=== PATIENT | male | born 1980 | race African-American/Black ===

== ENCOUNTER 2018-04-22 07:03 | Inpatient (IN) | payer BC ==
[2018-04-22] MEDS ORDERED: Ondansetron PF 4 MG/2 ML Vial ONE (07:32)
[2018-04-22] MEDS ORDERED: Morphine 4 MG/ML VIAL ONE ×2 (07:32→08:36)
--- NOTE | 2018-04-22 08:43 | CT ---
CT ABDOMEN AND PELVIS WITH IV CONTRAST: Date: 04/22/18 HISTORY: Lower abdominal pain and vomiting. FINDINGS: The lung bases are unremarkable. There is fatty infiltration of the liver. No hepatic mass or abnorma l biliary ductal dilatation is seen. No calcified gallstones are noted. There is peripancreatic infla mmatory change and fluid in the anterior peritoneal space. There is also a small amount of free fluid in the pelvis. No pancreatic necrosis or calcifications are seen. The spleen, adrenal glands, and ri ght kidney are normal. There is a low density lesion in the left kidney, likely cyst. The small bowel loops are not abnormally dilated. A normal appearing appendix is seen. No portal splenic thrombosis is identified. A small, fat-containing umbilical hernia is present. IMPRESSION: 1. Fatty liver. 2. Pancreatitis. POS: MOIZ
[2018-04-22] MEDS ORDERED: Heparin 10,000 UNITS/ 10 ML VIAL ONE (09:00)
[2018-04-22] MEDS ORDERED: Fentanyl 100 MCG/2 ML VIAL ONE ×2 (09:26→11:06)
[2018-04-22 09:31] LABS: Hemoglobin 15.7 g/dL (14.0-18.0); Mean Corpuscular HGB CONC 31.4 g/dL (32.0-36.0); Mean Corpuscular Hemoglobin 25.8 pg (27.0-31.0); Mean Corpuscular Volume 82.3 fL (78.0-98.0); Mean Platelet Volume 8.6 fL (7.4-10.4); Platelet Count 247 thou/uL (130-400); RBC Distribution Width 12.8 % (11.5-14.5); Red Blood Cell (RBC) Count 6.07 mill/uL (4.70-6.10)
[2018-04-22 09:36] LABS: Albumin 4.3 g/dL (3.5-5.0)
[2018-04-22 09:37] LABS: Chloride 96 mmol/L (98-107)
[2018-04-22 09:38] LABS: Calcium 8.9 mg/dL (7.8-10.44); Potassium 5.2 mmol/L (3.5-5.1); Sodium 128 mmol/L (136-145)
[2018-04-22 09:39] LABS: Globulin 3.1 g/dL (2.4-3.5); Glucose 255 mg/dL (70-105); Protein, Total 7.4 g/dL (6.0-8.3)
[2018-04-22 09:40] LABS: Carbon Dioxide 20 mmol/L (22-29)
[2018-04-22 09:41] LABS: Bilirubin, Total 1.9 mg/dL (0.2-1.2)
[2018-04-22 09:42] LABS: Alkaline Phosphatase 59 U/L (40-150); Calc. Creatinine Clearance 0 mL/min (70-130); Estimated GFR-MDRD Greater than 90
[2018-04-22 09:43] LABS: BUN (Urea Nitrogen) 21 mg/dL (8.9-20.6)
[2018-04-22 09:44] LABS: AST (SGOT) 44 U/L (5-34)
[2018-04-22 09:45] LABS: ALT (SGPT) 63 U/L (8-55)
[2018-04-22 09:58] LABS: Bilirubin Negative (Negative); Blood, Urine Small (Negative); Clarity CLEAR (Clear); Glucose, Urine (Dipstick) 500 mg/dL (Negative); Leukocyte Negative (Negative); Nitrite Negative (Negative); Protein, Urine (Dipstick) Trace mg/dL (Neg-Trace); Urobilinogen 0.2 mg/dL (0.2-1.0); pH, Urine 5.5 (5.0-9.0)
[2018-04-22 10:00] LABS: Anion Gap 17 mmol/L (10-20)
[2018-04-22 10:02] LABS: Bacteria/HPF None Seen HPF (None Seen); Hyaline Casts/LPF 0-3 HYALINE CAST LPF (0-3 Hyaline); Squamous Epithelial 0-3 HPF (0-3); WBC/HPF 0-3 HPF (0-3)
[2018-04-22 10:08] LABS: Specific Gravity, Urine 1.052 (1.002-1.036)
[2018-04-22 10:11] LABS: Band 11 % (5-11); Large Platelets SLIGHT; MDiff Complete? YES; Monocytes 3 % (0-10); Neutrophil 64 % (42-75); PLT Morphology Comment Appears Adequate; RBC Morphology Normal; Reactive Lymphocytes 22 % (0-10); White Blood Cell (WBC) Count 24.3 thou/uL (4.8-10.8)
[2018-04-22 10:37] LABS: Lipase 1299 U/L (8-78)
[2018-04-22] MEDS ORDERED: Dextrose 5 % And 0.9 % NaCl 1,000 ML IV SCH (11:30)
--- NOTE | 2018-04-22 11:33 | ULT ---
ULTRASOUND ABDOMEN LIMITED: (RIGHT UPPER QUADRANT) HISTORY: 37-year-old male with epigastric pain. FINDINGS: The gallbladder has normal wall thickness and has no evidence of gallstones or sludge. The hepatic ec hogenicity is diffusely increased, consistent with fatty liver. Liver is mildly enlarged. The right kidney has normal echogenicity and has no hydronephrosis. The pancreas is poorly visualized. There i s no biliary dilation. The common duct caliber is 5 mm. IMPRESSION: 1. Hepatic steatosis and hepatomegaly. 2. No other pathology identified. 3. Pancreas poorly visualized. jn [] POS: JANUSZ
[2018-04-22] MEDS ORDERED: ISOVUE-370 76%-LOCM 1 ML ONE (12:40)
[2018-04-22] MEDS ORDERED: Morphine 4 MG/ML VIAL SLOW IVP PRN (14:03)
[2018-04-22] MEDS ORDERED: Ondansetron PF 4 MG/2 ML Vial IVP PRN (15:42)
[2018-04-22] MEDS ORDERED: Acetaminophen 325 MG TAB PO PRN (15:42)
[2018-04-22] MEDS ORDERED: Sodium Chloride 0.9% 1,000 ML IV SCH (16:47)
[2018-04-22] MEDS ORDERED: Dextrose 5% in Water 1,000 ML IV PRN (16:47)
[2018-04-22] MEDS ORDERED: HumaLOG 300 UNITS/3 ML VIAL SC PRN (16:47)
[2018-04-22] MEDS ORDERED: Dextrose 50% Abboject 50 ML SYRINGE SLOW IVP PRN (16:47)
[2018-04-22] MEDS: NS 0.9% w/ 20 MEQ KCL 1,000 ML IV SCH ×2 (17:23→21:44)
[2018-04-22] MEDS: Morphine 4 MG/ML VIAL SLOW IVP PRN ×2 (17:24→21:43)
[2018-04-22] MEDS: Piperacillin/Tazobactam 3.375 GM in Sodium Chloride 0.9% 100 ML IVPB SCH ×2 (17:25→23:33)
--- NOTE | 2018-04-22 19:22 | HP ---
PRIMARY CARE PHYSICIAN: Taniya Neri M.D. CHIEF COMPLAINT: Abdominal pain. HISTORY OF PRESENT ILLNESS: Mr. Cao is a pleasant 37-year-old gentleman that has a history of hypertension as well as asthma. He was in his usual state of health until a few days prior to admission. He began having some abdominal pain. He says it started while he was picking up some wood in his backyard. He really cannot remember whether or not it was related to eating, but his says that he had a barbecue earlier that day at his job and suspects that he probably ate some. The patient says it is extremely severe and he also noted some pain in his back, but he had related the back pain to picking up the burgos and thought he may have sprained something. He also says he has been vomiting multiple times and felt constipated and this is the main reason that he came in. He also says he has been feeling hot all the time, but no chills. He says that when he had some vomiting, there was some blood in the toilet, but he does not remember having any melena or dark stools. The patient was evaluated in the ER, had a CT scan which was demonstrated some inflammation around the pancreas, no evidence of any stones in the gallbladder. His lipase was also elevated and he is being admitted for further treatment. REVIEW OF SYSTEMS: All systems are reviewed and are negative except for that mentioned in the history of present illness. PAST MEDICAL HISTORY: Significant for asthma and hypertension. PAST SURGICAL HISTORY: He has had some type of oral surgery. ALLERGIES: CIPROFLOXACIN. SOCIAL HISTORY: He denies any tobacco use. He does occasionally uses a vapor cigarettes. He does drink occasionally, but is only 1 or 2 beers every now and then. MEDICATIONS: Lisinopril 10 mg daily as well as albuterol p.r.n. FAMILY HISTORY: Significant for cancer. PHYSICAL EXAMINATION: GENERAL: He is alert and oriented. He is well-developed and well-nourished, and appears in no acute distress. VITAL SIGNS: Blood pressure was 162/100, heart rate 118, respiratory rate of 25 , and temperature is 98.1. HEENT: Pupils are equal, round, and reactive. Extraocular muscles are intact. Sclerae are anicteric. Throat: There is no erythema, no exudates. NECK: No adenopathy, no bruits. LUNGS: Clear to auscultation. There was no wheezing, no rales, no rhonchi. CARDIOVASCULAR: He has a normal S1 and S2. I did not appreciate an S3 or S4. No murmurs, no clicks, no rubs. ABDOMEN: Distended. He has diffuse tenderness. There is no rebound, no guarding, no organomegaly. EXTREMITIES: There is trace edema. There is no calf tenderness, no erythema, no warmth. NEUROLOGIC: Cranial nerves II through XII are intact. His muscle strength is 5 /5 in both his upper and lower extremities. SKIN AND INTEGUMENT: On his right lateral calf, there is a small ulcer with an erythematous base, mainly keratinized with a small opening. There was no purulent drainage, no surrounding induration or erythema and otherwise no other skin lesions. LABORATORY RESULTS: Sodium was 128, potassium 5.2, chloride is 96, CO2 is 20, BUN of 21, creatinine 0.87, glucose was 255, total bilirubin was 1.9, AST is 44 , ALT 63, lipase was 1299. White blood cell count is 24.3, hemoglobin 15.7, hematocrit is 49.9, platelet count was 247. Urinalysis was essentially negative. ASSESSMENT AND PLAN: 1. This is a 37-year-old gentleman, who presents to the emergency room with severe abdominal pain. He was found to have an elevated lipase and radiological evidence for pancreatitis. It is unclear of the etiology; however , the patient does state that he started on a ketotic diet around the same time his symptoms started and his bilirubin was slightly elevated. It is possible that he may have passed a small stone, possibly as a result to this new dieting that he had started. He says that he had a recent cholesterol level drawn, which was normal. Otherwise, there is no obvious risk factors for pancreatitis. He will be admitted to the medical floor, started on IV hydration. We will monitor his electrolytes as well as his serum glucose and respiratory status. He will be left n.p.o. for bowel rest except for medications, IV analgesics for pain control and IV antiemetics and reevaluate him in the a.m. 2. Sepsis Syndrome- Suspected due to pancreatitis 3. For hypertension, we will place him on p.r.n. medications as needed. We will hold off on the lisinopril for now. 4. Asthma. We will have DuoNebs p.r.n. available and he will be placed on deep venous thrombosis and gastrointestinal prophylaxis. MTDD
[2018-04-22] MEDS: Famotidine/PF 20 mg/2ml Vial SLOW IVP SCH (21:43)
[2018-04-22 21:56] LABS: Amphetamine Not Detected (NotDetected); Barbiturates Screen Not Detected (NotDetected); Benzodiazepine Screen Not Detected (NotDetected); Cocaine Metabolite Screen Not Detected (NotDetected); Medtox Control Line Valid? VALID (VALID); Medtox Reader # READER 1; Methadone Not Detected (NotDetected); Methamphetamine Not Detected (NotDetected); Opiate Screen Detected (NotDetected); Oxycodone Screen Not Detected (NotDetected); Phencyclidine (PCP) Not Detected (NotDetected); THC/Cannabinoid Screen Not Detected (NotDetected); Tricyclic Screen Not Detected (NotDetected)
[2018-04-22] MEDS: HumaLOG 300 UNITS/3 ML VIAL SC PRN (22:25)
[2018-04-23 04:31] LABS: Band 37 % (5-11); Hemoglobin 14.2 g/dL (14.0-18.0); Lymphocytes 6 % (21-51); MDiff Complete? YES; Mean Corpuscular HGB CONC 31.2 g/dL (32.0-36.0); Mean Corpuscular Hemoglobin 26.2 pg (27.0-31.0); Mean Corpuscular Volume 83.9 fL (78.0-98.0); Mean Platelet Volume 9.3 fL (7.4-10.4); Metamyelocyte 2 % (0-0); Monocytes 12 % (0-10); Neutrophil 43 % (42-75); PLT Morphology Comment Appears Adequate; Platelet Count 223 thou/uL (130-400); RBC Distribution Width 13.1 % (11.5-14.5); RBC Morphology Normal; White Blood Cell (WBC) Count 25.5 thou/uL (4.8-10.8)
[2018-04-23 04:32] LABS: ALT (SGPT) 49 U/L (8-55); AST (SGOT) 72 U/L (5-34); Albumin 3.4 g/dL (3.5-5.0); Alkaline Phosphatase 50 U/L (40-150); Anion Gap 19 mmol/L (10-20); BUN (Urea Nitrogen) 38 mg/dL (8.9-20.6); Bilirubin, Direct 3.7 mg/dL (0.1-0.3); Bilirubin, Total 5.9 mg/dL (0.2-1.2); Calc. Creatinine Clearance 75 mL/min (70-130); Calcium 8.1 mg/dL (7.8-10.44); Carbon Dioxide 18 mmol/L (22-29); Cardiac Risk 3.6 (Less than 4.5); Chloride 98 mmol/L (98-107); Cholesterol 119 mg/dl (< 200 Desired); Estimated GFR-MDRD 30; Glucose 476 mg/dL (70-105); HDL Cholesterol 33 mg/dL (>60 Neg Risk); LDL Cholesterol, Calculated 57 mg/dL; Potassium 6.9 mmol/L (3.5-5.1); Protein, Total 6.1 g/dL (6.0-8.3); Sodium 128 mmol/L (136-145); Triglycerides 146 mg/dL (Less than 150)
[2018-04-23] MEDS: Morphine 4 MG/ML VIAL SLOW IVP PRN ×3 (05:03→21:14)
[2018-04-23] MEDS: HumaLOG 300 UNITS/3 ML VIAL SC PRN (05:06)
[2018-04-23] MEDS: Piperacillin/Tazobactam 3.375 GM in Sodium Chloride 0.9% 100 ML IVPB SCH ×4 (05:09→23:10)
[2018-04-23] MEDS: Lactated Ringer's 1,000 ML IV SCH ×2 (05:11→10:02)
[2018-04-23 05:14] LABS: Albumin 3.5 g/dL (3.5-5.0); Anion Gap 20 mmol/L (10-20); BUN (Urea Nitrogen) 39 mg/dL (8.9-20.6); BUN/Creatinine Ratio 13.98; Calc. Creatinine Clearance 78 mL/min (70-130); Carbon Dioxide 18 mmol/L (22-29); Chloride 99 mmol/L (98-107); Estimated GFR-MDRD 31; Glucose 472 mg/dL (70-105); Phosphorus 2.9 mg/dL (2.3-4.7); Sodium 130 mmol/L (136-145)
[2018-04-23] MEDS ORDERED: Calcium Gluc 4.6 MEQ/10 ML (100 MG/ML) SLOW IVP SCH (05:15)
[2018-04-23 05:16] LABS: Potassium 7.4 mmol/L (3.5-5.1)
[2018-04-23] MEDS: NS 0.9% w/ 20 MEQ KCL 1,000 ML IV SCH (05:33)
[2018-04-23 07:41] LABS: Albumin 3.7 g/dL (3.5-5.0); BUN (Urea Nitrogen) 42 mg/dL (8.9-20.6); BUN/Creatinine Ratio 12.24; Calc. Creatinine Clearance 64 mL/min (70-130); Calcium 8.2 mg/dL (7.8-10.44); Carbon Dioxide 14 mmol/L (22-29); Chloride 98 mmol/L (98-107); Estimated GFR-MDRD 25; Glucose 509 mg/dL (70-105); Phosphorus 2.6 mg/dL (2.3-4.7); Sodium 125 mmol/L (136-145)
[2018-04-23 07:48] LABS: Potassium 7.5 mmol/L (3.5-5.1)
[2018-04-23] MEDS ORDERED: CCU Electrolyte Replacement 1 EACH IVPB ONE (08:39)
[2018-04-23] MEDS ORDERED: Dextrose 5 %-0.45 % NaCl 1,000 ML IV PRN (08:39)
[2018-04-23] MEDS ORDERED: D5 1/2 NS w/20 mEq KCL 1,000 ML IV PRN (08:39)
[2018-04-23] MEDS ORDERED: Sodium Chloride 0.9% 1,000 ML IV PRN ×4 (08:39)
[2018-04-23] MEDS ORDERED: NS 0.9% w/ 20 MEQ KCL 1,000 ML IV PRN ×2 (08:39)
[2018-04-23] MEDS ORDERED: Insulin Regular 300 UNITS/3 ML VIAL IVP SCH (08:45)
[2018-04-23] MEDS ORDERED: Calcium Chloride 1 GM/10 ML Abboject SYRINGE IVP SCH (08:45)
[2018-04-23 08:48] LABS: Anion Gap 18 mmol/L (10-20)
--- NOTE | 2018-04-23 09:08 | PDOC.PN ---
- Subjective Encounter Start Date: 04/23/18 Encounter Start Time: 09:07 Mr. Cao was seen today in follow-up of Acute pancreatitis. He says the pain about a 4/10 today, and that he has less abdominal pain. He appears uncomfortable however. - Objective Resuscitation Status: Resuscitation Status FULL:Full Resuscitation MAR Reviewed: Yes Vital Signs & Weight: Vital Signs (12 hours) Temp Pulse Resp BP Pulse Ox 04/23/18 07:16 98.7 F 125 H 36 H 96/69 92 L 04/23/18 04:00 98.4 F 129 H 29 H 155/93 H 93 L 04/23/18 00:00 99.3 F 121 H 29 H 121/66 95 Weight Weight 331 lb I&O: 04/22/18 04/23/18 04/24/18 06:59 06:59 06:59 Intake Total 3941 Output Total 275 Balance 3666 Result Diagrams: 04/23/18 03:40 04/23/18 07:02 Additional Labs: Accuchecks 04/22/18 04/22/18 22:10 17:38 POC Glucose 388 H 304 H Phys Exam - Physical Examination HEENT: PERRLA Respiratory: no wheezing, no rales, no rhonchi, clear to auscultation bilateral Cardiovascular: RRR, no significant murmur, no rub tachycardic Gastrointestinal: soft + diffuse abdominal tenderness, mildly distended, bowel sounds are hypo- active Musculoskeletal: edema present 2+ pitting edema in both lower extemities Neurological: non-focal, moves all 4 limbs Psychiatric: A&O x 3 Dx/Plan (1) Acute pancreatitis Code(s): K85.90 - ACUTE PANCREATITIS WITHOUT NECROSIS OR INFECTION, UNSP Status: Acute (2) Acute kidney failure Status: Acute (3) Hyperkalemia Code(s): E87.5 - HYPERKALEMIA Status: Acute (4) Hyperglycemia Code(s): R73.9 - HYPERGLYCEMIA, UNSPECIFIED Status: Acute (5) Hypertension Code(s): I10 - ESSENTIAL (PRIMARY) HYPERTENSION Status: Acute - Plan * Acute Pancreatits- this has worsened overnight. He has developed acute renal failure, and he has an elevated bilirubin, and could have a common duct stone. GI has been notified of his change in condition * Acute Kidney failure- continue Hydration, and will consult Nephrology * Hyperkalemia- will treat with Kayexalate, Calcium Chloride, and glucose / insulin. * Hyperglycemia- likely from the acute pancreatitic injury- will place him on an insulin drip for better control, and to help with his hyperkalemia. Hopefully he will only need this for a short period * HTN- blood pressure is low- Lisinopril is on hold * Elevated Liver function tests- he is on empiric antibiotics for possible Cholangitis, and await GI input
[2018-04-23 09:09] LABS: Anion Gap 22 mmol/L (10-20); BUN (Urea Nitrogen) 44 mg/dL (8.9-20.6); Calc. Creatinine Clearance 62 mL/min (70-130); Calcium 7.9 mg/dL (7.8-10.44); Carbon Dioxide 13 mmol/L (22-29); Chloride 99 mmol/L (98-107); Estimated GFR-MDRD 24; Glucose 513 mg/dL (70-105); Sodium 126 mmol/L (136-145)
[2018-04-23] MEDS ORDERED: CCU ELECTROLYTE REPLACEMENT PROTOCOL FS PRN (09:10)
[2018-04-23] MEDS ORDERED: Magnesium Oxide 400 MG TAB PO PRN ×2 (09:10)
[2018-04-23] MEDS ORDERED: Magnesium 2 GM/NS 0.9% 100 ML 2 GM in Premix Bag 1 BAG IVPB PRN (09:10)
[2018-04-23] MEDS ORDERED: Potassium Phosphate 12 MMOL in Sodium Chloride 0.9% 250 ML 250 ML IV PRN (09:10)
[2018-04-23] MEDS ORDERED: Potassium Phosphate 15 MMOL in Sodium Chloride 0.9% 250 ML 250 ML IV PRN (09:10)
[2018-04-23] MEDS ORDERED: Potassium Chloride 20 MEQ TAB PO PRN (09:10)
[2018-04-23] MEDS ORDERED: Potassium Phosphate 9 MMOL in Sodium Chloride 0.9% 100 ML IVPB PRN (09:10)
[2018-04-23] MEDS ORDERED: Potassium Chloride 40 MEQ in Sodium Chloride 0.9% 250 ML 250 ML IVPB PRN (09:10)
[2018-04-23] MEDS ORDERED: Potassium Chloride 40 MEQ in Premix Bag 1 BAG IVPB PRN (09:10)
[2018-04-23 09:21] LABS: Potassium 7.8 mmol/L (3.5-5.1)
[2018-04-23] MEDS: Enoxaparin Sodium 40 MG/0.4 ML SYRINGE SC SCH (09:51)
[2018-04-23] MEDS: Famotidine/PF 20 mg/2ml Vial SLOW IVP SCH ×2 (09:52→20:24)
[2018-04-23] MEDS ORDERED: PROVENTIL INHALER 6.7 G (200 INHALATIONS) INH SCH (10:15)
[2018-04-23] MEDS ORDERED: Albuterol Sulfate 2.5 mg/3 ml Neb ONE (10:29)
[2018-04-23] MEDS ORDERED: Albuterol Sulfate 2.5 mg/0.5 ml Neb ONE (10:29)
[2018-04-23] MEDS ORDERED: Heparin 1,000 UNITS/ML VIAL ONE (11:11)
[2018-04-23] MEDS ORDERED: Lidocaine 1% (PF) 30 ML VIAL ONE (11:32)
[2018-04-23 11:49] LABS: HBSAg Index 0.18 S/CO (0-0.99); Hep B Core Total Ab Non-Reactive (NonReactive); Hep B Core Total Index 0.04 S/CO (0-0.79); Hep B Surf AB Non-Reactive (NonReactive); Hep B Surf Ag Non-Reactive S/CO (NonReactive); Hep C IgG Ab Non-Reactive (NonReactive); Hep C Index 0.07 S/CO (0-0.79)
[2018-04-23] MEDS ORDERED: Sodium Chloride 0.9% 1,000 ML IV SCH (12:15)
[2018-04-23] MEDS: Albumin 25% 25 GM/100 ML BOT IVPB SCH ×3 (12:48→23:58)
[2018-04-23] MEDS: Sodium Chloride 0.9% 1,000 ML IV SCH ×2 (12:56→12:57)
[2018-04-23 13:54] LABS: Anion Gap 20 mmol/L (10-20); BUN (Urea Nitrogen) 51 mg/dL (8.9-20.6); Calc. Creatinine Clearance 47 mL/min (70-130); Calcium 8.2 mg/dL (7.8-10.44); Carbon Dioxide 15 mmol/L (22-29); Chloride 103 mmol/L (98-107); Estimated GFR-MDRD 18; Glucose 321 mg/dL (70-105); Potassium 4.7 mmol/L (3.5-5.1); Sodium 133 mmol/L (136-145)
[2018-04-23] MEDS: Lorazepam 2 MG/ML VIAL SLOW IVP PRN ×2 (15:04→22:39)
--- NOTE | 2018-04-23 15:56 | CON ---
DATE OF CONSULTATION: 04/23/2018 HISTORY OF PRESENT ILLNESS: Mr. Cao is a 37-year-old black male who was admitted for acute abdominal pain. A CT scan of the abdomen was done which showed inflammation around the pancreas. The patient has been seen by GI. A planned upper GI endoscopy is being contemplated. We are now being consulte d for the persistent hyperkalemia and acute kidney injury. REVIEW OF SYSTEMS: Positive for abdominal pain. Positive for nausea. No overt vomiting, no diarrhe a, no constipation. Mild shortness of breath, no headache, no diplopia. Denies any fever or chills. Positive for chronic shortness of breath. No dysuria, no urinary frequency, no productive cough, n o headache. Energy level is decreased. No melena, no hematemesis. PAST MEDICAL HISTORY: 1. COPD. 2. Hypertension. PAST SURGICAL HISTORY: Status post oral surgery. ALLERGIES: CIPRO. TRAUMA: None. IMMUNIZATIONS: Up to date. HOSPITALIZATIONS: Please see past medical history. SOCIAL HISTORY: The patient is from [place]. He occasionally uses vapor cigarettes. Occasional al cohol, no IV drug abuse. Denies any blood transfusion. FAMILY HISTORY: No family history of ESRD. PHYSICAL EXAMINATION: VITAL SIGNS: Blood pressure is 96/69 with a heart rate of 125, respiratory rate is 36, O2 sat is 92% on room air, temperature 98.7. GENERAL: The patient is awake, obese, not in overt distress. SKIN: Adequate turgor. HEENT: He has pinkish conjunctivae, anicteric sclerae. NECK: No neck mass, no carotid bruits, no JVD. CHEST: No deformities. LUNGS: Decreased breath sounds, no wheezing. HEART: Tachycardic. No murmur, no gallops or rubs. ABDOMEN: Globular, soft, nontender, no masses. Decreased bowel sounds. EXTREMITIES: No edema, no deformities. MEDICATIONS: Of 04/23/2018, shows Tylenol 650 mg q.4. p.r.n., DuoNeb q.6 four times a day, Lovenox 40 mg subcu daily, Pepcid 20 mg IV daily, hydralazine p.r.n., Humalog sliding scale, Humulin D5 LR 20 0 mL per hour. LABORATORY DATA: Of 04/23/2018, white count 25.5, hemoglobin 14.2. Sodium 126, potassium 7.8, chlor isaias 99, carbon dioxide 13, BUN 44, creatinine 3.53. On 04/22/2018, creatinine was 0.87. Urinalysis showed specific gravity of 1.052: no pigmented granular cast. Glucose 500, protein is tr katie. CT scan of the abdomen and pelvis shows fatty liver. Finding of pancreatitis and kidneys are reporte d to be within normal. ASSESSMENT AND PLAN: 1. Acute kidney injury -- consider hemodynamically mediated renal dysfunction. Would suggest we als o start him on albumin infusion 25 grams IV q.6 for the next 3 days. The patient currently on IV vol ume repletion. 2. Hyperkalemia due to the worsening renal dysfunction and persistent hyperkalemia. We will proceed with the dialytic intervention. I have scheduled him for a 2-hour hemodialysis today. Fluid remova l will be minimized due to the hypertension with this patient. His urine sediment suggests he has ve ry prerenal numbers. I will initially do a 1-0 potassium bath on the 1st hour, then do a 2-0 potassi um bath the next hour. Thank you for the consult. We will continue to follow.
[2018-04-23 16:17] LABS: Actual Bicarbonate (HCO3a) 18.4 mEq/L (22-28); Base Excess (BEa) -6.1 mEq/L (-2.0 to +3.0); CO2 Tension 33.7 mmHg (35.0-45.0); Calcium, Ionized 1.11 mmol/L (1.12-1.30); Carboxyhemoglobin (COHb) 2.2 gm% (0.0-3.0); Hemoglobin (Hb) 13.8 g/dL (14.0-18.0); Potassium - ABG Lab 4.04 mmol/L (3.70-5.30); pH, Arterial 7.36 (7.35-7.45)
[2018-04-23 16:18] LABS: ALV-art Gradient 53.405 (0-20); O2 Tension (PaO2) 54.2 mmHg (80.0-100.0); Puncture Site RRA
--- NOTE | 2018-04-23 16:44 | OP ---
DATE OF PROCEDURE: 04/23/2018 PREOPERATIVE DIAGNOSES: 1. Acute renal failure. 2. Acute hyperkalemia. 3. Acute severe pancreatitis. POSTOPERATIVE DIAGNOSES: 1. Acute renal failure. 2. Acute hyperkalemia. 3. Acute severe pancreatitis. PROCEDURES PERFORMED: Placement of right femoral Trialysis catheter for emergent dialysis. INDICATIONS FOR PROCEDURE: A 37-year-old morbidly obese man presented with acute severe abdominal pa in. Clinical and radiographic examination was consistent with acute severe pancreatitis complicated by acute renal failure and hyperkalemia requiring emergent dialysis for the high potassium of 8. DESCRIPTION OF PROCEDURE: Informed consent obtained following the patient was placed in supine posit ion. The right groin was sterilely prepped and draped in usual fashion. The right femoral artery was palpated. Right femoral vein was then cannulated with an 18-gauge intro ducer needle medial to the palpated artery. There was a single pass with return of dark venous blood . A guidewire was passed through the needle and advanced into the right femoral vein without resista nce. The needle was withdrawn over the guidewire. A stab incision was made adjacent to the guidewir e using an 11 scalpel. Dilator was passed over the guidewire dilating subcutaneous tissues. Dilator was removed and a triple lumen Trialysis catheter was advanced over the guidewire and placed in the right femoral vein without resistance down to the hub. The guidewire was removed. Dark venous blood was aspirated from all 3 ports which were individually flushed with saline followed by straight hepa rin. Catheter was secured to the right groin using 3-0 nylon suture at 2 points. Sterile dressings were applied. The patient tolerated the procedure without any apparent complication and remains hemo dynamically stable following completion of the procedure.
[2018-04-23] MEDS: DEXTROSE IV SCH ×2 (16:51→23:58)
[2018-04-23] MEDS: SODIUM BICARBONATE IV SCH ×2 (16:51→23:58)
[2018-04-23] MEDS: NACL IV SCH ×2 (16:51→23:58)
[2018-04-23 17:07] LABS: Anion Gap 17 mmol/L (10-20); BUN (Urea Nitrogen) 41 mg/dL (8.9-20.6); Calc. Creatinine Clearance 52 mL/min (70-130); Calcium 8.6 mg/dL (7.8-10.44); Carbon Dioxide 20 mmol/L (22-29); Chloride 104 mmol/L (98-107); Estimated GFR-MDRD 19; Glucose 128 mg/dL (70-105); Potassium 4.5 mmol/L (3.5-5.1); Sodium 136 mmol/L (136-145)
--- NOTE | 2018-04-23 22:18 | CON ---
DATE OF CONSULTATION: 04/23/2018 HISTORY: Xavier Cao is a 37-year-old morbidly obese -[place] gentleman who was admitted las t night with bladder pain. At 07:05 was when he arrived. His sats was 97% on room air, blood pressure was 118/77, respirations were 36. A CAT scan of his abdomen revealed pancreatitis. He presented with upper abdominal pain. Denies any alcohol abuse. Denies any tobacco abuse. He sees Dr. Neri locally here with a diagnosis of asth ma and hypertension. Abdominal pain and vomiting. He was given fentanyl 100 mcg in the ER. He is now in the IMCU. He has had worsening respiratory distress, worsening renal function this morning. PAST MEDICAL HISTORY: Asthma, hypertension. PREVIOUS SURGICAL HISTORY: Oral surgery. MEDICATIONS: Chronic medications from home includes lisinopril 40, albuterol. Since admission, he was started on Zosyn, IV fluids, Lovenox, hydralazine. ALLERGIES: He is allergic to CIPRO. SOCIAL HISTORY: Otherwise unremarkable. FAMILY HISTORY: Unremarkable. PHYSICAL EXAMINATION: VITAL SIGNS: Sats are 92% on 2 liters, blood pressure 96/69, temperature 98, pulse 125, respirations 36. GENERAL: He is awake, responsive, just complaining of pain. Clearly, he is tachypneic. CHEST: Decreased breath sounds without any wheezing. CARDIAC: Normal S1, S2. No gallops. ABDOMEN: Soft, no masses. LABORATORY DATA: Shows white count of 25,000, H&H 14 and 45, platelet count 223. Sodium is 125, pot assium 7.5. BUN and creatinine are 42 and 3.4. His glucose is 519. IMPRESSION: 1. Acute pancreatitis with asthma. 2. Tachypnea secondary to metabolic acidosis. Bicarb is 14. 3. Renal failure, leukocytosis. PLAN: Emergency dialysis to be initiated, 10 units of IV insulin was given, 10 mg IV albuterol is be ing inhaled, decrease his potassium. Broad spectrum antibiotics and IV fluids. Supportive care. This is a 45-minute critical care time. If condition gets worse, he will be transferred to the ICU.
[2018-04-23 23:19] LABS: Anion Gap 18 mmol/L (10-20); BUN (Urea Nitrogen) 48 mg/dL (8.9-20.6); Calc. Creatinine Clearance 40 mL/min (70-130); Calcium 8.1 mg/dL (7.8-10.44); Carbon Dioxide 20 mmol/L (22-29); Chloride 101 mmol/L (98-107); Estimated GFR-MDRD 15; Glucose 247 mg/dL (70-105); Potassium 4.6 mmol/L (3.5-5.1); Sodium 134 mmol/L (136-145)
[2018-04-24] MEDS: Morphine 4 MG/ML VIAL SLOW IVP PRN (01:21)
[2018-04-24 04:47] LABS: Anion Gap 16 mmol/L (10-20); BUN (Urea Nitrogen) 53 mg/dL (8.9-20.6); Calc. Creatinine Clearance 35 mL/min (70-130); Calcium 8.2 mg/dL (7.8-10.44); Carbon Dioxide 24 mmol/L (22-29); Chloride 101 mmol/L (98-107); Estimated GFR-MDRD 13; Glucose 184 mg/dL (70-105); Potassium 4.1 mmol/L (3.5-5.1); Sodium 137 mmol/L (136-145)
[2018-04-24 04:50] LABS: ALT (SGPT) 43 U/L (8-55); AST (SGOT) 78 U/L (5-34); Albumin 3.6 g/dL (3.5-5.0); Alkaline Phosphatase 41 U/L (40-150); Bilirubin, Direct 5.3 mg/dL (0.1-0.3); Bilirubin, Total 7.7 mg/dL (0.2-1.2); Protein, Total 6.1 g/dL (6.0-8.3)
[2018-04-24] MEDS: DEXTROSE IV SCH ×7 (05:12→23:20)
[2018-04-24] MEDS: NACL IV SCH ×7 (05:12→23:20)
[2018-04-24] MEDS: SODIUM BICARBONATE IV SCH ×7 (05:12→23:20)
[2018-04-24] MEDS: Piperacillin/Tazobactam 3.375 GM in Sodium Chloride 0.9% 100 ML IVPB SCH ×4 (05:12→23:33)
[2018-04-24] MEDS: Albumin 25% 25 GM/100 ML BOT IVPB SCH ×4 (05:13→23:33)
[2018-04-24] MEDS: Lorazepam 2 MG/ML VIAL SLOW IVP PRN ×3 (05:19→22:21)
[2018-04-24 05:30] LABS: Band 15 % (5-11); Hemoglobin 11.4 g/dL (14.0-18.0); Hypochromia SLIGHT = 6-15 cells (100X) (0-5/hpf); Lymphocytes 12 % (21-51); MDiff Complete? YES; Mean Corpuscular HGB CONC 31.7 g/dL (32.0-36.0); Mean Corpuscular Hemoglobin 26.1 pg (27.0-31.0); Mean Corpuscular Volume 82.4 fL (78.0-98.0); Mean Platelet Volume 9.7 fL (7.4-10.4); Monocytes 4 % (0-10); Neutrophil 69 % (42-75); PLT Morphology Comment Appears Adequate; Platelet Count 180 thou/uL (130-400); Red Blood Cell (RBC) Count 4.37 mill/uL (4.70-6.10); White Blood Cell (WBC) Count 15.6 thou/uL (4.8-10.8)
--- NOTE | 2018-04-24 07:59 | RAD ---
CHEST ONE VIEW: HISTORY: Difficulty breathing. COMPARISON: None. FINDINGS: Diminished lung volumes, likely due to poor inspiratory effort. No masses or consolidation. Normal cardiac silhouette. No pneumothorax or osseous abnormalities. IMPRESSION: Diminished lung volumes, likely due to poor inspiratory effort. POS: JANUSZ
--- NOTE | 2018-04-24 08:22 | PRG ---
DATE OF SERVICE: 04/24/2018 This is a 37-year-old gentleman who was dialyzed yesterday on an emergency basis. He is on BiPAP bu t his chest x-ray is completely normal. PHYSICAL EXAMINATION: VITAL SIGNS: Sats are 98%, respiration 25, pulse 130, temperature is 97. His I's and O's are 6052 i n, 562 out. CHEST: Chest reveals decreased breath sounds, no wheezing. CARDIAC: Normal S1, S2. ABDOMEN: Soft, no masses. LABORATORY: Segs 69, 15 bands. Creatinine 6, BUN 53, glucose 187. His bicarbonate is 24. IMPRESSION: 1. Acute pancreatitis. 2. Renal failure. 3. History of asthma. 4. Morbid obesity. 5. Marked respiratory distress. The chest x-ray is relatively unremarkable. PLAN: Continue broad-spectrum antibiotics. Continue neb treatments, PT and supportive care. Dialysis will follow. One-half hour critical care time.
--- NOTE | 2018-04-24 08:53 | PDOC.PN ---
- Subjective Encounter Start Date: 04/24/18 Encounter Start Time: 08:52 Mr. Cao was seen today in follow-up of severe acute pancreatitis. He says his abdominal pain has improved. He rates it a 2/10. However he is tachypnic and appears very uncomfortable. - Objective Resuscitation Status: Resuscitation Status FULL:Full Resuscitation MAR Reviewed: Yes Vital Signs & Weight: Vital Signs (12 hours) Temp Pulse Resp BP Pulse Ox 04/24/18 07:27 97.8 F 131 H 25 H 143/101 H 98 04/24/18 07:19 131 H 27 H 99 04/24/18 07:18 131 H 27 H 99 04/24/18 06:30 128 H 26 H 118/94 H 98 04/24/18 06:03 129 H 26 H 129/99 H 97 04/24/18 05:09 134 H 33 H 130/89 97 04/24/18 04:33 131 H 26 H 151/88 H 97 04/24/18 04:04 127 H 29 H 157/77 H 97 04/24/18 03:44 99.0 F 126 H 26 H 136/101 H 97 04/24/18 03:04 126 H 32 H 102/70 98 04/24/18 02:30 126 H 27 H 117/76 97 04/24/18 02:05 128 H 28 H 111/50 L 97 04/24/18 01:10 125 H 32 H 112/88 99 04/24/18 01:05 126 H 41 H 97 04/24/18 00:32 127 H 28 H 132/81 97 04/24/18 00:07 99.1 F 129 H 29 H 116/77 98 04/23/18 23:30 128 H 31 H 125/75 98 04/23/18 23:05 98.2 F 133 H 35 H 110/81 96 04/23/18 22:35 132 H 32 H 114/50 L 96 04/23/18 22:06 135 H 33 H 110/75 95 04/23/18 21:42 136 H 31 H 133/90 95 04/23/18 21:20 136 H 36 H 112/77 96 Weight Weight 341 lb I&O: 04/23/18 04/24/18 04/25/18 06:59 06:59 06:59 Intake Total 3941 6052 Output Total 760 562 Balance 3666 5490 Result Diagrams: 04/24/18 04:00 04/24/18 04:00 Additional Labs: Accuchecks 04/24/18 04/24/18 04/24/18 06:03 05:09 04:04 POC Glucose 187 H 143 H 171 H 04/24/18 04/24/18 04/24/18 03:03 02:04 01:09 POC Glucose 166 H 202 H 248 H 04/24/18 04/23/18 04/23/18 00:06 23:05 22:06 POC Glucose 219 H 241 H 248 H 04/23/18 04/23/18 04/23/18 21:23 20:12 19:13 POC Glucose 248 H 255 H 180 H 04/23/18 04/23/18 04/23/18 17:57 17:06 16:05 POC Glucose 143 H 149 H 125 H 04/23/18 04/23/18 04/23/18 14:46 13:18 12:05 POC Glucose 181 H 287 H 385 H 04/23/18 11:03 POC Glucose 392 H Phys Exam - Physical Examination HEENT: PERRLA Respiratory: no wheezing, no rales, no rhonchi, clear to auscultation bilateral Cardiovascular: RRR, no significant murmur, no rub Distended, and Tense Musculoskeletal: edema present 1+ edema, in both lower extremities Neurological: non-focal, moves all 4 limbs Dx/Plan (1) Acute pancreatitis Code(s): K85.90 - ACUTE PANCREATITIS WITHOUT NECROSIS OR INFECTION, UNSP Status: Acute (2) Acute kidney failure Status: Acute (3) Hyperkalemia Code(s): E87.5 - HYPERKALEMIA Status: Acute (4) Hyperglycemia Code(s): R73.9 - HYPERGLYCEMIA, UNSPECIFIED Status: Acute (5) Hypertension Code(s): I10 - ESSENTIAL (PRIMARY) HYPERTENSION Status: Acute - Plan * Acute Pancreatitis- will continue IV hydration, and bowel rest. His Liver function test continue to rise- ? etiology- will discuss with GI- ? MRCP , ERCP , vs. repeat CT scan * Acute kidney failure- his renal function has worsened overnight- he may require dialysis again * HTN- blood pressure is uncontrolled- will place a catapres patch, and continue PRN medications. * Hyperglycemia- due to acute pancreatitis- will continue the insulin drip for now.- careful monitoring od his blood glucose * Hyperkalemia- resolved with dialysis- will continue to monitor closely * Leukocytosis and sepsis syndrome- thought to be due to pancreatitis- but arie continue IV antibiotics * Due to the severity of the Patient's Pancreatitis and his abdominal exam, will ask General Surgery to see him as well
[2018-04-24] MEDS ORDERED: cloNIDine 0.2mg/24 Hour PATCH TD SCH (09:00)
[2018-04-24] MEDS: Enoxaparin Sodium 40 MG/0.4 ML SYRINGE SC SCH (09:17)
[2018-04-24] MEDS: Famotidine/PF 20 mg/2ml Vial SLOW IVP SCH ×2 (09:19→21:02)
--- NOTE | 2018-04-24 09:53 | CON ---
DATE OF CONSULTATION: 04/22/2018 REFERRING PHYSICIAN: Dr. Ramiro Esposito. REASON FOR CONSULTATION: Acute pancreatitis. HISTORY OF PRESENT ILLNESS: Mr. Xavier Cao is a 37-year-old male, who came to the ER this afternoon with abdominal pain, nausea, and vomiting. The pain started last night and the pain was worse. The pain was over the epigastric area going towards the back. He has severe nausea and vomiting multipl e times through the night. He vomited mostly clear yellowish fluid. He has no hematemesis or vomiti ng any coffee-ground material. The patient had no similar episodes in the past. The patient does no t drink alcohol on a regular basis. He also drinks socially. Last time he had something to drink wa s a week ago and he drank 2 beers. The patient came to the ER and was found to have evidence of acut e pancreatitis. An abdominal sonogram shows no gallstones. An abdominal CAT scan done shows peripan creatic edema, swelling and some mild fluid collection indicative of acute pancreatitis. There is no pancreatic necrosis or any air seen in the pancreatic parenchyma. The patient's serum lipase is sara vated to 1299. Liver function tests are slightly high at level of 1.9, AST is 44, ALT is 63. He has had a stool yesterday morning, but no stool today and he is not passing any flatus either. No other relevant history. ALLERGIES: CIPRO. SOCIAL HISTORY: The patient does not smoke. He drinks alcohol socially. The last time he had somet maranda to drink was a week ago and he drank 2 beers. He is . He does not use any drugs. MEDICAL ILLNESSES: 1. Hypertension. 2. Bronchial asthma. 3. No history of any diabetes, lung disease. SURGERIES: No major surgeries except some oral surgery in the past. FAMILY HISTORY: Uncle of cancer and he thinks it maybe lung cancer, excessive smoker. No famil y history of diabetes also. MEDICATIONS: List reviewed. REVIEW OF SYSTEMS: A 10-point system review. Constitutional: No history of fever, no weight loss, has been doing well until last night. He has good exercise tolerance. HEENT: No visual impairment. No diplopia. Hearing is not impaired. Nose: No nose bleed. Throat: No sore throat. Chest: No history of chronic cough, but does have wheezing off and on from asthma. No hemoptysis. Cardiovasc ular system: No chest pain, no palpitation, no dyspnea, orthopnea or PND. Gastrointestinal: As in history of present illness. Genitourinary: No dysuria or hematuria. Musculoskeletal: Unremarkable . Endocrine: Unremarkable. Neurologic: Unremarkable. Psychiatric: Unremarkable. PHYSICAL EXAMINATION: GENERAL: The patient is obese, he is in moderate discomfort, has received morphine and he is kind of sleepy. He tends to doze off as he is talking to him. VITAL SIGNS: He is afebrile. His pulse is 129, blood pressure is 91/61 in the ICU, but it was 163/9 2 on admission. HEENT: Conjunctivae clear. NECK: Supple. No adenitis or thyromegaly noted. CARDIOVASCULAR SYSTEM: First and second heart sounds normal. LUNGS: Clear to auscultation. ABDOMEN: Abdomen is mildly distended, but soft. Abdomen is tender over the epigastric area, periumb ilical area and also across the upper abdomen. There is no rebound. There is no guarding. No rigid ity. Bowel sounds are not audible. EXTREMITIES: Reveal no edema. LABORATORY DATA AND IMAGING DATA: Laboratory data done today shows CBC; WBC of 24,300, hemoglobin is 15.7, hematocrit 49.9, MCV 82.3, platelet count is 247,000, polymorphs 64. He has bandemia of 11,00 0, reactive lymphocytes 22%. Serum chemistries: Sodium is low at 128, potassium 5.2, chloride 96, b icarbonate is 20, BUN is 21, creatinine of 0.87, glucose 255, calcium 8.9, bilirubin 1.9, AST is 24, ALT is 63, alkaline phosphatase is 59, lipase 1299, total protein 7.4, albumin 4.3. Abdominal CAT sc an shows some free fluid in the peripancreatic area and also peripancreatic edema. There are no gall stones on sonogram. CLINICAL IMPRESSION: 1. Acute pancreatitis, etiology unclear as his abdominal sonogram showed no gallstone. There is no lipid panel done, which could also help us to decide if he has hyperlipidemia to cause pancreatitis. 2. Mild prerenal azotemia with elevated BUN of 21. However, his calcium level is normal at 8.9. 3. Mildly elevated LFTs, mostly given from the peripancreatic edema and then gallbladder disea se. 4. Obesity. 5. Hypertension. 6. Asthma. RECOMMENDATION: 1. Obtain lipid panel. 2. Follow up serum lipase. 3. Aggressive fluid resuscitation with normal saline with 20 of KCl to maximum dose of at least 5-6 liters per day. 4. Followup labs and also follow up serum calcium and magnesium and replace calcium. Also, agree wi th IV morphine every 4 hours. If morphine does not help relieve the pain, may consider a [employer] pump.
--- NOTE | 2018-04-24 10:12 | PRG ---
DATE OF SERVICE: 04/24/2018 Mr. Cao is a 37-year-old black male, who was seen for an acute kidney injury. Creatinine at that annmarie e was noted at 4.25. He was also noted to be hyperkalemic, the potassium 7.8. He underwent 2-hour h emodialysis. This morning, the patient was examined. He is still tachypneic. He is off BiPAP. How ever, he is still tachycardic. PHYSICAL EXAMINATION: VITAL SIGNS: Blood pressure is 143/101, heart rate 131, respiratory rate 25, temperature 97.8, pulse ox 98%. GENERAL EXAM: Sedated, comfortable, not in overt distress, obese. SKIN: Adequate turgor. HEENT: Pinkish conjunctivae, anicteric sclerae. NECK: No neck mass, no carotid bruits, no JVD. CHEST: No deformities. LUNGS: Decreased breath sounds. No wheezing, no crackles. HEART: Tachycardic, no murmur, no gallops, no rubs. ABDOMEN: Globular, soft. EXTREMITIES: Positive for edema. Medications of 04/24/2018 reviewed. LABORATORY DATA: Laboratories of 04/24/2018, white count 15.6, hemoglobin 11.4. Sodium 133, potassi um 4.7, chloride 103, carbon dioxide 15, BUN 51, creatinine 4.64, glucose 321, calcium 8.2. ASSESSMENT AND PLAN: 1. Acute kidney injury - most likely a superimposed acute tubular necrosis. Continue supportive car e. Continue daily dialysis. We will do a 3-hour hemodialysis with this patient with minimal fluid r emoval or fluid removal only as tolerated. 2. Tachycardia - in spite of volume remains tachycardic. We will start on the low dose Cardizem dri p at 2.5 mg per hour. Adjust as needed. 3. Acute pancreatitis, supportive care. GI is following. 4. Overall, prognosis remains guarded with this patient. Case discussed with Dr. Frankel. 5. ? of sepsis, on empiric IV antibiotics.
[2018-04-24] MEDS: Diltiazem 125 MG in Sodium Chloride 0.9% 100 ML IVPB SCH (10:53)
[2018-04-24] MEDS ORDERED: Sodium Chloride 0.9% 1,000 ML IV SCH (12:15)
[2018-04-24] MEDS ORDERED: Morphine 4 MG/ML VIAL SLOW IVP PRN (12:19)
--- NOTE | 2018-04-24 12:33 | CON ---
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 He does drink 1-3 beers on occasion, but did not consume any recently, when three d ays ago he experienced onset of back pain, presented in the emergency room, noted to have elevated li pase and CAT scan of abdomen and pelvis revealed changes consistent with pancreatitis. The patient h ad an ultrasound of the gallbladder revealing a 4 mm bile duct without gallstones. His BUN and creat inine were near normal on admission, and 17, but since have deteriorated. Dr. Wolff place a Trial ysis catheter right groin yesterday to initiate dialysis. Dr. Sequeira has seen him in consultation. The patient's urine output has been very poor essentially anuric making 12 mL in the last 24 hours. He has IV fluids running at 200 an hour and has received 2 boluses yesterday. He continues to complain of severe upper abdominal pain. Heart rate 120-130 and blood pressure 160/108. Prior to this hospi talization, he was being treated for asthma and hypertension, but did not have a history of diabetes. On admission, his glucose was 255. He is 6 foot, 341 pounds, 46 BMI. ALLERGIES: CIPRO. TOBACCO: Occasionally. ALCOHOL: Occasionally, although has not consumed a significant amount prior to this episode. PAST SURGICAL AND MEDICAL HISTORY: Noncontributory except for hypertension. SOCIAL HISTORY: The patient is and has children. PHYSICAL EXAMINATION: VITAL SIGNS: Height 6 foot, 341 pounds, 46 BMI, 99.6, 139, 22, 166/108. HEENT: Unremarkable. LUNGS: Clear to auscultation. CARDIAC: Sinus tachycardia. EXTREMITIES: Midline IV left upper extremity removed. Trialysis catheter right groin. ABDOMEN: Obese, no hernias. Diffusely tender upper abdomen, exam consistent with pancreatitis. EXTREMITIES: Unremarkable. ASSESSMENT AND PLAN: 1. Severe dehydration, increase IV fluids to 350 an hour, IV fluid boluses today. 2. Acute renal failure. Remove midline IV, preserve veins for potential for future dialysis access as he is at risk with his metabolic syndrome, hypertension, probably preexisting diabetes, place a ce ntral line to aid in care and possibly provide TPN access later. 3. Hypertension. 4. Diabetes mellitus, probably pre-existing, undiagnosed. 5. Check hemoglobin A1c. 6. Check magnesium. 7. Metabolic syndrome. 8. Obesity.
--- NOTE | 2018-04-24 12:34 | OP ---
DATE OF PROCEDURE: 04/24/2018 PREOPERATIVE DIAGNOSES: Severe pancreatitis in need of better IV access, acute renal failure, oligur ic. POSTOPERATIVE DIAGNOSES: Severe pancreatitis in need of better IV access, acute renal failure, oligu efren. PROCEDURES: Left IJ central line triple lumen. Ultrasound facilitated. SURGEON: Kamran Sethi M.D. ANESTHESIA: 1% Xylocaine. PROCEDURE: At the patient's bedside, his left side of his neck prepared with ChloraPrep, draped in r outine fashion. Local anesthetic infiltrated into the skin and subcutaneous tissue about the operati ve site. Ultrasound facilitate cannulation left internal jugular vein and J-wire threaded. Trocar c atheter removed. Skin incised and enlarged sharply. Seldinger technique used to place a triple lume n catheter securing it with 3-0 silk suture and sterile dressings applied. J-wire removed. Each por t filled with blood and flushed with saline solution.
[2018-04-24 13:46] LABS: Hemoglobin A1c 5.6 % (4.0-6.0)
[2018-04-24 14:00] LABS: Anion Gap 17 mmol/L (10-20); BUN (Urea Nitrogen) 59 mg/dL (8.9-20.6); Calc. Creatinine Clearance 31 mL/min (70-130); Calcium 7.8 mg/dL (7.8-10.44); Carbon Dioxide 25 mmol/L (22-29); Chloride 100 mmol/L (98-107); Estimated GFR-MDRD 11; Glucose 224 mg/dL (70-105); Magnesium 2.1 mg/dL (1.6-2.6); Potassium 4.2 mmol/L (3.5-5.1); Sodium 138 mmol/L (136-145)
--- NOTE | 2018-04-24 14:39 | PRG ---
DATE OF SERVICE: 04/23/2018 FOLLOWUP VISIT NOTE HISTORY OF PRESENT ILLNESS: This is a 37-year-old male hospitalized with acute abdominal pain, nause a, and vomiting and was found to have evidence of pancreatitis. The etiology is unclear. He does no t drink alcohol and also his abdominal sonogram and CAT scan shows no gallstones. Liver functions ar e slightly elevated. CAT scan did show some fluid collection and also some peripancreatic edema. Th e patient has developed multiple problems since admission. His hyperglycemic pressure more than 500 and also had developed progressive kidney dysfunction. He is also hyperkalemic with potassium of 6.8 and 7.3. He currently has abdominal pain, but no nausea. His liver function test has gone up today . His bilirubin has gone up from 1.9-5.9 today. However, not very high. His AST is 72, ALT 4 9, alkaline phosphatase 50. Potassium level is 3.4, his BUN has gone up to 39, creatinine is 2.79. PHYSICAL EXAMINATION: GENERAL: Obese, appears in moderate distress. VITAL SIGNS: Afebrile, pulse 125, blood pressure is 96/69. HEENT: He is icteric. HEENT: Supple. CARDIOVASCULAR SYSTEM: First and second heart sounds normal. LUNGS: Clear to auscultation. ABDOMEN: It is actually lot softer compared to yesterday which was very firm and tight today. Abdom en is soft. He is still markedly tender over epigastric area. There are no bowel sounds audible. EXTREMITIES: Reveal no edema. CLINICAL IMPRESSION: 1. Acute pancreatitis, etiology unclear with possibility of biliary pancreatitis. 2. Abnormal LFTs, especially bilirubin has gone from 1.9 to 5.9, but his transaminase and alkaline p hosphatase is essentially normal. 3. There is a possibility of retained common bile duct stone. 4. Worsening renal function with hyperkalemia. Plan is being made for dialysis today. 5. Obesity. 6. Hypertension. 7. Asthma. 8. Multiorgan dysfunction due to pancreatitis. Did talked to Dr. Ramiro Esposito about the abnormal LFTs. There is some concern for possibly could have some bile duct stone, but however, his other lab parameters does not really go in fair of the bile d uct stone. Also, his CAT scan sonogram does not show any dilated ducts. One could have elevated LFT s from severe pancreatitis with biliary compression. RECOMMENDATIONS: 1. Continue supportive care. 2. Analgesics. 3. Follow up labs. 4. Hemodialysis today. 5. There is an option of doing an MRCP. It is concerned for common bile duct stone which is less in vasive. The risk of pancreatitis with ERCP . Also agreed with IV antibiotic therapy.
--- NOTE | 2018-04-24 14:54 | RAD ---
PORTABLE SEMIUPRIGHT CHEST 1 VIEW: HISTORY: A 37-year-old male status post central line placement. COMPARISON: 04/24/2018. FINDINGS: Left central line placed with the tip in the region of the distal superior vena cava/right atrial jessica ction. Poor inspiration with some bilateral vascular congestion. No evidence for confluent pneumoni a, pneumothorax, significant pleural effusion, or other acute process. IMPRESSION: Central line placement. Mild vascular congestion. Poor inspiration. No pneumothorax. POS: TPC
--- NOTE | 2018-04-24 14:55 | PDOC.EVN ---
Event Note - Event Note Event Note: Came to evaluate patient this afternoon. He is still tachypneic, and tachycardic. He tells me he feels tired, and short of breath. He appears restless and agitated. [facility] will [facility] him to the ICU, and he will need intubation. I spoke with his and informed her of the patient's change in condition.
[2018-04-24] MEDS ORDERED: Midazolam HCl 2 mg/2 ml Vial ONE (15:00)
[2018-04-24] MEDS ORDERED: Ventilator Sedation Protocol 1 EACH FS ONE (15:03)
[2018-04-24] MEDS ORDERED: Propofol 1,000 MG/100 ML VIAL IV ONE ×2 (15:04→16:28)
[2018-04-24] MEDS ORDERED: Vecuronium Bromide 20 MG VIAL IV PRN (15:09)
--- NOTE | 2018-04-24 15:15 | PQF ---
DATE: 04-24-18 ATTN: DR. OBIE PÉREZ Please exercise your independent, professional judgment in responding to the clarification form. Clinical indicators are provided on the bottom of this form for your review Please check appropriate box(es): [ X ] Sepsis due to: (Pancreatitis, etc.) [ ] SIRS due to non-infectious process (please specify etiology) [ ] with organ dysfunction [ ] without organ dysfunction [ X ] Severe sepsis with acute organ dysfunction of: __Kidney's Respiratory failure (Examples: acute kidney failure, other) [ ] Other diagnosis [ ] Unable to determine In addition, please specify: Present on Admission (POA): [X ] Yes [ ] No [ ] Unable to determine For continuity of documentation, please document condition throughout progress notes and discharge summary. Thank You. CLINICAL INDICATORS - SIGNS / SYMPTOMS / LABS ER DX: ACUTE PANCREATITIS PN 04-24-18 DR. PÉREZ: SEVERE ACUTE PANCREATITIS, LEUKOCYTOSIS AND SEPSIS SYNDROME-THOUGHT TO BE DUE TO PANCREATITIS BUT WILL CONTINUE IV ANTIBIOTICS WBC: 04-22-18: 24.3 18: 25.5 18: 15.6 BANDS: 04-22-18: 11 18: 37 04-24-18: 15 TEMP: 04-23-18: 101.1 PULSE: 04-23-18: 133, 131, 128, 134, 136 18: 125, 128, 131, 134, 129, 142 RR: 18: 33, 36, 35, 34 18: 41, 33, 32, 32 RISK FACTORS: PN 04-24-18 DR. PÉREZ: SEVERE ACUTE PANCREATITIS, LEUKOCYTOSIS AND SEPSIS SYNDROME -THOUGHT TO BE DUE TO PANCREATITIS BUT WILL CONTINUE IV ANTIBIOTICS TREATMENTS: ER: IVF X2 L MAR: 04-22-18: [employer] (This form is maintained as a part of the permanent medical record) 2014 [employer], [employer]. All Rights Reserved [email or web address] Office: [phone] [facility]
[2018-04-24] MEDS ORDERED: Fentanyl BOLUS 250 ML IVPB PRN (15:56)
[2018-04-24] MEDS ORDERED: Fentanyl CADD 250 ML IVPB SCH (15:56)
[2018-04-24] MEDS ORDERED: Propofol BOLUS 1,000 MG/100 ML VIAL IV PRN (15:56)
[2018-04-24] MEDS: Heparin 5,000 UNITS/ML VIAL SC SCH ×2 (16:03→21:02)
[2018-04-24] MEDS: Vecuronium 10 MG VIAL IV PRN ×2 (16:05→19:26)
[2018-04-24] MEDS ORDERED: Midazolam HCl 2 mg/2 ml Vial SLOW IVP SCH (16:15)
[2018-04-24 16:28] LABS: Actual Bicarbonate (HCO3a) 25.5 mEq/L (22-28); Base Excess (BEa) 0.9 mEq/L (-2.0 to +3.0); CO2 Tension 40.8 mmHg (35.0-45.0); Calcium, Ionized 1.02 mmol/L (1.12-1.30); Carboxyhemoglobin (COHb) 1.8 gm% (0.0-3.0); Hemoglobin (Hb) 10.8 g/dL (14.0-18.0); Potassium - ABG Lab 3.52 mmol/L (3.70-5.30); Puncture Site RRA; pH, Arterial 7.41 (7.35-7.45)
[2018-04-24] MEDS: Propofol 1,000 MG/100 ML VIAL IV PRN ×4 (16:29→23:17)
--- NOTE | 2018-04-24 16:35 | PRG ---
DATE: 04/24/2018 Mr. Cao developed progressive respiratory distress today. I have recommended intubation. He was transferred to the Critical Care Unit. His blood pressure was over 200. His diastolic was 140. Disposable bronchoscope was brought to the bedside. He was orally intubated with a disposable bronchoscope with a little difficulty. He has very narrow upper airway and a long epiglottis. He was not hypoxic during the intubation. After intubation, he was sedated with Versed. His hemodynamics will be closely monitored post-intubation. Critical care time, 35 minutes. TERRANCE
[2018-04-24] MEDS: Acetaminophen 1,000 MG in Premix Bag 1 BAG IVPB SCH ×2 (17:29→23:17)
[2018-04-24] MEDS: Midazolam HCl 2 mg/2 ml Vial SLOW IVP PRN ×2 (19:26→23:17)
[2018-04-25] MEDS: Vecuronium 10 MG VIAL IV PRN ×4 (00:33→18:58)
[2018-04-25] MEDS: Propofol 1,000 MG/100 ML VIAL IV PRN ×8 (01:09→18:49)
[2018-04-25] MEDS: SODIUM BICARBONATE IV SCH ×5 (02:52→10:26)
[2018-04-25] MEDS: NACL IV SCH ×5 (02:52→10:26)
[2018-04-25] MEDS: DEXTROSE IV SCH ×5 (02:52→10:26)
[2018-04-25] MEDS: Midazolam HCl 2 mg/2 ml Vial SLOW IVP PRN ×4 (02:53→18:49)
[2018-04-25 04:56] LABS: Anion Gap 17 mmol/L (10-20); BUN (Urea Nitrogen) 41 mg/dL (8.9-20.6); Band 40 % (5-11); Calc. Creatinine Clearance 33 mL/min (70-130); Calcium 7.8 mg/dL (7.8-10.44); Carbon Dioxide 28 mmol/L (22-29); Chloride 97 mmol/L (98-107); Estimated GFR-MDRD 11; Glucose 261 mg/dL (70-105); Hemoglobin 9.1 g/dL (14.0-18.0); Lymphocytes 5 % (21-51); MDiff Complete? YES; Mean Corpuscular HGB CONC 31.6 g/dL (32.0-36.0); Mean Corpuscular Hemoglobin 26.1 pg (27.0-31.0); Mean Corpuscular Volume 82.5 fL (78.0-98.0); Mean Platelet Volume 9.9 fL (7.4-10.4); Monocytes 3 % (0-10); Neutrophil 52 % (42-75); PLT Morphology Comment Appears Adequate; Platelet Count 173 thou/uL (130-400); Potassium 3.8 mmol/L (3.5-5.1); RBC Distribution Width 13.1 % (11.5-14.5); Red Blood Cell (RBC) Count 3.47 mill/uL (4.70-6.10); Sodium 138 mmol/L (136-145); White Blood Cell (WBC) Count 14.8 thou/uL (4.8-10.8)
[2018-04-25] MEDS: Albumin 25% 25 GM/100 ML BOT IVPB SCH ×3 (05:08→17:44)
[2018-04-25] MEDS: Acetaminophen 1,000 MG in Premix Bag 1 BAG IVPB SCH ×2 (05:12→10:25)
[2018-04-25] MEDS: Piperacillin/Tazobactam 3.375 GM in Sodium Chloride 0.9% 100 ML IVPB SCH ×2 (05:12→10:25)
[2018-04-25 07:46] LABS: ALT (SGPT) 36 U/L (8-55); AST (SGOT) 78 U/L (5-34); Albumin 3.4 g/dL (3.5-5.0); Alkaline Phosphatase 44 U/L (40-150); Bilirubin, Direct 6.3 mg/dL (0.1-0.3); Bilirubin, Total 8.4 mg/dL (0.2-1.2); Lipase 344 U/L (8-78); Protein, Total 5.5 g/dL (6.0-8.3)
[2018-04-25] MEDS: Heparin 5,000 UNITS/ML VIAL SC SCH ×2 (07:52→20:16)
[2018-04-25 08:34] LABS: Actual Bicarbonate (HCO3a) 29.7 mEq/L (22-28); CO2 Tension 50.1 mmHg (35.0-45.0); Calcium, Ionized 0.95 mmol/L (1.12-1.30); Carboxyhemoglobin (COHb) 1.1 gm% (0.0-3.0); Hemoglobin (Hb) 10.7 g/dL (14.0-18.0); Potassium - ABG Lab 3.44 mmol/L (3.70-5.30); pH, Arterial 7.39 (7.35-7.45)
--- NOTE | 2018-04-25 08:38 | PRG ---
DATE OF SERVICE: 04/24/2018 SUBJECTIVE: This is a 37-year-old male hospitalized over the weekend with severe acute pancreatitis. The patient had developed renal insufficiency and hyperkalemia, he had diarrhea yesterday. Admitti ng bilirubin was 1.9, 5.9 yesterday, and today, has gone up to 7.9. Interestingly, his transaminases and alkaline phosphatase are normal. Also, abdominal sonogram done on admission did not show any di lation of the common bile duct. There are no gallstones seen. The patient's belly was a lot softer yesterday, and today, it became very tight. Abdomen is more distended. Abdomen is firm. He is tend er over the epigastric area and periumbilical area. There is no rebound or guarding. PHYSICAL EXAMINATION: GENERAL: Appears comfortable, but he is tachypneic and tachycardic. VITAL SIGNS: His pulse rate is around 116, respiratory rate is 24, blood pressure is 123/80. HEENT: He is icteric. NECK: Supple. CARDIOVASCULAR SYSTEM: First and second heart sounds normal. LUNGS: A few rales and mild rhonchi heard. ABDOMEN: More distended and more firm compared to yesterday. Abdomen was softer yesterday. Abdomen is more distended and also firm. Bowel sounds are not audible. No rebound or guarding. EXTREMITIES: Reveal no edema. LABORATORY DATA: The lab data from today's, WBCs has dropped down to 15,600, hemoglobin is 11.4, hem atocrit 36, platelet count 180,000, , bands down to 15%. Chemistry panel shows sodium of 138, p otassium 4.2, chloride 100, bicarbonate 25, BUN is 59, creatinine 7.21, glucose 224, calcium 7.8, mag nesium 2.1. His liver function tests, the bilirubin has gone up to 7.9. However, his transaminases and alkaline phosphatase are normal. The lipase is 1425, amylase is 1392. CLINICAL IMPRESSION: Severe acute pancreatitis, etiology is unclear. He has developed acute kidney injury and has developed a kidney failure. He has been dialyzed yesterday. His potassium level is b ack to normal. OVERALL IMPRESSION: His clinical condition is actually worsened over the last 24 hours. The abdomen is markedly distended and firm. He is also tachypneic and tachycardic. RECOMMENDATIONS: 1. Continue IV fluids. 2. Continue IV antibiotics. 3. Abdominal sonogram tomorrow to see if any free fluid that we can tap. 4. Elevated bilirubin without any gallstones and the transaminases are not elevated and does not sug gest he has had cholangitis. I had a long talk with the patient's mother and explained to her about t he severity of pancreatitis and also kidney failure, etc. I informed her that the prognosis is guarde d and has to wait and watch how he does over the next several days.
[2018-04-25 08:41] LABS: ALV-art Gradient 312.575 (0-20); O2 Tension (PaO2) 52.6 mmHg (80.0-100.0); Puncture Site LRA
[2018-04-25] MEDS ORDERED: Famotidine/PF 20 mg/2ml Vial SLOW IVP SCH (09:00)
[2018-04-25] MEDS: Diltiazem 125 MG in Sodium Chloride 0.9% 100 ML IVPB SCH (09:06)
--- NOTE | 2018-04-25 09:16 | RAD ---
SEMI UPRIGHT PORTABLE CHEST ONE VIEW: History: 37-year-old male with history of respiratory insufficiency. Comparison: 04-24-18 FINDINGS: Monitor leads overlie the chest. Cardiomegaly with bilateral vascular congestion and some developing pleural and parenchymal opacity changes in the left base. NG tube and endotracheal tubes are in place although the distal tip of the NG tube is not definitely demonstrated on this study with significant rotation to the left. Consideration for a follow up KUB to definitely localize the NG tube tip might be of benefit. Left central line in place. IMPRESSION: Poor inspiratory effort with bilateral vascular congestion and some developing pleural and parenchyma l opacity changes in the left base and costophrenic angle. NG tube tip is not definitely seen on this study and may still lie within the chest. I cannot identify going into the stomach. Consider follow up KUB for further assessment of the NG tube tip. Endotracheal tube in satisfactory location. Left ce ntral line. Minimal parenchymal changes in the right base, continued short term follow up. POS: JANUSZ
--- NOTE | 2018-04-25 10:16 | PDOC.PN ---
- Subjective Encounter Start Date: 04/25/18 Encounter Start Time: 10:15 Mr. Cao was seen today in follow-up of Acute Pancreatitis. He is now intubated and sedated, - Objective Resuscitation Status: Resuscitation Status FULL:Full Resuscitation MAR Reviewed: Yes Vital Signs & Weight: Vital Signs (12 hours) Temp Pulse Resp BP Pulse Ox 04/25/18 08:00 98.7 F 22 H 04/25/18 07:35 123 H 142/105 H 04/25/18 07:33 124 H 22 H 91 L 04/25/18 07:00 98.7 F 04/25/18 06:00 22 H 04/25/18 04:00 99.2 F 22 H 04/25/18 02:00 22 H 04/25/18 00:00 100 F H 26 H 04/24/18 23:29 118 H 22 H 96 Weight Admit Weight 330 lb 8 oz Weight 364 lb 3.258 oz Most Recent Monitor Data Heart Rate from ECG 119 NIBP 159/104 NIBP BP-Mean 122 Respiration from ECG 22 SpO2 92 I&O: 04/24/18 04/25/18 04/26/18 06:59 06:59 06:59 Intake Total 6052 84129.9 Output Total 562 147 0 Balance 5490 38345.9 0 Result Diagrams: 04/25/18 04:00 04/25/18 04:00 Additional Labs: Accuchecks 04/25/18 04/25/18 04/25/18 08:34 07:32 06:18 POC Glucose 179 H 195 H 218 H 04/25/18 04/25/18 04/25/18 05:02 04:01 02:59 POC Glucose 267 H 257 H 233 H 04/25/18 04/25/18 04/25/18 02:04 01:11 00:21 POC Glucose 236 H 264 H 299 H 04/24/18 04/24/18 04/24/18 23:15 22:00 20:58 POC Glucose 228 H 235 H 213 H 04/24/18 04/24/18 04/24/18 19:49 18:44 17:42 POC Glucose 198 H 182 H 142 H 04/24/18 04/24/18 04/24/18 16:54 15:48 14:45 POC Glucose 152 H 166 H 180 H 1104/24/18 04/24/18 13:54 13:06 12:14 POC Glucose 201 H 218 H 216 H 04/24/18 04/24/18 04/24/18 11:31 10:13 09:18 POC Glucose 235 H 216 H 221 H 04/24/18 08:07 POC Glucose 210 H Phys Exam - Physical Examination HEENT: PERRLA + coarse breath sounds Cardiovascular: RRR, no significant murmur, no rub Distended, hypoactive bowel sounds Musculoskeletal: edema present 2+ pitting edema in both lower extremities Skin: normal turgor, cap refill <2 seconds Dx/Plan (1) Acute pancreatitis Code(s): K85.90 - ACUTE PANCREATITIS WITHOUT NECROSIS OR INFECTION, UNSP Status: Acute (2) Acute respiratory failure with hypoxia Code(s): J96.01 - ACUTE RESPIRATORY FAILURE WITH HYPOXIA Status: Acute (3) Acute kidney failure Status: Acute (4) Hyperkalemia Code(s): E87.5 - HYPERKALEMIA Status: Acute (5) Hyperglycemia Code(s): R73.9 - HYPERGLYCEMIA, UNSPECIFIED Status: Acute (6) Hypertension Code(s): I10 - ESSENTIAL (PRIMARY) HYPERTENSION Status: Acute - Plan * Acute Pancreatitis- severe- he developed respiratory failure yesterday and was intubated, will continue IV fluid resusitation, and monitor and correct electrolytes as needed * Respiratory failure- continue vent support- PCCM managing * Acute renal failure- requiring dialysis- continue as per Nephrology- renal dose medications * HTN- blood pressure is still elevated- continue catapres- which may take a day ot 2 to reach maximum benefit, and PRN medicatioons * DM- continue Insulin drip. * Empiric antibiotics- but cholangitis is less likely * Nutritional Support- TPN has been started
[2018-04-25] MEDS: Insulin Glargine 15 UNITS in Pre-Filled Syringe 1 EACH SC SCH ×2 (10:27→20:17)
--- NOTE | 2018-04-25 10:38 | PRG ---
DATE OF SERVICE: 04/25/2018 SUBJECTIVE: Mr. Cao yesterday was intubated by Dr. Reveles. He is sedated this morning. His heart ra te still is in the 120s, down from 130-140 prior to intubation, blood pressure 195/95. Saturation is 91%-92%. He has , blood pressure control with Cardene. Urine output is negligible at 24 hours , 47 mL. Gastric drainage 100 mL. This morning, his chest x-ray reveals NG tube to be probably not in good position, probably in the distal esophagus. It needs to be advanced. LABORATORY DATA: The patient's white count this morning is down to 14,000 from 24,000 on admission, his hemoglobin is 9.1 after aggressive hydration, probably stable, probably no indication of bleeding . Sodium 138, potassium 3.8, carbon dioxide 28, BUN 41, creatinine 6.75. Magnesium and phosphorus a re okay. Bilirubin is 8.4, up from 7.7. Hemoglobin A1c is 5.5. Accu-Cheks 230-267. OBJECTIVE: LUNGS: Clear to auscultation on the ventilator. CARDIAC: Sinus tachycardia. ABDOMEN: Distended, firm, . No peritoneal signs, obvious, although the patient is on sedation. ASSESSMENT AND PLAN: 1. Cholestasis, progressively increase in his liver function tests, continue to follow. GI is follo wing. Consideration for reevaluation of the common bile duct caliber could be given. Last ultrasoun d revealed a nondilated bile duct. I suspect severe pancreatitis with cholestasis. There is no evid ence by imaging of cholecystitis or choledocholithiasis. Continue to follow. 2. Severe pancreatitis. 3. Respiratory failure. 4. Renal failure, Trialysis catheter in the groin. Continue hemodialysis and resuscitation. 5. Malnutrition, initiate TPN. Request dietary orders and will adjust electrolytes for his renal fa ilure. 6. No history of alcohol precipitating this event. 7. No indication of cholecystitis or cholelithiasis.
--- NOTE | 2018-04-25 10:44 | PRG ---
DATE OF SERVICE: 04/25/2018 SUBJECTIVE: This is a 37-year-old gentleman who was intubated yesterday with progressive respiratory failure. He became tachypneic and tachycardic. He was transferred to the ICU and intubated. OBJECTIVE: VITAL SIGNS: His pulse is 123, blood pressure 157/80, sats are 92, respiratory rate 27. His I's and O's have been 1231 in, 147 out. CHEST: Decreased breath sounds without any wheezing. CARDIAC: Normal S1, S2. No gallops. ABDOMEN: Soft. No masses. LABORATORY DATA: White count 14,000, H&H is 9 and 28, platelet count 173. His creatinine is 6.7, BU N 41, glucose . Lipase is 344. IMPRESSION: 1. Pancreatitis. 2. Respiratory failure. 3. Morbid obesity. 4. Hypertension. 5. Diabetes. PLAN: Still unclear what is the cause of his pancreatitis. He is clearly not weanable at this stage. Continue supportive care, nutrition, PT, steroids. One-half hour critical care time.
[2018-04-25] MEDS: Lorazepam 2 MG/ML VIAL SLOW IVP PRN (10:50)
[2018-04-25] MEDS ORDERED: Acetaminophen 650 MG/20.3 ML UDCUP PER TUBE SCH (12:00)
--- NOTE | 2018-04-25 12:52 | PRG ---
DATE OF SERVICE: 04/25/2018 SUBJECTIVE: Xavier Cao is an unfortunate 37-year-old male hospitalized over the weekend with acute pancreatitis. Unfortunately, he has severe pancreatitis and has developed multiorgan failure. He negron d to be dilated because of hyperkalemia over the weekend and also decrease in oral intake and output. The patient was diuresed since Tuesday every day. He underwent hemodialysis this morning. The sharon ent has been intubated and was placed on ventilator last night because of tiredness, and tachypnea. PHYSICAL EXAMINATION: GENERAL: The patient is on the ventilator and is sedated. VITAL SIGNS: Stable. Afebrile, pulse 111, blood pressure is 160/100. CARDIOVASCULAR SYSTEM: Within normal limits. ABDOMEN: Very tight and distended. Abdomen is nontender. He is currently on the ventilator and sed ated. He has no bowel sounds. LABORATORY DATA: The lab data from today, CBC shows the bandemia going up to 40% from 15%. Total WB C count 14,800, hemoglobin 9.1, hematocrit 28.6. Chem-7, BUN has gone down to 41, creatinine is 6.75 . Electrolytes are normal. Bilirubin has gone up to 8.4, the direct is 6.3, AST is 78, alkaline gareth sphatase is 44, ALT is 36. CLINICAL IMPRESSION: 1. Acute severe pancreatitis with multiorgan failure. 2. Acute kidney injury, on dialysis. 3. Obesity. 4. Hypertension. 5. Asthma. PLAN: I met his and explained about the critical nature of the pancreatitis. I explained that it will be a while before he gets better and the plan is to maintain support, dialysis and also broad -spectrum antibiotics.
[2018-04-25] MEDS: Piperacillin/Tazobactam 2.25 GM in Sodium Chloride 0.9% 100 ML IVPB SCH ×2 (13:20→17:44)
[2018-04-25] MEDS: Sodium Chloride 0.9% 1,000 ML IV SCH (13:21)
[2018-04-25] MEDS: Morphine 2 MG/ML SYRINGE SLOW IVP PRN (13:39)
[2018-04-25] MEDS: HumaLOG 300 UNITS/3 ML VIAL SC PRN ×2 (17:55→20:20)
[2018-04-25] MEDS: Budesonide 0.5 MG/2 ML NEB INH SCH (18:21)
--- NOTE | 2018-04-25 18:45 | PRG ---
DATE OF SERVICE: 04/25/2018 SUBJECTIVE: Mr. Cao is a 37-year-old black male, who was admitted for acute abdominal pain secondary to acute pancreatitis. He developed acute kidney injury and volume overload. He is now intubated. We have also initiated dialysis. Today, we were able to remove 3 liters of fluid with dialysis. OBJECTIVE: VITAL SIGNS: Blood pressure is 136/79, heart rate 105, respiratory rate 29, pulse ox 93%. GENERAL: Noted to be sedated, intubated on ventilator pressor support. SKIN: Adequate turgor. HEENT: He has slightly pale conjunctivae, anicteric sclerae. NECK: No neck mass, no carotid bruits, no JVD. CHEST: No deformities. LUNGS: Clear breath sounds. HEART: Normal sinus rhythm. No murmur, no gallops, and no rubs. ABDOMEN: Globular, soft, nontender. No masses. EXTREMITIES: No edema, no deformities. MEDICATIONS: 04/25/2018 reviewed. LABORATORY: 04/25/2018: White count 14.8, hemoglobin 9.1. Sodium 138, potassium 3.8, chloride 97, carbon dioxide 28, BUN 41, creatinine 6.75, glucose 261, albumin 3.4, lipase 344. ASSESSMENT AND PLAN: 1. Acute pancreatitis: Supportive care, currently n.p.o. and the plan is to restart him to take TPN . 2. Acute kidney injury - consider the possibility of superimposed acute tubular necrosis. Continue daily dialysis. Attempt to max out fluid removal. Three liters of fluid were removed today. 3. Hyperkalemia, resolved with dialysis. Overall, prognosis remains guarded.
[2018-04-25] MEDS: fentaNYL Citrate/PF 2,000 MCG in Sodium Chloride 0.9% 60 ML IV SCH (19:17)
[2018-04-25] MEDS: Famotidine/PF 20 mg/2ml Vial SLOW IVP SCH (20:16)
[2018-04-25] MEDS ORDERED: SODIUM CHLORIDE IV SCH (22:00)
[2018-04-25] MEDS ORDERED: SODIUM ACETATE IV SCH (22:00)
[2018-04-25] MEDS ORDERED: [UNRECOGNIZED DRUG - OTHER] IV SCH (22:00)
[2018-04-25] MEDS ORDERED: CALCIUM CHLORIDE IV SCH (22:00)
[2018-04-25] MEDS: CALCIUM CHLORIDE IV SCH (22:02)
[2018-04-25] MEDS: SODIUM CHLORIDE IV SCH (22:02)
[2018-04-25] MEDS: SODIUM ACETATE IV SCH (22:02)
[2018-04-25] MEDS: [UNRECOGNIZED DRUG - OTHER] IV SCH (22:02)
[2018-04-26] MEDS: Piperacillin/Tazobactam 2.25 GM in Sodium Chloride 0.9% 100 ML IVPB SCH ×4 (00:03→17:01)
[2018-04-26] MEDS: Sodium Chloride 0.9% 1,000 ML IV SCH ×3 (00:05→17:01)
[2018-04-26] MEDS: HumaLOG 300 UNITS/3 ML VIAL SC PRN ×5 (00:08→21:10)
[2018-04-26 05:33] LABS: Hemoglobin 8.9 g/dL (14.0-18.0); Mean Corpuscular Hemoglobin 26.2 pg (27.0-31.0); Mean Platelet Volume 10.2 fL (7.4-10.4); Platelet Count 192 thou/uL (130-400); RBC Distribution Width 13.1 % (11.5-14.5); White Blood Cell (WBC) Count 18.5 thou/uL (4.8-10.8)
[2018-04-26 05:39] LABS: Band 6 % (5-11); Hypochromia SLIGHT = 6-15 cells (100X) (0-5/hpf); Lymphocytes 8 % (21-51); MDiff Complete? YES; Monocytes 9 % (0-10); Neutrophil 77 % (42-75); PLT Morphology Comment Appears Adequate
[2018-04-26 05:51] LABS: ALT (SGPT) 52 U/L (8-55); AST (SGOT) 126 U/L (5-34); Albumin 3.5 g/dL (3.5-5.0); Alkaline Phosphatase 65 U/L (40-150); Anion Gap 18 mmol/L (10-20); BUN (Urea Nitrogen) 48 mg/dL (8.9-20.6); Bilirubin, Total 7.2 mg/dL (0.2-1.2); Calc. Creatinine Clearance 33 mL/min (70-130); Calcium 8.3 mg/dL (7.8-10.44); Carbon Dioxide 26 mmol/L (22-29); Chloride 96 mmol/L (98-107); Estimated GFR-MDRD 10; Globulin 2.4 g/dL (2.4-3.5); Glucose 384 mg/dL (70-105); Lipase 121 U/L (8-78); Potassium 4.1 mmol/L (3.5-5.1); Protein, Total 5.9 g/dL (6.0-8.3); Sodium 136 mmol/L (136-145)
[2018-04-26] MEDS: Vecuronium 10 MG VIAL IV PRN (06:25)
[2018-04-26] MEDS: Midazolam HCl 2 mg/2 ml Vial SLOW IVP PRN (06:25)
[2018-04-26] MEDS: Budesonide 0.5 MG/2 ML NEB INH SCH ×2 (07:51→18:41)
[2018-04-26 08:06] LABS: Actual Bicarbonate (HCO3a) 25.1 mEq/L (22-28); Base Excess (BEa) 0.7 mEq/L (-2.0 to +3.0); CO2 Tension 38.9 mmHg (35.0-45.0); Calcium, Ionized 0.97 mmol/L (1.12-1.30); Carboxyhemoglobin (COHb) 0.6 gm% (0.0-3.0); Hemoglobin (Hb) 10.4 g/dL (14.0-18.0); Potassium - ABG Lab 4.14 mmol/L (3.70-5.30); pH, Arterial 7.43 (7.35-7.45)
[2018-04-26 08:08] LABS: Puncture Site L.R.
[2018-04-26 08:09] LABS: ALV-art Gradient 319.175 (0-20)
--- NOTE | 2018-04-26 08:17 | EKG ---
Test Reason : Blood Pressure : / mmHG Vent. Rate : 139 BPM Atrial Rate : 139 BPM P-R Int : 112 ms QRS Dur : 074 ms QT Int : 286 ms P-R-T Axes : 051 060 021 degrees QTc Int : 435 ms Sinus tachycardia Otherwise normal ECG No previous ECGs available Confirmed by DR. Margi CHO ([id number]) on 04/26/2018 8:17:16 AM Referred By: BETO Confirmed By:DR. Margi CHO
--- NOTE | 2018-04-26 08:33 | RAD ---
CHEST 1 VIEW: HISTORY: Ventilated patient. COMPARISON: Radiograph prior day. FINDINGS: The patient is intubated with endotracheal tube tip just below the level of the clavicles. Small eff usions. Left basilar airspace opacity. Left IJ central venous catheter tip sits at the right atrium. Enteric tube tip is not well seen. IMPRESSION: 1. Poor visualization of the enteric tube. 2. Improved aeration in the left lower lobe with small effusion and left basilar opacity. 3. Endotracheal tube tip in good position. POS: MOIZ
--- NOTE | 2018-04-26 08:55 | PDOC.PN ---
- Subjective Encounter Start Date: 04/26/18 Encounter Start Time: 08:53 Mr. Cao was seen today in follow-up of Severe pancreatitis. He is intubated and sedated. No new problems voiced by staff. - Objective Resuscitation Status: Resuscitation Status FULL:Full Resuscitation MAR Reviewed: Yes Vital Signs & Weight: Vital Signs (12 hours) Temp Pulse Resp BP Pulse Ox 04/26/18 07:53 118 H 133/82 04/26/18 07:51 119 H 22 H 93 L 04/26/18 07:50 119 H 22 H 93 L 04/26/18 06:00 22 H 04/26/18 04:00 99.6 F 22 H 04/26/18 02:00 22 H 04/26/18 00:27 114 H 22 H 94 L 04/26/18 00:00 100.8 F H 22 H 04/25/18 22:00 22 H Weight Admit Weight 330 lb 8 oz Weight 364 lb 3.258 oz Most Recent Monitor Data Heart Rate from ECG 114 NIBP 141/82 NIBP BP-Mean 101 Respiration from ECG 22 SpO2 94 I&O: 04/25/18 04/26/18 04/27/18 06:59 06:59 06:59 Intake Total 30375.9 4468.3 Output Total 147 287 Balance 42195.9 4181.3 Result Diagrams: 04/26/18 05:11 04/26/18 05:11 Additional Labs: Accuchecks 04/26/18 04/26/18 04/25/18 04:25 00:08 20:19 POC Glucose 333 H 278 H 218 H 04/25/18 04/25/18 04/25/18 16:53 14:17 12:39 POC Glucose 162 H 123 H 120 H 04/25/18 04/25/18 04/25/18 11:47 10:59 10:30 POC Glucose 158 H 143 H 149 H 04/25/18 09:33 POC Glucose 197 H Phys Exam - Physical Examination HEENT: PERRLA Sclera icteric Respiratory: no wheezing, no rales, no rhonchi, clear to auscultation bilateral Cardiovascular: RRR, no significant murmur, no rub Distended, but not rock hard, hypoactive bowel sounds Musculoskeletal: edema present 2+ pitting edema in the lower extremities, and upper extremity edema Dx/Plan (1) Acute pancreatitis Code(s): K85.90 - ACUTE PANCREATITIS WITHOUT NECROSIS OR INFECTION, UNSP Status: Acute (2) Acute respiratory failure with hypoxia Code(s): J96.01 - ACUTE RESPIRATORY FAILURE WITH HYPOXIA Status: Acute (3) Acute kidney failure Status: Acute (4) Hyperkalemia Code(s): E87.5 - HYPERKALEMIA Status: Acute (5) Hyperglycemia Code(s): R73.9 - HYPERGLYCEMIA, UNSPECIFIED Status: Acute (6) Hypertension Code(s): I10 - ESSENTIAL (PRIMARY) HYPERTENSION Status: Acute - Plan * Acute Pancreatitis- severe- Unknown Etiology- will continue supportive care * Acute respiratory failure- continue ventilator support * Acute renal failure- continue Dialysis as per Nephrology- renal dose medications * Hypergylcemia- he has been transitioned off the insulin drip- and is on Lantus , and SSI * HTN- blood pressure tter * Tachycardia- is improving- will try to wean the Cardizem drip and manage with PRN Loressor * FEN- continue TPN * Empiric antibiotics for sepsis syndrome- cultures are negative sepsis is presumed from pancreatitis
[2018-04-26] MEDS: Insulin Glargine 15 UNITS in Pre-Filled Syringe 1 EACH SC SCH ×2 (08:57→21:09)
[2018-04-26] MEDS: Propofol 1,000 MG/100 ML VIAL IV PRN ×6 (08:58→22:20)
[2018-04-26] MEDS: Heparin 5,000 UNITS/ML VIAL SC SCH ×2 (09:54→21:09)
[2018-04-26] MEDS ORDERED: Insulin Glargine 5 UNITS in Pre-Filled Syringe 1 EACH SC SCH (10:00)
--- NOTE | 2018-04-26 11:41 | PRG ---
DATE OF SERVICE: 04/26/2018 SERVICE: Renal Medicine. SUBJECTIVE: Mr. Cao is a 37-year-old black male, who was admitted for acute abdominal pain from acut e pancreatitis. During this hospitalization, he developed acute kidney injury and volume overload. For that reason, we are now maintaining him on a daily hemodialysis. We were able to remove 3 liters of fluid yesterday. He is currently undergoing dialysis. I am at the bedside supervising his dialy sis. No acute events noted last night. PHYSICAL EXAMINATION: VITAL SIGNS: Blood pressure is noted at 139/75 with a heart rate of 111, respiratory rate is 22, pul se ox 94%. GENERAL EXAM: Patient is sedated, intubated on ventilator support. HEENT: Morbidly obese. SKIN: Adequate turgor. HEENT: He has slightly pale conjunctivae, anicteric sclerae. NECK: No neck mass, no carotid bruits, no JVD. CHEST: No deformities. LUNGS: Decreased breath sounds. No wheezing. HEART: Tachycardic, no murmur, no gallops, no rubs. ABDOMEN: Globular, soft, nontender, no masses. EXTREMITIES: Trace edema. Medications of 04/26/2018 were reviewed. LABORATORY DATA: Laboratories of 04/26/2018, white count 18.5, hemoglobin 8.9, hematocrit 27.9. Sod ium 136, potassium 4.1, chloride 96, carbon dioxide 26, BUN is 48, creatinine is 7.3, glucose 384, ca lcium 8.3, AST 126, ALT 52, albumin 3.5. Lipase 121. ASSESSMENT AND PLAN: 1. Acute kidney injury - consider superimposed ischemic acute tubular necrosis. Continue daily dial ysis. Again, fluid removal as tolerated by the patient. We will attempt again 3-4 liters of fluid r emoval if the patient will tolerate this. Yesterday, we were able to remove 3 liters of fluid. 2. Acute abdomen, secondary to acute pancreatitis - stabilizing. Most recent lipase now is 121. GI is following. 3. Acute respiratory failure, currently on ventilator. Pulmonary is following. Overall, agree with current management.
--- NOTE | 2018-04-26 13:46 | PRG ---
DATE OF SERVICE: 04/26/2018 SUBJECTIVE: This morning, he is intubated on the vent, sedated . His x-ray shows a small left pleural effusion, but not much else. Still surprisingly he is hypoxic, requiring a fair amount of support. OBJECTIVE: VITAL SIGNS: Pulse 114, blood pressure 150/87, sats are 93 on 60%, 13 PEEP, respirations 22. CHEST: Decreased breath sounds. There is no wheezing today. CARDIAC: Sinus tachycardia. ABDOMEN: Distended, but soft. LABORATORY DATA: His creatinine is 7.3. His bilirubin is elevated at 7.2. His AST is 126. His lip ase is 121. His white count is only 18,000, H&H is 8 and 26, platelet count 92. His pO2 is 60, pCO2 of 38%, 43 o n a rate of 22 and 60%. IMPRESSION: 1. Acute respiratory distress syndrome. 2. Pancreatitis. 3. Hepatic injury. 4. Asthma. 5. Renal failure. PLAN: He can be dialyzed today, not weanable. Continue supportive care and PT. [id number] critical care time.
[2018-04-26] MEDS: fentaNYL Citrate/PF 2,000 MCG in Sodium Chloride 0.9% 60 ML IV SCH (17:28)
--- NOTE | 2018-04-26 19:23 | PRG ---
DATE OF SERVICE: 04/26/2018 This is a 37-year-old male hospitalized on Tuesday with acute pancreatitis. He was transferred to ICU because he was critically ill. The patient developed renal dysfunction and also history of hyperkal emia. The patient also is having decreased urinary output. The patient was dialyzed on Tuesday dialysis everyday. His urine output is he has had dialysis today. The patient clinically is getting better. OBJECTIVE: VITALS: His pulse rate has come down to around 106, his blood pressure is stable at 140/80. He is a febrile. CARDIOVASCULAR: First and second heart sounds normal. LUNGS: Clear to auscultation. ABDOMEN: Distended but it is softer than yesterday. There is no organomegaly or masses. EXREMITIES: He does have edema in legs. Laboratory shows improvement in his WBC count and bandemia gone down to 7%. His blood pressure dropp ed down possibly due to sepsis, possibly some hemolysis. Liver function tests seem to be coming down . His bilirubin has come to 7.2, AST gone up to 126, ALT and alkaline phosphatase are normal. Elect rolytes are normal. CLINICAL IMPRESSION: 1. Acute pancreatitis, very severe with multiorgan dysfunction. 2. Acute kidney injury. 3. Hyperkalemia, resolved. 4. Abnormal liver function tests, most likely multifactorial. I do not feel that he has any cholang itis or any biliary obstruction. The elevation in LFTs may be due to intrahepatic cholestasis, fatty liver, sepsis, and possibly some amount of hemolysis RECOMMENDATIONS: 1. Continue her TPN. 2. Continue ventilator support and supportive care. 3. Dr. Wellington Zelaya is information and referral director for me from today until Tuesday the 02 of May. If you need any assistance, please call Dr. Wellington Zelaya.
[2018-04-26] MEDS: Famotidine/PF 20 mg/2ml Vial SLOW IVP SCH (21:09)
[2018-04-26] MEDS: SODIUM ACETATE IV SCH (22:12)
[2018-04-26] MEDS: CALCIUM CHLORIDE IV SCH (22:12)
[2018-04-26] MEDS: [UNRECOGNIZED DRUG - OTHER] IV SCH (22:12)
[2018-04-26] MEDS: SODIUM CHLORIDE IV SCH (22:12)
[2018-04-27] MEDS: Propofol 1,000 MG/100 ML VIAL IV PRN ×8 (00:01→21:39)
[2018-04-27] MEDS: Piperacillin/Tazobactam 2.25 GM in Sodium Chloride 0.9% 100 ML IVPB SCH ×2 (00:01→06:01)
[2018-04-27] MEDS: HumaLOG 300 UNITS/3 ML VIAL SC PRN ×7 (02:02→23:12)
[2018-04-27] MEDS: Sodium Chloride 0.9% 1,000 ML IV SCH ×2 (05:05→19:20)
[2018-04-27 06:14] LABS: ALT (SGPT) 68 U/L (8-55); AST (SGOT) 110 U/L (5-34); Albumin 3.3 g/dL (3.5-5.0); Alkaline Phosphatase 64 U/L (40-150); Anion Gap 21 mmol/L (10-20); BUN (Urea Nitrogen) 74 mg/dL (8.9-20.6); Calc. Creatinine Clearance 33 mL/min (70-130); Calcium 8.8 mg/dL (7.8-10.44); Carbon Dioxide 24 mmol/L (22-29); Chloride 96 mmol/L (98-107); Estimated GFR-MDRD 10; Globulin 2.8 g/dL (2.4-3.5); Glucose 339 mg/dL (70-105); Lipase 55 U/L (8-78); Potassium 4.2 mmol/L (3.5-5.1); Protein, Total 6.1 g/dL (6.0-8.3); Sodium 137 mmol/L (136-145)
[2018-04-27 06:30] LABS: Band 22 % (5-11); Hemoglobin 9.5 g/dL (14.0-18.0); Lymphocytes 8 % (21-51); MDiff Complete? YES; Mean Corpuscular HGB CONC 32.8 g/dL (32.0-36.0); Mean Corpuscular Hemoglobin 26.1 pg (27.0-31.0); Mean Corpuscular Volume 79.7 fL (78.0-98.0); Metamyelocyte 3 % (0-0); Monocytes 14 % (0-10); Myelocyte 6 % (0-0); Neutrophil 47 % (42-75); Nucleated RBC 1 % (0); Platelet Count 242 thou/uL (130-400); RBC Distribution Width 12.9 % (11.5-14.5); Red Blood Cell (RBC) Count 3.62 mill/uL (4.70-6.10); White Blood Cell (WBC) Count 25.2 thou/uL (4.8-10.8)
[2018-04-27] MEDS: fentaNYL Citrate/PF 2,000 MCG in Sodium Chloride 0.9% 60 ML IV SCH ×2 (06:57→20:08)
[2018-04-27] MEDS: Budesonide 0.5 MG/2 ML NEB INH SCH ×2 (07:33→18:39)
[2018-04-27 07:47] LABS: Actual Bicarbonate (HCO3a) 24.6 mEq/L (22-28); Base Excess (BEa) 0.7 mEq/L (-2.0 to +3.0); CO2 Tension 36.8 mmHg (35.0-45.0); Calcium, Ionized 1.06 mmol/L (1.12-1.30); Carboxyhemoglobin (COHb) 0.2 gm% (0.0-3.0); Hemoglobin (Hb) 10.7 g/dL (14.0-18.0); O2 Tension (PaO2) 94.5 mmHg (80.0-100.0); Potassium - ABG Lab 3.99 mmol/L (3.70-5.30); pH, Arterial 7.44 (7.35-7.45)
[2018-04-27 08:00] LABS: Puncture Site RRA
[2018-04-27] MEDS: Insulin Glargine 15 UNITS in Pre-Filled Syringe 1 EACH SC SCH ×2 (08:17→20:13)
[2018-04-27] MEDS: Heparin 5,000 UNITS/ML VIAL SC SCH ×2 (08:17→20:11)
--- NOTE | 2018-04-27 10:03 | RAD ---
SEMIUPRIGHT PORTABLE CHEST ONE VIEW: History: 37-year-old male with history of respiratory insufficiency. Comparison: 04-26-18 FINDINGS: Endotracheal tube, NG tube, and left central line are in place. Minimal pleural and parenchymal opaci ty changes in the left lower lobe and retrocardiac region, possibly some mild pneumonitis or subsegme ntal atelectasis with small pleural effusion. Appearance is stable. IMPRESSION: Stable pleural and parenchymal opacity changes in the left base with poor inspiratory effort. Continu ed short term follow up for clearing or stability. POS: JANUSZ
--- NOTE | 2018-04-27 11:22 | PRG ---
DATE OF SERVICE: 04/27/2018 SUBJECTIVE: Mr. Cao is a 37-year-old black male who was admitted for acute abdominal pain secondary to an acute pancreatitis. He developed hyperkalemia and renal dysfunction. Due to the progressive a zotemia and hyperkalemia, he was initiated on dialysis. He is currently undergoing daily dialysis. I did examine the patient today. I do not think there is a need for dialysis today. We have resched uled him for tomorrow. No acute events noted last night. PHYSICAL EXAMINATION: VITAL SIGNS: Blood pressure is 143/89, heart rate is 116, respiratory rate 20, pulse ox 99%. GENERAL: Sedated and intubated on ventilator support. The patient is morbidly obese. SKIN: Adequate turgor. HEENT: He has pinkish conjunctivae, anicteric sclerae. NECK: No neck mass, no carotid bruits, no JVD. CHEST: No deformities. LUNGS: Decreased breath sounds. HEART: Normal sinus rhythm. No murmur, no gallops or rubs. ABDOMEN: Globular, soft, nontender, no masses. EXTREMITIES: No edema, no deformities. MEDICATIONS: Of 04/27/2018 was reviewed. LABORATORY DATA: Of 04/27/2018, white count 25.2, hemoglobin 9.5. Sodium 137, potassium 4.2, chlori de 96, carbon dioxide 24, BUN 74, creatinine 7.41, glucose 339, calcium 8.8, albumin 3.3. ASSESSMENT AND PLAN: 1. Acute kidney injury - most likely superimposed ischemic acute tubular necrosis. Continue support lottie care, continue hemodialysis regimen. I have scheduled him for another dialytic intervention in a .m. There is no indication for any emergent dialysis today. Again, fluid removal as tolerated. We are being able to remove several liters of fluid within the last 2 dialysis with this patient. 2. Acute pancreatitis, supportive care, GI is following. Patient is noted to be still anuric.
[2018-04-27] MEDS: MEROPENEM 1 GM/50 ML 1 GM in Premix Bag 1 BAG IVPB SCH ×2 (13:27→21:07)
--- NOTE | 2018-04-27 13:46 | PRG ---
DATE OF SERVICE: 04/27/2018 SUBJECTIVE: Per nursing staff, the patient did well overnight with no acute events or problems. The y have been giving him sedation breaks and the patient has been able to follow commands with increasi ng consciousness. Currently, the patient is intubated and sedated and unable to contribute to [facility] interview. OBJECTIVE: VITAL SIGNS: Temperature 99.6, pulse 119, blood pressure 149/93, respiratory rate 20, satting 98% on mechanical ventilation. GENERAL: The patient was lying in bed in no acute distress, intubated and sedated. CARDIOVASCULAR: Tachycardic rate, but regular rhythm. PULMONARY: Coarse breath sounds heard in all lung maharaj consistent with mechanical ventilation. ABDOMEN: Hypoactive bowel sounds, soft, nontender with mild abdominal distention. EXTREMITIES: Nonpitting edema seen in both the upper and lower extremities. LABORATORY DATA: CBC with a white blood cell count of 18.5, hemoglobin 8.5, hematocrit 27.9, platele ts 192. Chemistry with a sodium of 137, potassium 4.2, chloride 96, CO2 of 24, BUN 74, creatinine 7. 41, glucose 339, AST 110, ALT 68, alkaline phosphatase 64, total bilirubin 6. IMAGING DATA: Chest x-ray obtained on 04/27/2018 showed stable pleural and parenchymal opacity wiley es in the left base with poor inspiratory effort. ASSESSMENT AND PLAN: The patient is a 37-year-old -[place] male with past medical history of chronic obstructive pulmonary disease and hypertension presenting with severe acute pancreatitis as evidenced with end organ dysfunction. Severe acute pancreatitis: The patient initially presented with the acute onset of abdominal pain, n ausea, and vomiting with the abdominal pain radiating towards his back. Upon evaluation in the ER, carmen umanzor was noted to have mild transaminitis, but a significantly elevated serum lipase at 1299 consistent with a diagnosis of pancreatitis. However, during this hospitalization, he experienced hyperkalemia, hypotension and acute renal failure that ultimately required sedation intubation and placement in [facility] critical care unit due to the sequelae of severe acute pancreatitis. Over the last 24-48 hours, he has been relatively stable and had been receiving dialysis as part of his renal dysfunction with BUN and creatinine relatively stable at this time. He currently does have a mild element of transaminit is as well as an increased hyperbilirubinemia, but this could be resultant due to the inflammation wi thin the pancreas, hypotension, recently experienced and/or administration of TPN given his n.p.o. st atus (TPN can cause significant cholestasis). At the current time, restarting enteral feeds on this patient would be recommended due to increased gut integrity with an enteral route as opposed to TPN. Otherwise, the patient's labs seem to be improving with the current course of management. RECOMMENDATIONS: 1. We would consider starting trickle feeds in this patient with down titration of TPN with the ulti mate goal to get the patient on more enteral feeds with severe acute pancreatitis. 2. Continue ventilator support and more supportive care. We will continue to follow. Please call with any additional questions.
[2018-04-27] MEDS ORDERED: Meropenem 1 GM in Sodium Chloride 0.9% 100 ML IVPB SCH (14:00)
--- NOTE | 2018-04-27 14:19 | PDOC.PN ---
- Subjective Encounter Start Date: 04/27/18 Encounter Start Time: 14:17 Subjective: Sedated on ventilator, no response or spontaneous movements - Objective Resuscitation Status: Resuscitation Status FULL:Full Resuscitation MAR Reviewed: Yes Vital Signs & Weight: Vital Signs (12 hours) Temp Pulse Pulse Resp BP BP Pulse Ox 04/27/18 13:14 119 H 04/27/18 12:00 99.2 F 20 04/27/18 10:07 116 H 04/27/18 10:00 20 04/27/18 09:50 107 H 175/88 H 04/27/18 08:00 99.6 F 20 98 04/27/18 07:34 116 H 04/27/18 06:00 20 04/27/18 04:00 100.0 F H 20 04/27/18 02:21 117 H 144/79 H Pulse Ox 04/27/18 13:14 04/27/18 12:00 04/27/18 10:07 04/27/18 10:00 04/27/18 09:50 98 04/27/18 08:00 04/27/18 07:34 04/27/18 06:00 04/27/18 04:00 04/27/18 02:21 Weight Admit Weight 330 lb 8 oz Weight 364 lb 3.258 oz Most Recent Monitor Data Heart Rate from ECG 113 NIBP 144/89 NIBP BP-Mean 107 Respiration from ECG 20 SpO2 98 I&O: 04/26/18 04/27/18 04/28/18 06:59 06:59 06:59 Intake Total 4468.3 3818.9 Output Total 337 98 34 Balance 4131.3 3720.9 -34 Result Diagrams: 04/27/18 05:00 04/27/18 05:00 Additional Labs: Accuchecks 04/27/18 04/27/18 04/27/18 13:34 08:52 05:12 POC Glucose 244 H 278 H 325 H 04/27/18 04/26/18 04/26/18 02:02 21:06 16:58 POC Glucose 324 H 301 H 268 H Phys Exam - Physical Examination on vent Neck: no nodes, no JVD, supple Respiratory: no wheezing, no rales on vent support Cardiovascular: RRR, no significant murmur Gastrointestinal: soft, non-tender Musculoskeletal: edema present sedated Dx/Plan (1) Acute kidney failure Status: Acute (2) Acute pancreatitis Code(s): K85.90 - ACUTE PANCREATITIS WITHOUT NECROSIS OR INFECTION, UNSP Status: Acute (3) Acute respiratory failure with hypoxia Code(s): J96.01 - ACUTE RESPIRATORY FAILURE WITH HYPOXIA Status: Acute (4) Hyperglycemia Code(s): R73.9 - HYPERGLYCEMIA, UNSPECIFIED Status: Acute (5) Multiorgan failure Code(s): UYR0080 - Status: Acute Comment: Intubation, dilaysis, supportive care (6) DEYANIRA (acute kidney injury) Code(s): N17.9 - ACUTE KIDNEY FAILURE, UNSPECIFIED Status: Acute Comment: On hemodialysis (7) On total parenteral nutrition (TPN) Code(s): Z78.9 - OTHER SPECIFIED HEALTH STATUS Status: Acute Comment: Continue TPN, will start PO/ NG tube feeds to protect gut integrity. Accuchecks and SS insulin when on TPN - Plan cont current plan of care, PT/OT, DVT proph w/heparin Patient admitted for acute pancreatitis. Patient subsequently had significant hypotenson, hyperkalemia requiring intubation. Patient now on ventilator, sedated and TPN. Plans to start slow PO feeds. WBC is slowly trending down 24<18 Hb: 15.7< 8.9 Creatinine: 0.87> 7.41 * .
[2018-04-27] MEDS: Labetalol HCl 100 MG/20 ML VIAL SLOW IVP PRN (16:12)
[2018-04-27] MEDS: Lorazepam 2 MG/ML VIAL SLOW IVP PRN ×2 (16:57→23:57)
[2018-04-27] MEDS: Famotidine/PF 20 mg/2ml Vial SLOW IVP SCH (20:15)
[2018-04-27] MEDS: CALCIUM CHLORIDE IV SCH (21:46)
[2018-04-27] MEDS: SODIUM ACETATE IV SCH (21:46)
[2018-04-27] MEDS: [UNRECOGNIZED DRUG - OTHER] IV SCH (21:46)
[2018-04-27] MEDS: Midazolam HCl 2 mg/2 ml Vial SLOW IVP PRN (21:46)
[2018-04-27] MEDS: SODIUM CHLORIDE IV SCH (21:46)
[2018-04-28] MEDS: Propofol 1,000 MG/100 ML VIAL IV PRN ×7 (00:03→22:34)
[2018-04-28] MEDS: Labetalol HCl 100 MG/20 ML VIAL SLOW IVP PRN ×2 (00:07→04:17)
[2018-04-28] MEDS: Sodium Chloride 0.9% 1,000 ML IV SCH ×3 (00:51→20:14)
[2018-04-28] MEDS: Midazolam HCl 2 mg/2 ml Vial SLOW IVP PRN (00:56)
[2018-04-28] MEDS: HumaLOG 300 UNITS/3 ML VIAL SC PRN ×4 (03:35→22:19)
[2018-04-28] MEDS: MEROPENEM 1 GM/50 ML 1 GM in Premix Bag 1 BAG IVPB SCH ×3 (05:05→22:10)
[2018-04-28] MEDS: Budesonide 0.5 MG/2 ML NEB INH SCH ×2 (06:37→18:58)
[2018-04-28 06:43] LABS: Actual Bicarbonate (HCO3a) 19.3 mEq/L (22-28); Base Excess (BEa) -5.3 mEq/L (-2.0 to +3.0); CO2 Tension 34.4 mmHg (35.0-45.0); Calcium, Ionized 1.01 mmol/L (1.12-1.30); Hemoglobin (Hb) 10.5 g/dL (14.0-18.0); O2 Tension (PaO2) 81.4 mmHg (80.0-100.0); Potassium - ABG Lab 4.22 mmol/L (3.70-5.30); pH, Arterial 7.37 (7.35-7.45)
[2018-04-28 06:44] LABS: Puncture Site RRA
[2018-04-28 06:55] LABS: ALT (SGPT) 104 U/L (8-55); AST (SGOT) 95 U/L (5-34); Alkaline Phosphatase 71 U/L (40-150); Anion Gap 24 mmol/L (10-20); Bilirubin, Total 4.3 mg/dL (0.2-1.2); Calc. Creatinine Clearance 24 mL/min (70-130); Calcium 8.8 mg/dL (7.8-10.44); Carbon Dioxide 19 mmol/L (22-29); Chloride 96 mmol/L (98-107); Estimated GFR-MDRD 7; Glucose 203 mg/dL (70-105); Lipase 42 U/L (8-78); Potassium 4.4 mmol/L (3.5-5.1); Sodium 135 mmol/L (136-145)
[2018-04-28 06:57] LABS: Band 28 % (5-11); Hemoglobin 10.4 g/dL (14.0-18.0); Lymphocytes 11 % (21-51); MDiff Complete? YES; Mean Corpuscular HGB CONC 34.7 g/dL (32.0-36.0); Mean Corpuscular Hemoglobin 26.9 pg (27.0-31.0); Mean Corpuscular Volume 77.4 fL (78.0-98.0); Mean Platelet Volume 9.6 fL (7.4-10.4); Metamyelocyte 9 % (0-0); Monocytes 4 % (0-10); Myelocyte 8 % (0-0); Neutrophil 40 % (42-75); Platelet Count 280 thou/uL (130-400); RBC Distribution Width 13.2 % (11.5-14.5); Red Blood Cell (RBC) Count 3.88 mill/uL (4.70-6.10); White Blood Cell (WBC) Count 34.7 thou/uL (4.8-10.8)
[2018-04-28 07:07] LABS: BUN (Urea Nitrogen) 125 mg/dL (8.9-20.6)
[2018-04-28] MEDS: fentaNYL Citrate/PF 2,000 MCG in Sodium Chloride 0.9% 60 ML IV SCH ×2 (09:17→22:14)
[2018-04-28] MEDS: Insulin Glargine 15 UNITS in Pre-Filled Syringe 1 EACH SC SCH ×2 (09:19→20:15)
[2018-04-28] MEDS: Heparin 5,000 UNITS/ML VIAL SC SCH ×2 (09:19→20:14)
--- NOTE | 2018-04-28 09:50 | PRG ---
DATE OF SERVICE: 04/28/2018 SERVICE: Renal Medicine. SUBJECTIVE: Mr. Cao is a 37-year-old black male who was admitted for acute abdomen secondary to acut e pancreatitis. He developed acute kidney injury, acute respiratory failure. We are following him u p for his acute kidney injury. Due to the progressive azotemia and volume overload, he has been init iated on dialysis. I am currently dialyzing this patient. I am at the bedside supervising his dialy sis. My goal is to attempt to remove 4 liters as tolerated. OBJECTIVE: VITAL SIGNS: Blood pressure 131/81, heart rate 118, respiratory rate 30, pulse ox 99%. GENERAL: The patient is sedated, intubated on ventilator support, morbidly obese. SKIN: Adequate turgor. HEENT: He has pinkish conjunctivae, anicteric sclerae. NECK: No neck mass, no carotid bruits, no JVD. CHEST: No deformities. LUNGS: Decreased breath sounds. HEART: Tachycardic, no murmur, no gallops or rubs. ABDOMEN: Globular, soft, nontender, no masses. EXTREMITIES: No edema, no deformities. MEDICATIONS: Of 04/28/2018 was reviewed. LABORATORY DATA: Of 04/28/2018, white count 34.7, hemoglobin 10.4. Sodium 135, potassium 4.4, chlor isaias 96, carbon dioxide 19, BUN 125, creatinine 10.1, glucose 203, AST 95, ALT 104, albumin 3.0. ASSESSMENT AND PLAN: 1. Acute kidney injury -- secondary to ischemic acute tubular necrosis. Continue hemodialysis regim en. My plan is to do a 4-hour hemodialysis. My plan is to again schedule him for another dialytic i ntervention tomorrow. The patient is noted to be very catabolic as reflected by much elevated BUN an d creatinine. 2. Acute pancreatitis, supportive care. Currently, the patient is on TPN. Overall, prognosis remains guarded.
--- NOTE | 2018-04-28 10:03 | RAD ---
PORTABLE CHEST: HISTORY: Respiratory distress. COMPARISON: 04/27/2018 exam. FINDINGS: Endotracheal and NG tubes are in satisfactory position. Heart size appears slightly enlarged. Left- sided central line is unchanged in position. Density within the left base is stable. IMPRESSION: Stable exam. POS: [facility]
[2018-04-28] MEDS: Lorazepam 2 MG/ML VIAL SLOW IVP PRN ×3 (10:59→20:15)
[2018-04-28] MEDS ORDERED: Heparin 1,000 UNITS/ML VIAL ONE (11:11)
--- NOTE | 2018-04-28 11:49 | PRG ---
DATE OF SERVICE: 04/27/2018 SUBJECTIVE: This morning, he is a little bit more responsive. OBJECTIVE: VITAL SIGNS: Pulse 118, blood pressure 149/82, sats 98%, respirations 20. His I's and O's have been 4468 in and 337 out. He has got generalized edema. He opens his eyes, jaundiced, bilirubin is 6. CHEST: Decreased breath sounds, bilateral rhonchi and minimal wheezing. CARDIAC: Sinus tachycardia. ABDOMEN: Massive and distended, but soft. LABORATORY DATA: White count 25,000, hemoglobin and hematocrit _9 and 28, platelet count 242. PO2 i s 94, pCO2 is 36, pH 7.44 on a rate of 20, 60% and low PEEP of 13. Creatinine is 7.4, glucose 278. IMPRESSION: 1. Acute pancreatitis. 2. Respiratory failure. 3. Asthma. 4. Morbid obesity. 5. There is some marked leukocytosis. PLAN: Switch him over to meropenem and minimize medication. Sedation martinez. TPN and supportive care. Decrease steroids. One half hour critical care time. Prognosis poor. Probably needs additional imaging of his abdomen in the next several days to assess his pancreatitis. One-half hour critical care time.
[2018-04-28] MEDS: Acetaminophen 1,000 MG in Premix Bag 1 BAG IVPB PRN ×2 (11:56→20:13)
--- NOTE | 2018-04-28 13:08 | PDOC.PN ---
- Subjective Encounter Start Date: 04/28/18 Encounter Start Time: 10:30 Subjective: pt intubated - Objective Resuscitation Status: Resuscitation Status FULL:Full Resuscitation Vital Signs & Weight: Vital Signs (12 hours) Temp Pulse Resp BP Pulse Ox 04/28/18 10:41 123 H 142/80 H 04/28/18 10:00 34 H 04/28/18 09:00 100.3 F H 04/28/18 08:00 101.1 F H 28 H 04/28/18 06:23 116 H 138/89 04/28/18 06:19 116 H 26 H 99 04/28/18 06:00 26 H 04/28/18 05:00 99.9 F H 04/28/18 04:17 118 H 162/104 H 04/28/18 04:00 28 H 04/28/18 03:00 100.7 F H 04/28/18 02:38 120 H 155/102 H 04/28/18 02:00 25 H Weight Admit Weight 330 lb 8 oz Weight 371 lb 0.607 oz Most Recent Monitor Data Heart Rate from ECG 127 NIBP 136/76 NIBP BP-Mean 96 Respiration from ECG 51 SpO2 96 I&O: 04/27/18 04/28/18 04/29/18 06:59 06:59 06:59 Intake Total 3818.9 3746.9 Output Total 98 172 15 Balance 3720.9 3574.9 -15 Result Diagrams: 04/28/18 06:10 04/28/18 06:10 Additional Labs: Accuchecks 04/28/18 04/28/18 04/27/18 08:53 03:35 23:11 POC Glucose 186 H 201 H 205 H 04/27/18 04/27/18 04/27/18 19:52 16:38 13:34 POC Glucose 215 H 248 H 244 H Phys Exam - Physical Examination HEENT: PERRLA, moist MMs, sclera anicteric, TM's clear, oral pharynx no lesions , 2+ tonsils Neck: no nodes, no JVD, supple, full ROM Respiratory: no wheezing, no rales, no rhonchi, wheezing present, clear to auscultation bilateral Cardiovascular: RRR, no significant murmur, no rub, gallop, irregular Gastrointestinal: soft, non-tender, no distention, positive bowel sounds Dx/Plan (1) Acute respiratory failure with hypoxia Code(s): J96.01 - ACUTE RESPIRATORY FAILURE WITH HYPOXIA Status: Acute (2) Acute pancreatitis Code(s): K85.90 - ACUTE PANCREATITIS WITHOUT NECROSIS OR INFECTION, UNSP Status: Acute (3) Sepsis Code(s): A41.9 - SEPSIS, UNSPECIFIED ORGANISM Status: Acute (4) Acute kidney failure Status: Acute (5) Multiorgan failure Code(s): BYV8578 - Status: Acute Comment: Intubation, dilaysis, supportive care (6) Leukocytosis Code(s): D72.829 - ELEVATED WHITE BLOOD CELL COUNT, UNSPECIFIED Status: Acute - Plan spoke with gi, pt spiked a fever. -: concerns for infected pancrease, pt is on dylan -: will also alvarado cx pt. -: pt's wbc have worsen and has bands * . Review of Systems - Review of Systems Other: unable to obtain - Medications/Allergies Allergies/Adverse Reactions: Allergies Allergy/AdvReac Type Severity Reaction Status Date / Time ciprofloxacin [From Cipro] Allergy Verified 04/22/18 11:45 Medications: Current Medications Albuterol/Ipratropium (Duoneb) 3 ml NEB [id number] PRN PRN Reason: SOB &/or Wheezing Albuterol/Ipratropium (Duoneb) 3 ml NEB [id number] [facility] Last Admin: 04/28/18 06:19 Dose: 3 ml Budesonide (Pulmicort Neb Solution) 0.5 mg INH BID-RT [facility] Last Admin: 04/28/18 06:37 Dose: 0.5 mg Dextrose/Water (Dextrose 50%) 25 gm SLOW IVP PRN PRN PRN Reason: Hypoglycemia Famotidine (Pepcid) 20 mg SLOW IVP 2100 [facility] Last Admin: 04/27/18 20:15 Dose: 20 mg Glucagon (Glucagon) 1 mg IM PRN PRN PRN Reason: Hypoglycemia Heparin Sodium (Porcine) (Heparin) 5,000 units SC BID [facility] Last Admin: 04/28/18 09:19 Dose: 5,000 units Hydralazine HCl (Apresoline) 10 mg SLOW IVP Q4H PRN PRN Reason: SBP > 180 and HR < 70 Diltiazem HCl 125 mg/ Sodium (Chloride) 125 mls @ 2.5 mls/hr IVPB INF [facility] Last Admin: 04/25/18 09:06 Dose: 125 mls Fentanyl Citrate 2,000 mcg/ (Sodium Chloride) 100 mls @ 0 mls/hr IV INF ЮЛИ[facility]; Protocol Stop: 05/24/18 15:56 Last Admin: 04/28/18 09:17 Dose: 100 mls Fentanyl Citrate (Fentanyl Bolus) 250 mls @ 0 mls/hr IVPB PRN PRN PRN Reason: Breakthrough pain/agitation Stop: 05/24/18 15:56 Sodium Chloride (Normal Saline 0.9%) 1,000 mls @ 100 mls/hr IV .Q10H [facility] Last Admin: 04/28/18 10:49 Dose: Not Given Sodium Acetate 40 meq/ Sodium Chloride 70 meq/ Calcium Chloride 10 meq/ Magnesium Sulfate 10 meq/ Multivitamins 10 ml/ Chromium/Copper/Manganese/Seleni/ Zn 5 ml/Insulin Human Regular 31 units / Dextrose/Water/ Amino Acids/Sterile Water 1,562.6259 mls @ 65.109 mls/hr IV 2200 [facility] Last Admin: 04/27/18 21:46 Dose: 1,562.6259 mls Insulin Glargine 15 units/ (Miscellaneous Medication) 0.15 mls @ 0 mls/hr SC BID [facility] Last Admin: 04/28/18 09:19 Dose: 0.15 mls Meropenem 1 gm/ Device 50 mls @ 100 mls/hr IVPB Q8HR [facility] Last Admin: 04/28/18 05:05 Dose: 50 mls Acetaminophen 1,000 mg/ Device 100 mls @ 400 mls/hr IVPB Q6H PRN PRN Reason: FEVER/MILD PAIN Stop: 04/29/18 11:00 Last Admin: 04/28/18 11:56 Dose: 100 mls Insulin Human Lispro (Humalog) 0 units SC .BEDTIME SLIDING SC PRN PRN Reason: Bedtime Correctional Scale Last Admin: 04/28/18 03:35 Dose: 2 unit Insulin Human Lispro (Humalog) 0 units SC .AGGRESSIVE SLIDING PRN; Protocol PRN Reason: AGGRESSIVE SLIDING SCALE Last Admin: 04/28/18 09:19 Dose: 3 unit Labetalol HCl (Normodyne) 10 mg SLOW IVP Q4H PRN PRN Reason: SBP GREATER THAN 160 Last Admin: 04/28/18 04:17 Dose: 10 unit Lorazepam (Ativan) 2 mg SLOW IVP Q1H PRN PRN Reason: Breakthrough agitation Stop: 05/24/18 15:56 Last Admin: 04/28/18 10:59 Dose: 2 mg Methylprednisolone Sodium Succinate (Solu-Medrol) 20 mg IVP DAILY [facility] Last Admin: 04/28/18 09:18 Dose: 20 mg Midazolam HCl (Versed) 4 mg SLOW IVP Q1HR PRN PRN Reason: Agitation Last Admin: 04/28/18 00:56 Dose: 4 mg Morphine Sulfate (Morphine) 2 mg SLOW IVP Q1H PRN PRN Reason: BREAKTHROUGH PAIN/Agitation Stop: 05/24/18 15:56 Last Admin: 04/25/18 13:39 Dose: 2 mg Ondansetron HCl (Zofran) 4 mg IVP Q6H PRN PRN Reason: Nausea/Vomiting Last Admin: 04/23/18 05:02 Dose: 4 mg Propofol (Diprivan) 1,000 mg IV INF PRN; Protocol PRN Reason: TO ACHIEVE GOAL RASS Stop: 05/24/18 15:56 Last Admin: 04/28/18 06:48 Dose: 1,000 mg Propofol (Diprivan Bolus) 20 mg IV Q5MIN PRN PRN Reason: BREAKTHROUGH AGITATION Stop: 05/24/18 15:56
--- NOTE | 2018-04-28 17:47 | PRG ---
DATE OF SERVICE: 04/28/2018 REASON FOR CONSULTATION: Severe acute pancreatitis. SUBJECTIVE: Per nursing staff, the patient did well overnight with no acute events or problems, alth ough he did exhibit an increased fever with temperature of approximately 101 degrees Fahrenheit. He was given Tylenol with no recurrence of his fever today. Otherwise, there has been doing well with n o increased abdominal distention, GI bleeding, or diarrhea. He has not had a bowel movement over the last 3-4 days (currently, the patient is intubated and sedated and unable to contribute to further i nterview). OBJECTIVE: VITAL SIGNS: Temperature 99.6, pulse 112, blood pressure 85/40 (status post dialysis today), respira tory rate 20, satting 100% on mechanical ventilation. GENERAL: The patient was lying in bed, in no acute distress, intubated and sedated. CARDIOVASCULAR: Tachycardic rate, but regular rhythm. PULMONARY: Coarse breath sounds, heard in all lung maharaj consistent with mechanical ventilation. ABDOMEN: Hypoactive bowel sounds, soft, nontender with no grimacing with palpation, mild abdominal d istention, but negative shifting dullness or anasarca. EXTREMITIES: Nonpitting edema seen in both upper and lower extremities. LABORATORY DATA: CBC with a white blood cell count of 34.7, hemoglobin 10.4, hematocrit 30, platelet s 280. Chemistry with a sodium of 135, potassium 4.4, chloride 96, CO2 of 19, BUN 125, creatinine 10 .15, glucose 203, AST 95, ALT 104, alkaline phosphatase 71, total bilirubin 4.3. IMAGING DATA: Chest x-ray obtained on April 28, 2018, showed endotracheal and NG tubes in satisfa ctory position with stable examination. ASSESSMENT AND PLAN: The patient is a 37-year-old -Citizen Of [place] male with past medical history of chronic obstructive pulmonary disease and hypertension presenting with severe acute pancreatitis wit h end-organ dysfunction. Severe acute pancreatitis. The patient initially presented with acute onset of abdominal pain, nause a, and vomiting with the abdominal pain radiating towards his back. Upon evaluation in the ER, he wa s noted to have mild transaminitis, but significantly elevated serum lipase consistent with diagnosis of pancreatitis. However, during the course of this hospitalization, he experienced hyperkalemia, h ypotension, and acute renal failure and ultimately required intubation and placement on mechanical ve ntilation as well as hemodialysis for acute renal failure. Labs over the last 24 hours have been rel atively stable except for a spike in his white blood cell count concerning for possible infectious et iology. Given the fact that his pancreatitis initially occurred approximately 1-1.5 weeks ago, marisol rn for pancreatic necrosis and infected pancreatic necrosis is high on the differential; however, he is requiring an elevated PEEP at this time which makes it difficult for the patient to be moved for e valuation with CT scan. He does currently have a mild element of transaminitis as well as hyperbilir ubinemia. This is actually down trending with decrease in administration and more enteral feed s. At the current time, continue the enteral feeds with advancement as tolerated would be recommende d with discontinuation of the TPN. RECOMMENDATIONS: 1. We would continue to advance the trickle feeds as tolerated with discontinuation of TPN. 2. We would continue to trend white blood cell count and to do full fever workup for possible infect ious etiology. 3. Would obtain CT scan of the abdomen and pelvis as soon as possible given his respiratory status. If there is presence of pancreatic necrosis, I would recommend Interventional Radiology fine needle aspiration of the necrosis and determination of possible infectious source. 4. Continue ventilator support and more supportive care. We will continue to follow. Please call with any questions.
--- NOTE | 2018-04-28 19:41 | PRG ---
DATE OF SERVICE: 04/28/2018 SUBJECTIVE: Mr. Cao's blood pressure is 85/40, after lunch it was 111/57, earlier 142/80 this maria antonia ambrose PHYSICAL EXAMINATION: VITAL SIGNS: Heart rate is 112 and respiratory rates 20. HEENT: Sedated for ventilation. LUNGS: Remarkable for coarse equal breath sounds. HEART: Regular rhythm. Abdomen: Soft. IMAGING DATA: Chest radiograph suggests left effusion. This is significantly changed. White count 34.7, hemoglobin 10.4, platelets 280, has 28% bands on his peripheral smear. Sodium 135, potassium 4.4, chloride 96, bicarbonate 19, BUN 125, creatinine 10. Blood gas; pH 7.37, pCO2 of 34, PO2 of 81. Since he is still on bilevel ventilation, I think it would be appropriate to wait to do a CT of his a bdomen because we will have to break his PEEP and we are finally making some progress with decreasing his FIO2. I would doubt big time pancreatic necrosis, but it probably will not change her managemen t today or tonight. We will try to wean down his FiO2 and his pressures, so that we can transfer him down for CT scanning tomorrow. Critical care time was 30 minutes.
[2018-04-28] MEDS ORDERED: Polyethylene Glycol 3350 17 GM Packet PER TUBE PRN (19:51)
[2018-04-28] MEDS: Famotidine/PF 20 mg/2ml Vial SLOW IVP SCH (20:14)
[2018-04-29] MEDS: Propofol 1,000 MG/100 ML VIAL IV PRN ×7 (01:33→22:08)
[2018-04-29 04:41] LABS: Actual Bicarbonate (HCO3a) 22.5 mEq/L (22-28); Base Excess (BEa) -3.4 mEq/L (-2.0 to +3.0); CO2 Tension 44.3 mmHg (35.0-45.0); Calcium, Ionized 1.05 mmol/L (1.12-1.30); Carboxyhemoglobin (COHb) 0.5 gm% (0.0-3.0); Hemoglobin (Hb) 10.8 g/dL (14.0-18.0); Potassium - ABG Lab 4.71 mmol/L (3.70-5.30); pH, Arterial 7.32 (7.35-7.45)
[2018-04-29] MEDS: MEROPENEM 1 GM/50 ML 1 GM in Premix Bag 1 BAG IVPB SCH ×2 (05:05→14:31)
[2018-04-29] MEDS: Acetaminophen 1,000 MG in Premix Bag 1 BAG IVPB PRN (05:06)
[2018-04-29] MEDS: Sodium Chloride 0.9% 1,000 ML IV SCH ×2 (05:07→18:21)
[2018-04-29 05:13] LABS: White Blood Cell (WBC) Count 49.7 thou/uL (4.8-10.8)
[2018-04-29 05:18] LABS: Puncture Site RBRACH
[2018-04-29 05:19] LABS: ALV-art Gradient 174.825 (0-20)
[2018-04-29 05:28] LABS: ALT (SGPT) 81 U/L (8-55); AST (SGOT) 51 U/L (5-34); Albumin 2.9 g/dL (3.5-5.0); Alkaline Phosphatase 107 U/L (40-150); Anion Gap 24 mmol/L (10-20); BUN (Urea Nitrogen) 123 mg/dL (8.9-20.6); Bilirubin, Total 4.6 mg/dL (0.2-1.2); Calc. Creatinine Clearance 26 mL/min (70-130); Calcium 9.1 mg/dL (7.8-10.44); Carbon Dioxide 22 mmol/L (22-29); Chloride 95 mmol/L (98-107); Estimated GFR-MDRD 8; Globulin 3.2 g/dL (2.4-3.5); Glucose 213 mg/dL (70-105); Lipase 33 U/L (8-78); Potassium 4.8 mmol/L (3.5-5.1); Protein, Total 6.1 g/dL (6.0-8.3); Sodium 136 mmol/L (136-145)
[2018-04-29 05:45] LABS: Band 22 % (5-11); Eosinophils 2 % (0-10); Hemoglobin 10.5 g/dL (14.0-18.0); Lymphocytes 8 % (21-51); MDiff Complete? YES; Mean Corpuscular HGB CONC 33.1 g/dL (32.0-36.0); Mean Corpuscular Hemoglobin 25.7 pg (27.0-31.0); Mean Corpuscular Volume 77.6 fL (78.0-98.0); Metamyelocyte 4 % (0-0); Monocytes 6 % (0-10); Myelocyte 4 % (0-0); Neutrophil 54 % (42-75); PLT Morphology Comment Appears Adequate; Platelet Count 272 thou/uL (130-400); Polychromasia SLIGHT = 2-3 cells (100X) (0-2/hpf); RBC Distribution Width 13.5 % (11.5-14.5); Red Blood Cell (RBC) Count 4.09 mill/uL (4.70-6.10)
[2018-04-29] MEDS: Budesonide 0.5 MG/2 ML NEB INH SCH ×2 (07:34→18:21)
[2018-04-29] MEDS: HumaLOG 300 UNITS/3 ML VIAL SC PRN ×4 (08:35→23:34)
[2018-04-29] MEDS: fentaNYL Citrate/PF 2,000 MCG in Sodium Chloride 0.9% 60 ML IV SCH ×2 (08:39→20:41)
[2018-04-29] MEDS: Heparin 5,000 UNITS/ML VIAL SC SCH ×2 (09:34→20:35)
[2018-04-29] MEDS: Insulin Glargine 15 UNITS in Pre-Filled Syringe 1 EACH SC SCH ×2 (09:39→20:36)
--- NOTE | 2018-04-29 10:41 | RAD ---
CHEST 1 VIEW: HISTORY: Ventilated patient. COMPARISON: Radiograph of prior day. FINDINGS: Endotracheal tube tip is in similar position. The enteric tube tip is not well seen. Heart size is enlarged. Layering effusions. Mild edema. Central venous catheter tip in similar position. IMPRESSION: Similar exam of the chest. POS: [facility]
--- NOTE | 2018-04-29 10:46 | PRG ---
DATE OF SERVICE: 04/29/2018 SUBJECTIVE: Mr. Cao is hemodynamically stable overnight. He intermittently gets tachypneic. OBJECTIVE: VITAL SIGNS: His heart rate now is 121, blood pressure 106/48, respiratory rate is 24. LUNGS: Clear anteriorly. CARDIOVASCULAR: Regular rhythm. S1 and S2 are unchanged and normal. ABDOMEN: Massively distended. EXTREMITIES: With trace edema. IMAGING: Chest radiograph done today is less penetrated. It is suggestive of bilateral effusions. Endotracheal tube is in the proper position. Intake and output is positive 1930. LABORATORY DATA: White count is 49.7, hemoglobin 10.5, platelets 272,000. He has 22% bands on his p eripheral smear, 4% metamyelocytes and 4% myelocytes. IMPRESSION: Severe pancreatitis with multiorgan dysfunction. His progressive increase in white coun t with an impressive left shift is worrisome for pancreatic necrosis or pancreatic abscess. He is on meropenem only now. He is to go down for a CT of his abdomen and pelvis today. Blood gas today shows a pH of 7.32, CO2 44, pO2 55. He probably needs dialysis every day for now. CRITICAL CARE TIME: 30 minutes.
[2018-04-29] MEDS ORDERED: Heparin 1,000 UNITS/ML VIAL ONE (11:11)
--- NOTE | 2018-04-29 11:28 | CT ---
CT ABDOMEN AND PELVIS WITH AND WITHOUT CONTRAST AND PANCREATIC PROTOCOL: HISTORY: Pancreatitis. Evaluate for necrosis. COMPARISON: None. FINDINGS: There are dense atelectatic changes of the lung bases. Heart size is mildly enlarged. Diffuse hepatic steatosis. There is extensive edema in the anterior perirenal space surrounding the pancreas. There is normal enhancement of the portions of the pancreatic head and uncinate process wi th non-enhancement of the pancreatic body and tail suggesting pancreatic necrosis. Right femoral venous catheter is in place in good position. No dilated loops of large or small bowel . There are secondary inflammatory changes of the colon. Blush of enhancement axial image 73 in the expected location of the pancreatic body is felt to repres ent focal islands of enhancing tissue and less likely pseudoaneurysm formation. No hydronephrosis. No retroperitoneal adenopathy. IMPRESSION: Acute necrotizing pancreatitis involving greater than 50% of the pancreas with near-complete involvem ent of the pancreatic tail and body. There is also what appears to be some necrosis of the adjacent peripancreatic fat. Followup is recommended in 1-2 weeks to evaluate for developing fluid collection . POS: [facility]
--- NOTE | 2018-04-29 11:56 | PRG ---
DATE OF SERVICE: 04/29/2018 SUBJECTIVE: Mr. Cao is a 37-year-old black male who was admitted for an acute abdominal pain secondary to acute pancreatitis. He went to renal failure and is now on supportive dialysis. No acute events noted last night. The concern is that the patient may have a pancreatic abscess. For that reason imaging of the abdomen will be done today. Due to his very catabolic nature with regards to his renal dysfunction, he will undergo another 4-hour hemodialysis today. PHYSICAL EXAMINATION: VITAL SIGNS: Blood pressure is 103/56, heart rate 116, respiratory rate 23, pulse ox 95%. GENERAL: Patient is sedated, intubated on ventilator support, obese. SKIN: Adequate turgor. HEENT: He has pinkish conjunctivae, anicteric sclerae. NECK: No neck mass, no carotid bruits, no JVD. CHEST: No deformities. LUNGS: Decreased breath sounds. HEART: Tachycardic. No murmur, no gallops or rubs. ABDOMEN: Globular, soft, nontender, no masses. EXTREMITIES: No edema. MEDICATIONS: Of 04/29/2018 was reviewed. LABORATORY DATA: Of 04/29/2018: White count 49.7, hemoglobin 10.5. Sodium 136 , potassium 4.8, chloride 95, carbon dioxide 22, BUN 123, creatinine 9.33, glucose 213, albumin 2.9. ASSESSMENT AND PLAN: 1. Acute kidney injury secondary to ischemic acute tubular necrosis. The plan is to continue hemodialysis. Due to the volume overload and catabolic nature of the patient, we will do daily hemodialysis with this patient. 2. Acute pancreatitis -- concern for a pancreatic abscess due to the rising white count. Imaging of the abdomen will be done today. Overall, prognosis remains guarded. MTDD
--- NOTE | 2018-04-29 14:10 | PDOC.PN ---
- Subjective Encounter Start Date: 04/29/18 Encounter Start Time: 10:00 Subjective: pt intubated very sick - Objective Resuscitation Status: Resuscitation Status FULL:Full Resuscitation Vital Signs & Weight: Vital Signs (12 hours) Temp Pulse Resp BP Pulse Ox 04/29/18 12:00 99.4 F 23 H 04/29/18 10:34 106 H 128/48 L 04/29/18 10:00 20 04/29/18 08:00 100.8 F H 26 H 99 04/29/18 07:35 121 H 106/48 L 04/29/18 06:00 30 H 04/29/18 04:00 100.3 F H 30 H 04/29/18 02:41 113 H 114/58 L Weight Admit Weight 330 lb 8 oz Weight 371 lb 3.2 oz Most Recent Monitor Data Heart Rate from ECG 117 NIBP 117/54 NIBP BP-Mean 75 Respiration from ECG 23 SpO2 100 I&O: 04/28/18 04/29/18 04/30/18 06:59 06:59 06:59 Intake Total 3746.9 1971 1075 Output Total 172 40 5 Balance 3574.9 1931 1070 Result Diagrams: 04/29/18 04:36 04/29/18 04:36 Additional Labs: Accuchecks 04/29/18 04/29/18 04/29/18 11:55 08:08 01:19 POC Glucose 230 H 230 H 201 H 04/28/18 04/28/18 21:16 17:22 POC Glucose 211 H 181 H Phys Exam - Physical Examination diminished breath sound all over Cardiovascular: RRR, no significant murmur, no rub, gallop, irregular Gastrointestinal: soft, positive bowel sounds obse Musculoskeletal: edema present lower ext Dx/Plan (1) Acute respiratory failure with hypoxia Code(s): J96.01 - ACUTE RESPIRATORY FAILURE WITH HYPOXIA Status: Acute (2) Acute pancreatitis Code(s): K85.90 - ACUTE PANCREATITIS WITHOUT NECROSIS OR INFECTION, UNSP Status: Acute (3) Sepsis Code(s): A41.9 - SEPSIS, UNSPECIFIED ORGANISM Status: Acute (4) Acute kidney failure Status: Acute (5) Multiorgan failure Code(s): ZTD7646 - Status: Acute Comment: Intubation, dilaysis, supportive care (6) Leukocytosis Code(s): D72.829 - ELEVATED WHITE BLOOD CELL COUNT, UNSPECIFIED Status: Acute - Plan -: pt on meropenem based on our antibiogram enterococcus is not covered -: will add vanco for coverage. pt is on steroids which may worsen his wbc -: tube feeding has been decreased due to high residuals * . Review of Systems - Review of Systems Other: unable to obtain - Medications/Allergies Allergies/Adverse Reactions: Allergies Allergy/AdvReac Type Severity Reaction Status Date / Time ciprofloxacin [From Cipro] Allergy Verified 04/22/18 11:45 Medications: Current Medications Albuterol/Ipratropium (Duoneb) 3 ml NEB [id number] PRN PRN Reason: SOB &/or Wheezing Albuterol/Ipratropium (Duoneb) 3 ml NEB [id number] [facility] Last Admin: 04/29/18 12:05 Dose: 3 ml Budesonide (Pulmicort Neb Solution) 0.5 mg INH BID-RT [facility] Last Admin: 04/29/18 07:34 Dose: 0.5 mg Dextrose/Water (Dextrose 50%) 25 gm SLOW IVP PRN PRN PRN Reason: Hypoglycemia Famotidine (Pepcid) 20 mg SLOW IVP 2100 [facility] Last Admin: 04/28/18 20:14 Dose: 20 mg Glucagon (Glucagon) 1 mg IM PRN PRN PRN Reason: Hypoglycemia Heparin Sodium (Porcine) (Heparin) 5,000 units SC BID [facility] Last Admin: 04/29/18 09:34 Dose: 5,000 units Hydralazine HCl (Apresoline) 10 mg SLOW IVP Q4H PRN PRN Reason: SBP > 180 and HR < 70 Diltiazem HCl 125 mg/ Sodium (Chloride) 125 mls @ 2.5 mls/hr IVPB INF ЮЛИЯ Last Admin: 04/25/18 09:06 Dose: 125 mls Fentanyl Citrate 2,000 mcg/ (Sodium Chloride) 100 mls @ 0 mls/hr IV INF ЮЛИЯ; Protocol Stop: 05/24/18 15:56 Last Admin: 04/29/18 08:39 Dose: 100 mls Fentanyl Citrate (Fentanyl Bolus) 250 mls @ 0 mls/hr IVPB PRN PRN PRN Reason: Breakthrough pain/agitation Stop: 05/24/18 15:56 Sodium Chloride (Normal Saline 0.9%) 1,000 mls @ 100 mls/hr IV .Q10H [facility] Last Admin: 04/29/18 05:07 Dose: 1,000 mls Insulin Glargine 15 units/ (Miscellaneous Medication) 0.15 mls @ 0 mls/hr SC BID [facility] Last Admin: 04/29/18 09:39 Dose: 0.15 mls Meropenem 1 gm/ Device 50 mls @ 100 mls/hr IVPB Q8HR [facility] Last Admin: 04/29/18 05:05 Dose: 50 mls Sodium Acetate 40 meq/ Sodium Chloride 70 meq/ Calcium Chloride 10 meq/ Magnesium Sulfate 10 meq/ Multivitamins 10 ml/ Chromium/Copper/Manganese/Seleni/ Zn 5 ml/Insulin Human Regular 30 units / Dextrose/Water/ Amino Acids/Sterile Water 1,562.6159 mls @ 65.109 mls/hr IV 2200 [place] Vancomycin HCl 1 gm/ Device 200 mls @ 200 mls/hr IVPB Q12HR [facility] Insulin Human Lispro (Humalog) 0 units SC .BEDTIME SLIDING SC PRN PRN Reason: Bedtime Correctional Scale Last Admin: 04/29/18 12:32 Dose: 2 unit Insulin Human Lispro (Humalog) 0 units SC .AGGRESSIVE SLIDING PRN; Protocol PRN Reason: AGGRESSIVE SLIDING SCALE Last Admin: 04/29/18 08:35 Dose: 6 unit Labetalol HCl (Normodyne) 10 mg SLOW IVP Q4H PRN PRN Reason: SBP GREATER THAN 160 Last Admin: 04/28/18 04:17 Dose: 10 unit Lorazepam (Ativan) 2 mg SLOW IVP Q1H PRN PRN Reason: Breakthrough agitation Stop: 05/24/18 15:56 Last Admin: 04/28/18 20:15 Dose: 2 mg Methylprednisolone Sodium Succinate (Solu-Medrol) 20 mg IVP DAILY [facility] Last Admin: 04/29/18 09:35 Dose: 20 mg Midazolam HCl (Versed) 4 mg SLOW IVP Q1HR PRN PRN Reason: Agitation Last Admin: 04/28/18 00:56 Dose: 4 mg Miscellaneous Medication (Pharmacy To Dose) 1 each IVPB ONE PRN PRN Reason: Pharmacy to dose Morphine Sulfate (Morphine) 2 mg SLOW IVP Q1H PRN PRN Reason: BREAKTHROUGH PAIN/Agitation Stop: 05/24/18 15:56 Last Admin: 04/25/18 13:39 Dose: 2 mg Ondansetron HCl (Zofran) 4 mg IVP Q6H PRN PRN Reason: Nausea/Vomiting Last Admin: 04/23/18 05:02 Dose: 4 mg Polyethylene Glycol (Miralax) 17 gm PER TUBE DAILYPRN PRN PRN Reason: CONSTIPATION Last Admin: 04/28/18 22:04 Dose: 17 gm Propofol (Diprivan) 1,000 mg IV INF PRN; Protocol PRN Reason: TO ACHIEVE GOAL RASS Stop: 05/24/18 15:56 Last Admin: 04/29/18 12:37 Dose: 1,000 mg Propofol (Diprivan Bolus) 20 mg IV Q5MIN PRN PRN Reason: BREAKTHROUGH AGITATION Stop: 05/24/18 15:56 Vecuronium [place] (Norcuron) 10 mg IV Q1H PRN PRN Reason: Agitation
[2018-04-29] MEDS ORDERED: Vancomycin HCl 750 MG in Sodium Chloride 0.9% 250 ML 250 ML IVPB SCH (14:15)
[2018-04-29] MEDS ORDERED: HOLD VANCOMYCIN FOR LEVEL >20 FS SCH (14:15)
[2018-04-29] MEDS ORDERED: Vancomycin HCl 1.5 GM in Sodium Chloride 0.9% 250 ML 300 ML IVPB SCH (14:15)
[2018-04-29] MEDS ORDERED: Vancomycin HCl 1.25 GM in Sodium Chloride 0.9% 250 ML 250 ML IVPB SCH (14:15)
--- NOTE | 2018-04-29 14:38 | PDOC.EVN ---
Event Note - Event Note Event Note: spoke with Silvina and updated her on pt's prognosis.
--- NOTE | 2018-04-29 17:43 | PRG ---
DATE OF SERVICE: 04/29/2018 REASON FOR CONSULTATION: Severe acute pancreatitis. SUBJECTIVE: Yesterday, the patient was discontinued on TPN in favor of advancement of oral tube feed s; however, overnight, he exhibited increased residual with approximately 300-350 mL obtained back wi thin the stomach concerning for inadequate movement of tube feeds, so the tube feeds were subsequentl y stopped. Further evaluation this morning did not reveal a significant amount of residuals. Per [facility] staff, he did not exhibit a repeat fever overnight with no further acute events or problems; ho wever, he has not had a bowel movement in the last 4-5 days despite administration of tube feeds. OBJECTIVE: VITAL SIGNS: Temperature 99.4, pulse 118, blood pressure 117/54, respiratory rate 19, satting 100% o n mechanical ventilation. GENERAL: The patient was lying in bed in no acute distress, intubated and sedated. CARDIOVASCULAR: Tachycardic rate, but regular rhythm. PULMONARY: Coarse breath sounds heard in all lung maharaj consistent with mechanical ventilation. ABDOMEN: Hypoactive bowel sounds, soft. No grimacing with palpation of the abdomen. Mild abdominal distention, but negative shifting dullness or anasarca. EXTREMITIES: Nonpitting edema seen in both upper and lower extremities. LABORATORY DATA: CBC with a white blood cell count of 49.7, hemoglobin 10.5, hematocrit 31.7, platel ets 272. Chemistry with a sodium of 136, potassium 4.8, chloride 95, CO2 of 22, BUN 123, creatinine 9.33, glucose 213, AST 51, ALT 81, alkaline phosphatase 107, total bilirubin 4.6. IMAGING DATA: CT of the abdomen and pelvis obtained on 04/29/2018 showed extensive edema in the ante rior perirenal space surrounding the pancreas. There was normal enhancement of the portions of the p ancreatic head and uncinate process with nonenhancement of the pancreatic body and tail suggesting pa ncreatic necrosis. 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 ASSESSMENT AND PLAN: The patient is a 37-year-old -[place] male with past medical history of chronic obstructive pulmonary disease and hypertension presenting with severe acute pancreatitis wit h end-organ dysfunction. Severe acute pancreatitis: The patient initially presented with acute onset of abdominal pain, nause a, and vomiting consistent with pancreatitis. On admission, he was noted to have mild transaminitis and elevated serum lipase consistent with the diagnosis of pancreatitis as well. However, during the course of the hospitalization, he experienced significant hyperkalemia, hypotension and acute renal failure, but ultimately required intubation and placement on mechanical ventilation for further cours e of care. Over the last 24-48 hours, he has been having an increase in white blood cell count marisol rning for an infectious process with CT scan today showing acute necrotizing pancreatitis within the body and tail. At this time, given his elevated white blood cell count and the necrosis on imaging, the possibility of infected necrotizing pancreatitis is high, although the patient has been receiving meropenem over the last 24-48 hours, which should cover most common pathogens. Attempts to advance his enteral diet yielded increased residual oral feeds as the rate was attempted to increase, so at t his time I am backing off on the tube feeds with resumption of total TPN may be more prudent. RECOMMENDATIONS: 1. We would continue oral tube feeds, but decreased to trickle feeds and restart TPN for further nut ritional purposes. 2. Continue to trend white blood cell count with possibility of fine needle aspiration of the pancre atic necrosis to further isolate a possible infectious etiology to help tailor antibiotics. 3. We would broaden antibiotic coverage to include enteric including Enterococcus. 4. Continue ventilator support and IV fluids, supportive care. 5. With the tube feeds we would change formula to Peptamen AF. We will continue to follow. Please call with any questions.
[2018-04-29] MEDS: Famotidine/PF 20 mg/2ml Vial SLOW IVP SCH (20:34)
[2018-04-29] MEDS ORDERED: Vancomycin HCl 1 GM in Premix Bag 1 BAG IVPB SCH (21:00)
[2018-04-29] MEDS: Lorazepam 2 MG/ML VIAL SLOW IVP PRN (21:10)
[2018-04-29] MEDS: SODIUM CHLORIDE IV SCH (22:10)
[2018-04-29] MEDS: SODIUM ACETATE IV SCH (22:10)
[2018-04-29] MEDS: [UNRECOGNIZED DRUG - OTHER] IV SCH (22:10)
[2018-04-29] MEDS: CALCIUM CHLORIDE IV SCH (22:10)
[2018-04-30] MEDS: Propofol 1,000 MG/100 ML VIAL IV PRN ×8 (00:55→21:28)
[2018-04-30] MEDS: Sodium Chloride 0.9% 1,000 ML IV SCH ×2 (01:09→12:30)
[2018-04-30] MEDS: HumaLOG 300 UNITS/3 ML VIAL SC PRN ×4 (03:55→16:32)
[2018-04-30 04:47] LABS: Hemoglobin 9.1 g/dL (14.0-18.0); Mean Corpuscular HGB CONC 33.9 g/dL (32.0-36.0); Mean Corpuscular Hemoglobin 26.2 pg (27.0-31.0); Mean Corpuscular Volume 77.2 fL (78.0-98.0); Mean Platelet Volume 10.4 fL (7.4-10.4); Platelet Count 293 thou/uL (130-400); RBC Distribution Width 13.6 % (11.5-14.5); Red Blood Cell (RBC) Count 3.46 mill/uL (4.70-6.10)
[2018-04-30 04:56] LABS: ALT (SGPT) 67 U/L (8-55); AST (SGOT) 49 U/L (5-34); Albumin 2.7 g/dL (3.5-5.0); Alkaline Phosphatase 138 U/L (40-150); Anion Gap 24 mmol/L (10-20); BUN (Urea Nitrogen) 103 mg/dL (8.9-20.6); Bilirubin, Total 4.1 mg/dL (0.2-1.2); Calc. Creatinine Clearance 29 mL/min (70-130); Calcium 9.1 mg/dL (7.8-10.44); Carbon Dioxide 22 mmol/L (22-29); Chloride 93 mmol/L (98-107); Estimated GFR-MDRD 9; Globulin 3.2 g/dL (2.4-3.5); Glucose 209 mg/dL (70-105); Lipase 22 U/L (8-78); Potassium 4.8 mmol/L (3.5-5.1); Protein, Total 5.9 g/dL (6.0-8.3); Sodium 134 mmol/L (136-145)
[2018-04-30 05:16] LABS: Band 19 % (5-11); Eosinophils 4 % (0-10); Lymphocytes 5 % (21-51); MDiff Complete? YES; Monocytes 5 % (0-10); Myelocyte 2 % (0-0); Neutrophil 64 % (42-75); PLT Morphology Comment Appears Adequate; Polychromasia SLIGHT = 2-3 cells (100X) (0-2/hpf); Reactive Lymphocytes 1 % (0-10); White Blood Cell (WBC) Count 46.5 thou/uL (4.8-10.8)
[2018-04-30] MEDS: Meropenem 500 MG in Sodium Chloride 0.9% 100 ML IVPB SCH (06:13)
[2018-04-30] MEDS: fentaNYL Citrate/PF 2,000 MCG in Sodium Chloride 0.9% 60 ML IV SCH ×2 (06:27→17:09)
[2018-04-30] MEDS: Budesonide 0.5 MG/2 ML NEB INH SCH ×2 (07:24→18:31)
[2018-04-30 07:43] LABS: Actual Bicarbonate (HCO3a) 22.1 mEq/L (22-28); Base Excess (BEa) -3.6 mEq/L (-2.0 to +3.0); CO2 Tension 42.8 mmHg (35.0-45.0); Calcium, Ionized 1.06 mmol/L (1.12-1.30); Carboxyhemoglobin (COHb) 0.7 gm% (0.0-3.0); Hemoglobin (Hb) 9.7 g/dL (14.0-18.0); Potassium - ABG Lab 4.68 mmol/L (3.70-5.30); pH, Arterial 7.33 (7.35-7.45)
[2018-04-30 07:45] LABS: O2 Tension (PaO2) 54.3 mmHg (80.0-100.0); Puncture Site RR
[2018-04-30] MEDS: Lorazepam 2 MG/ML VIAL SLOW IVP PRN ×3 (08:02→23:42)
[2018-04-30] MEDS: Insulin Glargine 15 UNITS in Pre-Filled Syringe 1 EACH SC SCH ×2 (08:42→21:28)
[2018-04-30] MEDS: Heparin 5,000 UNITS/ML VIAL SC SCH ×2 (08:43→21:28)
--- NOTE | 2018-04-30 09:07 | RAD ---
CHEST 1 VIEW: HISTORY: Ventilated patient. COMPARISON: Radiograph of prior day. FINDINGS: Endotracheal tube tip is below the level of the clavicles. Heart size is enlarged. Dense left retro cardiac opacity. Small effusions. Left IJ central venous catheter sits at the cavoatrial junction. IMPRESSION: 1. Cardiomegaly and layering effusions. 2. Enteric tube tip below the diaphragm and out of the field of view. 3. Cardiomegaly. 4. Dense left retrocardiac opacity concerning for infection or aspiration. POS: [facility]
--- NOTE | 2018-04-30 12:44 | PRG ---
DATE OF SERVICE: 04/30/2018 RENAL MEDICINE SUBJECTIVE: Mr. Cao is a 37-year-old black male who was initially admitted for an acute abdomen seco ndary to severe acute pancreatitis. He also developed acute respiratory failure and acute kidney inj ury. He is currently now on maintenance hemodialysis. I am managing him and doing daily dialysis du e to volume overload with this patient and a very catabolic renal dysfunction. A CT scan of the abdomen and pelvis was done yesterday -- 04/29/2018, which showed acute necrotizing pancreatitis involving greater than 50% of the pancreas with near complete involvement of the pancrea tic tail and body. GI is following and has made recommendations to restart back on TPN. OBJECTIVE: VITAL SIGNS: Blood pressure is 100/53, heart rate 115, respiratory rate 34, temperature is 100.9. GENERAL: Sedated and intubated on ventilator support. SKIN: Adequate turgor. HEENT: He has pinkish conjunctivae, anicteric sclerae. NECK: No neck mass, no carotid bruits, no JVD. CHEST: No deformities. LUNGS: Decreased breath sounds. HEART: Normal sinus rhythm. No murmurs, no gallops, no rubs. ABDOMEN: Globular, soft, nontender. EXTREMITIES: Positive for edema. MEDICATIONS: Medications of 04/30/2018 reviewed. LABORATORY DATA: Laboratories of 04/30/2018, white count 46.5, hemoglobin 9.1. Sodium 134, potassiu m 3.8, chloride 93, carbon dioxide 22, BUN 103, creatinine 8.49, glucose 209, calcium 9.1, AST 49, AL T 67, albumin 2.7. ASSESSMENT AND PLAN: 1. Acute kidney injury -- secondary to ischemic acute tubular necrosis. Continue daily hemodialysis . Please note, the patient is quite catabolic. Fluid removal as tolerated by the patient and we are attempting to max out fluid removal. 2. Acute pancreatitis -- the patient has acute necrotizing pancreatitis. A superimposed infection i s always a possibility with this patient. He is currently being treated with empiric IV antibiotics and currently is on meropenem. As per GI recommendation, the patient to be started on TPN.
--- NOTE | 2018-04-30 13:06 | PRG ---
DATE OF SERVICE: 04/30/2018 REASON FOR CONSULTATION: Severe acute pancreatitis. SUBJECTIVE: Overnight, the patient continued to have increased residuals from his orogastric tube fe edings with the OG tube feedings being stopped at that time despite being instilled at approximately 10 mL per hour. He has subsequently been restarted on TPN for nutritional support at this time. Oth erwise, there were no other events or problems with no residuals on OG tube extraction this morning ( although the tube feeds have been stopped). Per nursing staff, he did not exhibit repeat fever overn ight, but he has not had a bowel movement in the last 4-5 days. OBJECTIVE: VITAL SIGNS: Temperature 100.9 at 11:00 this morning, pulse 119, blood pressure 127/58, respiratory rate 28, saturating 98% on mechanical ventilation. GENERAL: The patient was lying in bed, in no acute distress, intubated and sedated. CARDIOVASCULAR: Tachycardic rate, but regular rhythm. PULMONARY: Coarse breath sounds heard in all lung maharaj consistent with mechanical ventilation. ABDOMEN: Hypoactive bowel sounds, soft, mild abdominal distention. No grimacing to palpation in all quadrants of the abdomen. EXTREMITIES: Nonpitting edema seen in both upper and lower extremities. LABORATORY DATA: CBC with a white blood cell count of 46.5, hemoglobin 9.1, hematocrit 26.7, platele ts 293,000. Chemistry with a sodium of 134, potassium 4.8, chloride 93, CO2 22, BUN 103, creatinine 8.49, glucose 209. AST 49, ALT 67, alkaline phosphatase 138, total bilirubin 4.1. IMAGING DATA: No current GI imaging is available for review. ASSESSMENT AND PLAN: The patient is a 37-year-old male with past medical history of chronic obstructive pulmonary disease and hypertension presenting with severe acute necrotizing panc reatitis with end-organ dysfunction. Severe acute necrotizing pancreatitis: The patient is presenting with acute onset of abdominal pain, nausea and vomiting with serologies and imaging that were initially consistent with pancreatitis. D uring the course of this hospitalization, he experienced significant hyperkalemia, acute renal failur e and hypotension that ultimately required intubation and placement on mechanical ventilation for fur ther care. Over the last 48-72 hours, he has been having an increase in his white blood cell count d espite antibiotic administration with a CT scan performed on 04/29/2018 showing acute necrotizing alvarado creatitis within the body and the tail and extensive involvement . With the elevated white bloo d cell count and necrosis on imaging, the possibility of infected necrotizing pancreatitis is high wi th broadening of his antibiotic therapy over the last 24 hours to include meropenem and vancomycin. Attempts to advance his enteral diet yielded increased residual oral feeds, so at this time, I would discontinue the trickle feeds in favor of TPN. RECOMMENDATIONS: 1. We would discontinue any oral feeds for now with restarting full TPN at this time. 2. Would consider fine needle aspiration of the pancreatic necrosis to further isolate a possible in fectious pathogen to help tailor appropriate antibiotic therapy. 3. Agree with antibiotic coverage with vancomycin and meropenem. 4. Continue ventilator support with IV fluids and supportive care. We will continue to follow. Please call with any questions.
[2018-04-30] MEDS: MEROPENEM 1 GM/50 ML 1 GM in Premix Bag 1 BAG IVPB SCH (13:14)
--- NOTE | 2018-04-30 15:01 | PRG ---
DATE OF SERVICE: 04/30/2018 SUBJECTIVE: Xavier Cao remains sedated for mechanical ventilation. His hemodynamics have been stable. OBJECTIVE: VITAL SIGNS: His blood pressure is 108/43, heart rate is 109, respiratory rates per mechanical venti lation, oximetry is 99. Intake and output is positive 1931. LUNGS: Clear. HEART: Regular rhythm. ABDOMEN: Massively distended. EXTREMITIES: Edematous. LABORATORY DATA: White count is 46.5, hemoglobin 9.1, platelets 293,000. Sodium 134, potassium 4.8, chloride 93, bicarbonate 22, BUN 103, creatinine 8.49. PH 7.33, CO2 42, pO2 of 54. IMPRESSION: 1. Severe pancreatitis with acute renal failure. 2. Respiratory failure. 3. Asthma, which is not a clinical problem now. He also has no ARDS that is visible radiographically. I met with the and answered all of her questions. She apparently was sitting at the bedside and planning his . I have explained to her that he is quite ill, but he is not dying at this poi nt in time and that she does not need to be planning his . At 37 years of age, he certainly c an survive this, although it is unclear how long it will take for him to get through this. Abdomen and pelvis CT was done yesterday. Pancreatic inflammatory process was easily visualized. No pseudocyst or obvious abscess was seen, although his pancreas does have a necrotic appearance. We will continue with supportive critical care. CRITICAL CARE TIME: 30 minutes.
--- NOTE | 2018-04-30 16:02 | PDOC.PN ---
- Subjective Encounter Start Date: 04/30/18 Encounter Start Time: 11:15 Subjective: pt intubated - Objective Resuscitation Status: Resuscitation Status FULL:Full Resuscitation Vital Signs & Weight: Vital Signs (12 hours) Temp Pulse Resp BP Pulse Ox 04/30/18 15:00 32 H 04/30/18 14:53 106 H 102/43 L 04/30/18 14:00 36 H 04/30/18 12:00 31 H 04/30/18 11:00 100.9 F H 04/30/18 10:31 119 H 127/58 L 04/30/18 10:00 34 H 04/30/18 08:00 33 H 04/30/18 07:40 94 L 04/30/18 07:31 120 H 108/52 L 04/30/18 07:00 98.4 F 04/30/18 06:00 35 H 04/30/18 04:00 100.2 F H 31 H Weight Admit Weight 330 lb 8 oz Weight 362 lb 10.566 oz Most Recent Monitor Data Heart Rate from ECG 106 NIBP 120/52 NIBP BP-Mean 74 Respiration from ECG 29 SpO2 99 I&O: 04/29/18 04/30/18 05/01/18 06:59 06:59 06:59 Intake Total 1971 4442.0 Output Total 40 11 320 Balance 1931 4431.0 -320 Result Diagrams: 04/30/18 03:45 04/30/18 03:45 Additional Labs: Accuchecks 04/30/18 04/30/18 04/30/18 12:37 08:31 03:48 POC Glucose 240 H 224 H 194 H 04/29/18 04/29/18 04/29/18 23:29 20:19 16:22 POC Glucose 179 H 186 H 142 H Phys Exam - Physical Examination mild rhonchi all over Cardiovascular: RRR, no significant murmur, no rub, gallop, irregular Gastrointestinal: soft, positive bowel sounds Musculoskeletal: no edema, pulses present, edema present Dx/Plan (1) Acute respiratory failure with hypoxia Code(s): J96.01 - ACUTE RESPIRATORY FAILURE WITH HYPOXIA Status: Acute (2) Acute pancreatitis Code(s): K85.90 - ACUTE PANCREATITIS WITHOUT NECROSIS OR INFECTION, UNSP Status: Acute (3) Sepsis Code(s): A41.9 - SEPSIS, UNSPECIFIED ORGANISM Status: Acute (4) Acute kidney failure Status: Acute (5) Multiorgan failure Code(s): WPS8026 - Status: Acute Comment: Intubation, dilaysis, supportive care (6) Leukocytosis Code(s): D72.829 - ELEVATED WHITE BLOOD CELL COUNT, UNSPECIFIED Status: Acute - Plan spoke with pt's and her family updated about pt's current medical -: issues. tube feeding have been discontinued. will continue abx for now * . Review of Systems - Review of Systems Other: unable to obtain - Medications/Allergies Allergies/Adverse Reactions: Allergies Allergy/AdvReac Type Severity Reaction Status Date / Time ciprofloxacin [From Cipro] Allergy Verified 04/22/18 11:45 Medications: Current Medications Albuterol/Ipratropium (Duoneb) 3 ml NEB [id number] PRN PRN Reason: SOB &/or Wheezing Albuterol/Ipratropium (Duoneb) 3 ml NEB [id number] [facility] Last Admin: 04/30/18 12:04 Dose: 3 ml Budesonide (Pulmicort Neb Solution) 0.5 mg INH BID-RT [facility] Last Admin: 04/30/18 07:24 Dose: 0.5 mg Dextrose/Water (Dextrose 50%) 25 gm SLOW IVP PRN PRN PRN Reason: Hypoglycemia Famotidine (Pepcid) 20 mg SLOW IVP 2100 [facility] Last Admin: 04/29/18 20:34 Dose: 20 mg Glucagon (Glucagon) 1 mg IM PRN PRN PRN Reason: Hypoglycemia Heparin Sodium (Porcine) (Heparin) 5,000 units SC BID [facility] Last Admin: 04/30/18 08:43 Dose: 5,000 units Hydralazine HCl (Apresoline) 10 mg SLOW IVP Q4H PRN PRN Reason: SBP > 180 and HR < 70 Diltiazem HCl 125 mg/ Sodium (Chloride) 125 mls @ 2.5 mls/hr IVPB INF [facility] Last Admin: 04/25/18 09:06 Dose: 125 mls Fentanyl Citrate 2,000 mcg/ (Sodium Chloride) 100 mls @ 0 mls/hr IV INF [facility]; Protocol Stop: 05/24/18 15:56 Last Admin: 04/30/18 06:27 Dose: 100 mls Fentanyl Citrate (Fentanyl Bolus) 250 mls @ 0 mls/hr IVPB PRN PRN PRN Reason: Breakthrough pain/agitation Stop: 05/24/18 15:56 Sodium Chloride (Normal Saline 0.9%) 1,000 mls @ 100 mls/hr IV .Q10H [facility] Last Admin: 04/30/18 01:09 Dose: Not Given Insulin Glargine 15 units/ (Miscellaneous Medication) 0.15 mls @ 0 mls/hr SC BID [facility] Last Admin: 04/30/18 08:42 Dose: 0.15 mls Sodium Acetate 40 meq/ Sodium Chloride 70 meq/ Calcium Chloride 10 meq/ Magnesium Sulfate 10 meq/ Multivitamins 10 ml/ Chromium/Copper/Manganese/Seleni/ Zn 5 ml/Insulin Human Regular 30 units / Dextrose/Water/ Amino Acids/Sterile Water 1,562.6159 mls @ 65.109 mls/hr IV 2200 [facility] Last Admin: 04/29/18 22:10 Dose: 1,562.6159 mls Vancomycin HCl 1.5 gm/ Sodium (Chloride) 300 mls @ 200 mls/hr IVPB WILLCALL [facility] Vancomycin HCl 1.25 gm/ Sodium (Chloride) 250 mls @ 166.667 mls/hr IVPB WILLCALL [facility] Vancomycin HCl 1 gm/ Device 200 mls @ 200 mls/hr IVPB WILLCALL [facility] Vancomycin HCl 750 mg/ Sodium (Chloride) 250 mls @ 250 mls/hr IVPB WILLCALL [place] Meropenem 500 mg/ Sodium (Chloride) 100 mls @ 200 mls/hr IVPB Q24HR@0600 [facility] Last Admin: 04/30/18 06:13 Dose: 100 mls Insulin Human Lispro (Humalog) 0 units SC .BEDTIME SLIDING SC PRN PRN Reason: Bedtime Correctional Scale Last Admin: 04/29/18 12:32 Dose: 2 unit Insulin Human Lispro (Humalog) 0 units SC .AGGRESSIVE SLIDING PRN; Protocol PRN Reason: AGGRESSIVE SLIDING SCALE Last Admin: 04/30/18 12:42 Dose: 6 unit Labetalol HCl (Normodyne) 10 mg SLOW IVP Q4H PRN PRN Reason: SBP GREATER THAN 160 Last Admin: 04/28/18 04:17 Dose: 10 unit Lorazepam (Ativan) 2 mg SLOW IVP Q1H PRN PRN Reason: Breakthrough agitation Stop: 05/24/18 15:56 Last Admin: 04/30/18 08:02 Dose: 2 mg Methylprednisolone Sodium Succinate (Solu-Medrol) 20 mg IVP DAILY [facility] Last Admin: 04/30/18 08:42 Dose: 20 mg Midazolam HCl (Versed) 4 mg SLOW IVP Q1HR PRN PRN Reason: Agitation Last Admin: 04/28/18 00:56 Dose: 4 mg Miscellaneous Medication (Pharmacy To Dose) 1 each IVPB PRN PRN PRN Reason: Pharmacy to dose Morphine Sulfate (Morphine) 2 mg SLOW IVP Q1H PRN PRN Reason: BREAKTHROUGH PAIN/Agitation Stop: 05/24/18 15:56 Last Admin: 04/25/18 13:39 Dose: 2 mg Hold Vancomycin For (Level >20) 0 each FS .AT DIALYSIS [facility] Ondansetron HCl (Zofran) 4 mg IVP Q6H PRN PRN Reason: Nausea/Vomiting Last Admin: 04/23/18 05:02 Dose: 4 mg Polyethylene Glycol (Miralax) 17 gm PER TUBE DAILYPRN PRN PRN Reason: CONSTIPATION Last Admin: 04/28/18 22:04 Dose: 17 gm Propofol (Diprivan) 1,000 mg IV INF PRN; Protocol PRN Reason: TO ACHIEVE GOAL RASS Stop: 05/24/18 15:56 Last Admin: 04/30/18 14:11 Dose: 1,000 mg Propofol (Diprivan Bolus) 20 mg IV Q5MIN PRN PRN Reason: BREAKTHROUGH AGITATION Stop: 05/24/18 15:56 Vecuronium [place] (Norcuron) 10 mg IV Q1H PRN PRN Reason: Agitation
[2018-04-30 17:09] LABS: Vancomycin, Random 21.8 ug/mL (See Comment)
[2018-04-30] MEDS: Famotidine/PF 20 mg/2ml Vial SLOW IVP SCH (21:28)
[2018-04-30] MEDS: SODIUM CHLORIDE IV SCH (21:49)
[2018-04-30] MEDS: CALCIUM CHLORIDE IV SCH (21:49)
[2018-04-30] MEDS: SODIUM ACETATE IV SCH (21:49)
[2018-04-30] MEDS: [UNRECOGNIZED DRUG - OTHER] IV SCH (21:49)
[2018-05-01] MEDS: Morphine 2 MG/ML SYRINGE SLOW IVP PRN (00:29)
[2018-05-01] MEDS: HumaLOG 300 UNITS/3 ML VIAL SC PRN ×5 (00:56→20:29)
[2018-05-01] MEDS: Sodium Chloride 0.9% 1,000 ML IV SCH ×3 (00:57→20:42)
[2018-05-01] MEDS: fentaNYL Citrate/PF 2,000 MCG in Sodium Chloride 0.9% 60 ML IV SCH ×3 (03:15→22:36)
[2018-05-01] MEDS: Propofol 1,000 MG/100 ML VIAL IV PRN ×8 (04:54→22:55)
[2018-05-01] MEDS: Meropenem 500 MG in Sodium Chloride 0.9% 100 ML IVPB SCH ×2 (05:15→11:18)
[2018-05-01 05:17] LABS: White Blood Cell (WBC) Count 41.8 thou/uL (4.8-10.8)
[2018-05-01 05:19] LABS: Band 17 % (5-11); Eosinophils 1 % (0-10); Hemoglobin 8.5 g/dL (14.0-18.0); Lymphocytes 6 % (21-51); MDiff Complete? YES; Mean Corpuscular Volume 76.7 fL (78.0-98.0); Metamyelocyte 1 % (0-0); Monocytes 7 % (0-10); Neutrophil 68 % (42-75); Platelet Count 343 thou/uL (130-400); RBC Distribution Width 13.5 % (11.5-14.5); Red Blood Cell (RBC) Count 3.27 mill/uL (4.70-6.10)
[2018-05-01 05:24] LABS: ALT (SGPT) 59 U/L (8-55); AST (SGOT) 47 U/L (5-34); Albumin 2.6 g/dL (3.5-5.0); Alkaline Phosphatase 119 U/L (40-150); Anion Gap 21 mmol/L (10-20); BUN (Urea Nitrogen) 97 mg/dL (8.9-20.6); Bilirubin, Total 3.7 mg/dL (0.2-1.2); Calc. Creatinine Clearance 32 mL/min (70-130); Calcium 8.8 mg/dL (7.8-10.44); Carbon Dioxide 24 mmol/L (22-29); Chloride 92 mmol/L (98-107); Estimated GFR-MDRD 10; Globulin 3.3 g/dL (2.4-3.5); Glucose 217 mg/dL (70-105); Lipase 16 U/L (8-78); Potassium 4.6 mmol/L (3.5-5.1); Protein, Total 5.9 g/dL (6.0-8.3); Sodium 132 mmol/L (136-145)
[2018-05-01 07:03] LABS: Actual Bicarbonate (HCO3a) 22.7 mEq/L (22-28); Base Excess (BEa) -2.7 mEq/L (-2.0 to +3.0); Calcium, Ionized 1.05 mmol/L (1.12-1.30); Carboxyhemoglobin (COHb) 1.1 gm% (0.0-3.0); Hemoglobin (Hb) 7.2 g/dL (14.0-18.0); O2 Tension (PaO2) 60.3 mmHg (80.0-100.0); Potassium - ABG Lab 4.47 mmol/L (3.70-5.30); pH, Arterial 7.35 (7.35-7.45)
[2018-05-01 07:06] LABS: Puncture Site RRA
[2018-05-01] MEDS: Budesonide 0.5 MG/2 ML NEB INH SCH ×2 (07:53→19:23)
[2018-05-01] MEDS: Heparin 5,000 UNITS/ML VIAL SC SCH ×2 (08:26→20:15)
--- NOTE | 2018-05-01 09:02 | PRG ---
DATE OF SERVICE: 05/01/2018 SUBJECTIVE: Mr. Cao is a 37-year-old black male who was admitted for an acute abdomen secondary to acute pancreatitis. He has verified necrotizing pancreatitis. He has also progressive leukocytosis and the concern is whether there may be an abscess. He also went into acute kidney injury secondary to ischemic acute tubular necrosis. He is undergoing dialysis. We are trying to minimize fluid luly carl today due to the low blood pressure. Please note he is receiving daily dialysis due to the catab olic nature of his acute kidney injury. PHYSICAL EXAMINATION: VITAL SIGNS: Blood pressure is 94/42, heart rate 101, respiratory rate 21, pulse ox 97%. GENERAL: The patient is sedated, intubated on ventilator support, obese. SKIN: Adequate turgor. HEENT: He has slightly pale conjunctivae, anicteric sclerae. NECK: No neck mass, no carotid bruits, no JVD. CHEST: No deformities. LUNGS: Decreased breath sounds. HEART: Normal sinus rhythm. No murmur, no gallops or rubs. ABDOMEN: Globular, soft, nontender, no masses. EXTREMITIES: Positive for edema. MEDICATIONS: 05/01/2018 - Reviewed. LABORATORY DATA: 05/01/2018 - White count 41.8, hemoglobin 8.5. Sodium 132, potassium 4.6, chloride 92, carbon dioxide 24, BUN 97, creatinine 7.46, glucose 217, calcium 8.8, albumin 2.6, AST 47, ALT 5 9. ASSESSMENT AND PLAN: 1. Acute kidney injury - secondary to presumed acute tubular necrosis. On daily hemodialysis due to the catabolic nature of his kidney failure. So far tolerating. I noted he was slightly on the hypo tensive side yesterday and today. I am trying to minimize fluid removal with today's dialysis. I wi ll again reevaluate this patient tomorrow for possible dialytic intervention. 2. Acute pancreatitis - supportive care. With the rising white count, possibility of having to do a n aspiration versus exploratory laparotomy of ? of abscess is being entertained. Overall, continue supportive care. Overall, prognosis remains guarded.
[2018-05-01] MEDS: Lorazepam 2 MG/ML VIAL SLOW IVP PRN ×5 (09:03→22:58)
--- NOTE | 2018-05-01 09:12 | PRG ---
DATE OF SERVICE: 05/01/2018 SUBJECTIVE: He is intubated on the vent, sedated. OBJECTIVE: VITAL SIGNS: Pulse is 112, blood pressure 130/52, O2 sat 93% on the vent, respiration 30. His I's a nd O's are . GENERAL: He has been dialyzed. Neurologically, he is sedated. CHEST: Reveals decreased breath sounds, no wheezing. CARDIAC: Normal S1, S2. No gallops. ABDOMEN: Soft, no masses. LABORATORY DATA: White count 41,000, H&H is 8 and 25, platelet count is 343, pO2 60, pCO2 of 42%, 35 on a bilevel. BUN and creatinine are . Albumin is 2.6, bilirubin is 3.7. IMPRESSION: 1. Necrotizing pancreatitis. 2. Respiratory failure. 3. Morbid obesity. 4. Asthma, stable. PLAN: Unfortunately, he is not weanable at this stage. Continue supportive care. We will discuss w ith family as they arrive. Discussed with Surgery with these were doing any intervention at this stage. One-half hour critical care time.
[2018-05-01 09:15] LABS: Vancomycin, Random 14.5 ug/mL (See Comment)
[2018-05-01] MEDS: Vancomycin HCl 1 GM in Premix Bag 1 BAG IVPB SCH (09:27)
[2018-05-01] MEDS: Insulin Glargine 15 UNITS in Pre-Filled Syringe 1 EACH SC SCH ×2 (09:34→20:19)
--- NOTE | 2018-05-01 09:59 | RAD ---
CHEST 1 VIEW: History Chest pain. Ventilated patient. COMPARISON: Radiograph prior day. FINDINGS: Endotracheal tube tip is at the level of the clavicles. Small effusions. Heart size is enlarged. B ibasilar airspace opacities. IMPRESSION: No significant change in radiographic appearance of the chest. POS: [facility]
[2018-05-01 11:46] LABS: Magnesium 2.6 mg/dL (1.6-2.6); Phosphorus 8.6 mg/dL (2.3-4.7)
[2018-05-01] MEDS: Micafungin 100 MG in Sodium Chloride 0.9% 100 ML IVPB SCH (12:38)
--- NOTE | 2018-05-01 18:39 | PDOC.PN ---
- Subjective Encounter Start Date: 05/01/18 Encounter Start Time: 10:00 Subjective: pt intubated - Objective Resuscitation Status: Resuscitation Status FULL:Full Resuscitation Vital Signs & Weight: Vital Signs (12 hours) Temp Pulse Resp BP Pulse Ox 05/01/18 18:00 100.8 F H 36 H 05/01/18 17:00 100.8 F H 05/01/18 16:00 100.3 F H 35 H 05/01/18 15:00 101.1 F H 05/01/18 14:21 108 H 128/72 05/01/18 14:00 33 H 05/01/18 12:25 115 H 151/82 H 05/01/18 12:20 115 H 34 H 94 L 05/01/18 12:00 34 H 05/01/18 11:00 99.5 F 05/01/18 10:36 109 H 132/73 05/01/18 10:00 36 H 05/01/18 08:00 37 H 97 05/01/18 07:00 100.9 F H Weight Admit Weight 330 lb 8 oz Weight 365 lb 1.368 oz Most Recent Monitor Data Heart Rate from ECG 110 NIBP 127/70 NIBP BP-Mean 89 Respiration from ECG 33 SpO2 95 I&O: 04/30/18 05/01/18 05/02/18 06:59 06:59 06:59 Intake Total 4442.0 2997.7 1603 Output Total 11 760 100 Balance 4431.0 2237.7 1503 Result Diagrams: 05/01/18 04:40 05/01/18 04:40 Additional Labs: Accuchecks 05/01/18 05/01/18 05/01/18 15:34 12:48 08:48 POC Glucose 283 H 229 H 148 H 05/01/18 05/01/18 04/30/18 04:50 00:55 20:27 POC Glucose 207 H 221 H 149 H Phys Exam - Physical Examination Neck: no nodes, no JVD, supple, full ROM Cardiovascular: RRR, no significant murmur, no rub, gallop, irregular Gastrointestinal: soft, non-tender, no distention, positive bowel sounds Musculoskeletal: edema present Dx/Plan (1) Acute respiratory failure with hypoxia Code(s): J96.01 - ACUTE RESPIRATORY FAILURE WITH HYPOXIA Status: Acute (2) Acute pancreatitis Code(s): K85.90 - ACUTE PANCREATITIS WITHOUT NECROSIS OR INFECTION, UNSP Status: Acute (3) Sepsis Code(s): A41.9 - SEPSIS, UNSPECIFIED ORGANISM Status: Acute (4) Acute kidney failure Status: Acute (5) Multiorgan failure Code(s): SNJ7350 - Status: Acute Comment: Intubation, dilaysis, supportive care (6) Leukocytosis Code(s): D72.829 - ELEVATED WHITE BLOOD CELL COUNT, UNSPECIFIED Status: Acute - Plan pt continues to be critically ill -: wbc improving slowly -: continue abx for now * . Review of Systems - Review of Systems Other: unable to obtain - Medications/Allergies Allergies/Adverse Reactions: Allergies Allergy/AdvReac Type Severity Reaction Status Date / Time ciprofloxacin [From Cipro] Allergy Verified 04/22/18 11:45 Medications: Current Medications Albuterol/Ipratropium (Duoneb) 3 ml NEB [id number] PRN PRN Reason: SOB &/or Wheezing Albuterol/Ipratropium (Duoneb) 3 ml NEB [id number] ЮЛИЯ Last Admin: 05/01/18 12:20 Dose: 3 ml Budesonide (Pulmicort Neb Solution) 0.5 mg INH BID-RT Ю[place]ИЯ Last Admin: 05/01/18 07:53 Dose: 0.5 mg Dextrose/Water (Dextrose 50%) 25 gm SLOW IVP PRN PRN PRN Reason: Hypoglycemia Famotidine (Pepcid) 20 mg SLOW IVP 2100 [place] Last Admin: 04/30/18 21:28 Dose: 20 mg Glucagon (Glucagon) 1 mg IM PRN PRN PRN Reason: Hypoglycemia Heparin Sodium (Porcine) (Heparin) 5,000 units SC BID ЮЛИЯ Last Admin: 05/01/18 08:26 Dose: 5,000 units Hydralazine HCl (Apresoline) 10 mg SLOW IVP Q4H PRN PRN Reason: SBP > 180 and HR < 70 Fentanyl Citrate 2,000 mcg/ (Sodium Chloride) 100 mls @ 0 mls/hr IV INF ЮЛИЯ; Protocol Stop: 05/24/18 15:56 Last Admin: 05/01/18 13:22 Dose: 100 mls Fentanyl Citrate (Fentanyl Bolus) 250 mls @ 0 mls/hr IVPB PRN PRN PRN Reason: Breakthrough pain/agitation Stop: 05/24/18 15:56 Sodium Chloride (Normal Saline 0.9%) 1,000 mls @ 100 mls/hr IV .Q10H [facility] Last Admin: 05/01/18 12:39 Dose: 1,000 mls Insulin Glargine 15 units/ (Miscellaneous Medication) 0.15 mls @ 0 mls/hr SC BID [facility] Last Admin: 05/01/18 09:34 Dose: 0.15 mls Sodium Acetate 40 meq/ Sodium Chloride 70 meq/ Calcium Chloride 10 meq/ Magnesium Sulfate 10 meq/ Multivitamins 10 ml/ Chromium/Copper/Manganese/Seleni/ Zn 5 ml/Insulin Human Regular 30 units / Dextrose/Water/ Amino Acids/Sterile Water 1,562.6159 mls @ 65.109 mls/hr IV 2200 [facility] Last Admin: 04/30/18 21:49 Dose: 1,562.6159 mls Vancomycin HCl 1.5 gm/ Sodium (Chloride) 300 mls @ 200 mls/hr IVPB WILLCALL [facility] Vancomycin HCl 1.25 gm/ Sodium (Chloride) 250 mls @ 166.667 mls/hr IVPB WILLCALL [facility] Vancomycin HCl 1 gm/ Device 200 mls @ 200 mls/hr IVPB WILLCALL [facility] Last Admin: 05/01/18 09:27 Dose: 200 mls Vancomycin HCl 750 mg/ Sodium (Chloride) 250 mls @ 250 mls/hr IVPB WILLCALL [place] Meropenem 500 mg/ Sodium (Chloride) 100 mls @ 200 mls/hr IVPB 1200 [facility] Last Admin: 05/01/18 11:18 Dose: 100 mls Micafungin Sodium 100 mg/ (Sodium Chloride) 100 mls @ 100 mls/hr IVPB 1200 [facility] Last Admin: 05/01/18 12:38 Dose: 100 mls Insulin Human Lispro (Humalog) 0 units SC .BEDTIME SLIDING SC PRN PRN Reason: Bedtime Correctional Scale Last Admin: 05/01/18 00:56 Dose: 2 unit Insulin Human Lispro (Humalog) 0 units SC .AGGRESSIVE SLIDING PRN; Protocol PRN Reason: AGGRESSIVE SLIDING SCALE Last Admin: 05/01/18 15:35 Dose: 9 unit Labetalol HCl (Normodyne) 10 mg SLOW IVP Q4H PRN PRN Reason: SBP GREATER THAN 160 Last Admin: 04/28/18 04:17 Dose: 10 unit Lorazepam (Ativan) 2 mg SLOW IVP Q1H PRN PRN Reason: Breakthrough agitation Stop: 05/24/18 15:56 Last Admin: 05/01/18 15:27 Dose: 2 mg Methylprednisolone Sodium Succinate (Solu-Medrol) 20 mg IVP DAILY [facility] Last Admin: 05/01/18 08:26 Dose: 20 mg Midazolam HCl (Versed) 4 mg SLOW IVP Q1HR PRN PRN Reason: Agitation Last Admin: 04/28/18 00:56 Dose: 4 mg Miscellaneous Medication (Pharmacy To Dose) 1 each IVPB PRN PRN PRN Reason: Pharmacy to dose Morphine Sulfate (Morphine) 2 mg SLOW IVP Q1H PRN PRN Reason: BREAKTHROUGH PAIN/Agitation Stop: 05/24/18 15:56 Last Admin: 05/01/18 00:29 Dose: 2 mg Hold Vancomycin For (Level >20) 0 each FS .AT DIALYSIS [facility] Ondansetron HCl (Zofran) 4 mg IVP Q6H PRN PRN Reason: Nausea/Vomiting Last Admin: 04/23/18 05:02 Dose: 4 mg Polyethylene Glycol (Miralax) 17 gm PER TUBE DAILYPRN PRN PRN Reason: CONSTIPATION Last Admin: 04/28/18 22:04 Dose: 17 gm Propofol (Diprivan) 1,000 mg IV INF PRN; Protocol PRN Reason: TO ACHIEVE GOAL RASS Stop: 05/24/18 15:56 Last Admin: 05/01/18 17:13 Dose: 1,000 mg Propofol (Diprivan Bolus) 20 mg IV Q5MIN PRN PRN Reason: BREAKTHROUGH AGITATION Stop: 05/24/18 15:56 Vecuronium [place] (Norcuron) 10 mg IV Q1H PRN PRN Reason: Agitation
[2018-05-01] MEDS: Famotidine/PF 20 mg/2ml Vial SLOW IVP SCH (20:15)
[2018-05-01] MEDS: SODIUM CHLORIDE IV SCH (22:19)
[2018-05-01] MEDS: CALCIUM CHLORIDE IV SCH (22:19)
[2018-05-01] MEDS: SODIUM ACETATE IV SCH (22:19)
[2018-05-01] MEDS: [UNRECOGNIZED DRUG - OTHER] IV SCH (22:19)
--- NOTE | 2018-05-01 22:57 | PRG ---
DATE OF SERVICE: 05/01/2018 Xavier Cao remains on the ventilator. He is sedated. PHYSICAL EXAMINATION: VITAL SIGNS: Heart rate 117, 135/66. LUNGS: Clear to auscultation. CARDIAC: Regular rate and rhythm without murmur or gallop. ABDOMEN: Soft, quiet. LABORATORY: White count is 41,000 down from 49,000. Hemoglobin 8.5. Sodium 132, chloride 92. Carb on dioxide 24, BUN 97, creatinine 7.46, GFR 10, calcium is 8.8. The patient had a CAT scan on April 29, 2018 revealing pancreatic necrosis greater than 50% of the pancreas tail and body, but no evidence of abscess. The patient remains on dialysis. ASSESSMENT AND PLAN: 1. Acute renal failure. Continue dialysis. He will need a cuffed tunnel dialysis catheter in near future. 2. Acute pancreatitis with a distal pancreatic necrosis. No evidence of abscess. I would not recom mend aspiration unless there appears to be of suspected fluid collection. His white count is slightl y improved. Continue support. 3. Respiratory failure.
[2018-05-02] MEDS: hydrALAZINE 20 MG/ML VIAL SLOW IVP PRN (00:06)
[2018-05-02] MEDS: Lorazepam 2 MG/ML VIAL SLOW IVP PRN ×5 (00:11→22:29)
[2018-05-02] MEDS: Labetalol HCl 100 MG/20 ML VIAL SLOW IVP PRN ×3 (00:25→22:31)
[2018-05-02] MEDS: Midazolam HCl 2 mg/2 ml Vial SLOW IVP PRN ×3 (00:40→21:27)
[2018-05-02] MEDS: HumaLOG 300 UNITS/3 ML VIAL SC PRN ×4 (00:48→21:20)
[2018-05-02] MEDS: Morphine 2 MG/ML SYRINGE SLOW IVP PRN ×3 (01:56→17:47)
[2018-05-02] MEDS: Propofol 1,000 MG/100 ML VIAL IV PRN ×7 (02:12→23:30)
[2018-05-02 04:57] LABS: Anion Gap 26 mmol/L (10-20); BUN (Urea Nitrogen) 117 mg/dL (8.9-20.6); Calc. Creatinine Clearance 30 mL/min (70-130); Calcium 8.8 mg/dL (7.8-10.44); Carbon Dioxide 21 mmol/L (22-29); Chloride 93 mmol/L (98-107); Estimated GFR-MDRD 9; Glucose 261 mg/dL (70-105); Sodium 135 mmol/L (136-145)
[2018-05-02 05:02] LABS: Band 23 % (5-11); Eosinophils 5 % (0-10); Lymphocytes 1 % (21-51); MDiff Complete? YES; Mean Corpuscular HGB CONC 34.3 g/dL (32.0-36.0); Mean Corpuscular Hemoglobin 26.3 pg (27.0-31.0); Mean Corpuscular Volume 76.6 fL (78.0-98.0); Mean Platelet Volume 10.4 fL (7.4-10.4); Metamyelocyte 1 % (0-0); Monocytes 5 % (0-10); Neutrophil 65 % (42-75); Platelet Count 362 thou/uL (130-400); RBC Distribution Width 13.4 % (11.5-14.5); Red Blood Cell (RBC) Count 3.04 mill/uL (4.70-6.10); Toxic Granulation SLIGHT
[2018-05-02 06:59] LABS: Actual Bicarbonate (HCO3a) 20.3 mEq/L (22-28); Base Excess (BEa) -5.2 mEq/L (-2.0 to +3.0); CO2 Tension 39.5 mmHg (35.0-45.0); Calcium, Ionized 1.04 mmol/L (1.12-1.30); Carboxyhemoglobin (COHb) 0.7 gm% (0.0-3.0); Hemoglobin (Hb) 8.9 g/dL (14.0-18.0); O2 Tension (PaO2) 62.9 mmHg (80.0-100.0); Potassium - ABG Lab 4.94 mmol/L (3.70-5.30); pH, Arterial 7.33 (7.35-7.45)
[2018-05-02 07:19] LABS: ALV-art Gradient 315.525 (0-20); Puncture Site RRA
[2018-05-02] MEDS: Budesonide 0.5 MG/2 ML NEB INH SCH ×2 (07:46→18:21)
[2018-05-02] MEDS: fentaNYL Citrate/PF 2,000 MCG in Sodium Chloride 0.9% 60 ML IV SCH ×2 (08:19→19:28)
[2018-05-02 08:44] LABS: Vancomycin, Random 16.1 ug/mL (See Comment)
[2018-05-02 08:46] LABS: Iron 22 ug/dL (65-175); Iron Binding Capacity, Total 140 mcg/dL (261-462)
--- NOTE | 2018-05-02 09:10 | PRG ---
DATE OF SERVICE: 05/02/2018 SUBJECTIVE: Mr. Cao is a 37-year-old black male who was admitted for acute abdominal pain secondary to acute pancreatitis. He developed acute respiratory failure with acute renal failure. Due to his worsening renal dysfunction he was initiated on dialysis. He is currently undergoing daily dialysis . No acute events noted. Surgery has evaluated this patient. The plan is not to proceed with an ex ploratory laparotomy for the moment. PHYSICAL EXAMINATION: VITAL SIGNS: Blood pressure 95/39, heart rate 104, respiratory rate is 42, pulse ox 94%. GENERAL: The patient is sedated, intubated on ventilator support. SKIN: Adequate turgor. HEENT: He has slightly pale conjunctivae, anicteric sclerae. NECK: No neck mass, no carotid bruits, no JVD. CHEST: No deformities. LUNGS: Decreased breath sounds. HEART: Tachycardic, no murmur, no gallops, no rubs. ABDOMEN: Globular, soft, nontender, no masses. EXTREMITIES: Trace edema. MEDICATIONS: 05/02/2018 - Reviewed. LABORATORY DATA: 05/02/2018 - White count 31, hemoglobin 8.0. Sodium 135, potassium 5, chloride 93, carbon dioxide 21, BUN 117, creatinine 7.95, glucose 261, calcium 8.8. ASSESSMENT AND PLAN: 1. Acute kidney injury - secondary to ischemic acute tubular necrosis. Continue current supportive care. Continue daily dialysis due to the catabolic nature of this patient. Minimal fluid removal du e to the low blood pressure. 2. Acute necrotizing pancreatitis, supportive care. Surgery is following. No recommendation for an exploratory laparotomy for the moment. 3. Leukocytosis, on empiric antibiotics. Please note patient has already been started on antifungal . White count is slowly dropping. Overall prognosis remains guarded.
[2018-05-02] MEDS: Heparin 5,000 UNITS/ML VIAL SC SCH ×2 (09:33→21:18)
[2018-05-02] MEDS: Insulin Glargine 20 UNITS in Pre-Filled Syringe 1 EACH SC SCH ×2 (09:37→21:19)
[2018-05-02] MEDS: Sodium Chloride 0.9% 1,000 ML IV SCH ×2 (10:58→19:30)
[2018-05-02] MEDS ORDERED: Sterile Water 10 ML VIAL IVP SCH (11:16)
[2018-05-02] MEDS: Activase 2 MG VIAL CATH SCH ×2 (11:44→12:45)
--- NOTE | 2018-05-02 11:48 | PRG ---
DATE OF SERVICE: 05/02/2018 SUBJECTIVE: This is a 37-year-old morbidly obese gentleman with severe necrotizing pancreatitis. I spoke to General Surgery today. He is not a surgical candidate. All his medications were adjusted as per his renal failure. He is being dialyzed. His chest x-ray s howed marked improvement in his overall bilateral pulmonary infiltrates. OBJECTIVE: VITAL SIGNS: His blood pressure 120/80, his respirations are 40, pulse 100. His I's and O's have be en 4442 in, 11 out. His maximum temperature has been 102 Fahrenheit on 05/02/2018. CHEST: Reveals decreased breath sounds without any wheezing. CARDIAC: Normal S1 and S2. No gallops. ABDOMEN: A bit distended. LABORATORY: White count 31,000, H and H are 8 and 23. PO2 is 62, pCO2 39 and pH 7.33, PEEP of 8. S odium 131, creatinine 7.9. IMPRESSION: 1. Multiorgan failure. 2. Necrotizing pancreatitis. 3. Marked leukocytosis. 4. Renal failure. 5. Adult respiratory distress syndrome. He is clearly not weanable at this stage. He is day #10 on the vent. PLAN: He is probably going to need a trach in the next several days. We will discuss with family wh en they arrive. Continue antibiotics, supportive care. Prognosis remains guarded. [id number]-[id number] critical care time.
[2018-05-02] MEDS: Meropenem 500 MG in Sodium Chloride 0.9% 100 ML IVPB SCH (13:00)
[2018-05-02] MEDS: Micafungin 100 MG in Sodium Chloride 0.9% 100 ML IVPB SCH (13:00)
[2018-05-02] MEDS: Famotidine/PF 20 mg/2ml Vial SLOW IVP SCH (21:18)
[2018-05-02] MEDS: CALCIUM CHLORIDE IV SCH (21:28)
[2018-05-02] MEDS: SODIUM CHLORIDE IV SCH (21:28)
[2018-05-02] MEDS: SODIUM ACETATE IV SCH (21:28)
[2018-05-02] MEDS: [UNRECOGNIZED DRUG - OTHER] IV SCH (21:28)
[2018-05-02] MEDS ORDERED: Sterile Water 10 ML ONE (21:48)
[2018-05-02] MEDS: Vecuronium 10 MG VIAL IV PRN (21:50)
[2018-05-02] MEDS ORDERED: Sterile Water 10 ML VIAL FS PRN (22:04)
[2018-05-03] MEDS: HumaLOG 300 UNITS/3 ML VIAL SC PRN ×6 (00:48→20:28)
[2018-05-03] MEDS: Lorazepam 2 MG/ML VIAL SLOW IVP PRN ×6 (01:26→22:58)
[2018-05-03] MEDS: Propofol 1,000 MG/100 ML VIAL IV PRN ×7 (02:21→21:39)
[2018-05-03] MEDS: Sodium Chloride 0.9% 1,000 ML IV SCH ×2 (04:11→13:19)
[2018-05-03 04:23] LABS: Anion Gap 26 mmol/L (10-20); Calc. Creatinine Clearance 25 mL/min (70-130); Calcium 8.8 mg/dL (7.8-10.44); Carbon Dioxide 19 mmol/L (22-29); Chloride 91 mmol/L (98-107); Estimated GFR-MDRD 8; Glucose 223 mg/dL (70-105); Potassium 5.2 mmol/L (3.5-5.1); Sodium 131 mmol/L (136-145)
[2018-05-03 04:29] LABS: Band 26 % (5-11); Eosinophils 3 % (0-10); Hemoglobin 8.1 g/dL (14.0-18.0); Lymphocytes 8 % (21-51); MDiff Complete? YES; Mean Corpuscular HGB CONC 34.9 g/dL (32.0-36.0); Mean Corpuscular Hemoglobin 26.6 pg (27.0-31.0); Mean Corpuscular Volume 76.1 fL (78.0-98.0); Mean Platelet Volume 10.2 fL (7.4-10.4); Metamyelocyte 2 % (0-0); Monocytes 9 % (0-10); Myelocyte 3 % (0-0); Neutrophil 47 % (42-75); Platelet Count 427 thou/uL (130-400); RBC Distribution Width 13.6 % (11.5-14.5); Reactive Lymphocytes 1 % (0-10); Red Blood Cell (RBC) Count 3.04 mill/uL (4.70-6.10); Target Cells SLIGHT = 2-5 cells (100X) (0-1/hpf); White Blood Cell (WBC) Count 29.7 thou/uL (4.8-10.8)
[2018-05-03 04:34] LABS: BUN (Urea Nitrogen) 136 mg/dL (8.9-20.6)
[2018-05-03] MEDS: Vecuronium 10 MG VIAL IV PRN (04:48)
[2018-05-03] MEDS: fentaNYL Citrate/PF 2,000 MCG in Sodium Chloride 0.9% 60 ML IV SCH ×2 (05:38→16:38)
--- NOTE | 2018-05-03 06:02 | PDOC.PN ---
- Subjective Encounter Start Date: 05/02/18 Encounter Start Time: 10:45 Subjective: pt intubated, continues to spike a fever - Objective Resuscitation Status - Order Detail: 05/02/18 12:07 Resuscitation Status Routine Resuscitation Status: FULL: Full Resuscitation Discussed with: per previous order Vital Signs & Weight: Vital Signs (12 hours) Temp Pulse Resp BP Pulse Ox 05/03/18 04:15 92 L 05/03/18 04:00 33 H 05/03/18 02:29 103 H 110/68 05/03/18 02:00 31 H 05/03/18 00:38 104 H 32 H 97 05/03/18 00:00 32 H 05/02/18 22:35 102 H 122/77 05/02/18 22:31 122 H 166/106 H 05/02/18 22:00 28 H 05/02/18 20:00 102.9 F H 38 H 05/02/18 19:50 93 L 05/02/18 18:22 119 H 126/63 05/02/18 18:20 120 H 31 H 93 L 05/02/18 18:00 38 H Weight Admit Weight 330 lb 8 oz Weight 367 lb 11.697 oz Most Recent Monitor Data Heart Rate from ECG 104 NIBP 107/51 NIBP BP-Mean 69 Respiration from ECG 24 SpO2 92 I&O: 05/01/18 05/02/18 05/03/18 06:59 06:59 06:59 Intake Total 2997.7 3209.4 1374 Output Total 760 350 210 Balance 2237.7 2859.4 1164 Result Diagrams: 05/03/18 04:00 05/03/18 04:00 Additional Labs: Accuchecks 05/03/18 05/03/18 05/02/18 03:58 00:47 20:48 POC Glucose 227 H 226 H 244 H 05/02/18 05/02/18 05/02/18 16:41 13:52 09:20 POC Glucose 247 H 218 H 245 H Phys Exam - Physical Examination Neck: no nodes, no JVD, supple, full ROM mild rhonchi all over Cardiovascular: RRR, no significant murmur, no rub, gallop, irregular Gastrointestinal: soft, non-tender, no distention, positive bowel sounds Dx/Plan (1) Acute respiratory failure with hypoxia Code(s): J96.01 - ACUTE RESPIRATORY FAILURE WITH HYPOXIA Status: Acute (2) Acute pancreatitis Code(s): K85.90 - ACUTE PANCREATITIS WITHOUT NECROSIS OR INFECTION, UNSP Status: Acute (3) Sepsis Code(s): A41.9 - SEPSIS, UNSPECIFIED ORGANISM Status: Acute (4) Acute kidney failure Status: Acute (5) Multiorgan failure Code(s): YKT5261 - Status: Acute Comment: Intubation, dilaysis, supportive care (6) Leukocytosis Code(s): D72.829 - ELEVATED WHITE BLOOD CELL COUNT, UNSPECIFIED Status: Acute - Plan leukocytosis improving, pt continues to spike a fever most likley due to -: his underlying pancreatitis. Given the complexity of this pt's illness -: transferring him to a higher level of care was initiated. -: Did speak with pt's about it however after speaking to other consultan -: decided noted to transfer the pt. *
[2018-05-03] MEDS: Budesonide 0.5 MG/2 ML NEB INH SCH ×2 (06:37→18:40)
[2018-05-03 06:56] LABS: Actual Bicarbonate (HCO3a) 18.9 mEq/L (22-28); Base Excess (BEa) -7.8 mEq/L (-2.0 to +3.0); Calcium, Ionized 1.03 mmol/L (1.12-1.30); Carboxyhemoglobin (COHb) 0.9 gm% (0.0-3.0); Hemoglobin (Hb) 8.2 g/dL (14.0-18.0); Potassium - ABG Lab 4.99 mmol/L (3.70-5.30)
[2018-05-03 07:30] LABS: pH, Arterial 7.25 (7.35-7.45)
[2018-05-03 07:31] LABS: O2 Tension (PaO2) 57.9 mmHg (80.0-100.0); Puncture Site RRA
[2018-05-03 08:04] LABS: Vancomycin, Random 12.2 ug/mL (See Comment)
[2018-05-03] MEDS: Heparin 5,000 UNITS/ML VIAL SC SCH ×2 (08:16→20:30)
[2018-05-03] MEDS: Insulin Glargine 20 UNITS in Pre-Filled Syringe 1 EACH SC SCH ×2 (08:41→21:14)
--- NOTE | 2018-05-03 10:00 | PDOC.PN ---
- Subjective Encounter Start Date: 05/03/18 Encounter Start Time: 09:58 Mr. Cao was seen today in follow-up of severe pancreatitis. He is intubated and sedated. - Objective Resuscitation Status - Order Detail: 05/02/18 12:07 Resuscitation Status Routine Resuscitation Status: FULL: Full Resuscitation Discussed with: per previous order MAR Reviewed: Yes Vital Signs & Weight: Vital Signs (12 hours) Temp Pulse Resp BP Pulse Ox 05/03/18 09:00 100.1 F H 05/03/18 08:00 100.1 F H 33 H 05/03/18 07:00 100.4 F H 05/03/18 06:33 104 H 128/83 05/03/18 06:30 105 H 27 H 89 L 05/03/18 06:00 24 H 05/03/18 04:15 92 L 05/03/18 04:00 33 H 05/03/18 02:29 103 H 110/68 05/03/18 02:00 31 H 05/03/18 00:38 104 H 32 H 97 05/03/18 00:00 32 H 05/02/18 22:35 102 H 122/77 05/02/18 22:31 122 H 166/106 H 05/02/18 22:00 28 H Weight Admit Weight 330 lb 8 oz Weight 367 lb 11.697 oz Most Recent Monitor Data Heart Rate from ECG 101 NIBP 102/58 NIBP BP-Mean 72 Respiration from ECG 32 SpO2 98 I&O: 05/02/18 05/03/18 05/04/18 06:59 06:59 06:59 Intake Total 3209.4 2683 114.6 Output Total 350 360 Balance 2859.4 2323 114.6 Result Diagrams: 05/03/18 04:00 05/03/18 04:00 Additional Labs: Accuchecks 05/03/18 05/03/18 05/03/18 09:09 03:58 00:47 POC Glucose 211 H 227 H 226 H 05/02/18 05/02/18 05/02/18 20:48 16:41 13:52 POC Glucose 244 H 247 H 218 H Phys Exam - Physical Examination HEENT: PERRLA Respiratory: no wheezing, no rales, no rhonchi, clear to auscultation bilateral Cardiovascular: RRR, no significant murmur, no rub Gastrointestinal: soft, positive bowel sounds Musculoskeletal: edema present + upper and lower extremity edema- bilaterally Dx/Plan (1) Acute pancreatitis Code(s): K85.90 - ACUTE PANCREATITIS WITHOUT NECROSIS OR INFECTION, UNSP Status: Acute (2) Acute respiratory failure with hypoxia Code(s): J96.01 - ACUTE RESPIRATORY FAILURE WITH HYPOXIA Status: Acute (3) Acute kidney failure Status: Acute (4) Hyperkalemia Code(s): E87.5 - HYPERKALEMIA Status: Resolved (5) Hyperglycemia Code(s): R73.9 - HYPERGLYCEMIA, UNSPECIFIED Status: Acute (6) Hypertension Code(s): I10 - ESSENTIAL (PRIMARY) HYPERTENSION Status: Acute - Plan * Acute pancreatitis- severe- he has been found to have necrotizing pancreatitis since I last saw him- continue supportive care. He is not a surgical candidate at this time. He has been placed on tube feeding * Acute respiratory failure- continue ventilator support- he has developed ARDS - and is currently not weanable. He may need to have trach and PEG placed soon * Acute renal failure- continue dialysis * Leukocytosis- likely from Systemic inflammatory response from the severe pancreatitis- He is on broad spectrum antibiotics including Vancomycin, Meropenem, and Micafungin. * Hyperglycemia- Blood glucose is a bit elevated- will tritrate Lantus * DVT and GI prophylaxis
[2018-05-03] MEDS ORDERED: Heparin 10,000 UNITS/ 10 ML VIAL ONE (11:00)
[2018-05-03] MEDS: Vancomycin HCl 1 GM in Premix Bag 1 BAG IVPB SCH (11:25)
[2018-05-03] MEDS: Meropenem 500 MG in Sodium Chloride 0.9% 100 ML IVPB SCH (11:27)
[2018-05-03] MEDS: Micafungin 100 MG in Sodium Chloride 0.9% 100 ML IVPB SCH (11:27)
--- NOTE | 2018-05-03 11:43 | PRG ---
DATE OF SERVICE: 05/03/2018 SUBJECTIVE: Mr. Cao is a 37-year-old gentleman, who is intubated in the vent, tachypneic and tachycardic. OBJECTIVE: VITAL SIGNS: His temperature is 100.4, blood pressure 120/83, saturations are 90%, respirations are 24. He is overriding the vent at about 30 times a minute. No urine output, is being dialyzed. NEUROLOGIC: Sedated on Fentanyl and Diprivan. CHEST: Decreased breath sounds. No wheezing. CARDIAC: Sinus tach. ABDOMEN: Distended, but relatively soft. LABORATORY DATA: White count 29,000, H and H 8 and 23, platelet count 425. PO2 is 57, pCO2 45 ph 7.32, creatinine is 9.4, bicarbonate is 19, and glucose is 227. IMPRESSION: 1. Severe pancreatitis, necrotizing. 2. Metabolic acidosis. 3. Respiratory failure. 4. History of asthma. PLAN: 1. Trach will be arranged. 2. Discussed with his , continue ongoing supportive care. Job ID: [id number] [facility]
--- NOTE | 2018-05-03 11:45 | PRG ---
DATE OF SERVICE: 05/03/2018 SUBJECTIVE: Mr. Cao is a 37-year-old black male, who is admitted for an acute pancreatitis - necrotizing in nature and seen by Renal service for his acute injury secondary to ischemic ATN. He is undergoing daily dialysis due to his catabolic nature. Yesterday, dialysis was shortened due to malfunction of the dialysis catheter. We did place Activase overnight. Currently, the dialysis now functional. We are getting a blood flow about 400 mL per minute. I am at the bedside supervising his dialysis. My plan is to do a 4-hour dialysis with this patient due to his catabolic nature. We will attempt to remove around 2 L due to his relatively lower blood pressure today. No acute events last night. OBJECTIVE: VITAL SIGNS: Blood pressure is 92/53, heart rate 101, respiratory rate 28, and pulse ox 98%. GENERAL: The patient is sedated, intubated, in ventilator support, obese. SKIN: Adequate turgor. HEENT: He has a slightly pale conjunctivae. Anicteric sclerae. NECK: No neck mass. No carotid bruits. No JVD. CHEST: No deformities. LUNGS: Clear breath sounds. No wheezing. No crackles. HEART: Tachycardiac. No murmur. No gallops. No rubs. ABDOMEN: Globular. Soft. Nontender. EXTREMITIES: No edema. No deformities. MEDICATIONS: Medications of May 03, 2018, reviewed. LABORATORY DATA: Laboratories of May 03, 2018, white count 29.7, hemoglobin 8.1. Sodium 131, potassium 5.2, chloride 91, carbon dioxide 19, BUN 136, creatinine 9.46, glucose 223, and calcium 8.8. ASSESSMENT AND PLAN: 1. Acute kidney injury - This is most likely from ischemic ATN. Please note, the patient is also on the anuric side. Continue daily dialysis. Fluid removal only as tolerated. There is no evidence of renal recovery yet with this patient. 2. Acute pancreatitis/necrotizing pancreatitis having supportive care. GI and Surgery are following. No indication for any exploratory laparotomy. 3. Leukocytosis, currently improving. The patient is currently on IV antibiotics and antifungal. Job ID: [id number]
[2018-05-03] MEDS: Acetaminophen 650 MG in Premix Bag 1 BAG IVPB PRN ×3 (12:16→23:59)
--- NOTE | 2018-05-03 12:38 | PRG ---
DATE OF SERVICE: 05/02/2018 SUBJECTIVE: Mr. Cao is in the ICU on the ventilator. He has fever since yesterday of 101 to 103 degrees. Before this, he has been feverish to 100.9 to 101. During these febrile episodes, he has been tachycardic, blood pressure otherwise 126/63. The patient on 04/23/2018 has placement of right Trialysis catheter. He has been on dialysis since. On 04/24/2018, he has a central line placed by me. He has Cathflo in his Trialysis catheter at this time trying to optimize function for repeat dialysis trial tomorrow. His white count on 04/29/2018 was up to 49,000, yesterday 41,000, and today 31,000. Differential does reveal 23 bands. His blood cultures are negative today. He is on vancomycin, sliding scale in respect for his renal failure. He is on meropenem. He is on micafungin. CAT scan of abdomen on 04/29/2018 reveals distal 50% pancreatic necrosis without abscess, without fluid collections. OBJECTIVE: LUNGS: The patient's lungs are clear to auscultation. ABDOMEN: Soft, firm. EXTREMITIES: Unremarkable. LABORATORY DATA: Chest x-ray is clear. ASSESSMENT: 1. Respiratory failure. Continue ventilator. I have discussed with Pulmonary Medicine. We will plan tracheostomy later this week. 2. Acute renal failure with oliguric. Plan hemodialysis catheter, cuffed tunneled placement. Would like to remove the groin catheter soon. We will also replace left internal jugular catheter with a cuffed tunneled catheter, Bassett. Should avoid PICC line and midlines in this patient in case his renal function does not recover, although his renal function is normal prior to this acute event. 3. Acute pancreatitis with multiple organ failure. I have discussed with the patient's , with Dr. Reveles, and Dr. Frankel today. Plan would be to not transfer the patient as the patient's does not want to do this and we are in agreement that it is not indicated. At this time, we will continue antibiotic coverage. Continue to culture and observe. We will plan tracheostomy, cuffed tunneled hemodialysis catheter, and Bassett catheter later in the week. Avoid PICC lines and midlines in this renal failure patient. Consider cholecystectomy at a much later time when the patient is more stable. Job ID: [id number]
--- NOTE | 2018-05-03 16:48 | PRG ---
DATE OF SERVICE: 05/03/2018 SUBJECTIVE: The patient was seen in followup in place of Dr. Kc. Clinically, he remains unchanged, sedated, and ventilated. He is currently on TPN for nutritional support. Reportedly, he did have a small bowel movement yesterday. No acute event overnight except he still remains on very high ventilator settings. PHYSICAL EXAMINATION: VITAL SIGNS: Temperature 99.8, blood pressure 119/65, and pulse of 106. GENERAL: He is sedated and intubated. HEENT: Shows anicteric sclerae. CV: Shows normal S1 and S2, tachycardic. CHEST: Shows breath sounds. Some distant rales. ABDOMEN: Very protuberant. Very hypoactive bowel sounds. Abdomen is firm. EXTREMITIES: Exam shows trace edema. LABORATORY DATA: WBC 29.7, hemoglobin 8.1, and platelet count 427. Sodium 131, potassium 5.2, chloride 91, CO2 of 19, creatinine 9.46, BUN of 136. ASSESSMENT: Severe necrotizing pancreatitis. The patient also with multiple end-organ failure, most notably pulmonary, renal, and evidence of GI tract ileus. The patient still has low-grade fever, but his leukocytosis is improving with white count decreasing from 49,000 to 29,000 over the last 3 days. I reviewed his CT from the . At that time, he does have contrast in his small bowel without any evidence of dilation. Four days ago, he could not tolerate tube feeding with high residual. RECOMMENDATION: 1. Continue supportive care. 2. The patient is being considered for tracheostomy. 3. Continue hemodialysis. 4. Continue with IV antibiotics and antifungal. No need for needle aspiration of the pancreas at this point as his white count is trending down. His CT did not show any area of loculated fluid collection or phlegmon. 5. As his condition continues to improve, we will attempt at enteric tube feeding at a very slow rate and advance as tolerated; however, we will continue with TPN for nutritional support for now. 6. We will follow. Job ID: [id number]
[2018-05-03] MEDS: Famotidine/PF 20 mg/2ml Vial SLOW IVP SCH (20:30)
[2018-05-03] MEDS: SODIUM CHLORIDE IV SCH (22:24)
[2018-05-03] MEDS: [UNRECOGNIZED DRUG - OTHER] IV SCH (22:24)
[2018-05-03] MEDS: SODIUM ACETATE IV SCH (22:24)
[2018-05-03] MEDS: CALCIUM CHLORIDE IV SCH (22:24)
--- NOTE | 2018-05-03 23:51 | PRG ---
DATE OF SERVICE: 05/03/2018 SUBJECTIVE: Xavier Cao remains febrile. We have discussed with Dr. Sequeira. He dialyzed today successfully using his groin Trialysis catheter. We will plan a removal of this Trialysis catheter tonight. He will not have dialysis tomorrow. We will plan placement of a hemodialysis catheter, tracheostomy tube, and a new central line on Tuesday. OBJECTIVE: VITAL SIGNS: Heart rate 90s to 112, blood pressure 148/90. Catheter drainage 350 per 24 hours, Campos 10 mL. LUNGS: Clear to auscultation. No wheezing. CARDIAC: Regular rate and rhythm. Sinus tachycardia at times. ABDOMEN: Soft, , obese, and protuberant. EXTREMITIES: Unremarkable. LABORATORY DATA: White count 29.7, down from 31 yesterday and down from 41,000 day before; hemoglobin 8.1. Band count 26,000. Sodium 131, potassium 5.2 this morning. ASSESSMENT AND PLAN: 1. Severe necrotizing pancreatitis. No evidence of infection. I expect the fevers to be multifactorial, may be inflammatory changes from the pancreas, perhaps could be related to the senescent line in his right groin, which we will get rid off tonight. I have discussed with Dr. Sequeira. No indication for surgery for his pancreatitis at this time. No indication for aspiration of the pancreas at this time. He may need a repeat CAT scan of the abdomen and pancreas next week. He will need IV contrast for this. 2. Acute renal failure, oliguric, on dialysis. Plan placement of hemodialysis catheter tomorrow, Tuesday. We will remove his senescent groin catheter to give him a catheter-free interval in case this is the source of his fever. 3. Respiratory failure, on ventilator. Plan tracheostomy on Tuesday. 4. Senescent central line. Plan a new central line. 5. Cultures have remained negative. He is on broad-spectrum coverage including antifungal. Job ID: [id number]
[2018-05-04] MEDS: Propofol 1,000 MG/100 ML VIAL IV PRN ×9 (00:54→23:17)
[2018-05-04] MEDS: HumaLOG 300 UNITS/3 ML VIAL SC PRN ×4 (01:06→17:20)
[2018-05-04] MEDS: fentaNYL Citrate/PF 2,000 MCG in Sodium Chloride 0.9% 60 ML IV SCH ×3 (03:01→23:16)
[2018-05-04] MEDS: Lorazepam 2 MG/ML VIAL SLOW IVP PRN ×2 (03:51→17:20)
[2018-05-04] MEDS: Labetalol HCl 100 MG/20 ML VIAL SLOW IVP PRN (04:02)
[2018-05-04 05:36] LABS: Anion Gap 25 mmol/L (10-20); Calc. Creatinine Clearance 30 mL/min (70-130); Calcium 8.9 mg/dL (7.8-10.44); Carbon Dioxide 21 mmol/L (22-29); Chloride 92 mmol/L (98-107); Estimated GFR-MDRD 9; Glucose 189 mg/dL (70-105); Potassium 4.9 mmol/L (3.5-5.1); Sodium 133 mmol/L (136-145)
[2018-05-04 05:41] LABS: Band 35 % (5-11); Eosinophils 2 % (0-10); Hemoglobin 7.6 g/dL (14.0-18.0); Lymphocytes 5 % (21-51); MDiff Complete? YES; Mean Corpuscular HGB CONC 35.8 g/dL (32.0-36.0); Mean Corpuscular Hemoglobin 27.2 pg (27.0-31.0); Mean Corpuscular Volume 75.9 fL (78.0-98.0); Mean Platelet Volume 10.2 fL (7.4-10.4); Metamyelocyte 3 % (0-0); Monocytes 3 % (0-10); Myelocyte 1 % (0-0); Neutrophil 51 % (42-75); PLT Morphology Comment Appears Increased; Platelet Count 451 thou/uL (130-400); RBC Distribution Width 13.8 % (11.5-14.5); White Blood Cell (WBC) Count 24.1 thou/uL (4.8-10.8)
[2018-05-04 05:48] LABS: BUN (Urea Nitrogen) 113 mg/dL (8.9-20.6)
[2018-05-04] MEDS: Sodium Chloride 0.9% 1,000 ML IV SCH ×2 (06:02→08:42)
[2018-05-04] MEDS: Acetaminophen 650 MG in Premix Bag 1 BAG IVPB PRN (06:38)
[2018-05-04] MEDS: Budesonide 0.5 MG/2 ML NEB INH SCH ×2 (06:46→18:18)
[2018-05-04 07:16] LABS: Actual Bicarbonate (HCO3a) 19.1 mEq/L (22-28); Base Excess (BEa) -6.4 mEq/L (-2.0 to +3.0); CO2 Tension 37.5 mmHg (35.0-45.0); Calcium, Ionized 1.04 mmol/L (1.12-1.30); Carboxyhemoglobin (COHb) 1.1 gm% (0.0-3.0); Hemoglobin (Hb) 7.4 g/dL (14.0-18.0); O2 Tension (PaO2) 67.8 mmHg (80.0-100.0); Potassium - ABG Lab 4.56 mmol/L (3.70-5.30); pH, Arterial 7.32 (7.35-7.45)
[2018-05-04 07:33] LABS: Puncture Site L.R.
[2018-05-04 07:34] LABS: ALV-art Gradient 420.075 (0-20)
--- NOTE | 2018-05-04 08:01 | RAD ---
SINGLE VIEW OF THE CHEST: COMPARISON: 05/01/2018. HISTORY: Ventilated patient with respiratory failure. FINDINGS: A single view of the chest shows a normal-size cardiomediastinal silhouette. The lines and tubes are unchanged in position. There is no evidence of consolidation, mass, or pleural effusion. IMPRESSION: Appropriate position of lines and tubes. POS: [facility]
[2018-05-04] MEDS ORDERED: Acetaminophen 650 MG in Premix Bag 1 BAG IVPB PRN (08:42)
[2018-05-04] MEDS: Heparin 5,000 UNITS/ML VIAL SC SCH ×3 (09:29→20:14)
[2018-05-04] MEDS: Insulin Glargine 24 UNITS in Pre-Filled Syringe 1 EACH SC SCH (09:30)
--- NOTE | 2018-05-04 10:10 | PDOC.PN ---
- Subjective Encounter Start Date: 05/04/18 Encounter Start Time: 10:08 Mr. Cao was seen today in follow-up of severe pancreatitis. He is intubated and sedated. No problems voiced by staff. - Objective Resuscitation Status - Order Detail: 05/02/18 12:07 Resuscitation Status Routine Resuscitation Status: FULL: Full Resuscitation Discussed with: per previous order MAR Reviewed: Yes Vital Signs & Weight: Vital Signs (12 hours) Pulse Resp BP Pulse Ox 05/04/18 08:00 32 H 05/04/18 06:46 102 H 33 H 93 L 05/04/18 06:45 102 H 33 H 93 L 05/04/18 06:42 102 H 117/71 05/04/18 06:00 31 H 05/04/18 04:02 113 H 182/88 H 05/04/18 04:00 33 H 05/04/18 02:20 107 H 119/49 L 05/04/18 02:00 33 H 05/04/18 00:18 109 H 149/98 H 05/04/18 00:00 31 H Weight Admit Weight 330 lb 8 oz Weight 367 lb 11.697 oz Most Recent Monitor Data Heart Rate from ECG 104 NIBP 104/47 NIBP BP-Mean 66 Respiration from ECG 31 SpO2 91 I&O: 05/03/18 05/04/18 05/05/18 06:59 06:59 06:59 Intake Total 2683 3137.6 123.2 Output Total 360 460 0 Balance 2323 2677.6 123.2 Result Diagrams: 05/04/18 05:05 05/04/18 05:05 Additional Labs: Accuchecks 05/04/18 05/04/18 05/04/18 09:13 05:02 01:05 POC Glucose 187 H 202 H 231 H 05/03/18 05/03/18 05/03/18 20:21 16:13 12:25 POC Glucose 212 H 193 H 172 H Phys Exam - Physical Examination HEENT: PERRLA Respiratory: no wheezing, no rales + coarse breath sounds, Cardiovascular: RRR, no significant murmur, no rub Gastrointestinal: soft distended, hypoactive bowel sounds Musculoskeletal: pulses present, edema present 2+ Pitting edema, bilaterally, feet warm- bilaterally no lesions Skin: normal turgor, cap refill <2 seconds Dx/Plan (1) Acute pancreatitis Code(s): K85.90 - ACUTE PANCREATITIS WITHOUT NECROSIS OR INFECTION, UNSP Status: Acute (2) Acute respiratory failure with hypoxia Code(s): J96.01 - ACUTE RESPIRATORY FAILURE WITH HYPOXIA Status: Acute (3) Acute kidney failure Status: Acute (4) Hyperkalemia Code(s): E87.5 - HYPERKALEMIA Status: Resolved (5) Hyperglycemia Code(s): R73.9 - HYPERGLYCEMIA, UNSPECIFIED Status: Acute (6) Hypertension Code(s): I10 - ESSENTIAL (PRIMARY) HYPERTENSION Status: Acute (7) Anemia Code(s): D64.9 - ANEMIA, UNSPECIFIED Status: Acute - Plan * Severe Necrotizing Pancreatitis with Multi-organ failure- exploratory lap, or needle aspiration of the pancreatis is not indicated- continue supportive care. He is on TPN for nutritional support * Acute Respiratory failure with ARDS- he is not yet weanable, and tracheostomy is now indicated * Acute renal failure- requiring dialysis- continue as per Nephrology- a tunneled catheter will be placed, and consider removal of the femoral trilaysis catheter * Leukocytosis (SIRS)- his WBC count is trending down- continue empiric broad spectrum antibiotics Vancomycin Meropenem , and Micafungin * Hyperglycemia- blood glucose is a bit better- will continue to monitor- * Anemia- hemoglobin is trending down- this could be due to blood draws- monitor , and transfuse for HGB 7.0 or less
--- NOTE | 2018-05-04 11:36 | ULT ---
BILATERAL LOWER EXTREMITY VENOUS DUPLEX EXAM. HISTORY: Leg pain and swelling. FINDINGS: Real-time color Doppler evaluation of both the right and left lower extremities was performed. Patie nt body habitus and position precluded evaluation of the right common femoral vein, greater saphenous vein, and profunda femoral vein. The mid and distal superficial vein were evaluated as well as the popliteal and posterior tibial veins. There is normal compressibility and augmentation given the kelly itations of the study. On the left side, the common femoral, superficial, and profunda femoral and greater saphenous veins s how normal flow and augmentation. Due to positioning, the popliteal vein could not be evaluated. Po sterior tibial vein is patent. IMPRESSION: Limited examination, but no evidence of deep vein thrombosis of either lower extremity. POS: [facility]
[2018-05-04] MEDS: Micafungin 100 MG in Sodium Chloride 0.9% 100 ML IVPB SCH (12:39)
[2018-05-04] MEDS: Meropenem 500 MG in Sodium Chloride 0.9% 100 ML IVPB SCH (12:39)
[2018-05-04] MEDS ORDERED: Morphine 2 MG/ML SYRINGE SLOW IVP PRN (16:28)
[2018-05-04] MEDS ORDERED: Fentanyl BOLUS 250 ML IVPB PRN (16:29)
[2018-05-04] MEDS: Famotidine/PF 20 mg/2ml Vial SLOW IVP SCH (20:14)
--- NOTE | 2018-05-04 20:31 | PRG ---
DATE OF SERVICE: 05/04/2018 SUBJECTIVE: The patient remains critically ill, ventilated, sedated, and remains unchanged. He is on TPN for nutritional support. He remains on high vent setting. No other acute event overnight. OBJECTIVE: VITAL SIGNS: Temperature 100.1, blood pressure 115/40, and pulse of 110. GENERAL: He is sedated and intubated. HEENT: Shows anicteric sclerae. CV: Shows normal S1 and S2, regular rhythm, tachycardic. CHEST: Shows breath sounds. ABDOMEN: Very protuberant and firm. No audible bowel sounds. EXTREMITIES: Exam shows trace edema. LABORATORY DATA: WBCs 24,000, hemoglobin 7.6, and platelet count 451. Electrolytes within normal range. Creatinine is 8.21. Blood gas shows pH of 7.32. ASSESSMENT: Severe necrotizing pancreatitis. The patient with multiple end-organ failures involving pulmonary, renal, and evidence of GI tract ileus. He still has low-grade fever, but leukocytosis is trending down from 49,000 down to 24,000 over the last 4 days. RECOMMENDATIONS: 1. Continue supportive care. 2. Plan for tracheostomy tomorrow. 3. We will reattempt an enteric feeding after tracheostomy. 4. Re-image early next week. 5. We will continue with broad-spectrum antibiotics and antifungal in the meantime. Job ID: [id number]
[2018-05-04] MEDS: Insulin Glargine 20 UNITS in Pre-Filled Syringe 1 EACH SC SCH (20:48)
--- NOTE | 2018-05-04 20:53 | PRG ---
DATE OF SERVICE: SUBJECTIVE: Mr. Cao's femoral line was removed last night. The patient remains febrile, although, to a lesser degree, 100 to 100.3. His white count is decreased to 24,000, down from 29,000 yesterday, 31,000 day before, and 41,000 day before that. He does have a left shift of 35 bands. Hemoglobin is 7.6. The patient remains essentially aneuric with 35 mL of urine in the last 24 hours. Gastric output is 425 mL. OBJECTIVE: LUNGS: Clear to auscultation. CARDIAC: Regular rate and rhythm without murmur or gallop. ABDOMEN: Soft, distended, and quiet. EXTREMITIES: Edematous. ASSESSMENT AND PLAN: 1. Respiratory failure, plan tracheostomy tomorrow. 2. Severe pancreatitis with multiorgan failure. Continue TPN support, postoperative tracheostomy tomorrow. We will initiate tube feedings per NG tube right. 3. Renal failure. Continue dialysis with cuffed hemodialysis catheter. 4. central line. Change tomorrow. 5. Continue fevers with pancreatitis, multiple organ failure. Repeat CAT scan next week pending clinical course. Job ID: [id number]
[2018-05-04] MEDS: SODIUM ACETATE IV SCH (22:37)
[2018-05-04] MEDS: SODIUM CHLORIDE IV SCH (22:37)
[2018-05-04] MEDS: CALCIUM CHLORIDE IV SCH (22:37)
[2018-05-04] MEDS: [UNRECOGNIZED DRUG - OTHER] IV SCH (22:37)
--- NOTE | 2018-05-04 22:56 | PRG ---
DATE OF SERVICE: 05/04/2018 SUBJECTIVE: Xavier Cao is intubated in the vent, sedated on Diprivan and Fentanyl. OBJECTIVE: VITAL SIGNS: Pulse 102, blood pressure is 100/45, sats 89-90, on 60%fio2. His chest x-ray is completely normal. This is day #12 on vent. He is scheduled for a trach and possibly a PEG. NEUROLOGIC: Sedated. CHEST: Decreased breath sounds. He had no wheezing, crackles, or rhonchi. CARDIAC: Sinus tach. ABDOMEN: Distended. EXTREMITIES: Trace edema. LABORATORY DATA: White count 24,000, H and H 7 and 21, platelet count is 451. His BUN and creatinine 113 and 8.2, glucose 202. PO2 67, pco2 45 ph 7.32_. IMPRESSION: 1. Severe pancreatitis. 2. Persistent fever. 3. Bandemia. PLAN: I am concerned about his ongoing fever and leukocytosis. Discussed these findings with GI, they are considering a repeat CT of the abdomen with contrast. Meantime, he is on meropenem and micafungin and vancomycin . A diagnostic bronchoscopy will be performed today since he is still shunting a large amount peep and with the normal chest xray . 1\2 hour critical time exclusive of bronchoscopy. Job ID: [id number] [facility]
[2018-05-05] MEDS: Propofol 1,000 MG/100 ML VIAL IV PRN ×2 (02:14→05:58)
[2018-05-05 04:36] LABS: Anion Gap 27 mmol/L (10-20); Calc. Creatinine Clearance 24 mL/min (70-130); Calcium 8.8 mg/dL (7.8-10.44); Carbon Dioxide 18 mmol/L (22-29); Chloride 90 mmol/L (98-107); Estimated GFR-MDRD 7; Glucose 140 mg/dL (70-105); Potassium 5.5 mmol/L (3.5-5.1); Sodium 129 mmol/L (136-145)
[2018-05-05 04:47] LABS: BUN (Urea Nitrogen) 153 mg/dL (8.9-20.6)
[2018-05-05 05:27] LABS: Band 20 % (5-11); Hemoglobin 7.1 g/dL (14.0-18.0); Hypochromia SLIGHT = 6-15 cells (100X) (0-5/hpf); Lymphocytes 2 % (21-51); MDiff Complete? YES; Mean Corpuscular HGB CONC 35.6 g/dL (32.0-36.0); Mean Corpuscular Hemoglobin 27.1 pg (27.0-31.0); Mean Corpuscular Volume 76.2 fL (78.0-98.0); Mean Platelet Volume 10.3 fL (7.4-10.4); Monocytes 4 % (0-10); Neutrophil 74 % (42-75); PLT Morphology Comment Appears Increased; Platelet Count 471 thou/uL (130-400); Red Blood Cell (RBC) Count 2.61 mill/uL (4.70-6.10); Target Cells SLIGHT = 2-5 cells (100X) (0-1/hpf); White Blood Cell (WBC) Count 25.8 thou/uL (4.8-10.8)
[2018-05-05] MEDS: Sodium Chloride 0.9% 1,000 ML IV SCH ×3 (05:31→16:13)
[2018-05-05] MEDS: Budesonide 0.5 MG/2 ML NEB INH SCH ×2 (06:44→18:38)
[2018-05-05 07:20] LABS: Actual Bicarbonate (HCO3a) 17.8 mEq/L (22-28); Base Excess (BEa) -8.6 mEq/L (-2.0 to +3.0); CO2 Tension 40.3 mmHg (35.0-45.0); Calcium, Ionized 1.01 mmol/L (1.12-1.30); Carboxyhemoglobin (COHb) 1.4 gm% (0.0-3.0); Hemoglobin (Hb) 7.1 g/dL (14.0-18.0); O2 Tension (PaO2) 61.2 mmHg (80.0-100.0); Potassium - ABG Lab 5.35 mmol/L (3.70-5.30); pH, Arterial 7.26 (7.35-7.45)
[2018-05-05 07:25] LABS: Puncture Site L.R.
[2018-05-05 07:26] LABS: ALV-art Gradient 387.525 (0-20)
[2018-05-05] MEDS ORDERED: Nystatin Powder 15 GM BOT TOP PRN (08:11)
--- NOTE | 2018-05-05 08:42 | RAD ---
SEMIUPRIGHT PORTABLE CHEST 1 VIEW: HISTORY: A 37-year-old male with a history of respiratory insufficiency. COMPARISON: 05/04/2018. FINDINGS: Life support tues in place and stable. Poor inspiratory effort. Mild cardiomegaly and some vascular congestion. Increased markings in the bases possibly related to subsegmental atelectasis. IMPRESSION: Support tubes in place. Poor inspiration with some increased markings in the bases. Stable from felicitas or study. POS: OFF
--- NOTE | 2018-05-05 08:52 | PRG ---
DATE OF SERVICE: 05/05/2018 SUBJECTIVE: No new issue overnight. The patient is ventilated, sedated with propofol. OBJECTIVE: VITAL SIGNS: Temperature is 100, blood pressure 118/44, and pulse of 102. GENERAL: He is sedated. HEENT: Anicteric. Clear bilious aspirate through the NG tube. CV: Shows normal S1 and S2. Regular rate and rhythm. CHEST: Shows breath sounds. ABDOMEN: Very protuberant and firm. No audible bowel sounds. EXTREMITIES: Exam shows tracec edema. LABORATORY DATA: WBC is 25.8, hemoglobin 7.1, and platelet count of 471 with 20 % bands. Sodium 129, potassium 5.5, chloride 90, CO2 of 18, and creatinine 9.98. ABG shows pH of 7.26. ASSESSMENT: 1. Severe necrotizing pancreatitis. 2. Multi-organ failure, pulmonary and renal, on mechanical ventilation and hemodialysis. 3. The patient continues with low-grade fever, but overall, the leukocytosis is trending down still with significant bandemia. RECOMMENDATIONS: 1. Continue with supportive care. 2. We will start low rate tube feeding after surgery. 3. Continue with broad-spectrum antibiotics and antifungals. 4. Re-image early next week. Job ID: [id number] [facility]
[2018-05-05] MEDS: fentaNYL Citrate/PF 2,000 MCG in Sodium Chloride 0.9% 60 ML IV SCH ×2 (09:13→22:31)
--- NOTE | 2018-05-05 09:25 | OP ---
DATE OF PROCEDURE: 05/04/2018 PROCEDURE: Diagnostic therapeutic bronchoscopy. INDICATIONS: Retained secretions, severe hypoxemia with a relatively normal chest x-ray. DESCRIPTION OF PROCEDURE: After informed consent, the disposable flexible Olympus bronchoscope was used with an adaptor over the endotracheal tube. Distal trachea was visualized. Initially, there was some mucus plug occluding the right main stem bronchus, which was suctioned and lavaged until clear, thereafter the right upper and right middle lobe visualized. There was some mild erythema and edema but no obvious endobronchial obstruction. Minimal purulent secretion was seen. This was suctioned and lavaged completely clear. No endobronchial disease was seen, sarah beth was sharp. The left lobe was inspected thereafter. The left upper and lower lobe were visualized. Minimal amount of secretions. Clearly no large mucus plug was seen. Both lungs were lavaged with normal saline. Washings were sent for gram stain and C and S. I am going to order ultrasound of his both legs to see whether he has got DVT. I am concerned about his severe hypoxemia with relatively normal chest x-ray. Job ID: [id number]
--- NOTE | 2018-05-05 09:38 | PRG ---
DATE OF SERVICE: 05/05/2018 SUBJECTIVE: Xavier Cao is morbidly obese gentleman, who is intubated on the vent, requiring high FiO2 and high PEEP. His sats are 91% on 70% FiO2 and 11 of PEEP. Pulse 106, blood pressure is 127/62, and respirations 15. He is sedated on Diprivan and fentanyl. We are going to switch him over to Versed drip. OBJECTIVE: VITAL SIGNS: Blood pressure is 125/37, pulse 101, sats are 91%, and respiratory rate 30. CHEST: Decreased breath sounds without any wheezing. CARDIAC: Sinus tach. ABDOMEN: Massive. EXTREMITIES: Trace edema. LABORATORY DATA: His x-ray shows no acute infiltrates. White count is 25,000, H and H are 7 and 19, he is going to receive transfusion today, 2 units of packed cells. Platelet count is normal. PO2 of 61 and pCO2 of . Creatinine is 9.98 and BUN is 153. Blood gas shows PO2 of 61, pCO2 of 40, and pH 7.26. His venogram was negative. IMPRESSION: 1. Respiratory failure. 2. Diffuse rash, etiology unclear. 3. Renal failure. 4. Pancreatitis. PLAN: He is clearly not weanable. His trach is being done today in his multiple central lines. We will re-culture him. Continue antibiotics. Getting Mycostatin powder for his rash. May consider discontinuing vancomycin. Job ID: [id number]
--- NOTE | 2018-05-05 09:59 | PRG ---
DATE OF SERVICE: 05/04/2018 SUBJECTIVE: Mr. Cao is a 37-year-old black male, who was admitted for an acute abdomen secondary to an acute necrotizing bronchitis. He developed acute renal failure and has been placed on maintenance hemodialysis. Due to his fever, his right femoral temporary dialysis catheter has been removed. He will be placed without any catheter for a day and then a permanent hemodialysis catheter will be placed tomorrow. We will hold off dialysis today. No acute events. The patient is also scheduled for a bronchoscopy due to the intermittent hypoxemia noted with this patient when moving him. OBJECTIVE: VITAL SIGNS: Blood pressure is 104/47, heart rate 104, respiratory rate 31, . GENERAL: The patient is sedated, intubated on ventilator support. Morbidly obese. SKIN: Adequate turgor. HEENT: Slightly pale conjunctivae. Anicteric sclerae. NECK: No neck mass. No carotid bruits. No JVD. CHEST: No deformities. LUNGS: Decreased breath sounds. HEART: Normal sinus rhythm. No murmur. No gallops. No rubs. ABDOMEN: Globular, soft, and nontender. No masses. EXTREMITIES: No edema. No deformities. MEDICATIONS: Medications of May 04, 2018, was reviewed. LABORATORY DATA: Laboratories of May 04, 2018, white count 24.1 and hemoglobin 7.6. Sodium 133, potassium 4.9, chloride 92, carbon dioxide 21, BUN 113, creatinine 8.21, glucose 189, and calcium 8.9. ASSESSMENT AND PLAN: 1. Acute kidney injury - secondary to ischemic acute tubular necrosis, continue supportive care. I have re-scheduled this patient for hemodialysis in a.m. Fluid removal only as tolerated by the patient. 2. Anemia, p.r.n. blood transfusion. 3. Fever - on empiric IV antibiotics. He is also currently on IV antifungal medications. 4. Acute bronchitits - supportive care. GI and surgery are following. 5. Overall prognosis remains guarded. Job ID: [id number]
[2018-05-05] MEDS: Insulin Glargine 24 UNITS in Pre-Filled Syringe 1 EACH SC SCH (10:40)
--- NOTE | 2018-05-05 10:43 | PRG ---
DATE OF SERVICE: 05/05/2018 SUBJECTIVE: Mr. Cao is a 37-year-old black male, who was seen by the Renal Service for his acute kidney injury secondary to ischemic ATN. He was admitted due to an acute necrotizing pancreatitis. His femoral dialysis catheter was removed the day before yesterday. This was due to his fever. A new cuffed hemodialysis catheter will be placed today and we will then reinitiate dialysis today. My plan is to do a 4-hour hemodialysis on a daily basis for this patient. He continues to be very catabolic. OBJECTIVE: VITAL SIGNS: Blood pressure is 119/46, heart rate 103, respiratory rate 36, O2 sat 92%, and temperature is 100.3. GENERAL: Noted to be sedated, intubated, on ventilator support. Morbidly obese. SKIN: Adequate turgor. HEENT: Pale conjunctivae. Anicteric sclerae. NECK: No neck mass. No carotid bruits. No JVD. CHEST: No deformities. LUNGS: Decreased breath sounds. No wheezing. No crackles. HEART: Normal sinus rhythm. No murmur. No gallops. No rubs. ABDOMEN: Globular, soft, nontender. No masses. EXTREMITIES: Trace edema. MEDICATIONS: Medication of May 05, 2018, was reviewed. LABORATORY DATA: Laboratories of May 05, 2018, white count 25.8, hemoglobin 7.1. Sodium 129, potassium 5.5, chloride 90, carbon dioxide 18, BUN 153, creatinine 9.98, glucose 140, and calcium 8.8. ASSESSMENT AND PLAN: 1. Acute kidney injury - secondary to ischemic acute tubular necrosis, continuing daily hemodialysis. The patient has been scheduled for a 4-hour hemodialysis today. 2. Anemia - p.r.n. blood transfusion. 3. Acute respiratory failure. The patient is scheduled for tracheostomy placement as well as PEG tube placement. Dr. Sethi also scheduled this patient for a cuffed hemodialysis catheter placement. Overall prognosis remains guarded. Job ID: [id number]
[2018-05-05] MEDS: SYSTANE 3.5 GM TUBE EA EYE PRN (10:45)
[2018-05-05] MEDS ORDERED: Heparin 1,000 UNITS/ML VIAL ONE (11:11)
[2018-05-05] MEDS ORDERED: Sodium Bicarb 50 MEQ/50 ML VIAL ONE (11:27)
[2018-05-05] MEDS ORDERED: Calcium Chloride 1 GM/10 ML Abboject SYRINGE ONE ×3 (11:27→17:54)
[2018-05-05] MEDS ORDERED: EPINEPHrine 1 MG/ML AMP ONE ×2 (11:27→14:38)
[2018-05-05] MEDS ORDERED: PROPOFOL 200 MG/20 ML VIAL ONE (11:27)
[2018-05-05] MEDS ORDERED: PHENYLEPHRINE-NS 100 MCG/ML 10 ML SYRINGE ONE ×2 (11:27→14:24)
--- NOTE | 2018-05-05 11:33 | PRG ---
DATE OF SERVICE: 05/05/2018 SUBJECTIVE: The patient is on the ventilator. He is sedated. OBJECTIVE: VITAL SIGNS: Blood pressure 119/46, heart rate 103, and temperature has been up to 101.5, but mostly 99 to 100.3 degrees. LUNGS: Clear to auscultation. CARDIAC: : Regular rate and rhythm without murmur or gallop. ABDOMEN: Soft, distended, obese, and firm. EXTREMITIES: Unremarkable. LABORATORY DATA: The patient's white blood cell count today is 25, essentially unchanged from yesterday's 24, certainly down from 29,000 the day prior to that, 31,000 the day prior to that, and 41,000 the day prior to that. The patient's band count is 20%. Hemoglobin 7.1. Sodium 129, potassium 5.5, BUN 153, and creatinine 9.98. The patient's urine output was 35 mL yesterday. Gastric output 425 the day prior to yesterday, not recorded for the last 24 hours. Lungs, clear to auscultation. Chest x-ray, some basilar markings indicative of atelectasis, but no other significant findings. ASSESSMENT AND PLAN: 1. Morbid obesity. 2. Pancreatitis. Continue total parenteral nutrition. Initiate tube feedings, slow rate postoperative today. 3. Respiratory failure, tracheostomy today. 4. Acute renal failure, oliguric. Hemodialysis catheter placement today, cuff tunneled. 5. Respiratory failure. Tracheostomy today. 6. Senescent central line removed and replaced today. 7. Fevers. We removed his groin dialysis catheters. His fevers are not so high-now, but more than likely, we will repeat his CAT scan abdomen and pelvis next week pancreas, looking for any problems related to his pancreatitis and might need interventional attention. Dr. Rosales is covering this weekend. This afternoon, we will plan cuffed tunneled hemodialysis catheter, tracheostomy, and central line change. Job ID: [id number]
[2018-05-05] MEDS: Heparin 5,000 UNITS/ML VIAL SC SCH ×3 (12:09→20:27)
[2018-05-05] MEDS: Meropenem 500 MG in Sodium Chloride 0.9% 100 ML IVPB SCH (12:16)
[2018-05-05] MEDS: Micafungin 100 MG in Sodium Chloride 0.9% 100 ML IVPB SCH (12:16)
[2018-05-05] MEDS: HumaLOG 300 UNITS/3 ML VIAL SC PRN ×2 (12:22→23:32)
[2018-05-05] MEDS ORDERED: Fentanyl 100 MCG/2 ML VIAL ONE (12:37)
[2018-05-05] MEDS ORDERED: Midazolam HCl 5 mg/5 ml Vial ONE (12:38)
[2018-05-05] MEDS ORDERED: Ioversol 68 % 50 ML VIAL ONE (12:41)
[2018-05-05] MEDS ORDERED: Lidocaine 2% w/Epinephrine 1:200K 20 ML VIAL ONE (12:42)
[2018-05-05] MEDS ORDERED: Bupivacaine HCl 0.5%/Epinephrine 1:200,000/PF 30 ml Vial ONE (12:42)
[2018-05-05] MEDS ORDERED: Heparin 5,000 UNITS/ML VIAL ONE (12:43)
[2018-05-05] MEDS ORDERED: Sodium Chloride 0.9% 10 ML ONE (12:43)
[2018-05-05] MEDS ORDERED: Lidocaine 2% PF 5 ML VIAL ONE (12:43)
[2018-05-05] MEDS ORDERED: Heparin 10,000 UNITS/1 ML VIAL ONE (12:44)
[2018-05-05] MEDS ORDERED: Midazolam HCl 2 mg/2 ml Vial ONE (12:49)
[2018-05-05] MEDS ORDERED: Sodium Bicarbonate 2.5 MEQ/5 ML VIAL ONE (14:38)
[2018-05-05] MEDS ORDERED: EPINEPHrine 1 MG/10 ML Abboject SYRINGE ONE (14:38)
[2018-05-05] MEDS ORDERED: Sodium Bicarb 50 MEQ/50 ML Abboject 8.4% SYRINGE ONE ×2 (14:39→17:54)
--- NOTE | 2018-05-05 15:31 | RAD ---
CHEST 1 VIEW: Date: 05/05/18 INDICATION: History of dialysis catheter placement. FINDINGS: Tracheostomy tube in place. There is a left IJ central venous catheter which is unchanged. There is a new right IJ dialysis catheter in place. Cardiomegaly and pulmonary vascular congestion are present. No pleural effusion or pneumothorax is evident. There is a right-sided subclavian central venous catheter that was not present on the comparison date d 05/05/18 at 0514 hours. This is new and projects in the region of the SVC. IMPRESSION: 1. Tubes as outlined above. No pneumothorax. 2. Stable cardiomegaly and pulmonary vascular congestion. POS: [facility]
[2018-05-05 15:34] LABS: Actual Bicarbonate (HCO3a) 20.4 mEq/L (22-28); Base Excess (BEa) -8.7 mEq/L (-2.0 to +3.0); Calcium, Ionized 0.98 mmol/L (1.12-1.30); Carboxyhemoglobin (COHb) 1.4 gm% (0.0-3.0); Hemoglobin (Hb) 7.3 g/dL (14.0-18.0); Potassium - ABG Lab 6.82 mmol/L (3.70-5.30)
[2018-05-05 15:37] LABS: Mean Corpuscular HGB CONC 33.7 g/dL (32.0-36.0); Mean Corpuscular Hemoglobin 25.9 pg (27.0-31.0); Mean Corpuscular Volume 76.8 fL (78.0-98.0); Platelet Count 517 thou/uL (130-400); RBC Distribution Width 14.3 % (11.5-14.5); Red Blood Cell (RBC) Count 2.71 mill/uL (4.70-6.10); White Blood Cell (WBC) Count 28.6 thou/uL (4.8-10.8)
[2018-05-05 15:39] LABS: CO2 Tension 66.1 mmHg (35.0-45.0); O2 Tension (PaO2) 56.6 mmHg (80.0-100.0); Puncture Site LINE; pH, Arterial 7.11 (7.35-7.45)
[2018-05-05 15:40] LABS: ALV-art Gradient 573.775 (0-20)
[2018-05-05] MEDS ORDERED: Norepinephrine 8 MG/0.9% NS 250 ML ONE (15:42)
[2018-05-05 16:04] LABS: Band 22 % (5-11); Dohle Bodies SLIGHT; Eosinophils 4 % (0-10); Hypochromia SLIGHT = 6-15 cells (100X) (0-5/hpf); Lymphocytes 4 % (21-51); MDiff Complete? YES; Metamyelocyte 3 % (0-0); Microcytosis SLIGHT = 6-15 cells (100X) (0-5/hpf); Monocytes 3 % (0-10); Neutrophil 64 % (42-75); PLT Morphology Comment Appears Increased; Polychromasia SLIGHT = 2-3 cells (100X) (0-2/hpf); Target Cells SLIGHT = 2-5 cells (100X) (0-1/hpf); Toxic Granulation SLIGHT
[2018-05-05 16:09] LABS: Anion Gap 29 mmol/L (10-20); Calc. Creatinine Clearance 22 mL/min (70-130); Carbon Dioxide 19 mmol/L (22-29); Chloride 89 mmol/L (98-107); Estimated GFR-MDRD 6; Glucose 157 mg/dL (70-105); Sodium 130 mmol/L (136-145)
[2018-05-05 16:18] LABS: Potassium 6.9 mmol/L (3.5-5.1)
[2018-05-05 16:21] LABS: BUN (Urea Nitrogen) 166 mg/dL (8.9-20.6)
[2018-05-05] MEDS ORDERED: Vecuronium 10 MG VIAL ONE (16:37)
[2018-05-05] MEDS ORDERED: Vecuronium 10 MG VIAL IV SCH (16:45)
[2018-05-05] MEDS ORDERED: Albumin 25% 25 GM/100 ML BOT IVPB SCH (17:00)
--- NOTE | 2018-05-05 17:34 | PDOC.PN ---
- Subjective Encounter Start Date: 05/05/18 Encounter Start Time: 09:20 Pt seen for followup re: necrotizing pancreatitis. Pt intubated, unable to complete ROS. - Objective Resuscitation Status - Order Detail: 05/02/18 12:07 Resuscitation Status Routine Resuscitation Status: FULL: Full Resuscitation Discussed with: per previous order MAR Reviewed: Yes Vital Signs & Weight: Vital Signs (12 hours) Pulse Resp BP Pulse Ox 05/05/18 16:00 30 H 05/05/18 15:40 105 H 81/32 L 05/05/18 12:00 27 H 05/05/18 10:33 109 H 150/73 H 05/05/18 10:00 32 H 05/05/18 08:00 35 H 92 L 05/05/18 06:46 101 H 118/44 L 05/05/18 06:44 100 39 H 95 05/05/18 06:43 100 39 H 95 05/05/18 06:00 38 H Weight Admit Weight 330 lb 8 oz Weight 383 lb 9.669 oz Most Recent Monitor Data Heart Rate from ECG 102 NIBP 107/52 NIBP BP-Mean 70 Respiration from ECG 30 SpO2 91 I&O: 05/04/18 05/05/18 05/06/18 06:59 06:59 06:59 Intake Total 3137.6 3034.2 Output Total 460 40 0 Balance 2677.6 2994.2 0 Result Diagrams: 05/05/18 15:31 05/05/18 15:31 Additional Labs: Accuchecks 05/05/18 05/05/18 05/05/18 16:15 14:54 12:22 POC Glucose 166 H 192 H 163 H 05/05/18 05/05/18 05/04/18 09:06 03:44 23:56 POC Glucose 143 H 149 H 140 H 05/04/18 05/04/18 20:27 17:14 POC Glucose 152 H 164 H EKG Reviewed by me: Yes (Tele: NSR) Phys Exam - Physical Examination Morbid obesity ETT Respiratory: clear to auscultation bilateral Cardiovascular: RRR Gastrointestinal: soft No spontaneous limb movements Deviation from normal: Unable to assess Deviation from normal: fine rash across chest Dx/Plan (1) Acute necrotizing pancreatitis Code(s): K85.91 - ACUTE PANCREATITIS WITH UNINFECTED NECROSIS, UNSPECIFIED Status: Acute Comment: continue meropenem (2) DEYANIRA (acute kidney injury) Code(s): N17.9 - ACUTE KIDNEY FAILURE, UNSPECIFIED Status: Acute Comment: started on hemodialysis (3) Acute respiratory failure with hypoxia Code(s): J96.01 - ACUTE RESPIRATORY FAILURE WITH HYPOXIA Status: Acute Comment: pt currently intubated, in CCU (4) Multiorgan failure Code(s): NKC6498 - Status: Acute Comment: Intubation, dilaysis, supportive care - Plan * . Review of Systems - Medications/Allergies Allergies/Adverse Reactions: Allergies Allergy/AdvReac Type Severity Reaction Status Date / Time ciprofloxacin [From Cipro] Allergy Verified 04/22/18 11:45 Medications: Current Medications Albumin Human (Albumin 25%) 25 gm IVPB 1700 [facility] Stop: 05/05/18 19:00 Last Admin: 05/05/18 17:28 Dose: 25 gm Albuterol/Ipratropium (Duoneb) 3 ml NEB [id number] PRN PRN Reason: SOB &/or Wheezing Albuterol/Ipratropium (Duoneb) 3 ml NEB [id number] [facility] Last Admin: 05/05/18 13:35 Dose: Not Given Budesonide (Pulmicort Neb Solution) 0.5 mg INH BID-RT [facility] Last Admin: 05/05/18 06:44 Dose: 0.5 mg Dextrose/Water (Dextrose 50%) 25 gm SLOW IVP PRN PRN PRN Reason: Hypoglycemia Famotidine (Pepcid) 20 mg SLOW IVP 2100 [facility] Last Admin: 05/04/18 20:14 Dose: 20 mg Glucagon (Glucagon) 1 mg IM PRN PRN PRN Reason: Hypoglycemia Heparin Sodium (Porcine) (Heparin) 5,000 units SC TID [facility] Last Admin: 05/05/18 12:09 Dose: Not Given Hydralazine HCl (Apresoline) 10 mg SLOW IVP Q4H PRN PRN Reason: SBP > 180 and HR < 70 Last Admin: 05/02/18 00:06 Dose: 10 mg Sodium Chloride (Normal Saline 0.9%) 1,000 mls @ 100 mls/hr IV .Q10H [facility] Last Admin: 05/05/18 16:13 Dose: Not Given Sodium Acetate 40 meq/ Sodium Chloride 70 meq/ Calcium Chloride 10 meq/ Magnesium Sulfate 10 meq/ Multivitamins 10 ml/ Chromium/Copper/Manganese/Seleni/ Zn 5 ml/Insulin Human Regular 30 units / Dextrose/Water/ Amino Acids/Sterile Water 1,562.6159 mls @ 65.109 mls/hr IV 2200 [facility] Last Admin: 05/04/18 22:37 Dose: 1,562.6159 mls Meropenem 500 mg/ Sodium (Chloride) 100 mls @ 200 mls/hr IVPB 1200 [facility] Last Admin: 05/05/18 12:16 Dose: 100 mls Micafungin Sodium 100 mg/ (Sodium Chloride) 100 mls @ 100 mls/hr IVPB 1200 [facility] Last Admin: 05/05/18 12:16 Dose: 100 mls Insulin Glargine 20 units/ (Miscellaneous Medication) 0.2 mls @ 0 mls/hr SC HS [facility] Last Admin: 05/04/18 20:48 Dose: 0.2 mls Insulin Glargine 24 units/ (Miscellaneous Medication) 0.24 mls @ 0 mls/hr SC QAM [facility] Last Admin: 05/05/18 10:40 Dose: 0.24 mls Fentanyl Citrate 2,000 mcg/ (Sodium Chloride) 100 mls @ 0 mls/hr IV INF [facility]; Protocol Last Admin: 05/05/18 09:13 Dose: 100 mls Fentanyl Citrate (Fentanyl Bolus) 250 mls @ 0 mls/hr IVPB PRN PRN PRN Reason: Breakthrough pain/agitation Midazolam HCl (Versed) 100 mls @ 4 mls/hr IVPB INF PRN; Protocol PRN Reason: Sedation Last Admin: 05/05/18 08:43 Dose: 100 mls Norepinephrine Bitartrate (Levophed) 250 mls @ 0 mls/hr IVPB INF [facility]; Protocol Insulin Human Lispro (Humalog) 0 units SC .BEDTIME SLIDING SC PRN PRN Reason: Bedtime Correctional Scale Last Admin: 05/01/18 20:29 Dose: 2 unit Insulin Human Lispro (Humalog) 0 units SC .AGGRESSIVE SLIDING PRN; Protocol PRN Reason: AGGRESSIVE SLIDING SCALE Last Admin: 05/05/18 12:22 Dose: 3 unit Labetalol HCl (Normodyne) 10 mg SLOW IVP Q4H PRN PRN Reason: SBP GREATER THAN 160 Last Admin: 05/04/18 04:02 Dose: 10 mg Lorazepam (Ativan) 2 mg SLOW IVP Q1H PRN PRN Reason: Breakthrough agitation Last Admin: 05/04/18 17:20 Dose: 2 mg Methylprednisolone Sodium Succinate (Solu-Medrol) 60 mg IVP Q6HR [facility] Mineral Oil/White Petrolatum (Lacri-Lube Ointment) 1 gm EA EYE Q8HR PRN PRN Reason: Dry Eyes Last Admin: 05/05/18 10:45 Dose: 1 applic Morphine Sulfate (Morphine) 2 mg SLOW IVP Q1H PRN PRN Reason: BREAKTHROUGH PAIN/Agitation Nystatin (Mycostatin Powder) 1 gm TOP BID PRN PRN Reason: Topical Irritations Last Admin: 05/05/18 10:41 Dose: 1 applic Ondansetron HCl (Zofran) 4 mg IVP Q6H PRN PRN Reason: Nausea/Vomiting Last Admin: 04/23/18 05:02 Dose: 4 mg Polyethylene Glycol (Miralax) 17 gm PER TUBE DAILYPRN PRN PRN Reason: CONSTIPATION Last Admin: 04/28/18 22:04 Dose: 17 gm Sodium Chloride (Flush - Normal Saline) 10 ml IVF PRN PRN PRN Reason: Saline Flush
--- NOTE | 2018-05-05 20:02 | RAD ---
SINGLE VIEW OF THE UPPER ABDOMEN: Comparison: None. History: NG tube placement. FINDINGS: Single view of the upper abdomen shows an NG tube curled in the stomach. There may be radiopaque mate rial within bowel, lower in the abdomen, which could be from recent contrast examination. IMPRESSION: NG tube located in the stomach. POS: [facility]
[2018-05-05] MEDS: Insulin Glargine 20 UNITS in Pre-Filled Syringe 1 EACH SC SCH (20:27)
[2018-05-05] MEDS: Famotidine/PF 20 mg/2ml Vial SLOW IVP SCH (20:27)
[2018-05-05] MEDS: Lorazepam 2 MG/ML VIAL SLOW IVP PRN (21:34)
[2018-05-05] MEDS: [UNRECOGNIZED DRUG - OTHER] IV SCH (21:57)
[2018-05-05] MEDS: SODIUM ACETATE IV SCH (21:57)
[2018-05-05] MEDS: CALCIUM CHLORIDE IV SCH (21:57)
[2018-05-05] MEDS: SODIUM CHLORIDE IV SCH (21:57)
[2018-05-06] MEDS: Lorazepam 2 MG/ML VIAL SLOW IVP PRN ×8 (00:50→22:30)
[2018-05-06] MEDS: Sodium Chloride 0.9% 1,000 ML IV SCH ×3 (01:10→20:15)
[2018-05-06] MEDS: HumaLOG 300 UNITS/3 ML VIAL SC PRN ×6 (03:30→23:07)
[2018-05-06 05:20] LABS: Actual Bicarbonate (HCO3a) 23.2 mEq/L (22-28); Base Excess (BEa) -3.5 mEq/L (-2.0 to +3.0); CO2 Tension 51.5 mmHg (35.0-45.0); Carboxyhemoglobin (COHb) 0.6 gm% (0.0-3.0); Hemoglobin (Hb) 6.9 g/dL (14.0-18.0); O2 Tension (PaO2) 65.4 mmHg (80.0-100.0); Potassium - ABG Lab 5.96 mmol/L (3.70-5.30); pH, Arterial 7.27 (7.35-7.45)
[2018-05-06 05:28] LABS: ALV-art Gradient 583.225 (0-20); Puncture Site ALINE
[2018-05-06 06:39] LABS: Band 23 % (5-11); Eosinophils 1 % (0-10); Hemoglobin 6.4 g/dL (14.0-18.0); Lymphocytes 2 % (21-51); MDiff Complete? YES; Mean Corpuscular HGB CONC 34.4 g/dL (32.0-36.0); Mean Corpuscular Hemoglobin 26.3 pg (27.0-31.0); Mean Corpuscular Volume 76.5 fL (78.0-98.0); Mean Platelet Volume 9.9 fL (7.4-10.4); Metamyelocyte 3 % (0-0); Monocytes 8 % (0-10); Myelocyte 1 % (0-0); Neutrophil 62 % (42-75); PLT Morphology Comment Appears Increased; Platelet Count 510 thou/uL (130-400); RBC Distribution Width 14.2 % (11.5-14.5); Red Blood Cell (RBC) Count 2.41 mill/uL (4.70-6.10); White Blood Cell (WBC) Count 27.1 thou/uL (4.8-10.8)
[2018-05-06 06:41] LABS: Anion Gap 23 mmol/L (10-20); Calc. Creatinine Clearance 30 mL/min (70-130); Calcium 8.9 mg/dL (7.8-10.44); Carbon Dioxide 24 mmol/L (22-29); Chloride 92 mmol/L (98-107); Estimated GFR-MDRD 9; Glucose 201 mg/dL (70-105); Potassium 6.2 mmol/L (3.5-5.1); Sodium 133 mmol/L (136-145)
[2018-05-06 06:52] LABS: BUN (Urea Nitrogen) 126 mg/dL (8.9-20.6)
[2018-05-06] MEDS: Budesonide 0.5 MG/2 ML NEB INH SCH ×2 (07:43→18:33)
--- NOTE | 2018-05-06 08:14 | RAD ---
CHEST 1 VIEW: Date: 05/06/18 INDICATION: Intubation. COMPARISON: Prior exam dated 05/05/18. IMPRESSION: Right subclavian central venous catheter, right IJ dialysis catheter, and tracheostomy tube are uncha nged. The previously seen left IJ catheter has been removed. There is a gastric catheter coiled withi n the region of the body and tip projecting into the region of the fundus. Cardiomegaly persists. Pul monary vascular congestion is improved from the comparison study. No pleural effusion or pneumothorax is evident. POS: [facility]
--- NOTE | 2018-05-06 09:22 | PRG ---
DATE OF SERVICE: 05/06/2018 TIME SPENT: 40 minutes of critical care time. SUBJECTIVE: Mr. Cao went downstairs for tracheostomy placement and dialysis catheter placement yesterday. During the tracheostomy tube placement, his airway became dislodged and he developed asystole for approximately 1 minute before being successfully resuscitated. This caused a great setback in terms of hypoxemia and acidosis. He required acute dialysis upon returning yesterday. His blood gas is almost back to the baseline than it was before. PHYSICAL EXAMINATION: At the current time; VITAL SIGNS: Temperature is 99.0, pulse is 92, and blood pressure 123/71. He is on a Levophed drip at 5 mcg/minute. Additionally, he is on TPN and low-dose enteral tube feeds. His total intake for the last 24 hours was 2182. Total output was 2300 by dialysis. NEUROLOGIC: He will not respond to commands. HEENT: Remarkable for facial edema. NECK: There is a midline tracheostomy in place. LUNGS: Distant breath sounds bilaterally. CARDIOVASCULAR: S1 and S2, regular. ABDOMEN: Distended. Hypoactive bowel sounds. EXTREMITIES: 3+ edema throughout. LABORATORY DATA: ABG; pH 7.27, pCO2 of 52, PO2 of 65 that is on assist-control rate 30, tidal volume 500, PEEP of 11, FiO2 of 100%. White blood cell count 27.1, hemoglobin 6.4, hematocrit 18.5, and platelet count 510. Sodium 133, potassium 6.2, chloride 92, CO2 of 24, BUN 126, creatinine 8.5, and glucose 201. ASSESSMENT: 1. Severe pancreatitis. 2. Acute respiratory distress syndrome. 3. Acute renal failure with hyperkalemia. PLAN: 1. The patient needs dialysis. 2. Continue mechanical ventilation . 3. Continue antibiotics and antifungals. 4. Wean vasopressors as tolerated. 5. I went up on his steroids last night in hopes that that will help. 6. He is anemic and needs blood transfusion with dialysis. Job ID: [id number]
[2018-05-06] MEDS: Insulin Glargine 24 UNITS in Pre-Filled Syringe 1 EACH SC SCH (09:42)
[2018-05-06] MEDS: Heparin 5,000 UNITS/ML VIAL SC SCH ×3 (09:42→19:52)
[2018-05-06] MEDS: Micafungin 100 MG in Sodium Chloride 0.9% 100 ML IVPB SCH (12:01)
[2018-05-06] MEDS: Meropenem 500 MG in Sodium Chloride 0.9% 100 ML IVPB SCH (12:01)
--- NOTE | 2018-05-06 12:13 | PRG ---
DATE OF SERVICE: SUBJECTIVE: Mr. Cao is a 37-year-old black male who developed acute necrotizing pancreatitis and developed multiple organ complications including acute kidney injury. He is currently being placed on maintenance hemodialysis. He had a tracheostomy and a PEG tube placed, and he was said to have developed temporary asystole at that time. He was also noted to be hyperkalemic. He underwent emergent hemodialysis yesterday. I am currently dialyzing the patient. I am at the bedside supervising his dialysis. He is off his pressors. OBJECTIVE: VITAL SIGNS: Blood pressure is noted at 129/70, heart rate 70. GENERAL: The patient is sedated on ventilator support. Positive for tracheostomy. HEENT: Pale conjunctivae. Anicteric sclerae. NECK: No neck mass. No carotid bruits. No JVD. CHEST: No deformities. LUNGS: Decreased breath sounds. HEART: Normal sinus rhythm. No murmurs, gallops, or rubs. ABDOMEN: Globular, soft, nontender. No masses. EXTREMITIES: Trace edema. MEDICATIONS: Medications of May 06, 2018, was reviewed. LABORATORY DATA: Laboratories of May 06, 2018, white count 27.1, hemoglobin 6.4. Sodium 133, potassium 6.2, chloride 92, carbon dioxide 24, BUN is 126, creatinine 8.57, glucose 201, calcium 8.9. ASSESSMENT AND PLAN: 1. Acute kidney injury - secondary to ischemic acute tubular necrosis, doing daily hemodialysis. My plan is to do a 4-hour hemodialysis today. Scheduled for daily 4-hour dialysis due to his catabolic nature. 2. Acute necrotizing pancreatitis, supportive care. 3. Acute respiratory failure, on ventilator support. Currently on tracheostomy. 4. Anemia, p.r.n. blood transfusion. Job ID: [id number]
--- NOTE | 2018-05-06 13:08 | PDOC.PN ---
- Subjective Encounter Start Date: 05/06/18 Encounter Start Time: 09:20 Pt seen for followup re: acute renal failure. s/p trach, not waking up, unable to complete ROS. - Objective Resuscitation Status - Order Detail: 05/02/18 12:07 Resuscitation Status Routine Resuscitation Status: FULL: Full Resuscitation Discussed with: per previous order MAR Reviewed: Yes Vital Signs & Weight: Vital Signs (12 hours) Temp Pulse Pulse Resp BP Pulse Ox 05/06/18 13:01 94 05/06/18 13:00 98.8 F 94 30 H 139/59 L 98 05/06/18 12:41 98 F 97 30 H 114/48 L 97 05/06/18 12:29 97.9 F 30 H 115/45 L 98 05/06/18 12:28 98.8 F 98 31 H 114/46 L 97 05/06/18 12:00 98.8 F 31 H 05/06/18 11:59 98.9 F 99 30 H 110/37 L 96 05/06/18 10:15 102 H 05/06/18 10:00 30 H 05/06/18 08:00 30 H 05/06/18 07:51 93 L 05/06/18 07:45 93 05/06/18 07:00 99 F 05/06/18 06:00 30 H 05/06/18 04:00 32 H 05/06/18 03:00 98.9 F 05/06/18 02:13 104 H 05/06/18 02:00 31 H Weight Admit Weight 330 lb 8 oz Weight 387 lb 5.635 oz Most Recent Monitor Data Heart Rate from ECG 98 NIBP 86/33 NIBP BP-Mean 50 Respiration from ECG 32 SpO2 95 I&O: 05/05/18 05/06/18 05/07/18 06:59 06:59 06:59 Intake Total 3034.2 2182.7 350 Output Total 40 10 10 Balance 2994.2 2172.7 340 Result Diagrams: 05/06/18 06:12 05/06/18 06:12 Additional Labs: Accuchecks 05/06/18 05/06/18 05/06/18 12:12 07:46 03:30 POC Glucose 234 H 200 H 203 H 05/05/18 05/05/18 05/05/18 23:32 19:49 16:15 POC Glucose 163 H 141 H 166 H 05/05/18 14:54 POC Glucose 192 H EKG Reviewed by me: Yes (Tele: NSR) Phys Exam - Physical Examination Morbid obesity HEENT: moist MMs s/p trach Respiratory: clear to auscultation bilateral Cardiovascular: RRR no spontaneous limb movements Dx/Plan (1) Acute necrotizing pancreatitis Code(s): K85.91 - ACUTE PANCREATITIS WITH UNINFECTED NECROSIS, UNSPECIFIED Status: Acute Comment: on meropenem (2) DEYANIRA (acute kidney injury) Code(s): N17.9 - ACUTE KIDNEY FAILURE, UNSPECIFIED Status: Acute Comment: on hemodialysis; secondary to ischemic acute tubular necrosis (3) Acute respiratory failure with hypoxia Code(s): J96.01 - ACUTE RESPIRATORY FAILURE WITH HYPOXIA Status: Acute Comment: s/p tracheostomy (4) Multiorgan failure Code(s): NJC0845 - Status: Acute - Plan * . Review of Systems - Medications/Allergies Allergies/Adverse Reactions: Allergies Allergy/AdvReac Type Severity Reaction Status Date / Time ciprofloxacin [From Cipro] Allergy Verified 04/22/18 11:45 Medications: Current Medications Albuterol/Ipratropium (Duoneb) 3 ml NEB [id number] PRN PRN Reason: SOB &/or Wheezing Albuterol/Ipratropium (Duoneb) 3 ml NEB [id number] [facility] Last Admin: 05/06/18 13:01 Dose: 3 ml Budesonide (Pulmicort Neb Solution) 0.5 mg INH BID-RT [facility] Last Admin: 05/06/18 07:43 Dose: 0.5 mg Dextrose/Water (Dextrose 50%) 25 gm SLOW IVP PRN PRN PRN Reason: Hypoglycemia Famotidine (Pepcid) 20 mg SLOW IVP 2100 [facility] Last Admin: 05/05/18 20:27 Dose: 20 mg Glucagon (Glucagon) 1 mg IM PRN PRN PRN Reason: Hypoglycemia Heparin Sodium (Porcine) (Heparin) 5,000 units SC TID [facility] Last Admin: 05/06/18 09:42 Dose: 5,000 units Hydralazine HCl (Apresoline) 10 mg SLOW IVP Q4H PRN PRN Reason: SBP > 180 and HR < 70 Last Admin: 05/02/18 00:06 Dose: 10 mg Sodium Chloride (Normal Saline 0.9%) 1,000 mls @ 100 mls/hr IV .Q10H [facility] Last Admin: 05/06/18 12:58 Dose: Not Given Sodium Acetate 40 meq/ Sodium Chloride 70 meq/ Calcium Chloride 10 meq/ Magnesium Sulfate 10 meq/ Multivitamins 10 ml/ Chromium/Copper/Manganese/Seleni/ Zn 5 ml/Insulin Human Regular 30 units / Dextrose/Water/ Amino Acids/Sterile Water 1,562.6159 mls @ 65.109 mls/hr IV 2200 [facility] Last Admin: 05/05/18 21:57 Dose: 1,562.6159 mls Meropenem 500 mg/ Sodium (Chloride) 100 mls @ 200 mls/hr IVPB 1200 [facility] Last Admin: 05/06/18 12:01 Dose: 100 mls Micafungin Sodium 100 mg/ (Sodium Chloride) 100 mls @ 100 mls/hr IVPB 1200 [facility] Last Admin: 05/06/18 12:01 Dose: 100 mls Insulin Glargine 20 units/ (Miscellaneous Medication) 0.2 mls @ 0 mls/hr SC HS [facility] Last Admin: 05/05/18 20:27 Dose: 0.2 mls Insulin Glargine 24 units/ (Miscellaneous Medication) 0.24 mls @ 0 mls/hr SC QAM [facility] Last Admin: 05/06/18 09:42 Dose: 0.24 mls Fentanyl Citrate 2,000 mcg/ (Sodium Chloride) 100 mls @ 0 mls/hr IV INF [facility]; Protocol Last Admin: 05/05/18 22:31 Dose: 100 mls Fentanyl Citrate (Fentanyl Bolus) 250 mls @ 0 mls/hr IVPB PRN PRN PRN Reason: Breakthrough pain/agitation Midazolam HCl (Versed) 100 mls @ 4 mls/hr IVPB INF PRN; Protocol PRN Reason: Sedation Last Admin: 05/06/18 01:47 Dose: 100 mls Norepinephrine Bitartrate (Levophed) 250 mls @ 0 mls/hr IVPB INF [facility]; Protocol Insulin Human Lispro (Humalog) 0 units SC .BEDTIME SLIDING SC PRN PRN Reason: Bedtime Correctional Scale Last Admin: 05/01/18 20:29 Dose: 2 unit Insulin Human Lispro (Humalog) 0 units SC .AGGRESSIVE SLIDING PRN; Protocol PRN Reason: AGGRESSIVE SLIDING SCALE Last Admin: 05/06/18 12:14 Dose: 6 unit Labetalol HCl (Normodyne) 10 mg SLOW IVP Q4H PRN PRN Reason: SBP GREATER THAN 160 Last Admin: 05/04/18 04:02 Dose: 10 mg Lorazepam (Ativan) 2 mg SLOW IVP Q1H PRN PRN Reason: Breakthrough agitation Last Admin: 05/06/18 09:43 Dose: 2 mg Methylprednisolone Sodium Succinate (Solu-Medrol) 60 mg IVP Q6HR [facility] Last Admin: 05/06/18 12:01 Dose: 60 mg Mineral Oil/White Petrolatum (Lacri-Lube Ointment) 1 gm EA EYE Q8HR PRN PRN Reason: Dry Eyes Last Admin: 05/05/18 10:45 Dose: 1 applic Morphine Sulfate (Morphine) 2 mg SLOW IVP Q1H PRN PRN Reason: BREAKTHROUGH PAIN/Agitation Nystatin (Mycostatin Powder) 1 gm TOP BID PRN PRN Reason: Topical Irritations Last Admin: 05/05/18 10:41 Dose: 1 applic Ondansetron HCl (Zofran) 4 mg IVP Q6H PRN PRN Reason: Nausea/Vomiting Last Admin: 04/23/18 05:02 Dose: 4 mg Polyethylene Glycol (Miralax) 17 gm PER TUBE DAILYPRN PRN PRN Reason: CONSTIPATION Last Admin: 04/28/18 22:04 Dose: 17 gm Sodium Chloride (Flush - Normal Saline) 10 ml IVF PRN PRN PRN Reason: Saline Flush
[2018-05-06] MEDS: fentaNYL Citrate/PF 2,000 MCG in Sodium Chloride 0.9% 60 ML IV SCH ×2 (15:19→22:35)
--- NOTE | 2018-05-06 15:26 | PRG ---
DATE OF SERVICE: 05/06/2018 SUBJECTIVE: The patient is on the ventilator. He adds nothing to his present illness. He was started on tube feedings yesterday by Dr. Hogan. He is having essentially no residuals. OBJECTIVE: VITAL SIGNS: Temperature is 98.7, respiratory rate is 31, pulse is 99, blood pressure 116/66. HEENT: Shows multitude of tubes in place. NECK: Shows a recent tracheostomy. CHEST: Clear. ABDOMEN: Distended and taut. Bowel sounds are hypoactive. EXTREMITIES: Show some bilateral pitting edema. LABORATORY DATA: Shows a white blood cell count 27.1, hemoglobin of 6.4, hematocrit 18.5. Chemistries show sodium 133, potassium 6.2, BUN 126, creatinine 8.57, glucose 201, calcium 8.9. ASSESSMENT: 1. Severe necrotizing pancreatitis. 2. Multiple organ failure including respiratory and renal. 3. Hyperkalemia. 4. Severe anemia - the patient received 2 units of packed RBCs. RECOMMENDATIONS: Continue NG feedings. If doing well with those, we will increase them tomorrow. Job ID: [id number]
[2018-05-06] MEDS: Vecuronium 10 MG VIAL IVP PRN ×4 (16:11→22:54)
[2018-05-06] MEDS: Famotidine/PF 20 mg/2ml Vial SLOW IVP SCH (19:52)
[2018-05-06] MEDS: Insulin Glargine 20 UNITS in Pre-Filled Syringe 1 EACH SC SCH (19:52)
[2018-05-06] MEDS: [UNRECOGNIZED DRUG - OTHER] IV SCH (21:57)
[2018-05-06] MEDS: SODIUM CHLORIDE IV SCH (21:57)
[2018-05-06] MEDS: CALCIUM CHLORIDE IV SCH (21:57)
[2018-05-06] MEDS: SODIUM ACETATE IV SCH (21:57)
[2018-05-07] MEDS: Labetalol HCl 100 MG/20 ML VIAL SLOW IVP PRN ×2 (00:20→03:05)
[2018-05-07] MEDS: Lorazepam 2 MG/ML VIAL SLOW IVP PRN ×7 (00:47→17:04)
[2018-05-07] MEDS: Vecuronium 10 MG VIAL IVP PRN ×7 (03:18→17:04)
[2018-05-07] MEDS: HumaLOG 300 UNITS/3 ML VIAL SC PRN ×5 (03:21→20:31)
[2018-05-07] MEDS: hydrALAZINE 20 MG/ML VIAL SLOW IVP PRN (04:19)
[2018-05-07] MEDS: fentaNYL Citrate/PF 2,000 MCG in Sodium Chloride 0.9% 60 ML IV SCH ×2 (06:26→15:27)
[2018-05-07 06:46] LABS: Anion Gap 22 mmol/L (10-20); Calc. Creatinine Clearance 36 mL/min (70-130); Calcium 9.4 mg/dL (7.8-10.44); Carbon Dioxide 24 mmol/L (22-29); Chloride 93 mmol/L (98-107); Estimated GFR-MDRD 11; Glucose 281 mg/dL (70-105); Potassium 5.4 mmol/L (3.5-5.1); Sodium 134 mmol/L (136-145)
[2018-05-07 06:50] LABS: Mean Corpuscular HGB CONC 34.3 g/dL (32.0-36.0); Mean Corpuscular Volume 78.7 fL (78.0-98.0); Mean Platelet Volume 9.7 fL (7.4-10.4); Platelet Count 580 thou/uL (130-400); RBC Distribution Width 15.2 % (11.5-14.5); Red Blood Cell (RBC) Count 2.96 mill/uL (4.70-6.10); White Blood Cell (WBC) Count 32.4 thou/uL (4.8-10.8)
[2018-05-07 06:57] LABS: BUN (Urea Nitrogen) 124 mg/dL (8.9-20.6)
[2018-05-07 07:24] LABS: Actual Bicarbonate (HCO3a) 24.9 mEq/L (22-28); Base Excess (BEa) -3.2 mEq/L (-2.0 to +3.0); Calcium, Ionized 1.09 mmol/L (1.12-1.30); Carboxyhemoglobin (COHb) 1.2 gm% (0.0-3.0); Hemoglobin (Hb) 8.3 g/dL (14.0-18.0); O2 Tension (PaO2) 60.9 mmHg (80.0-100.0); Potassium - ABG Lab 5.33 mmol/L (3.70-5.30)
[2018-05-07 07:25] LABS: pH, Arterial 7.21 (7.35-7.45)
[2018-05-07 07:26] LABS: Puncture Site LINE
[2018-05-07] MEDS: Budesonide 0.5 MG/2 ML NEB INH SCH ×2 (07:44→18:29)
[2018-05-07] MEDS: Sodium Chloride 0.9% 1,000 ML IV SCH ×2 (08:11→15:46)
[2018-05-07] MEDS: Insulin Glargine 24 UNITS in Pre-Filled Syringe 1 EACH SC SCH (08:49)
[2018-05-07] MEDS: Heparin 5,000 UNITS/ML VIAL SC SCH ×3 (08:50→20:31)
--- NOTE | 2018-05-07 09:26 | RAD ---
CHEST ONE VIEW: INDICATIONS: Intubation. COMPARISON: 05/06/2018 FINDINGS: There is worsening pulmonary vascular congestion. Cardiomegaly persists. There are tiny bilateral p leural effusions, which have developed in the interim. No pneumothorax is evident. Tracheostomy tub e, right IJ dialysis catheter, and right subclavian central venous catheter are unchanged. A gastric catheter is also present and projects beyond the left hemidiaphragm. IMPRESSION: Worsening volume overload or congestive heart failure. POS: [facility]
[2018-05-07 09:46] LABS: Band 13 % (5-11); Lymphocytes 1 % (21-51); MDiff Complete? YES; Metamyelocyte 2 % (0-0); Monocytes 16 % (0-10); Myelocyte 1 % (0-0); Neutrophil 64 % (42-75); Nucleated RBC 1 % (0); Reactive Lymphocytes 2 % (0-10)
[2018-05-07] MEDS ORDERED: Heparin 1,000 UNITS/ML VIAL ONE (11:11)
[2018-05-07] MEDS: Meropenem 500 MG in Sodium Chloride 0.9% 100 ML IVPB SCH (11:28)
[2018-05-07] MEDS: Micafungin 100 MG in Sodium Chloride 0.9% 100 ML IVPB SCH (11:28)
[2018-05-07] MEDS ORDERED: Pantoprazole 40 MG VIAL IVP SCH (12:45)
--- NOTE | 2018-05-07 12:56 | PDOC.PN ---
- Subjective Encounter Start Date: 05/07/18 Encounter Start Time: 09:00 Pt seen for followup re: acute necrotizing pancreatitis. Pt not waking up, unable to complete ROS. - Objective Resuscitation Status - Order Detail: 05/02/18 12:07 Resuscitation Status Routine Resuscitation Status: FULL: Full Resuscitation Discussed with: per previous order Vital Signs & Weight: Vital Signs (12 hours) Temp Pulse Resp Pulse Ox 05/07/18 12:00 30 H 05/07/18 11:00 98 F 05/07/18 10:57 30 H 05/07/18 10:22 87 05/07/18 10:00 34 H 05/07/18 08:00 30 H 91 L 05/07/18 07:41 110 H 05/07/18 07:00 98.7 F 05/07/18 06:00 30 H 05/07/18 04:19 105 H 05/07/18 04:00 30 H 05/07/18 03:05 105 H 05/07/18 03:00 98.7 F 05/07/18 02:56 105 H 05/07/18 02:00 30 H Weight Admit Weight 330 lb 8 oz Weight 383 lb 6.142 oz Most Recent Monitor Data Heart Rate from ECG 95 NIBP 152/95 NIBP BP-Mean 114 Respiration from ECG 0 SpO2 91 I&O: 05/06/18 05/07/18 05/08/18 06:59 06:59 06:59 Intake Total 2182.7 3396.3 Output Total 10 25 15 Balance 2172.7 3371.3 -15 Result Diagrams: 05/07/18 06:10 05/07/18 06:10 Additional Labs: Accuchecks 05/07/18 05/07/18 05/07/18 12:06 08:45 03:21 POC Glucose 262 H 266 H 239 H 05/06/18 05/06/18 05/06/18 23:07 19:39 16:09 POC Glucose 226 H 215 H 159 H Phys Exam - Physical Examination HEENT: moist MMs s/p trach Respiratory: clear to auscultation bilateral Cardiovascular: RRR Gastrointestinal: soft distended Neurological: moves all 4 limbs Deviation from normal: Unable to assess Dx/Plan (1) Acute necrotizing pancreatitis Code(s): K85.91 - ACUTE PANCREATITIS WITH UNINFECTED NECROSIS, UNSPECIFIED Status: Acute Comment: continue meropenem (2) DEYANIRA (acute kidney injury) Code(s): N17.9 - ACUTE KIDNEY FAILURE, UNSPECIFIED Status: Acute Comment: dialysis per nephrology, secondary to ischemic acute tubular necrosis (3) Acute respiratory failure with hypoxia Code(s): J96.01 - ACUTE RESPIRATORY FAILURE WITH HYPOXIA Status: Acute Comment: s/p tracheostomy (4) Multiorgan failure Code(s): PDS0112 - Status: Acute - Plan * . Review of Systems - Medications/Allergies Allergies/Adverse Reactions: Allergies Allergy/AdvReac Type Severity Reaction Status Date / Time ciprofloxacin [From Cipro] Allergy Verified 04/22/18 11:45 Medications: Current Medications Albuterol/Ipratropium (Duoneb) 3 ml NEB [id number] PRN PRN Reason: SOB &/or Wheezing Albuterol/Ipratropium (Duoneb) 3 ml NEB [id number] ЮЛИЯ Last Admin: 05/07/18 07:44 Dose: 3 ml Budesonide (Pulmicort Neb Solution) 0.5 mg INH BID-RT ЮЛИЯ Last Admin: 05/07/18 07:44 Dose: 0.5 mg Dextrose/Water (Dextrose 50%) 25 gm SLOW IVP PRN PRN PRN Reason: Hypoglycemia Famotidine (Pepcid) 20 mg SLOW IVP 2100 [facility] Last Admin: 05/06/18 19:52 Dose: 20 mg Glucagon (Glucagon) 1 mg IM PRN PRN PRN Reason: Hypoglycemia Heparin Sodium (Porcine) (Heparin) 5,000 units SC TID [facility] Last Admin: 05/07/18 08:50 Dose: 5,000 units Hydralazine HCl (Apresoline) 10 mg SLOW IVP Q4H PRN PRN Reason: SBP > 180 and HR < 70 Last Admin: 05/07/18 04:19 Dose: 10 mg Sodium Chloride (Normal Saline 0.9%) 1,000 mls @ 100 mls/hr IV .Q10H [facility] Last Admin: 05/07/18 08:11 Dose: Not Given Sodium Acetate 40 meq/ Sodium Chloride 70 meq/ Calcium Chloride 10 meq/ Magnesium Sulfate 10 meq/ Multivitamins 10 ml/ Chromium/Copper/Manganese/Seleni/ Zn 5 ml/Insulin Human Regular 30 units / Dextrose/Water/ Amino Acids/Sterile Water 1,562.6159 mls @ 65.109 mls/hr IV 2200 [facility] Last Admin: 05/06/18 21:57 Dose: 1,562.6159 mls Meropenem 500 mg/ Sodium (Chloride) 100 mls @ 200 mls/hr IVPB 1200 [place] Last Admin: 05/07/18 11:28 Dose: 100 mls Micafungin Sodium 100 mg/ (Sodium Chloride) 100 mls @ 100 mls/hr IVPB 1200 [place] Last Admin: 05/07/18 11:28 Dose: 100 mls Insulin Glargine 20 units/ (Miscellaneous Medication) 0.2 mls @ 0 mls/hr SC HS [facility] Last Admin: 05/06/18 19:52 Dose: 0.2 mls Insulin Glargine 24 units/ (Miscellaneous Medication) 0.24 mls @ 0 mls/hr SC QAM [facility] Last Admin: 05/07/18 08:49 Dose: 0.24 mls Fentanyl Citrate 2,000 mcg/ (Sodium Chloride) 100 mls @ 0 mls/hr IV INF [facility]; Protocol Last Admin: 05/07/18 06:26 Dose: 100 mls Fentanyl Citrate (Fentanyl Bolus) 250 mls @ 0 mls/hr IVPB PRN PRN PRN Reason: Breakthrough pain/agitation Midazolam HCl (Versed) 100 mls @ 4 mls/hr IVPB INF PRN; Protocol PRN Reason: Sedation Last Admin: 05/07/18 03:55 Dose: 100 mls Norepinephrine Bitartrate (Levophed) 250 mls @ 0 mls/hr IVPB INF [facility]; Protocol Insulin Human Lispro (Humalog) 0 units SC .BEDTIME SLIDING SC PRN PRN Reason: Bedtime Correctional Scale Last Admin: 05/01/18 20:29 Dose: 2 unit Insulin Human Lispro (Humalog) 0 units SC .AGGRESSIVE SLIDING PRN; Protocol PRN Reason: AGGRESSIVE SLIDING SCALE Last Admin: 05/07/18 12:10 Dose: 9 unit Labetalol HCl (Normodyne) 10 mg SLOW IVP Q4H PRN PRN Reason: SBP GREATER THAN 160 Last Admin: 05/07/18 03:05 Dose: 10 mg Lorazepam (Ativan) 2 mg SLOW IVP Q1H PRN PRN Reason: Breakthrough agitation Last Admin: 05/07/18 09:50 Dose: 2 mg Methylprednisolone Sodium Succinate (Solu-Medrol) 60 mg IVP Q6HR [place] Last Admin: 05/07/18 11:29 Dose: 60 mg Mineral Oil/White Petrolatum (Lacri-Lube Ointment) 1 gm EA EYE Q8HR PRN PRN Reason: Dry Eyes Last Admin: 05/05/18 10:45 Dose: 1 applic Morphine Sulfate (Morphine) 2 mg SLOW IVP Q1H PRN PRN Reason: BREAKTHROUGH PAIN/Agitation Nystatin (Mycostatin Powder) 1 gm TOP BID PRN PRN Reason: Topical Irritations Last Admin: 05/05/18 10:41 Dose: 1 applic Ondansetron HCl (Zofran) 4 mg IVP Q6H PRN PRN Reason: Nausea/Vomiting Last Admin: 04/23/18 05:02 Dose: 4 mg Pantoprazole Sodium (Protonix) 40 mg IVP DAILY [place] Pantoprazole Sodium (Protonix) 40 mg IVP 1245 [place] Stop: 05/07/18 14:45 Polyethylene Glycol (Miralax) 17 gm PER TUBE DAILYPRN PRN PRN Reason: CONSTIPATION Last Admin: 04/28/18 22:04 Dose: 17 gm Sodium Chloride (Flush - Normal Saline) 10 ml IVF PRN PRN PRN Reason: Saline Flush Vecuronium [place] (Norcuron) 10 mg IVP Q30MIN PRN PRN Reason: Agitation Last Admin: 05/07/18 10:23 Dose: 10 mg
[2018-05-07] MEDS: Famotidine/PF 20 mg/2ml Vial SLOW IVP SCH (20:31)
[2018-05-07] MEDS: Insulin Glargine 20 UNITS in Pre-Filled Syringe 1 EACH SC SCH (20:31)
[2018-05-07] MEDS: [UNRECOGNIZED DRUG - OTHER] IV SCH (21:59)
[2018-05-07] MEDS: CALCIUM CHLORIDE IV SCH (21:59)
[2018-05-07] MEDS: SODIUM ACETATE IV SCH (21:59)
[2018-05-07] MEDS: SODIUM CHLORIDE IV SCH (21:59)
[2018-05-08] MEDS: HumaLOG 300 UNITS/3 ML VIAL SC PRN ×4 (00:36→19:58)
[2018-05-08] MEDS: fentaNYL Citrate/PF 2,000 MCG in Sodium Chloride 0.9% 60 ML IV SCH ×3 (01:39→21:16)
[2018-05-08] MEDS: Sodium Chloride 0.9% 1,000 ML IV SCH ×3 (03:47→22:22)
[2018-05-08 04:24] LABS: Band 22 % (5-11); Eosinophils 2 % (0-10); Hemoglobin 7.6 g/dL (14.0-18.0); Lymphocytes 2 % (21-51); MDiff Complete? YES; Mean Corpuscular HGB CONC 34.1 g/dL (32.0-36.0); Mean Corpuscular Hemoglobin 27.3 pg (27.0-31.0); Mean Corpuscular Volume 80.3 fL (78.0-98.0); Mean Platelet Volume 9.1 fL (7.4-10.4); Metamyelocyte 3 % (0-0); Monocytes 5 % (0-10); Myelocyte 1 % (0-0); Neutrophil 65 % (42-75); PLT Morphology Comment Appears Increased; Platelet Count 436 thou/uL (130-400); RBC Distribution Width 15.8 % (11.5-14.5); Red Blood Cell (RBC) Count 2.78 mill/uL (4.70-6.10); White Blood Cell (WBC) Count 35.2 thou/uL (4.8-10.8)
[2018-05-08 04:47] LABS: Anion Gap 21 mmol/L (10-20); BUN (Urea Nitrogen) 124 mg/dL (8.9-20.6); Calc. Creatinine Clearance 41 mL/min (70-130); Calcium 9.2 mg/dL (7.8-10.44); Carbon Dioxide 25 mmol/L (22-29); Chloride 95 mmol/L (98-107); Estimated GFR-MDRD 13; Glucose 222 mg/dL (70-105); Potassium 4.8 mmol/L (3.5-5.1); Sodium 136 mmol/L (136-145)
[2018-05-08 06:40] LABS: Actual Bicarbonate (HCO3a) 24.1 mEq/L (22-28); Base Excess (BEa) -3.6 mEq/L (-2.0 to +3.0); CO2 Tension 59.5 mmHg (35.0-45.0); Calcium, Ionized 1.11 mmol/L (1.12-1.30); Carboxyhemoglobin (COHb) 0.9 gm% (0.0-3.0); Hemoglobin (Hb) 7.8 g/dL (14.0-18.0); Potassium - ABG Lab 4.73 mmol/L (3.70-5.30)
[2018-05-08 06:45] LABS: ALV-art Gradient 64.525 (0-20); Puncture Site ALINE; pH, Arterial 7.23 (7.35-7.45)
[2018-05-08] MEDS: Budesonide 0.5 MG/2 ML NEB INH SCH ×2 (07:32→18:37)
--- NOTE | 2018-05-08 07:49 | PRG ---
DATE OF SERVICE: 05/07/2018 This is 35 minutes critical care time. SUBJECTIVE: The patient remains sedated and intermittently paralyzed on mechanical ventilation. He has required high amounts of oxygen overnight. OBJECTIVE: VITAL SIGNS: On exam, his temperature is 98.7 with no fever overnight, pulse 73, blood pressure 141/81, currently requiring no vasopressors. Intake for the last 24 hours 3396, output 4000 through hemodialysis. NEUROLOGIC: He is sedated on mechanical ventilation. HEENT: Remarkable for extensive facial swelling. NECK: Tracheostomy in good position. LUNGS: Coarse breath sounds bilaterally. CARDIOVASCULAR: S1 and S2. Slightly tachycardic. ABDOMEN: Obese, distended. EXTREMITIES: Edematous throughout. LABORATORY DATA: White blood cell count 32.4, which is slightly up from yesterday, hemoglobin 8, hematocrit 23.3 after 2 units of PRBC transfused, platelet count 580. PH is 7.21, pCO2 of 63, pO2 of 68, that is on assist-control rate of 30, tidal volume 500, 11 of PEEP, and FiO2 of 100%. Sodium 134, potassium 5.4, chloride 93, CO2 24, BUN 124, creatinine 7.1, and glucose 281. Chest x-ray shows no acute changes from yesterday. ASSESSMENT: 1. Severe necrotizing pancreatitis. 2. Acute respiratory distress syndrome. 3. Acute respiratory failure with hypoxemia. 4. Acute renal failure. PLAN: 1. This patient requires much more in terms of dialysis. 2. In terms of mechanical ventilation, I do not think we can go up much on his current settings, as his minute ventilation is about 17 L/minute on a respiratory rate of 30. Unfortunately, will have to live with mild metabolic acidosis/respiratory acidosis. 3. Continue antifungals and antibiotics. 4. Consider decreasing steroids tomorrow, if he has a good day today. 5. The patient's prognosis remains quite dismal. Job ID: [id number]
--- NOTE | 2018-05-08 07:50 | PRG ---
DATE OF SERVICE: 05/07/2018 SUBJECTIVE: The patient adds nothing to history of present illness. He is intubated and obtunded. OBJECTIVE: VITAL SIGNS: Blood pressure is 140/85, pulse of 103, respiratory rate 30, and temperature 98. HEENT: Unchanged. CHEST: Clear. CARDIOVASCULAR: Regular rate and rhythm. ABDOMEN: Distended and taut. Bowel sounds are hypoactive. LABORATORY DATA: Shows a white blood cell count of 32.4, hemoglobin of 8.0, and hematocrit of 23.3. Sodium is 134, potassium 5.4, chloride 93, BUN 124, creatinine 7.08, glucose 281, and calcium 9.4. Chest x-ray shows worsening volume overload. ASSESSMENT: 1. Severe acute necrotizing pancreatitis. 2. Multi-organ failure. 3. Leukocytosis. RECOMMENDATIONS: Continue nasogastric feedings, may increase these tomorrow. Job ID: [id number]
--- NOTE | 2018-05-08 07:50 | PRG ---
DATE OF SERVICE: 05/07/2018 RENAL MEDICINE SUBJECTIVE: Mr. Cao is a 37-year-old black male, who was admitted for an acute pancreatitis. He developed multiorgan dysfunction. In the interim, he has had a PEG tube placed. We are currently dialyzing him on a daily basis due to his acute renal failure. We removed 4 L of fluid with dialysis today. I will attempt removing 4 to 5 L of fluid within today if he will tolerate this. No acute events noted last night. OBJECTIVE: VITAL SIGNS: Blood pressure 152/95, heart rate 95, respiratory rate is 12, O2 sat 91%. GENERAL: He is sedated, intubated, on ventilator support. SKIN: Adequate turgor. HEENT: The patient has pinkish conjunctivae. Anicteric sclerae. NECK: No neck mass. No carotid bruits. No JVD. Positive for tracheostomy. LUNGS: Decreased breath sounds. HEART: Normal sinus rhythm. No murmurs. No gallops. No rubs. ABDOMEN: Globular, soft, nontender. No masses. EXTREMITIES: Trace edema. MEDICATIONS: Medications of May 07, 2018, were reviewed. LABORATORY DATA: Laboratories of May 07, 2018, white count 32.4, hemoglobin 8, hematocrit 23.3. Sodium 134, potassium 5.4, chloride 93, carbon dioxide 24, BUN 124, creatinine 1.08, glucose 281, calcium 9.4. ASSESSMENT AND PLAN: 1. Acute kidney injury - the patient is anuric. He is receiving a total of 3 L of fluid intake. We will attempt 5 L of fluid removal as tolerated by this patient. 2. Mild hyperkalemia. The patient will be undergoing dialysis. 3. Acute pancreatitis with multiorgan dysfunction. Continue supportive care. 4. Leukocytosis. The patient currently is on IV antibiotics. He has also been started on antifungal regimen. Overall prognosis remains guarded. Job ID: [id number]
[2018-05-08] MEDS: Pantoprazole 40 MG VIAL IVP SCH (08:06)
[2018-05-08] MEDS: Heparin 5,000 UNITS/ML VIAL SC SCH ×3 (08:06→19:57)
[2018-05-08] MEDS: Insulin Glargine 24 UNITS in Pre-Filled Syringe 1 EACH SC SCH (08:07)
--- NOTE | 2018-05-08 09:38 | RAD ---
PORTABLE SEMIUPRIGHT FRONTAL CHEST RADIOGRAPH: Date: 05/08/18 COMPARISON: 05/07/18 HISTORY: Ventilated patient, shortness of breath. FINDINGS: Tracheostomy tube appears stable. Nasogastric tube noted, incompletely visualized distally secondary to technique. Right-sided central venous catheter and dialysis catheter noted. Shallow inspiration limits assessment. Patchy air space disease is noted in bilateral perihilar regions, within the right lung base, and thr oughout the left lung, worsened since the prior examination, particularly in the right base. IMPRESSION: 1. Lines and tubes as above. 2. Bilateral nonspecific air space disease, most prominent in the right lung base, worsened when com pared to the prior exam. POS: [facility]
--- NOTE | 2018-05-08 10:30 | PRG ---
DATE OF SERVICE: 05/08/2018 SUBJECTIVE: Mr. Cao is a 37-year-old black male, who was admitted for an acute necrotizing pancreatitis. He has multiorgan dysfunction. Including this multiorgan dysfunction, he has history of acute kidney injury. He has ischemic ATN. We are continuing daily dialysis. The patient is very catabolic; for that reason, we are doing daily dialysis. We will be maxing out his dialysis size. In addition, heparin is being given to improve blood flow. No other acute events noted. PHYSICAL EXAMINATION: VITAL SIGNS: Blood pressure 155/85, heart rate 108, respiratory rate 13, pulse ox 96%. GENERAL: Noted to be sedated, intubated, ventilator support. SKIN: Adequate turgor. HEENT: He has a slightly pale conjunctivae. Anicteric sclerae. No neck mass. No carotid bruits. No JVD. CHEST: No deformities. LUNGS: Decreased breath sounds. HEART: Normal sinus rhythm. No murmurs, gallops, or rubs. ABDOMEN: Globular, soft, nontender. EXTREMITIES: Trace edema. MEDICATIONS: Medications of May 08, 2018 was reviewed. LABORATORY DATA: Laboratories of May 08, 2018, white count 35.2, hemoglobin 7.6. Sodium 136, potassium 4.8, chloride 95, carbon dioxide 25, BUN 124, creatinine 6.19, glucose 222, and calcium 9.2. ASSESSMENT AND PLAN: 1. Acute pancreatitis, having supportive care. GI following. 2. Acute kidney injury - secondary to ischemic acute tubular necrosis, doing daily dialysis in view of his catabolic nature. BUN still noted to be greater than 100. I did discuss with the dialysis nurse to incorporate heparin with dialysis. In addition, we will use the largest dialyzer we can find. Overall, prognosis remains guarded. Job ID: [id number]
[2018-05-08] MEDS: Micafungin 100 MG in Sodium Chloride 0.9% 100 ML IVPB SCH (11:37)
[2018-05-08] MEDS: Meropenem 500 MG in Sodium Chloride 0.9% 100 ML IVPB SCH (11:38)
--- NOTE | 2018-05-08 11:44 | PRG ---
DATE OF SERVICE: 05/08/2018 SUBJECTIVE: This morning, he remains intubated on the vent, sedated on fentanyl and Versed drip. OBJECTIVE: VITAL SIGNS: Pulse 111, blood pressure 132/72, sats are 94%, and respirations 30. GENERAL: Remains unresponsive. His I's and O's 2182 in and 10 out, no urine output, needs to be dialyzed. LABORATORY AND DIAGNOSTIC DATA: Chest x-ray shows diffuse infiltrates today, which were not there in the past. His white count is 35,000, H and H are 7 and 22, and platelet count is normal. His pO2 is 75, pCO2 is 59, and pH is 7.23, this is on 70% FiO2 and 11 of PEEP. Creatinine is 6.19 and BUN is 124. IMPRESSION: 1. Respiratory failure, acute respiratory distress syndrome. 2. Severe necrotizing pancreatitis. 3. Status post trach. Apparently, had an asystolic event in the OR. He is not weanable at this time . Continue supportive care. obtain a CT of his abdomen today as per GI. contine Antibiotics no changes 1\2 hour for critical time. Job ID: [id number] MTDD
--- NOTE | 2018-05-08 12:45 | PDOC.PN ---
- Subjective Encounter Start Date: 05/08/18 Encounter Start Time: 09:00 -: non-verbal Pt seen for followup re: necrotizing pancreatitis. Pt not waking up, could not obtain ROS. - Objective Resuscitation Status - Order Detail: 05/02/18 12:07 Resuscitation Status Routine Resuscitation Status: FULL: Full Resuscitation Discussed with: per previous order MAR Reviewed: Yes Vital Signs & Weight: Vital Signs (12 hours) Temp Pulse Pulse Pulse Resp BP BP 05/08/18 10:58 99 149/64 H 05/08/18 10:00 30 H 05/08/18 09:35 105 H 104 H 158/7 H 05/08/18 08:00 99.5 F 30 H 05/08/18 07:32 100 157/64 H 05/08/18 06:00 30 H 05/08/18 04:00 99.4 F 30 H 05/08/18 02:09 108 H 05/08/18 02:00 30 H 05/08/18 00:54 105 H 30 H BP Pulse Ox Pulse Ox Pulse Ox 05/08/18 10:58 05/08/18 10:00 05/08/18 09:35 142/60 H 96 98 05/08/18 08:00 98 05/08/18 07:32 05/08/18 06:00 05/08/18 04:00 05/08/18 02:09 05/08/18 02:00 05/08/18 00:54 93 L Weight Admit Weight 330 lb 8 oz Weight 379 lb 13.703 oz Most Recent Monitor Data Heart Rate from ECG 102 NIBP 140/79 NIBP BP-Mean 99 Respiration from ECG 30 SpO2 98 I&O: 05/07/18 05/08/18 05/09/18 06:59 06:59 06:59 Intake Total 3396.3 2522 Output Total 25 77 13 Balance 3371.3 2445 -13 Result Diagrams: 05/08/18 03:45 05/08/18 03:45 Additional Labs: Accuchecks 05/08/18 05/08/18 05/08/18 11:31 08:09 03:50 POC Glucose 235 H 212 H 203 H 05/08/18 05/07/18 05/07/18 00:19 19:43 16:21 POC Glucose 204 H 209 H 196 H EKG Reviewed by me: Yes (Tele: NSR) Phys Exam - Physical Examination Morbid obesity s/p tracheostomy Respiratory: clear to auscultation bilateral Cardiovascular: RRR Not moving extremities Deviation from normal: Unable to assess Dx/Plan (1) Acute necrotizing pancreatitis Code(s): K85.91 - ACUTE PANCREATITIS WITH UNINFECTED NECROSIS, UNSPECIFIED Status: Acute Comment: continue meropenem and micafungin (2) DEYANIRA (acute kidney injury) Code(s): N17.9 - ACUTE KIDNEY FAILURE, UNSPECIFIED Status: Acute Comment: dialysis per nephrology service (3) Acute respiratory failure with hypoxia Code(s): J96.01 - ACUTE RESPIRATORY FAILURE WITH HYPOXIA Status: Acute Comment: s/p tracheostomy (4) Multiorgan failure Code(s): QMC9641 - Status: Acute - Plan * . Review of Systems - Medications/Allergies Allergies/Adverse Reactions: Allergies Allergy/AdvReac Type Severity Reaction Status Date / Time ciprofloxacin [From Cipro] Allergy Verified 04/22/18 11:45 Medications: Current Medications Albuterol/Ipratropium (Duoneb) 3 ml NEB [id number] PRN PRN Reason: SOB &/or Wheezing Albuterol/Ipratropium (Duoneb) 3 ml NEB [id number] ЮЛИЯ Last Admin: 05/08/18 07:32 Dose: 3 ml Budesonide (Pulmicort Neb Solution) 0.5 mg INH BID-RT Ю[place]ИЯ Last Admin: 05/08/18 07:32 Dose: 0.5 mg Dextrose/Water (Dextrose 50%) 25 gm SLOW IVP PRN PRN PRN Reason: Hypoglycemia Famotidine (Pepcid) 20 mg SLOW IVP 2100 [facility] Last Admin: 05/07/18 20:31 Dose: 20 mg Glucagon (Glucagon) 1 mg IM PRN PRN PRN Reason: Hypoglycemia Heparin Sodium (Porcine) (Heparin) 5,000 units SC TID [facility] Last Admin: 05/08/18 08:06 Dose: 5,000 units Hydralazine HCl (Apresoline) 10 mg SLOW IVP Q4H PRN PRN Reason: SBP > 180 and HR < 70 Last Admin: 05/07/18 04:19 Dose: 10 mg Sodium Chloride (Normal Saline 0.9%) 1,000 mls @ 100 mls/hr IV .Q10H [facility] Last Admin: 05/08/18 03:47 Dose: Not Given Sodium Acetate 40 meq/ Sodium Chloride 70 meq/ Calcium Chloride 10 meq/ Magnesium Sulfate 10 meq/ Multivitamins 10 ml/ Chromium/Copper/Manganese/Seleni/ Zn 5 ml/Insulin Human Regular 30 units / Dextrose/Water/ Amino Acids/Sterile Water 1,562.6159 mls @ 65.109 mls/hr IV 2200 [facility] Last Admin: 05/07/18 21:59 Dose: 1,562.6159 mls Meropenem 500 mg/ Sodium (Chloride) 100 mls @ 200 mls/hr IVPB 1200 [facility] Last Admin: 05/08/18 11:38 Dose: 100 mls Micafungin Sodium 100 mg/ (Sodium Chloride) 100 mls @ 100 mls/hr IVPB 1200 [facility] Last Admin: 05/08/18 11:37 Dose: 100 mls Insulin Glargine 20 units/ (Miscellaneous Medication) 0.2 mls @ 0 mls/hr SC HS [facility] Last Admin: 05/07/18 20:31 Dose: 0.2 mls Insulin Glargine 24 units/ (Miscellaneous Medication) 0.24 mls @ 0 mls/hr SC QAM [facility] Last Admin: 05/08/18 08:07 Dose: 0.24 mls Fentanyl Citrate 2,000 mcg/ (Sodium Chloride) 100 mls @ 0 mls/hr IV INF [facility]; Protocol Last Admin: 05/08/18 11:42 Dose: 100 mls Fentanyl Citrate (Fentanyl Bolus) 250 mls @ 0 mls/hr IVPB PRN PRN PRN Reason: Breakthrough pain/agitation Midazolam HCl (Versed) 100 mls @ 4 mls/hr IVPB INF PRN; Protocol PRN Reason: Sedation Last Admin: 05/08/18 00:29 Dose: 100 mls Norepinephrine Bitartrate (Levophed) 250 mls @ 0 mls/hr IVPB INF [facility]; Protocol Insulin Human Lispro (Humalog) 0 units SC .BEDTIME SLIDING SC PRN PRN Reason: Bedtime Correctional Scale Last Admin: 05/08/18 00:36 Dose: 2 unit Insulin Human Lispro (Humalog) 0 units SC .AGGRESSIVE SLIDING PRN; Protocol PRN Reason: AGGRESSIVE SLIDING SCALE Last Admin: 05/08/18 03:51 Dose: 6 unit Labetalol HCl (Normodyne) 10 mg SLOW IVP Q4H PRN PRN Reason: SBP GREATER THAN 160 Last Admin: 05/07/18 03:05 Dose: 10 mg Lorazepam (Ativan) 2 mg SLOW IVP Q1H PRN PRN Reason: Breakthrough agitation Last Admin: 05/07/18 17:04 Dose: 2 mg Methylprednisolone Sodium Succinate (Solu-Medrol) 40 mg IVP 1200 [facility] Last Admin: 05/08/18 11:38 Dose: 40 mg Mineral Oil/White Petrolatum (Lacri-Lube Ointment) 1 gm EA EYE Q8HR PRN PRN Reason: Dry Eyes Last Admin: 05/05/18 10:45 Dose: 1 applic Morphine Sulfate (Morphine) 2 mg SLOW IVP Q1H PRN PRN Reason: BREAKTHROUGH PAIN/Agitation Nystatin (Mycostatin Powder) 1 gm TOP BID PRN PRN Reason: Topical Irritations Last Admin: 05/05/18 10:41 Dose: 1 applic Ondansetron HCl (Zofran) 4 mg IVP Q6H PRN PRN Reason: Nausea/Vomiting Last Admin: 04/23/18 05:02 Dose: 4 mg Pantoprazole Sodium (Protonix) 40 mg IVP DAILY [facility] Last Admin: 05/08/18 08:06 Dose: 40 mg Polyethylene Glycol (Miralax) 17 gm PER TUBE DAILYPRN PRN PRN Reason: CONSTIPATION Last Admin: 04/28/18 22:04 Dose: 17 gm Sodium Chloride (Flush - Normal Saline) 10 ml IVF PRN PRN PRN Reason: Saline Flush Vecuronium [place] (Norcuron) 10 mg IVP Q30MIN PRN PRN Reason: Agitation Last Admin: 05/07/18 17:04 Dose: 10 mg
[2018-05-08] MEDS: Vecuronium 10 MG VIAL IVP PRN ×4 (13:44→22:38)
--- NOTE | 2018-05-08 19:13 | PRG ---
DATE OF SERVICE: 05/08/2018 SUBJECTIVE: Mr. Cao is on the ventilator. His PEEP is 12, his FiO2 of 95%, heart rate 107, 136/55, Campos output 77 in 24 hours. He is on dialysis. White count is now 35,000 up from 32 yesterday and 27 the day before. Hemoglobin 7.6. Sodium 136, potassium 4.8. OBJECTIVE: LUNGS: Clear to auscultation. CARDIAC: Regular rate and rhythm without murmur or gallop. ABDOMEN: Soft, firm, and obese. The patient has been afebrile at 98 degrees for the last few days. ASSESSMENT AND PLAN: Acute necrotizing pancreatitis. Agree with repeat CAT scan tomorrow and oral contrast to reassess the pancreas. Acute renal failure, oliguric, no signs of improvement. Continue dialysis with cuffed tunneled dialysis catheter. Respiratory failure with tracheostomy, multiple organ failure. Overall prognosis is not good, but we will continue broad-spectrum antibiotic coverage and check his CAT scan of the chest and abdomen tomorrow. Oral and IV contrast to be used. Job ID: [id number]
[2018-05-08] MEDS: Famotidine/PF 20 mg/2ml Vial SLOW IVP SCH (19:57)
[2018-05-08] MEDS: Labetalol HCl 100 MG/20 ML VIAL SLOW IVP PRN (19:58)
[2018-05-08] MEDS: Insulin Glargine 20 UNITS in Pre-Filled Syringe 1 EACH SC SCH (20:45)
[2018-05-08] MEDS: Lorazepam 2 MG/ML VIAL SLOW IVP PRN (22:01)
[2018-05-08] MEDS: SODIUM CHLORIDE IV SCH (22:33)
[2018-05-08] MEDS: SODIUM ACETATE IV SCH (22:33)
[2018-05-08] MEDS: CALCIUM CHLORIDE IV SCH (22:33)
[2018-05-08] MEDS: [UNRECOGNIZED DRUG - OTHER] IV SCH (22:33)
[2018-05-09] MEDS: HumaLOG 300 UNITS/3 ML VIAL SC PRN ×2 (00:09→05:21)
[2018-05-09 05:15] LABS: Band 4 % (5-11); Hemoglobin 7.4 g/dL (14.0-18.0); Hypochromia SLIGHT = 6-15 cells (100X) (0-5/hpf); Lymphocytes 4 % (21-51); MDiff Complete? YES; Mean Corpuscular HGB CONC 33.7 g/dL (32.0-36.0); Mean Corpuscular Hemoglobin 27.2 pg (27.0-31.0); Mean Corpuscular Volume 80.9 fL (78.0-98.0); Mean Platelet Volume 9.3 fL (7.4-10.4); Monocytes 2 % (0-10); Neutrophil 90 % (42-75); Nucleated RBC 1 % (0); PLT Morphology Comment Appears Adequate; Platelet Count 312 thou/uL (130-400); RBC Distribution Width 16.2 % (11.5-14.5); Red Blood Cell (RBC) Count 2.72 mill/uL (4.70-6.10); White Blood Cell (WBC) Count 30.8 thou/uL (4.8-10.8)
[2018-05-09 05:28] LABS: Anion Gap 19 mmol/L (10-20); BUN (Urea Nitrogen) 110 mg/dL (8.9-20.6); Calc. Creatinine Clearance 46 mL/min (70-130); Calcium 9.4 mg/dL (7.8-10.44); Carbon Dioxide 26 mmol/L (22-29); Chloride 97 mmol/L (98-107); Estimated GFR-MDRD 15; Glucose 167 mg/dL (70-105); Potassium 4.3 mmol/L (3.5-5.1); Sodium 138 mmol/L (136-145)
[2018-05-09] MEDS: Vecuronium 10 MG VIAL IVP PRN ×3 (06:22→20:41)
[2018-05-09] MEDS: Budesonide 0.5 MG/2 ML NEB INH SCH (06:50)
[2018-05-09 07:14] LABS: Actual Bicarbonate (HCO3a) 24.5 mEq/L (22-28); Base Excess (BEa) -3.2 mEq/L (-2.0 to +3.0); Calcium, Ionized 1.16 mmol/L (1.12-1.30); Carboxyhemoglobin (COHb) 1.3 gm% (0.0-3.0); Hemoglobin (Hb) 7.8 g/dL (14.0-18.0); Potassium - ABG Lab 4.18 mmol/L (3.70-5.30)
[2018-05-09] MEDS: fentaNYL Citrate/PF 2,000 MCG in Sodium Chloride 0.9% 60 ML IV SCH (07:17)
[2018-05-09 07:32] LABS: CO2 Tension 60.9 mmHg (35.0-45.0); pH, Arterial 7.22 (7.35-7.45)
[2018-05-09 07:33] LABS: O2 Tension (PaO2) 58.2 mmHg (80.0-100.0); Puncture Site LINE
[2018-05-09 07:34] LABS: ALV-art Gradient 571.545 (0-20)
[2018-05-09 07:56] LABS: Actual Bicarbonate (HCO3v) 20 mEq/L (22-28); Analyzer IN Cardio OR; Base Excess -9.6 mEq/L (-2.0 to +3.0); Calcium, Ionized 1.06 mmol/L (1.16-1.32); Chloride (ABG LAB) 89 mmol/L (98-106); Hemoglobin (Hb) 7.8 g/dL (13.2-17.3); Potassium - ABG Lab 6.42 mmol/L (3.70-5.30); Sodium 125.1 mmol/L (133-146)
[2018-05-09] MEDS ORDERED: Metoclopramide HCl 10 MG/2 ML VIAL IVP SCH (08:00)
[2018-05-09 08:08] LABS: pH (venous) 7.07 (7.32-7.43)
--- NOTE | 2018-05-09 09:16 | RAD ---
AP VIEW CHEST: HISTORY: Ventilator-dependent patient. FINDINGS: AP view chest is obtained on 05/09/2018. Comparison is made to previous exam from 05/08/2018. AP view chest demonstrates a tracheostomy tube in place. There is a right jugular dialysis catheter in place. There is a right subclavian central line in place. Lines and tubes are unchanged. There is suboptimal inspiratory effort. Areas of patchy airspace opacity seen in both lungs. There is some elevation of both hemidiaphragms. IMPRESSION: Airspace opacities seen bilaterally. Radiographic appearance of the chest is stable, not significant ly changed since the previous day's exam. POS: [facility]
[2018-05-09] MEDS ORDERED: Sterile Water 10 ML ONE (09:32)
[2018-05-09] MEDS: Pantoprazole 40 MG VIAL IVP SCH (09:34)
[2018-05-09] MEDS: Heparin 5,000 UNITS/ML VIAL SC SCH ×3 (09:35→20:42)
[2018-05-09] MEDS: Sodium Chloride 0.9% 1,000 ML IV SCH ×2 (09:35→21:00)
[2018-05-09] MEDS: Insulin Glargine 24 UNITS in Pre-Filled Syringe 1 EACH SC SCH (09:47)
--- NOTE | 2018-05-09 10:03 | PRG ---
DATE OF SERVICE: 05/09/2018 SUBJECTIVE: Mr. Cao has had respiratory demise in the last 48 hours. His FiO2 requirements are greater than 95%, PEEP is 11. Heart rate is 108 to 109, blood pressure 148/62. He has had trickle tube feedings in his NG tube. Urine output has been 77 over the last 24 hours. He is on dialysis. This morning, his white count is 30,000, down from 35,000 yesterday and 32,000 the day before. Hemoglobin is 7.4. He does have 4% bands today. Sodium 138, potassium 4.3. Accu-Cheks 194 to 167. OBJECTIVE: LUNGS: Chest x-ray this morning reveals ARDS-type pattern with infiltrates, rhonchi base, no wheezing. CARDIAC: Sinus tachycardia, 100 to 105. ABDOMEN: Distended, obese, firm. No bowel sounds heard. EXTREMITIES: Mild edema. ASSESSMENT AND PLAN: 1. Acute respiratory distress syndrome secondary to pancreatitis, respiratory failure. Continue ventilator. CT scan of chest today per Pulmonary. 2. Severe necrotizing pancreatitis. His white count is slightly decreased. His left shift has resolved. He is on broad-spectrum antibiotics. Previous CAT scan revealed necrotizing pancreatitis. Obtain a CAT scan today of abdomen and pelvis pancreas to look for any offending process that may need addressing from his pancreatitis. Continue supportive care for his ileus with trickle tube feedings and TPN. Continue broad-spectrum antibiotics. We have ordered bladder pressure to be obtained today. 3. Malnutrition. Continue TPN and trickle tube feedings. Job ID: [id number]
--- NOTE | 2018-05-09 10:21 | PRG ---
DATE OF SERVICE: 05/09/2018 SUBJECTIVE: This morning, he is intubated on the vent, sedated on a Versed drip and fentanyl drip. Saturations have been in the 89% on 100%, FiO2 of 30, no PEEP. OBJECTIVE: VITAL SIGNS: Pulse 109, blood pressure is 148/62, respiratory rate 30, his temperature is 100.4. HEENT: Pupils are equal. CHEST: Decreased breath sounds. No wheezing. CARDIAC: Normal S1 and S2. No gallops. ABDOMEN: Soft without any masses. It is very distended. EXTREMITIES: Trace edema. IMAGING STUDIES: Chest x-ray shows bilateral pulmonary infiltrates, right greater than left. LABORATORY DATA: PO2 is 58, pCO2 is 60, pH 7.22. White count is 30,000, H and H are 7 and 21, platelet count is 312 with a left shift. Creatinine is 5.4 . IMPRESSION: 1. Respiratory failure. 2. Status post asystole in the OR during trach. 3. Renal failure. 4. Acute respiratory distress syndrome. He is clearly not weanable at this stage. Prognosis is grave. Ordered a CT of his chest and abdomen_with contrast to ascess pancreititis 1\2 hour for critical time. Job ID: [id number] MTDD
--- NOTE | 2018-05-09 10:45 | PRG ---
DATE OF SERVICE: 05/09/2018 RENAL MEDICINE SUBJECTIVE: Mr. Cao is a 37-year-old black male with known history of acute necrotizing pancreatitis and has multiorgan dysfunction. He has current acute respiratory failure as well as acute kidney injury secondary to a presumed ATN. He is undergoing daily dialysis. No acute events noted last night. The patient is scheduled for CT scan of the chest today. OBJECTIVE: VITAL SIGNS: Blood pressure is 148/62, heart rate 109, respiratory rate 30, pulse ox 89%. GENERAL: Noted to be sedated, on vent support. SKIN: Adequate turgor. HEENT: He has slightly pale conjunctivae. Anicteric sclerae. NECK: No neck mass. No carotid bruits. No JVD. Positive for tracheostomy. LUNGS: Decreased breath sounds. HEART: Normal sinus rhythm. No murmurs. No gallops. No rubs. ABDOMEN: Globular, soft, nontender. No masses. EXTREMITIES: Trace edema. MEDICATIONS: Medications of May 09, 2018, were reviewed. LABORATORY DATA: Laboratories of May 09, 2018, white count 30.8, hemoglobin 7.4. Sodium 138, potassium 4.3, chloride 97, carbon dioxide 26, BUN 110, creatinine 5.41, glucose 167, calcium 9.4. ASSESSMENT AND PLAN: 1. Acute kidney injury-secondary to presumed ischemic acute tubular necrosis. Continue daily hemodialysis with fluid removal as tolerated by the patient. He is noted to be very catabolic. 2. Acute iyjmjffojsyc-lirtruavmbq-uxawsrazjs care. 3. Acute respiratory failure. Pulmonary is following. The patient will have a CT scan of the chest with and without contrast. We have scheduled our dialysis after the said procedure. Overall, prognosis remains guarded. Case discussed with the patient's father. Job ID: [id number]
[2018-05-09] MEDS ORDERED: Norepinephrine 8 MG/0.9% NS 250 ML ONE (11:55)
[2018-05-09 12:09] LABS: Actual Bicarbonate (HCO3a) 27.2 mEq/L (22-28); Base Excess (BEa) -4.8 mEq/L (-2.0 to +3.0); Calcium, Ionized 1.23 mmol/L (1.12-1.30); Carboxyhemoglobin (COHb) 1.2 gm% (0.0-3.0); Hemoglobin (Hb) 7.5 g/dL (14.0-18.0); Potassium - ABG Lab 4.97 mmol/L (3.70-5.30)
[2018-05-09 12:10] LABS: CO2 Tension 119.1 mmHg (35.0-45.0); O2 Tension (PaO2) 39.5 mmHg (80.0-100.0); pH, Arterial 6.98 (7.35-7.45)
[2018-05-09 12:11] LABS: ALV-art Gradient 524.625 (0-20); Puncture Site A-LINE
[2018-05-09] MEDS ORDERED: Sodium Bicarb 50 MEQ/50 ML Abboject 8.4% SYRINGE ONE (12:11)
[2018-05-09] MEDS ORDERED: Albumin 5% 500 ML ONE (12:15)
--- NOTE | 2018-05-09 12:58 | PDOC.PN ---
- Subjective Encounter Start Date: 05/09/18 Encounter Start Time: 12:57 Pt seen for followup up re: acute necrotizing pancreatitis. Had Code Blue earlier. Pt not responding, unable to complete ROS. - Objective Resuscitation Status - Order Detail: 05/02/18 12:07 Resuscitation Status Routine Resuscitation Status: FULL: Full Resuscitation Discussed with: per previous order MAR Reviewed: Yes Vital Signs & Weight: Vital Signs (12 hours) Temp Pulse Resp BP Pulse Ox 05/09/18 10:39 107 H 125/62 05/09/18 06:51 109 H 148/62 H 05/09/18 06:50 108 H 30 H 89 L 05/09/18 06:00 30 H 05/09/18 04:11 90 161/72 H 05/09/18 04:00 100.4 F H 30 H 05/09/18 02:00 30 H 05/09/18 01:00 100.6 F H 05/09/18 00:58 94 Weight Admit Weight 330 lb 8 oz Weight 371 lb 4.135 oz Most Recent Monitor Data Heart Rate from ECG 106 NIBP 158/78 NIBP BP-Mean 104 Respiration from ECG 30 SpO2 87 I&O: 05/08/18 05/09/18 05/10/18 06:59 06:59 06:59 Intake Total 2522 2744.1 Output Total 77 68 Balance 2445 2676.1 Result Diagrams: 05/09/18 04:30 05/09/18 04:30 Additional Labs: Accuchecks 05/09/18 05/09/18 05/08/18 04:37 00:08 19:44 POC Glucose 167 H 194 H 199 H 05/08/18 16:20 POC Glucose 167 H labs reviewed by me Phys Exam - Physical Examination Morbid obesity HEENT: moist MMs tracheostomy Respiratory: clear to auscultation bilateral Cardiovascular: RRR Gastrointestinal: soft, positive bowel sounds distention Deviation from normal: Unable to assess Dx/Plan (1) Acute necrotizing pancreatitis Code(s): K85.91 - ACUTE PANCREATITIS WITH UNINFECTED NECROSIS, UNSPECIFIED Status: Acute Comment: pt currently on meropenem and micafungin, will continue. had repeat CT abdo today, await report. (2) DEYANIRA (acute kidney injury) Code(s): N17.9 - ACUTE KIDNEY FAILURE, UNSPECIFIED Status: Acute Comment: dialysis per nephrology service (3) Acute respiratory failure with hypoxia Code(s): J96.01 - ACUTE RESPIRATORY FAILURE WITH HYPOXIA Status: Acute Comment: s/p tracheostomy (4) Multiorgan failure Code(s): SIH9308 - Status: Acute - Plan * . Prognosis guarded. Discussed with , updated her. Review of Systems - Medications/Allergies Allergies/Adverse Reactions: Allergies Allergy/AdvReac Type Severity Reaction Status Date / Time ciprofloxacin [From Cipro] Allergy Verified 04/22/18 11:45 Medications: Current Medications Albuterol/Ipratropium (Duoneb) 3 ml NEB [id number] PRN PRN Reason: SOB &/or Wheezing Albuterol/Ipratropium (Duoneb) 3 ml NEB [id number] [facility] Last Admin: 05/09/18 06:50 Dose: 3 ml Budesonide (Pulmicort Neb Solution) 0.5 mg INH BID-RT [facility] Last Admin: 05/09/18 06:50 Dose: 0.5 mg Dextrose/Water (Dextrose 50%) 25 gm SLOW IVP PRN PRN PRN Reason: Hypoglycemia Famotidine (Pepcid) 20 mg SLOW IVP 2100 [facility] Last Admin: 05/08/18 19:57 Dose: 20 mg Glucagon (Glucagon) 1 mg IM PRN PRN PRN Reason: Hypoglycemia Heparin Sodium (Porcine) (Heparin) 5,000 units SC TID [facility] Last Admin: 05/09/18 09:35 Dose: 5,000 units Hydralazine HCl (Apresoline) 10 mg SLOW IVP Q4H PRN PRN Reason: SBP > 180 and HR < 70 Last Admin: 05/07/18 04:19 Dose: 10 mg Sodium Chloride (Normal Saline 0.9%) 1,000 mls @ 100 mls/hr IV .Q10H [facility] Last Admin: 05/08/18 22:22 Dose: Not Given Sodium Acetate 40 meq/ Sodium Chloride 70 meq/ Calcium Chloride 10 meq/ Magnesium Sulfate 10 meq/ Multivitamins 10 ml/ Chromium/Copper/Manganese/Seleni/ Zn 5 ml/Insulin Human Regular 30 units / Dextrose/Water/ Amino Acids/Sterile Water 1,562.6159 mls @ 65.109 mls/hr IV 2200 [facility] Last Admin: 05/08/18 22:33 Dose: 1,562.6159 mls Meropenem 500 mg/ Sodium (Chloride) 100 mls @ 200 mls/hr IVPB 1200 [facility] Last Admin: 05/08/18 11:38 Dose: 100 mls Micafungin Sodium 100 mg/ (Sodium Chloride) 100 mls @ 100 mls/hr IVPB 1200 [facility] Last Admin: 05/08/18 11:37 Dose: 100 mls Insulin Glargine 20 units/ (Miscellaneous Medication) 0.2 mls @ 0 mls/hr SC HS [facility] Last Admin: 05/08/18 20:45 Dose: 0.2 mls Insulin Glargine 24 units/ (Miscellaneous Medication) 0.24 mls @ 0 mls/hr SC QAM [facility] Last Admin: 05/09/18 09:47 Dose: 0.24 mls Fentanyl Citrate 2,000 mcg/ (Sodium Chloride) 100 mls @ 0 mls/hr IV INF [facility]; Protocol Last Admin: 05/09/18 07:17 Dose: 100 mls Fentanyl Citrate (Fentanyl Bolus) 250 mls @ 0 mls/hr IVPB PRN PRN PRN Reason: Breakthrough pain/agitation Midazolam HCl (Versed) 100 mls @ 4 mls/hr IVPB INF PRN; Protocol PRN Reason: Sedation Last Admin: 05/09/18 03:11 Dose: 100 mls Norepinephrine Bitartrate (Levophed) 250 mls @ 0 mls/hr IVPB INF [facility]; Protocol Insulin Human Lispro (Humalog) 0 units SC .BEDTIME SLIDING SC PRN PRN Reason: Bedtime Correctional Scale Last Admin: 05/08/18 00:36 Dose: 2 unit Insulin Human Lispro (Humalog) 0 units SC .AGGRESSIVE SLIDING PRN; Protocol PRN Reason: AGGRESSIVE SLIDING SCALE Last Admin: 05/09/18 05:21 Dose: 3 unit Labetalol HCl (Normodyne) 10 mg SLOW IVP Q4H PRN PRN Reason: SBP GREATER THAN 160 Last Admin: 05/08/18 19:58 Dose: 10 mg Lorazepam (Ativan) 2 mg SLOW IVP Q1H PRN PRN Reason: Breakthrough agitation Last Admin: 05/08/18 22:01 Dose: 2 mg Methylprednisolone Sodium Succinate (Solu-Medrol) 40 mg IVP Q12HR [facility] Last Admin: 05/09/18 09:34 Dose: 40 mg Mineral Oil/White Petrolatum (Lacri-Lube Ointment) 1 gm EA EYE Q8HR PRN PRN Reason: Dry Eyes Last Admin: 05/05/18 10:45 Dose: 1 applic Morphine Sulfate (Morphine) 2 mg SLOW IVP Q1H PRN PRN Reason: BREAKTHROUGH PAIN/Agitation Nystatin (Mycostatin Powder) 1 gm TOP BID PRN PRN Reason: Topical Irritations Last Admin: 05/05/18 10:41 Dose: 1 applic Ondansetron HCl (Zofran) 4 mg IVP Q6H PRN PRN Reason: Nausea/Vomiting Last Admin: 04/23/18 05:02 Dose: 4 mg Pantoprazole Sodium (Protonix) 40 mg IVP DAILY [facility] Last Admin: 05/09/18 09:34 Dose: 40 mg Polyethylene Glycol (Miralax) 17 gm PER TUBE DAILYPRN PRN PRN Reason: CONSTIPATION Last Admin: 04/28/18 22:04 Dose: 17 gm Sodium Chloride (Flush - Normal Saline) 10 ml IVF PRN PRN PRN Reason: Saline Flush Vecuronium [place] (Norcuron) 10 mg IVP Q30MIN PRN PRN Reason: Agitation Last Admin: 05/09/18 09:33 Dose: 10 mg
--- NOTE | 2018-05-09 13:03 | CT ---
CTA CHEST PRE AND POST CONTRAST ENHANCED: CT IMAGES ABDOMEN AND PELVIS CONTRAST ENHANCED: TECHNIQUE: 2D and 3D reconstructed images were performed on an independent 3D work station. FINDINGS: Pre and post contrast enhanced CTA of the chest demonstrates a tracheostomy tube to be in place. Rig ht jugular dialysis catheter and right subclavian central lines are in place. Extensive air space opacity is seen in both right and left lungs, involving all lobes. This is latrice tible with extensive bilateral pneumonias. No evidence of filling defects seen in the pulmonary radha jasper to suggest pulmonary emboli. No significant evidence of pleural or pericardial effusion seen. Cardiomegaly is noted. Contrast enhanced CT images of the abdomen and pelvis demonstrate the liver and spleen to be unremark able. There is extensive edema involving the retroperitoneum, surrounding and involving the pancreas . Findings compatible with pancreatitis. No definite evidence of large fluid collection seen to sug gest pancreatic pseudo tumor. No evidence of free intraperitoneal air is seen. A small amount of free intraperitoneal fluid is seen. No evidence of free air is seen. Adrenal glands and kidneys are unremarkable. No dilated loops of small bowel seen. No definite evidence of colonic obstruction seen. IMPRESSION: 1. Small amount of ascites. 2. Extensive edema in the retroperitoneum, involving the pancreas, compatible with extensive pancrea titis. No evidence of abscesses or pseudo cysts seen. POS: [facility]
[2018-05-09 13:29] LABS: Actual Bicarbonate (HCO3a) 23.2 mEq/L (22-28); Base Excess (BEa) -6.7 mEq/L (-2.0 to +3.0); CO2 Tension 78.5 mmHg (35.0-45.0); Calcium, Ionized 1.16 mmol/L (1.12-1.30); Carboxyhemoglobin (COHb) 1.1 gm% (0.0-3.0); Hemoglobin (Hb) 7.9 g/dL (14.0-18.0); pH, Arterial 7.09 (7.35-7.45)
[2018-05-09 13:30] LABS: ALV-art Gradient 574.675 (0-20); O2 Tension (PaO2) 40.2 mmHg (80.0-100.0); Puncture Site A
--- NOTE | 2018-05-09 13:40 | PRG ---
DATE OF SERVICE: 05/09/2018 SUBJECTIVE: Mr. Xavier Cao is a 37-year-old male with severe acute necrotizing pancreatitis and multiorgan failure. He is on the ventilator and had tracheostomy dialysis on a regular basis. OBJECTIVE: looked pretty stable, but today pulse rate had gone to 106 and blood pressure dropped down to 115/94. CARDIOVASCULAR: First and second heart sounds are normal. LUNGS: Clear to auscultation. ABDOMEN: Distended, but softer than before. There is no rebound or guarding. He has hyperactive bowel sounds. EXTREMITIES: Reveal 3+ edema. LABORATORY DATA: From today shows; WBC is 30,800, hemoglobin is 7.4, hematocrit 23, MCV 85.9, and platelets count 312,000, pulse ox 90%, bands 4. Chemistry panel; potassium 4.3, BUN is 110, creatinine is 5.41, glucose 167, and calcium is 9.4. CLINICAL IMPRESSION: 1. Necrotizing pancreatitis, severe. 2. Multiorgan failure. 3. Status post tracheostomy. RECOMMENDATIONS: Abdominal CAT scan with contrast today and we will make further recommendations on CAT scan findings. Job ID: [id number]
[2018-05-09 13:58] LABS: Magnesium 2.5 mg/dL (1.6-2.6); Phosphorus 6.8 mg/dL (2.3-4.7)
--- NOTE | 2018-05-09 14:13 | PRG ---
DATE OF SERVICE: 05/09/2018 SUBJECTIVE: A 37-year-old gentleman, who just came back from the CT scan of chest and abdomen performed for progressive respiratory failure, severe pancreatitis, and ARDS. He had cardiopulmonary arrest at about 11:50 to 12 a.m., requiring CPR with multiple drugs intervention over the course of about 25 to 40 minutes. Blood gases initially showed a pO2 of 35, pCO2 of 119, and the pH was 6.98, probably was venous, still suggesting severe respiratory acidosis. His potassium on the blood gas was 4.97. The patient received a course of 25 to 45 minutes multiple amps of bicarb, at least six; several doses of intravenous epinephrine, at least three; calcium chloride; D50; and 10 units of insulin. Ongoing CPR. He was started on Levophed drip, vasopressin drip, and epinephrine drip. He received additionally 500 mL of 5% albumin infusion. After prolonged CPR, we were able to get a rhythm and a blood pressure. Dr. Reveles, who works in my office, inserted a right femoral A-line with a systolic blood pressure of 80. Blood gases were done again, which continued to show severe respiratory acidosis. He now is on a pressure-controlled ventilator with a pressure set at 35, still on 100% FiO2, and a PEEP of 15. OBJECTIVE: HEENT: Pupils are 2 mm. CHEST: With extensive rhonchi and crackles. CARDIAC: Sinus tach. ABDOMEN: Distended. EXTREMITIES: No edema. LABORATORY DATA: His CT chest shows extensive bilateral diffuse airspace disease. His CT of the abdomen shows hazy pancreas, markedly enlarged. IMPRESSION: 1. Status post cardiopulmonary resuscitation for cardiopulmonary arrest, prolonged with multiple drugs given. 2. Persistent hypotension, on three pressors. 3. Respiratory failure. 4. Renal failure. I discussed with Nephrology. Once his blood pressure stabilizes, they are going to try on dialyzing. I had a lengthy discussion with the patient's as well as the patient's mother and father that his prognosis was grave, indicated the findings on his CT of his abdomen and chest, which were profound. At this stage, there is nothing additional to offer. Continue supportive care. He was given additionally 40 mg IV Solu-Medrol during the CPR. We will continue broad-spectrum antibiotics. We will restart sedation once he is more stable. Prognosis is grave since the patient has multiorgan failure with severe pancreatitis and ARDS. This is a 45-minute critical time. Job ID: [id number]
[2018-05-09] MEDS ORDERED: EPINEPHrine 4 MG in Dextrose 5% in Water 250 ML IV SCH (14:30)
[2018-05-09] MEDS: Meropenem 500 MG in Sodium Chloride 0.9% 100 ML IVPB SCH (14:51)
[2018-05-09] MEDS: Micafungin 100 MG in Sodium Chloride 0.9% 100 ML IVPB SCH (14:52)
--- NOTE | 2018-05-09 15:34 | OP ---
DATE OF PROCEDURE: 05/05/2018 PREOPERATIVE DIAGNOSES: Severe acute necrotizing pancreatitis, respiratory failure, renal failure on hemodialysis, fevers, senescent central line, and obesity. POSTOPERATIVE DIAGNOSES: Severe acute necrotizing pancreatitis, respiratory failure, renal failure on hemodialysis, fevers, senescent central line, and obesity. PROCEDURES PERFORMED: Right IJ cuffed tunneled dialysis catheter, right subclavian vein triple-lumen catheter. Number 8 Bivona tracheostomy tube. Note, the patient desaturated during the tracheostomy exchange. In brief, a CPR was performed with epinephrine, calcium, bicarb administered regaining rhythm and transported to the ICU postoperatively on the ventilator as he entered the OR. Ultrasound fluoroscopy use. DESCRIPTION OF PROCEDURE: The patient was taken to the operating room. Under general anesthesia, neck and chest were prepared with ChloraPrep, draped in routine fashion. Using the ultrasound guidance, the right internal jugular vein was cannulated. Trocar catheter and J-wire threaded. Trocar catheter removed. A stab incision was made over the right chest at the J-wire entry point and using the tunneling device, the cuffed-tunneled dialysis catheter Angiodynamics precurved, tunneled between the two incisions, placing fabric cuff beneath the skin and catheter secured with 2 interrupted sutures of 3-0 nylon and Biopatch sterile dressings applied. Small and medium sized dilator placed over J wire, internal jugular vein and removed, peel away sheath placed over the J-wire in superior vena cava, and dilator and J-wire were removed. Catheter was placed with a peel away sheath and peel away sheath removed. Platysma approximated with 4-0 Monocryl, skin with subdural 4-0 Monocryl. Each port aspirated off blood, flushed with saline solution, and heparinized saline solution 1000 units heparin per mL indicating volume per port. Sterile dressings applied. Fluoroscopic images revealed good alignment and placement. Seldinger technique, I used to place a right subclavian line. Biopatch sterile dressing applied. Each port aspirated off blood, flushed with saline solution. Fluoroscopic images revealed good alignment and placement. Tracheostomy undertaken. Incision made above the manubrium in the anterior neck and skin, platysma through the deep subcutaneous tissue, dividing the large anterior jugular vein between the clamps, ligated with 3-0 silk ties. The strap muscles reflected laterally and the isthmus of the thyroid divided and trachea identified deep in the neck as the patient is morbidly obese. A tracheal hook inserted and strap suture of 3-0 Prolene placed on either side of the trachea , secured to anterior chest wall with OpSite and Mastisol. Anterior window was made below the cricoid and the trachea and an endotracheal tube withdrawn under direct visualization. Initially, a Shiley tube was placed, but it was appreciated this did not have a cuff and was removed and Bivona #8 tube was placed under direct visualization of the trachea, cuff inflated and checked with the ventilator. The patient desaturated and then became pulseless and CPR performed briefly. The patient ventilated, had good carbon dioxide exchange and the Bivona tube was noted to be directly on to the trachea. Soha was placed in subcutaneous tissues as well as Surgicel. Skin approximated on either side with 3-0 Prolene. This wound closure was performed after CPR ceased and the patient regained his rhythm. Sterile dressings applied. The patient tolerated the procedure well. Job ID: [id number]
[2018-05-09] MEDS: Norepinephrine 8 MG/0.9% NS 250 ML IVPB SCH (18:58)
[2018-05-09] MEDS: Linezolid 600 MG in Premix Bag 1 BAG IVPB SCH (19:07)
[2018-05-09] MEDS: SYSTANE 3.5 GM TUBE EA EYE PRN (20:00)
[2018-05-09] MEDS: Famotidine/PF 20 mg/2ml Vial SLOW IVP SCH (20:42)
[2018-05-09] MEDS: Insulin Glargine 20 UNITS in Pre-Filled Syringe 1 EACH SC SCH (20:42)
[2018-05-09] MEDS ORDERED: Linezolid 600 MG in Premix Bag 1 BAG IVPB SCH (21:00)
--- NOTE | 2018-05-09 21:27 | PRG ---
DATE OF SERVICE: 05/09/2018 Xavier Cao today went for a CT scan of abdomen and pelvis, and chest. This was done with IV and oral contrast. He dialyzed afterwards. The patient's CAT scan revealed severe pulmonary infiltrates, consistent with ARDS. CT scan of the abdomen and pelvis revealed an edematous pancreas and phlegmon without identifiable fluid collection without abscess. No free fluid in the abdominal cavity. The patient had a bladder pressure that was 18 today. After returning from the CAT scan, patient had a code called. He was resuscitated and regained his blood pressure. The patient's overall prognosis is guarded to poor. Continue care. Job ID: [id number]
[2018-05-09] MEDS ORDERED: Vasopressin 40 UNIT, Admixture Fee 1 EACH in Sodium Chloride 0.9% 100 ML IV SCH (22:45)
[2018-05-10] MEDS: HumaLOG 300 UNITS/3 ML VIAL SC PRN ×3 (00:33→21:57)
[2018-05-10] MEDS ORDERED: SODIUM CHLORIDE IV SCH (01:00)
[2018-05-10] MEDS ORDERED: CALCIUM CHLORIDE IV SCH (01:00)
[2018-05-10] MEDS ORDERED: SODIUM ACETATE IV SCH (01:00)
[2018-05-10] MEDS ORDERED: [UNRECOGNIZED DRUG - OTHER] IV SCH (01:00)
[2018-05-10] MEDS: Labetalol HCl 100 MG/20 ML VIAL SLOW IVP PRN (02:31)
[2018-05-10] MEDS: Linezolid 600 MG in Premix Bag 1 BAG IVPB SCH ×2 (05:15→18:32)
[2018-05-10 05:17] LABS: Band 37 % (5-11); Eosinophils 1 % (0-10); Lymphocytes 3 % (21-51); MDiff Complete? YES; Mean Corpuscular HGB CONC 33.6 g/dL (32.0-36.0); Mean Corpuscular Hemoglobin 26.9 pg (27.0-31.0); Mean Corpuscular Volume 79.9 fL (78.0-98.0); Mean Platelet Volume 9.5 fL (7.4-10.4); Metamyelocyte 3 % (0-0); Monocytes 3 % (0-10); Myelocyte 1 % (0-0); Neutrophil 52 % (42-75); Nucleated RBC 3 % (0); PLT Morphology Comment Appears Adequate; Platelet Count 206 thou/uL (130-400); RBC Distribution Width 16.5 % (11.5-14.5); Red Blood Cell (RBC) Count 2.61 mill/uL (4.70-6.10); White Blood Cell (WBC) Count 33.8 thou/uL (4.8-10.8)
[2018-05-10] MEDS: Sodium Chloride 0.9% 1,000 ML IV SCH (05:20)
[2018-05-10] MEDS: fentaNYL Citrate/PF 2,000 MCG in Sodium Chloride 0.9% 60 ML IV SCH (05:27)
[2018-05-10 05:30] LABS: Anion Gap 21 mmol/L (10-20); BUN (Urea Nitrogen) 102 mg/dL (8.9-20.6); Calc. Creatinine Clearance 47 mL/min (70-130); Carbon Dioxide 26 mmol/L (22-29); Chloride 97 mmol/L (98-107); Estimated GFR-MDRD 16; Glucose 202 mg/dL (70-105); Potassium 4.5 mmol/L (3.5-5.1); Sodium 139 mmol/L (136-145)
[2018-05-10 07:11] LABS: Actual Bicarbonate (HCO3a) 27.7 mEq/L (22-28); Base Excess (BEa) 2.2 mEq/L (-2.0 to +3.0); CO2 Tension 49.2 mmHg (35.0-45.0); Carboxyhemoglobin (COHb) 1.6 gm% (0.0-3.0); Hemoglobin (Hb) 6.7 g/dL (14.0-18.0); O2 Tension (PaO2) 85.4 mmHg (80.0-100.0); Potassium - ABG Lab 4.15 mmol/L (3.70-5.30); pH, Arterial 7.37 (7.35-7.45)
[2018-05-10 07:13] LABS: Puncture Site LINE
--- NOTE | 2018-05-10 08:39 | PRG ---
DATE OF SERVICE: 05/09/2018 RENAL MEDICINE Earlier today, the patient had a cardiorespiratory arrest. He was noted to be severely acidotic. We have left the dialysis center late afternoon. He is currently tolerating his dialysis. My plan is to do a 4-hour hemodialysis. Eventually, we will be changing his dialyzer to the bigger size of F180. Blood flow is adequate. Blood pressure is holding steady. Case discussed with the dialysis nurse. I also had a long discussion with the patient's mother regarding diagnosis and prognosis. His overall prognosis remains guarded. Job ID: [id number]
--- NOTE | 2018-05-10 09:18 | RAD ---
PORTABLE AP CHEST RADIOGRAPH: Date: 05-10-18 History: On ventilator. Follow up evaluation. Comparison: 05-09-18 FINDINGS: Tracheostomy device and tunneled right internal jugular vein central venous catheter as well as right subclavian central venous catheter remain in place and unchanged in position. Increased interstitial and alveolar opacities are seen throughout the lungs bilaterally although better depth of inspiratio n is obtained on this exam compared to prior study. There is consolidation seen at the left lung base . Cardiac silhouette is magnified by projection. No other interval change. IMPRESSION: 1. Multifocal bilateral pneumonia, and atypical pneumonia is a possibility. 2. Lines and tubes stable in position. POS: [facility]
[2018-05-10] MEDS: Insulin Glargine 24 UNITS in Pre-Filled Syringe 1 EACH SC SCH (09:50)
[2018-05-10] MEDS: Heparin 5,000 UNITS/ML VIAL SC SCH ×3 (10:46→21:52)
[2018-05-10] MEDS: Pantoprazole 40 MG VIAL IVP SCH (10:47)
--- NOTE | 2018-05-10 10:52 | PRG ---
DATE OF SERVICE: 05/10/2018 SERVICE: Renal Medicine. SUBJECTIVE: Mr. Cao is a 37-year-old black male, who was admitted for acute abdominal pain secondary to necrotizing pancreatitis. He has developed multiorgan dysfunction. One of them is his acute kidney injury secondary to ischemic ATN. He is undergoing daily dialysis. He remains unimproved for the last several days. He continues to be on ventilator support. CT scan of the chest and thorax was done yesterday and there was a small amount of ascites and extensive edema was also noted, extensive airspace opacities seen in both right and left lungs involving all four lobes. There is suggestion of bilateral pneumonias. There is no evidence of PE. OBJECTIVE: VITAL SIGNS: Blood pressure is 151/79, heart rate is 105, respiratory rate 31, and pulse ox 94%. GENERAL: Sedated on ventilator support, obese. SKIN: Adequate turgor. HEENT: He has pale conjunctivae. Anicteric sclerae. No neck mass. No carotid bruits. No JVD. CHEST: No deformities. LUNGS: Decreased breath sounds. HEART: Normal sinus rhythm. No murmur. No gallops. No rubs. ABDOMEN: Globular, soft, and nontender. No masses. EXTREMITIES: No edema. No deformities. MEDICATIONS: Medications of May 10, 2018, reviewed. LABORATORY DATA: Laboratories of May 10, 2018, white count 33.8. Sodium 139, potassium 4.5, chloride 97, carbon dioxide 21, BUN 102, creatinine 4.97, glucose 202, and calcium 9.0. ASSESSMENT AND PLAN: 1. Acute kidney injury - secondary to ischemic acute tubular necrosis. The patient is very catabolic. I have changed the dialyzer size to the largest one F180 due to the persistently elevated BUN. We will plan again a 4-hour hemodialysis for this patient. We are continuing daily dialysis. 2. Acute respiratory failure: Continue supportive care. No evidence of any pulmonary embolism. He has bilateral pneumonia. 3. Acute pancreatitis: Continue supportive care. Overall prognosis remains guarded. Job ID: [id number]
--- NOTE | 2018-05-10 11:23 | PRG ---
DATE OF SERVICE: 05/10/2018 SUBJECTIVE: Xavier Cao is a 37-year-old gentleman, status post cardiopulmonary arrest yesterday with severe hypoxemia. Serum metabolic acidosis appears to be somewhat improved this morning. His chest x-ray still shows diffuse pulmonary infiltrates. His oxygen saturation is 97% on a 15 cm of PEEP and 100% oxygen. OBJECTIVE: VITAL SIGNS: Blood pressure, is off all pressors, 151/70, pulse 100, and respirations 30. CHEST: Extensive rhonchi and crackles. CARDIAC: Sinus tach. ABDOMEN: Distended and soft. NEUROLOGIC: Sedated. HEENT: Pupils are 2 mm. LABORATORY DATA: White count 33,000, hemoglobin and hematocrit of 7 and 20, platelet count is 206. PO2 is 85, pCO2 of 49, pH 7.37 . BUN and creatinine 102 and 4.97. Glucose is 202. IMPRESSION: 1. Severe pancreatitis. 2. Status post cardiopulmonary arrest, cardiopulmonary resususcitation. 3. Severe metabolic acidosis, improved. 4. Acute respiratory distress syndrome. 5. Morbid obesity. Meds are being adjusted. Broad spectrum antibiotics, meropenem, micafungin, and Zyvox along with high-dose steroids. One-half hour critical care time. Job ID: [id number]
[2018-05-10] MEDS: Micafungin 100 MG in Sodium Chloride 0.9% 100 ML IVPB SCH (13:08)
[2018-05-10] MEDS: Meropenem 500 MG in Sodium Chloride 0.9% 100 ML IVPB SCH (13:09)
--- NOTE | 2018-05-10 13:27 | PRG ---
DATE OF SERVICE: 05/08/2018 SUBJECTIVE: This is a 37-year-old male hospitalized more than 2 weeks with severe acute necrotizing pancreatitis. The patient developed multiorgan failure and hyperkalemia. 24 hours of admission, he has been dialyzed. He has been dialyzing on a regular basis. The patient underwent . The patient's clinical condition remain unchanged. He is on ventilator support and IV sedation. He is also on dialysis. He is on TPN because of the necrotizing pancreatitis. OBJECTIVE: VITAL SIGNS: The patient's vital signs appear much better than before. He is a little bit tachycardic in the range of 120 to 130, but now the pulse is down to 94. Blood pressure is 154/98. GENERAL: He is sleepy, respond. CARDIOVASCULAR: First and second heart sounds are normal. LUNGS: Clear to auscultation. ABDOMEN: Distended, but softer than before. Abdomen shows no definite organomegaly or masses. He has hyperactive bowel sounds. EXTREMITIES: 3+ edema. LABORATORY DATA: From today, [place] [address], hemoglobin 8, hematocrit 23.8, MCV 78.7, and platelet count 580,000, polymorphs 64, bandemia 13%. Serum chemistries; sodium 136, potassium 4.8, chloride 95, bicarbonate is 25, BUN is 124, creatinine is 6.19, glucose 222, calcium 9.2. CLINICAL IMPRESSION: 1. Severe necrotizing pancreatitis. 2. Multiorgan failure. 3. Status post tracheostomy. 4. Obesity. 5. Asthma. RECOMMENDATION: 1. Continue ventilator support . 2. Continue dialysis. 3. Repeat imaging tomorrow, CAT scan of the abdomen with contrast. 4. Further recommendations after the CAT scan findings. Job ID: [id number]
--- NOTE | 2018-05-10 14:50 | PDOC.PN ---
- Subjective Encounter Start Date: 05/10/18 Encounter Start Time: 09:00 Pt seen for followup re; acute necrotizing pancreatitis. Pt nonverbal, not arousable, unable to complete ROS. - Objective Resuscitation Status - Order Detail: 05/02/18 12:07 Resuscitation Status Routine Resuscitation Status: FULL: Full Resuscitation Discussed with: per previous order MAR Reviewed: Yes Vital Signs & Weight: Vital Signs (12 hours) Temp Pulse Resp Pulse Ox 05/10/18 13:49 105 H 05/10/18 10:50 106 H 05/10/18 08:00 100.0 F H 31 H 100 05/10/18 07:32 103 H 05/10/18 06:00 32 H 05/10/18 04:00 99.7 F H 34 H Weight Admit Weight 330 lb 7.567 oz Weight 350 lb 5.032 oz Most Recent Monitor Data Heart Rate from ECG 107 NIBP 147/80 NIBP BP-Mean 102 Respiration from ECG 33 SpO2 93 I&O: 05/09/18 05/10/18 05/11/18 06:59 06:59 06:59 Intake Total 2744.1 3601.9 Output Total 68 530 5 Balance 2676.1 3071.9 -5 Result Diagrams: 05/10/18 04:44 05/10/18 04:44 Additional Labs: Accuchecks 05/10/18 05/10/18 05/10/18 09:27 04:43 00:29 POC Glucose 214 H 202 H 208 H 05/09/18 20:46 POC Glucose 178 H EKG Reviewed by me: Yes (Tele: NSR) Phys Exam - Physical Examination Morbid obesity HEENT: moist MMs Respiratory: clear to auscultation bilateral Cardiovascular: RRR Gastrointestinal: soft distended Psychiatric: normal affect Dx/Plan (1) Acute necrotizing pancreatitis Code(s): K85.91 - ACUTE PANCREATITIS WITH UNINFECTED NECROSIS, UNSPECIFIED Status: Acute Comment: continue meropenem and micafungin (2) DEYANIRA (acute kidney injury) Code(s): N17.9 - ACUTE KIDNEY FAILURE, UNSPECIFIED Status: Acute Comment: nephrology following for dialysis (3) Acute respiratory failure with hypoxia Code(s): J96.01 - ACUTE RESPIRATORY FAILURE WITH HYPOXIA Status: Acute Comment: s/p tracheostomy (4) Multiorgan failure Code(s): VEL5162 - Status: Acute - Plan * . prognosis guarded Review of Systems - Medications/Allergies Allergies/Adverse Reactions: Allergies Allergy/AdvReac Type Severity Reaction Status Date / Time ciprofloxacin [From Cipro] Allergy Verified 04/22/18 11:45 Medications: Current Medications Albuterol/Ipratropium (Duoneb) 3 ml NEB [id number] PRN PRN Reason: SOB &/or Wheezing Albuterol/Ipratropium (Duoneb) 3 ml NEB [id number] [facility] Last Admin: 05/10/18 13:49 Dose: 3 ml Dextrose/Water (Dextrose 50%) 25 gm SLOW IVP PRN PRN PRN Reason: Hypoglycemia Famotidine (Pepcid) 20 mg SLOW IVP 2100 [facility] Last Admin: 05/09/18 20:42 Dose: 20 mg Glucagon (Glucagon) 1 mg IM PRN PRN PRN Reason: Hypoglycemia Heparin Sodium (Porcine) (Heparin) 5,000 units SC TID [facility] Last Admin: 05/10/18 10:46 Dose: 5,000 units Hydralazine HCl (Apresoline) 10 mg SLOW IVP Q4H PRN PRN Reason: SBP > 180 and HR < 70 Last Admin: 05/07/18 04:19 Dose: 10 mg Sodium Chloride (Normal Saline 0.9%) 1,000 mls @ 35 mls/hr IV .Q24H [facility] Last Admin: 05/10/18 05:20 Dose: 1,000 mls Meropenem 500 mg/ Sodium (Chloride) 100 mls @ 200 mls/hr IVPB 1200 [facility] Last Admin: 05/10/18 13:09 Dose: 100 mls Micafungin Sodium 100 mg/ (Sodium Chloride) 100 mls @ 100 mls/hr IVPB 1200 [facility] Last Admin: 05/10/18 13:08 Dose: 100 mls Insulin Glargine 20 units/ (Miscellaneous Medication) 0.2 mls @ 0 mls/hr SC HS [facility] Last Admin: 05/09/18 20:42 Dose: 0.2 mls Insulin Glargine 24 units/ (Miscellaneous Medication) 0.24 mls @ 0 mls/hr SC QAM [facility] Last Admin: 05/10/18 09:50 Dose: 0.24 mls Fentanyl Citrate 2,000 mcg/ (Sodium Chloride) 100 mls @ 0 mls/hr IV INF [facility]; Protocol Last Admin: 05/10/18 05:27 Dose: 100 mls Fentanyl Citrate (Fentanyl Bolus) 250 mls @ 0 mls/hr IVPB PRN PRN PRN Reason: Breakthrough pain/agitation Midazolam HCl (Versed) 100 mls @ 4 mls/hr IVPB INF PRN; Protocol PRN Reason: Sedation Last Admin: 05/09/18 03:11 Dose: 100 mls Norepinephrine Bitartrate (Levophed) 250 mls @ 0 mls/hr IVPB INF [facility]; Protocol Last Admin: 05/09/18 18:58 Dose: 250 mls Epinephrine 4 mg/ Dextrose/ (Water) 254 mls @ 0 mls/hr IV INF [facility]; Protocol Last Admin: 05/09/18 14:49 Dose: 254 mls Linezolid 600 mg/ Device 300 mls @ 150 mls/hr IVPB 0500,1700 [facility] Last Admin: 05/10/18 05:15 Dose: 300 mls Vasopressin 40 unit/Miscellaneous Medication 1 each/ Sodium Chloride 102 mls @ 0 mls/hr IV INF [facility]; Protocol Sodium Acetate 40 meq/ Sodium Chloride 70 meq/ Calcium Chloride 10 meq/ Magnesium Sulfate 10 meq/ Multivitamins 10 ml/ Chromium/Copper/Manganese/Seleni/ Zn 5 ml/Insulin Human Regular 30 units / Dextrose/Water/ Amino Acids/Sterile Water 1,562.6159 mls @ 65.109 mls/hr IV 2200 [facility] Sodium Acetate 40 meq/ Sodium Chloride 70 meq/ Calcium Chloride 10 meq/ Magnesium Sulfate 10 meq/ Multivitamins 10 ml/ Chromium/Copper/Manganese/Seleni/ Zn 5 ml/Insulin Human Regular 30 units / Dextrose/Water/ Amino Acids/Sterile Water 1,562.6159 mls @ 65.109 mls/hr IV NOW [facility] Stop: 05/10/18 21:59 Last Admin: 05/10/18 00:51 Dose: 1,562.6159 mls Insulin Human Lispro (Humalog) 0 units SC .BEDTIME SLIDING SC PRN PRN Reason: Bedtime Correctional Scale Last Admin: 05/10/18 05:27 Dose: 2 unit Insulin Human Lispro (Humalog) 0 units SC .AGGRESSIVE SLIDING PRN; Protocol PRN Reason: AGGRESSIVE SLIDING SCALE Last Admin: 05/09/18 05:21 Dose: 3 unit Labetalol HCl (Normodyne) 10 mg SLOW IVP Q4H PRN PRN Reason: SBP GREATER THAN 160 Last Admin: 05/10/18 02:31 Dose: 10 mg Lorazepam (Ativan) 2 mg SLOW IVP Q1H PRN PRN Reason: Breakthrough agitation Last Admin: 05/08/18 22:01 Dose: 2 mg Methylprednisolone Sodium Succinate (Solu-Medrol) 40 mg IVP Q12HR [facility] Last Admin: 05/10/18 10:47 Dose: 40 mg Mineral Oil/White Petrolatum (Lacri-Lube Ointment) 1 gm EA EYE Q8HR PRN PRN Reason: Dry Eyes Last Admin: 05/09/18 20:00 Dose: 1 applic Morphine Sulfate (Morphine) 2 mg SLOW IVP Q1H PRN PRN Reason: BREAKTHROUGH PAIN/Agitation Nystatin (Mycostatin Powder) 1 gm TOP BID PRN PRN Reason: Topical Irritations Last Admin: 05/05/18 10:41 Dose: 1 applic Ondansetron HCl (Zofran) 4 mg IVP Q6H PRN PRN Reason: Nausea/Vomiting Last Admin: 04/23/18 05:02 Dose: 4 mg Pantoprazole Sodium (Protonix) 40 mg IVP DAILY [facility] Last Admin: 05/10/18 10:47 Dose: 40 mg Polyethylene Glycol (Miralax) 17 gm PER TUBE DAILYPRN PRN PRN Reason: CONSTIPATION Last Admin: 04/28/18 22:04 Dose: 17 gm Sodium Chloride (Flush - Normal Saline) 10 ml IVF PRN PRN PRN Reason: Saline Flush Vecuronium [place] (Norcuron) 10 mg IVP Q30MIN PRN PRN Reason: Agitation Last Admin: 05/09/18 20:41 Dose: 10 mg
[2018-05-10] MEDS ORDERED: Albumin 25% 25 GM/100 ML BOT IVPB SCH (16:30)
--- NOTE | 2018-05-10 18:14 | PRG ---
DATE OF SERVICE: 05/10/2018 SUBJECTIVE: Xavier Cao is still intubated. OBJECTIVE: VITAL SIGNS: FiO2 of 95%, PEEP of 14 on the ventilator. Heart rate 108 and blood pressure 132/67. Urine output 30 over the past 24 hours. Gastric drainage is 500 mL. PULMONARY: No wheezing or rhonchi at bases. CARDIAC: Rate and rhythm, mild sinus tachycardia. ABDOMEN: Soft, firm, obese ___protruberant . LABORATORY DATA: White count 33,000 up from 30,000 ___yesterday hemoglobin 7. Basic metabolic profile; sodium 139 and potassium 4.5. Renal function _consistent with acute renal failure, oliguric. ASSESSMENT: 1. Oliguric renal failure secondary to pancreatitis. 2. Respiratory failure, acute respiratory distress syndrome secondary to pancreatitis. 3. Severe necrotizing pancreatitis. CAT scan yesterday revealed severe edematous changes without identifiable abscess or fluid collection to drain. __Phlegmon__ continue TPN. Initiate trickle feedings through his NG tube and check residuals. Job ID: [id number] MTDD
[2018-05-10] MEDS: Famotidine/PF 20 mg/2ml Vial SLOW IVP SCH (21:49)
[2018-05-10] MEDS: Insulin Glargine 20 UNITS in Pre-Filled Syringe 1 EACH SC SCH (21:51)
[2018-05-10] MEDS: Norepinephrine 8 MG/0.9% NS 250 ML IVPB SCH (21:55)
[2018-05-10] MEDS: [UNRECOGNIZED DRUG - OTHER] IV SCH (22:23)
[2018-05-10] MEDS: SODIUM ACETATE IV SCH (22:23)
[2018-05-10] MEDS: SODIUM CHLORIDE IV SCH (22:23)
[2018-05-10] MEDS: CALCIUM CHLORIDE IV SCH (22:23)
[2018-05-11] MEDS: HumaLOG 300 UNITS/3 ML VIAL SC PRN ×4 (01:14→21:28)
--- NOTE | 2018-05-11 01:28 | CON ---
DATE OF CONSULTATION: 05/10/2018 HISTORY OF PRESENT ILLNESS: This is a [id number] with necrotizing pancreatitis, multiorgan failure, on hemodialysis. He is also on the ventilator, had tracheostomy a week ago. He is on TPN. The patient had an abdominal CAT scan done yesterday, which revealed severe peripancreatic edema and swelling. There is no free fluid . The chest CAT scan shows diffuse pulmonary infiltrates suggestive of bilateral pneumonia. Clinical condition remains unchanged. He is on the vasopressors and . PHYSICAL EXAMINATION: VITAL SIGNS: His pulse is around 108, blood pressure is 125/66. He is off the vasopressor. CARDIOVASCULAR SYSTEM: First and second heart sounds heard. LUNGS: Clear to auscultation. ABDOMEN: A lot softer than before, he has full normal bowel sounds. LABORATORY DATA: The lab data from today showed WBC up to 33,800, his bandemia has gone up today to 7 from 4. Hemoglobin 7, hematocrit 20.9, platelet count is 206,000. Chemistry panel; sodium is 139, potassium 4.6, chloride 97, BUN is 102, creatinine is 4.97, glucose is 202, and calcium 9. RECOMMENDATIONS: 1. Continue ventilator support. 2. Continue antibiotics and not for dialysis. 3. Continue TPN. 4. No new recommendations. Job ID: [id number]
[2018-05-11] MEDS: Linezolid 600 MG in Premix Bag 1 BAG IVPB SCH ×2 (05:39→18:03)
[2018-05-11] MEDS: Sodium Chloride 0.9% 1,000 ML IV SCH (05:40)
[2018-05-11 06:11] LABS: Hemoglobin 5.8 g/dL (14.0-18.0)
[2018-05-11 06:29] LABS: Anion Gap 19 mmol/L (10-20); BUN (Urea Nitrogen) 94 mg/dL (8.9-20.6); Calc. Creatinine Clearance 53 mL/min (70-130); Calcium 8.7 mg/dL (7.8-10.44); Carbon Dioxide 27 mmol/L (22-29); Chloride 96 mmol/L (98-107); Estimated GFR-MDRD 19; Glucose 185 mg/dL (70-105); Potassium 4.3 mmol/L (3.5-5.1); Sodium 138 mmol/L (136-145)
[2018-05-11 06:42] LABS: Band 27 % (5-11); Eosinophils 3 % (0-10); Lymphocytes 1 % (21-51); MDiff Complete? YES; Mean Corpuscular HGB CONC 33.3 g/dL (32.0-36.0); Mean Corpuscular Hemoglobin 27.1 pg (27.0-31.0); Mean Corpuscular Volume 81.5 fL (78.0-98.0); Mean Platelet Volume 10.2 fL (7.4-10.4); Metamyelocyte 2 % (0-0); Monocytes 4 % (0-10); Myelocyte 4 % (0-0); Neutrophil 59 % (42-75); Nucleated RBC 2 % (0); PLT Morphology Comment Appears Adequate; Platelet Count 155 thou/uL (130-400); Polychromasia SLIGHT = 2-3 cells (100X) (0-2/hpf); RBC Distribution Width 16.4 % (11.5-14.5); Red Blood Cell (RBC) Count 2.12 mill/uL (4.70-6.10); White Blood Cell (WBC) Count 30.4 thou/uL (4.8-10.8)
[2018-05-11 07:16] LABS: Actual Bicarbonate (HCO3a) 27.1 mEq/L (22-28); Base Excess (BEa) 0.6 mEq/L (-2.0 to +3.0); CO2 Tension 55.7 mmHg (35.0-45.0); Calcium, Ionized 1.11 mmol/L (1.12-1.30); Carboxyhemoglobin (COHb) 2.1 gm% (0.0-3.0); Hemoglobin (Hb) 6.4 g/dL (14.0-18.0); O2 Tension (PaO2) 74.8 mmHg (80.0-100.0); Potassium - ABG Lab 4.22 mmol/L (3.70-5.30); Puncture Site LINE; pH, Arterial 7.31 (7.35-7.45)
[2018-05-11 07:17] LABS: ALV-art Gradient 568.575 (0-20)
[2018-05-11 07:31] VITALS: BMI 52.6
[2018-05-11] MEDS: Insulin Glargine 24 UNITS in Pre-Filled Syringe 1 EACH SC SCH (10:07)
[2018-05-11] MEDS: Heparin 5,000 UNITS/ML VIAL SC SCH ×3 (10:07→21:17)
[2018-05-11] MEDS: Pantoprazole 40 MG VIAL IVP SCH (10:07)
--- NOTE | 2018-05-11 10:23 | PRG ---
DATE OF SERVICE: 05/11/2018 SUBJECTIVE: Xavier Cao is a 37-year-old, morbidly obese gentleman with severe pancreatitis. Unfortunately, his condition looks somewhat worse this morning. His pupils are about 4 mm dilated. Do not have much of a corneal reflex. He is on 2 mg of Versed drip and 20 of fentanyl IV. OBJECTIVE: VITAL SIGNS: His blood pressure is 105/55. His saturations are 94%. He is on 100% FiO2 and 15 of PEEP. There is no urine output, he is being dialyzed. CHEST: Decreased breath sounds. Bilateral rhonchi. CARDIAC: Sinus tach. ABDOMEN: Massive. EXTREMITIES: Trace edema. NEUROLOGIC: Sedated. LABORATORY DATA: White count is 30,000, H and H are 5 and 17. He is going to get 2 units of packed cells. Platelet count 155 with left shift. A pO2 is 74, pCO2 is 55, and pH is 7.31, on a pressure control of 30, 100%, and 15 of PEEP. Creatinine is 4. IMPRESSION: 1. Multiorgan failure. 2. Severe pancreatitis. 3. Acute respiratory distress syndrome. 4. Renal failure. 5. Encephalopathy, probably anoxic injury. Also, sedation will be withheld today. We will try an EEG in the next 24 to 48 hours. Otherwise, continue supportive care, broad-spectrum antibiotic and steroids. Prognosis is guarded. We will follow. This is one half hour critical care time. Job ID: [id number]
[2018-05-11] MEDS ORDERED: Heparin 1,000 UNITS/ML VIAL ONE (11:11)
--- NOTE | 2018-05-11 11:19 | PRG ---
DATE OF SERVICE: 05/11/2018 RENAL MEDICINE SUBJECTIVE: Mr. Cao is a 37-year-old black male, who was admitted for abdominal pain secondary to necrotizing pancreatitis. He has several multiorgan dysfunction and one of them is his acute renal failure. He is on a daily dialysis at the present time. Had new changes on his dialysis regimen and I am now using the largest dialyzer. He is also receiving p.r.n. heparin since the patient has been clotting with this dialyzer. No acute events noted this evening. OBJECTIVE: VITAL SIGNS: Blood pressure 130/69, heart rate 93, respiratory rate 30, pulse ox 95%. GENERAL: The patient is awake, alert, comfortable, not in distress. SKIN: Adequate turgor. HEENT: He has pale conjunctivae. Anicteric sclerae. No neck mass. No carotid bruits. No JVD. CHEST: No deformities. Positive for tracheostomy. LUNGS: Decreased breath sounds. HEART: Normal sinus rhythm. No murmurs, gallops, or rubs. ABDOMEN: Globular, soft, and nontender. No masses. EXTREMITIES: Trace edema. MEDICATIONS: Medications of May 11, 2018, were reviewed. LABORATORY DATA: Laboratories of May 11, 2018, white count 30, hemoglobin 5.8. Sodium 138, potassium 4.3, chloride 96, carbon dioxide 27, BUN 94, creatinine 4.34, glucose 185, and calcium 8.7. ASSESSMENT AND PLAN: 1. Acute kidney injury - secondary to ischemic acute tubular necrosis. Continuing daily dialysis. Please note, that the BUN is less than 100 today, it is noted at 94. My plan is to continue the 4-hour hemodialysis with fluid removal only as tolerated. As previously mentioned, using the biggest dialyzer size. I am at the bedside supervising his dialysis. He is tolerating said treatment. 2. Anemia. We will give 2 units of packed RBC with dialysis. 3. Acute necrotizing pancreatitis, supportive care. 4. Acute respiratory failure, on ventilator support. Pulmonary is following. Job ID: [id number]
[2018-05-11] MEDS: MEROPENEM 1 GM/50 ML 1 GM in Premix Bag 1 BAG IVPB SCH (11:45)
[2018-05-11] MEDS: Micafungin 100 MG in Sodium Chloride 0.9% 100 ML IVPB SCH (11:50)
--- NOTE | 2018-05-11 12:13 | PDOC.PN ---
- Subjective Encounter Start Date: 05/11/18 Encounter Start Time: 12:12 Pt seen for followup re: acute necrotizing pancreatitis. Pt not responding, unable to complete ROS. - Objective Resuscitation Status - Order Detail: 05/02/18 12:07 Resuscitation Status Routine Resuscitation Status: FULL: Full Resuscitation Discussed with: per previous order MAR Reviewed: Yes Vital Signs & Weight: Vital Signs (12 hours) Temp Pulse Resp BP Pulse Ox 05/11/18 10:03 90 05/11/18 07:42 93 105/55 L 05/11/18 07:41 93 30 H 95 05/11/18 06:00 30 H 05/11/18 05:00 99.6 F 05/11/18 04:00 30 H 05/11/18 02:20 99 138/76 05/11/18 02:00 30 H 05/11/18 00:26 99 133/72 Weight Admit Weight 330 lb 7.567 oz Weight 388 lb 10.799 oz Most Recent Monitor Data Heart Rate from ECG 86 NIBP 116/51 NIBP BP-Mean 72 Respiration from ECG 30 SpO2 88 I&O: 05/10/18 05/11/18 05/12/18 06:59 06:59 06:59 Intake Total 3601.9 1773.7 0 Output Total 530 278 Balance 3071.9 1495.7 0 Result Diagrams: 05/11/18 04:25 05/11/18 04:25 Additional Labs: Accuchecks 05/11/18 05/11/18 05/11/18 08:47 04:30 00:19 POC Glucose 173 H 205 H 187 H 05/10/18 05/10/18 20:45 17:40 POC Glucose 182 H 158 H EKG Reviewed by me: Yes (Tele: NSR) Phys Exam - Physical Examination Morbid obesity HEENT: moist MMs tracheostomy Respiratory: clear to auscultation bilateral Cardiovascular: RRR Gastrointestinal: soft Deviation from normal: Unable to assess Dx/Plan (1) Acute necrotizing pancreatitis Code(s): K85.91 - ACUTE PANCREATITIS WITH UNINFECTED NECROSIS, UNSPECIFIED Status: Acute Comment: continue meropenem and micafungin (2) DEYANIRA (acute kidney injury) Code(s): N17.9 - ACUTE KIDNEY FAILURE, UNSPECIFIED Status: Acute Comment: nephrology following for dialysis (3) Acute respiratory failure with hypoxia Code(s): J96.01 - ACUTE RESPIRATORY FAILURE WITH HYPOXIA Status: Acute Comment: s/p tracheostomy (4) Multiorgan failure Code(s): EKX9413 - Status: Acute - Plan * . Review of Systems - Medications/Allergies Allergies/Adverse Reactions: Allergies Allergy/AdvReac Type Severity Reaction Status Date / Time ciprofloxacin [From Cipro] Allergy Verified 04/22/18 11:45 Medications: Current Medications Albuterol/Ipratropium (Duoneb) 3 ml NEB [id number] PRN PRN Reason: SOB &/or Wheezing Albuterol/Ipratropium (Duoneb) 3 ml NEB [id number] [facility] Last Admin: 05/11/18 07:41 Dose: 3 ml Dextrose/Water (Dextrose 50%) 25 gm SLOW IVP PRN PRN PRN Reason: Hypoglycemia Famotidine (Pepcid) 20 mg SLOW IVP 2100 [facility] Last Admin: 05/10/18 21:49 Dose: 20 mg Glucagon (Glucagon) 1 mg IM PRN PRN PRN Reason: Hypoglycemia Heparin Sodium (Porcine) (Heparin) 5,000 units SC TID [facility] Last Admin: 05/11/18 10:07 Dose: 5,000 units Hydralazine HCl (Apresoline) 10 mg SLOW IVP Q4H PRN PRN Reason: SBP > 180 and HR < 70 Last Admin: 05/07/18 04:19 Dose: 10 mg Sodium Chloride (Normal Saline 0.9%) 1,000 mls @ 35 mls/hr IV .Q24H [facility] Last Admin: 05/11/18 05:40 Dose: Not Given Micafungin Sodium 100 mg/ (Sodium Chloride) 100 mls @ 100 mls/hr IVPB 1200 [facility] Last Admin: 05/11/18 11:50 Dose: 100 mls Insulin Glargine 20 units/ (Miscellaneous Medication) 0.2 mls @ 0 mls/hr SC HS [facility] Last Admin: 05/10/18 21:51 Dose: 0.2 mls Insulin Glargine 24 units/ (Miscellaneous Medication) 0.24 mls @ 0 mls/hr SC QAM [facility] Last Admin: 05/11/18 10:07 Dose: 0.24 mls Fentanyl Citrate 2,000 mcg/ (Sodium Chloride) 100 mls @ 0 mls/hr IV INF [facility]; Protocol Last Admin: 05/10/18 05:27 Dose: 100 mls Fentanyl Citrate (Fentanyl Bolus) 250 mls @ 0 mls/hr IVPB PRN PRN PRN Reason: Breakthrough pain/agitation Midazolam HCl (Versed) 100 mls @ 4 mls/hr IVPB INF PRN; Protocol PRN Reason: Sedation Last Admin: 05/10/18 21:13 Dose: 100 mls Norepinephrine Bitartrate (Levophed) 250 mls @ 0 mls/hr IVPB INF [facility]; Protocol Last Admin: 05/10/18 21:55 Dose: 250 mls Epinephrine 4 mg/ Dextrose/ (Water) 254 mls @ 0 mls/hr IV INF [facility]; Protocol Last Admin: 05/09/18 14:49 Dose: 254 mls Linezolid 600 mg/ Device 300 mls @ 150 mls/hr IVPB 0500,1700 [facility] Last Admin: 05/11/18 05:39 Dose: 300 mls Vasopressin 40 unit/Miscellaneous Medication 1 each/ Sodium Chloride 102 mls @ 0 mls/hr IV INF [facility]; Protocol Sodium Acetate 40 meq/ Sodium Chloride 70 meq/ Calcium Chloride 10 meq/ Magnesium Sulfate 10 meq/ Multivitamins 10 ml/ Chromium/Copper/Manganese/Seleni/ Zn 5 ml/Insulin Human Regular 30 units / Dextrose/Water/ Amino Acids/Sterile Water 1,562.6159 mls @ 65.109 mls/hr IV 2200 [facility] Last Admin: 05/10/18 22:23 Dose: 1,562.6159 mls Meropenem 1 gm/ Device 50 mls @ 200 mls/hr IVPB 1200 [facility] Last Admin: 05/11/18 11:45 Dose: 50 mls Insulin Human Lispro (Humalog) 0 units SC .BEDTIME SLIDING SC PRN PRN Reason: Bedtime Correctional Scale Last Admin: 05/10/18 05:27 Dose: 2 unit Insulin Human Lispro (Humalog) 0 units SC .AGGRESSIVE SLIDING PRN; Protocol PRN Reason: AGGRESSIVE SLIDING SCALE Last Admin: 05/11/18 05:42 Dose: 6 unit Labetalol HCl (Normodyne) 10 mg SLOW IVP Q4H PRN PRN Reason: SBP GREATER THAN 160 Last Admin: 05/10/18 02:31 Dose: 10 mg Lorazepam (Ativan) 2 mg SLOW IVP Q1H PRN PRN Reason: Breakthrough agitation Last Admin: 05/08/18 22:01 Dose: 2 mg Methylprednisolone Sodium Succinate (Solu-Medrol) 40 mg IVP Q12HR [facility] Last Admin: 05/11/18 10:07 Dose: 40 mg Mineral Oil/White Petrolatum (Lacri-Lube Ointment) 1 gm EA EYE Q8HR PRN PRN Reason: Dry Eyes Last Admin: 05/09/18 20:00 Dose: 1 applic Morphine Sulfate (Morphine) 2 mg SLOW IVP Q1H PRN PRN Reason: BREAKTHROUGH PAIN/Agitation Nystatin (Mycostatin Powder) 1 gm TOP BID PRN PRN Reason: Topical Irritations Last Admin: 05/05/18 10:41 Dose: 1 applic Ondansetron HCl (Zofran) 4 mg IVP Q6H PRN PRN Reason: Nausea/Vomiting Last Admin: 04/23/18 05:02 Dose: 4 mg Pantoprazole Sodium (Protonix) 40 mg IVP DAILY [facility] Last Admin: 05/11/18 10:07 Dose: 40 mg Polyethylene Glycol (Miralax) 17 gm PER TUBE DAILYPRN PRN PRN Reason: CONSTIPATION Last Admin: 04/28/18 22:04 Dose: 17 gm Sodium Chloride (Flush - Normal Saline) 10 ml IVF PRN PRN PRN Reason: Saline Flush Vecuronium [place] (Norcuron) 10 mg IVP Q30MIN PRN PRN Reason: Agitation Last Admin: 05/09/18 20:41 Dose: 10 mg
[2018-05-11] MEDS ORDERED: Heparin 10,000 UNITS/ 10 ML VIAL ONE (15:07)
--- NOTE | 2018-05-11 15:13 | PRG ---
DATE OF SERVICE: 05/11/2018 SUBJECTIVE: Mr. Cao is on the ventilator for respiratory failure. He is sedated. OBJECTIVE: VITAL SIGNS: Blood pressure 161/96, heart rate 87, MAP 117. The patient's urine output has increased slightly, 118 over the last 24 hours. NG tube output 160 over the last 24 hours. LUNGS: No wheezing or rhonchi at bases. CARDIAC: Regular rate and rhythm. Tachycardia is improved. ABDOMEN: Soft, obese, and protuberant. EXTREMITIES: Mild edema. LABORATORY DATA: White count 33,000, increased from 30 yesterday and down from 35 the day before, hemoglobin 7. GFR improved to 19, BUN 94, creatinine 4.34, sodium 138, potassium 4.3. ASSESSMENT AND PLAN: 1. Acute respiratory distress syndrome, 95% FiO2, 12 cm PEEP. Continue ventilatory support. Tracheostomy in place. No complications. 2. Pancreatitis, severe necrotizing. Continue n.p.o. 3. Malnourished. Continue TPN, continue tube feedings, started yesterday. Nephramine 20 an hour. His residuals have been less than 200. 4. Acute renal failure, on dialysis. Urine output has picked up slightly. Glomerular filtration rate slightly improved. Continue dialysis support. Job ID: [id number]
--- NOTE | 2018-05-11 15:25 | RAD ---
PORTABLE SEMIUPRIGHT FRONTAL CHEST RADIOGRAPH: Date: 05/11/18 COMPARISON: 05/10/18. HISTORY: Ventilated patient. FINDINGS: Nasogastric tube extends into upper abdomen. Two right-sided vascular catheters are noted, stable, la rger of which represents a dialysis catheter. Stable tracheostomy tube. There is interstitial and alveolar opacity in the perihilar regions and throughout both lungs, simila r when compared to the prior examination. Aeration may be slightly worsened within bilateral upper lo bes. IMPRESSION: Interstitial and alveolar opacity bilaterally suggests pulmonary edema and/or diffuse infectious pneu monitis. Aeration may have slightly worsened in bilateral upper lobes. Follow-up to resolution advise d. POS: JANUSZ
--- NOTE | 2018-05-11 18:43 | PRG ---
DATE OF SERVICE: 05/11/2018 SUBJECTIVE: This is a 37-year-old unfortunate male with severe necrotizing pancreatitis with multiorgan failure. The patient is on hemodialysis since admission. He is also on the ventilator. The patient is not responding. He is off the vasopressors and blood pressure has stayed steady. His blood count has been dropping down and he has been transfused for that. An EEG has been ordered because for response. The clinical condition OBJECTIVE: VITAL SIGNS: He is afebrile, pulse is 87, blood pressure 146/85. CARDIOVASCULAR SYSTEM: First and second heart sounds heard. LUNGS: Scattered rhonchi. ABDOMEN: Distended, but soft. Abdomen is nontender, but no active bowel sounds heard. LABORATORY DATA: From today; WBC 30,400, hemoglobin is 5.8, hematocrit is 17.3, MCV 81.5, platelet count 155,000, polymorphs 55, and bands 27. Chemistry panel; sodium is normal, potassium 4.3, chloride 96, BUN is 94, creatinine 4.34, and glucose 185. CLINICAL IMPRESSION: 1. Necrotizing pancreatitis, clinical condition remains very poor and . 2. Multiorgan failure including respiratory failure, renal failure, etc. RECOMMENDATIONS: 1. Transfuse. 2. Continue TPN. 3. Await EEG findings and we will make further recommendations. Job ID: [id number]
[2018-05-11] MEDS: Famotidine/PF 20 mg/2ml Vial SLOW IVP SCH (21:17)
[2018-05-11] MEDS: Insulin Glargine 20 UNITS in Pre-Filled Syringe 1 EACH SC SCH (21:30)
[2018-05-11] MEDS: [UNRECOGNIZED DRUG - OTHER] IV SCH (23:24)
[2018-05-11] MEDS: SODIUM ACETATE IV SCH (23:24)
[2018-05-11] MEDS: CALCIUM CHLORIDE IV SCH (23:24)
[2018-05-11] MEDS: SODIUM CHLORIDE IV SCH (23:24)
[2018-05-12] MEDS: HumaLOG 300 UNITS/3 ML VIAL SC PRN ×2 (04:03→08:34)
[2018-05-12] MEDS: Linezolid 600 MG in Premix Bag 1 BAG IVPB SCH (04:46)
[2018-05-12 04:47] LABS: Anisocytosis SLIGHT = 6-15 cells (100X) (0-5/hpf); Band 30 % (5-11); Hemoglobin 8.6 g/dL (14.0-18.0); Lymphocytes 2 % (21-51); MDiff Complete? YES; Mean Corpuscular HGB CONC 32.9 g/dL (32.0-36.0); Mean Corpuscular Hemoglobin 28.2 pg (27.0-31.0); Mean Corpuscular Volume 85.9 fL (78.0-98.0); Mean Platelet Volume 11.1 fL (7.4-10.4); Metamyelocyte 1 % (0-0); Monocytes 6 % (0-10); Myelocyte 1 % (0-0); Neutrophil 60 % (42-75); Nucleated RBC 2 % (0); PLT Morphology Comment Appears Decreased; Platelet Count 85 thou/uL (130-400); Polychromasia MODERATE = 3-4 cells (100X) (0-2/hpf); RBC Distribution Width 17.2 % (11.5-14.5); Red Blood Cell (RBC) Count 3.05 mill/uL (4.70-6.10); Target Cells SLIGHT = 2-5 cells (100X) (0-1/hpf); White Blood Cell (WBC) Count 32.1 thou/uL (4.8-10.8)
[2018-05-12] MEDS: Sodium Chloride 0.9% 1,000 ML IV SCH (04:48)
[2018-05-12] MEDS: Norepinephrine 8 MG/0.9% NS 250 ML IVPB SCH (04:49)
[2018-05-12 05:10] LABS: Anion Gap 19 mmol/L (10-20); BUN (Urea Nitrogen) 94 mg/dL (8.9-20.6); Calc. Creatinine Clearance 61 mL/min (70-130); Calcium 9.1 mg/dL (7.8-10.44); Carbon Dioxide 23 mmol/L (22-29); Chloride 97 mmol/L (98-107); Estimated GFR-MDRD 19; Glucose 388 mg/dL (70-105); Potassium 4.3 mmol/L (3.5-5.1); Sodium 135 mmol/L (136-145)
[2018-05-12 07:18] VITALS: TEMP 97.9
[2018-05-12 07:47] LABS: Actual Bicarbonate (HCO3a) 23.7 mEq/L (22-28); Base Excess (BEa) -4.8 mEq/L (-2.0 to +3.0); Calcium, Ionized 1.17 mmol/L (1.12-1.30); Carboxyhemoglobin (COHb) 0.9 gm% (0.0-3.0); Hemoglobin (Hb) 9.1 g/dL (14.0-18.0); O2 Tension (PaO2) 68.2 mmHg (80.0-100.0); Potassium - ABG Lab 4.06 mmol/L (3.70-5.30)
[2018-05-12] MEDS ORDERED: Artificial Tears 18 DROP/0.9 ML EA EYE PRN (07:50)
[2018-05-12 07:52] LABS: pH, Arterial 7.19 (7.35-7.45)
[2018-05-12 07:53] LABS: CO2 Tension 63.6 mmHg (35.0-45.0); Puncture Site ALINE
[2018-05-12] MEDS: Pantoprazole 40 MG VIAL IVP SCH (08:34)
[2018-05-12] MEDS: Insulin Glargine 24 UNITS in Pre-Filled Syringe 1 EACH SC SCH (08:35)
--- NOTE | 2018-05-12 09:11 | RAD ---
AP VIEW CHEST: HISTORY: Ventilator-dependent patient, 37-year-old male. FINDINGS: AP view chest is obtained on 05/12/2018. Comparison is made to previous exam from 05/11/2018. AP view chest demonstrates a tracheostomy tube in place. Right jugular dialysis catheter is in place . EKG leads are seen over the chest. There is extensive cardiomegaly. Extensive bilateral airspace opacities seen compatible with pulmona ry edema. Areas of increased opacity seen over the right hemithorax compatible with worsening right- sided pneumonia. IMPRESSION: Increasing airspace opacity in the right lung with continued extensive left lung airspace opacities. Findings compatible with adult respiratory distress syndrome. POS: [facility]
[2018-05-12] MEDS: Heparin 5,000 UNITS/ML VIAL SC SCH (09:37)
--- NOTE | 2018-05-12 09:54 | EEG ---
Referring Physician: ALVAREZ EEG # [id number] TEST TYPE: ROUTINE PORTABLE INPATIENT REPORT: AN EEG USING THE [employer]NATIONAL TEN-TWENTY SYSTEM OF ELECTRODE PLACEMENT WAS PERFORMED. The study shows no discernible activity of cerebral origin at standard sensitivities. At increased sensitivity only increased electrical artifact is noted. Photic stimulation did not affect the recording. Noxious stimulation did not affect the study. IMPRESSION: THIS EEG IS COMPATIBLE WITH ELECTROCEREBRAL SILENCE. Power Project Manager: MACKENZIE Slice Plug Cutter Operator Helper: [email or web address] CARLOS
--- NOTE | 2018-05-12 10:41 | PRG ---
DATE OF SERVICE: 05/12/2018 RENAL MEDICINE SUBJECTIVE: Mr. Cao is a 37-year-old black male, who was admitted for acute abdomen secondary to acute pancreatitis. He developed multiorgan dysfunction. One of them is acute renal failure and currently, on maintenance hemodialysis - daily dialysis due to volume overload and catabolic nature. However, the patient remains unimproved. He is unresponsive. EEG has been done. Neurology to evaluate him. The patient is not showing any signs of neurological improvement. OBJECTIVE: VITAL SIGNS: Blood pressure is 93/47 with heart rate of 83, respiratory rate 30, and O2 saturation 98%. GENERAL: He is unresponsive, on ventilator support. Obese. SKIN: Adequate turgor. HEENT: He has pinkish conjunctivae. Anicteric sclerae. No neck mass. No carotid bruits. No JVD. CHEST: No deformities. LUNGS: Decreased breath sounds. HEART: Normal sinus rhythm. No murmur. No gallops. No rubs. ABDOMEN: Globular, soft, and nontender. No masses. EXTREMITIES: No edema. No deformities. MEDICATIONS: Medications of May 12, 2018 was reviewed. LABORATORY DATA: Laboratories of May 12, 2018: White count 32 and hemoglobin 8.6. Sodium 135, potassium 4.3, chloride 97, carbon dioxide 23, BUN 94, creatinine 4.24, glucose and calcium 9.1. ASSESSMENT AND PLAN: 1. Acute kidney injury secondary to ischemic acute tubular necrosis. Continue daily dialysis. 2. Status post cardiorespiratory arrest - the patient is essentially unresponsive. EEG has been done. The possibility of that the patient may be brain- remains. Neurology to evaluate this patient. 3. Anemia, p.r.n. blood transfusion. 4. Acute pancreatitis, supportive care. 5. Overall prognosis remains poor. Job ID: [id number]
[2018-05-12] MEDS ORDERED: Dextrose 50% Abboject 50 ML SYRINGE ONE (11:11)
[2018-05-12] MEDS ORDERED: EPINEPHrine 1 MG/ML AMP ONE (11:11)
[2018-05-12] MEDS ORDERED: Calcium Chloride 1 GM/10 ML Abboject SYRINGE ONE (11:11)
[2018-05-12] MEDS ORDERED: Sodium Bicarb 50 MEQ/50 ML Abboject 8.4% SYRINGE ONE (11:11)
[2018-05-12] MEDS ORDERED: Adenosine 6 MG/2 ML VIAL ONE (11:11)
--- NOTE | 2018-05-12 11:11 | PRG ---
DATE OF SERVICE: 05/12/2018 SUBJECTIVE: Remains intubated on the vent without any sedation, unresponsive. Pupils are 4 mm and fixed. He had an EEG done. Earlier report shows there is marked slowing. We are in the process of the consulting a neurologist. His x-ray today shows worsening extensive bilateral diffuse infiltrates, right greater than left. OBJECTIVE: VITAL SIGNS: His oxygen saturation is 98% to 99% on 100% FiO2, 15 of PEEP, pulse 83, blood pressure is 130/80. He is on Levophed. No urine output. He do not have dry weight. Today, his temperature is 97. CHEST: Decreased breath sounds. Bilateral rhonchi. CARDIAC: Sinus tach. ABDOMEN: Distended. EXTREMITIES: No edema. LABORATORY DATA: White count is 32,000, H and H 8 and 26, platelet count is 85. For the first time, he has developed significant thrombocytopenia. His pO2 is 68, pCO2 is 63, pH 7.19. Severe respiratory acidosis on a rate of 30 and a pressure control of 30. Creatinine is 4, BUN is 94. IMPRESSION: 1. Multiorgan failure. 2. Respiratory acidosis on a rate of 30 and a PEEP of 15. 3. Severe pancreatitis. 4. Probably anoxic injury. We will consult Neurology. Unfortunately at this stage, his prognosis is poor. I discussed with family, they arrived. Job ID: [id number]
[2018-05-12] MEDS: Micafungin 100 MG in Sodium Chloride 0.9% 100 ML IVPB SCH (12:01)
[2018-05-12] MEDS: MEROPENEM 1 GM/50 ML 1 GM in Premix Bag 1 BAG IVPB SCH (12:01)
[2018-05-12 12:47] VITALS: BP 128/68
[2018-05-12] MEDS ORDERED: Morphine 4 MG/ML VIAL SLOW IVP PRN (12:59)
--- NOTE | 2018-05-12 14:32 | PRG ---
DATE OF SERVICE: 05/12/2018 SUBJECTIVE: The patient is seen and examined at bedside and he is in ICU bed 3. He does not respond to any of my commands. He was just seen by Dr. Madrid for Neurology evaluation and apparently EEG shows no typical brain waves, which would be consistent with brain . OBJECTIVE: VITAL SIGNS: Blood pressure is 128/68, pulse is 86, respiratory rate is 30, and heart rate 85. HEENT: His eyes, pupils not responding to light. Sclerae nonicteric. Conjunctivae pinkish. He has tracheostomy tube in place. He is ventilated. LUNGS: Breath sounds somewhat diminished at both bases. No wheezing. No rales. HEART: S1 and S2 normal. No S3. No S4. ABDOMEN: Soft and nondistended. EXTREMITIES: 1+ peripheral edema on the lower and upper extremities. NEUROLOGIC: He does not follow my any commands. He is not able to move his any extremity. It looks like he is brain . LABORATORY DATA: White count of 32.1, hemoglobin of 8.6, hematocrit 26.2, and platelet count is 85,000. ABGs; pH of 7.19, bicarbonate 23.7, pCO2 of 63.6, and pO2 of 68.2. Sodium of 135, potassium 4.3, chloride 97, CO2 of 23, BUN 94, creatinine 4.24, glucose 388, and the range of glucose is from 216 to 392, and calcium of 9.1. IMPRESSION: 1. Multiorgan failure. 2. Most likely anoxic injury. Dr. Madrid just visited with the family and also Pulmonology/Critical Care, Dr. Frankel discussed with the family. 3. Severe pancreatitis. 4. Respiratory acidosis. 5. Status post cardiopulmonary arrest x2. 6. Anemia. Very poor prognosis at this point. Awaiting for more family to come. Job ID: [id number]
--- NOTE | 2018-05-12 15:11 | PRG ---
DATE OF SERVICE: 05/12/2018 SUBJECTIVE: Mr. Xavier Cao is a very unfortunate 37-year-old male hospitalized almost 3 weeks ago with severe necrotizing pancreatitis. The patient had developed multiorgan failure. He is on the ventilator via tracheostomy. He is also on dialysis. He is on TPN as he does not take anything by mouth. The NG tube feeding has not been successful as he has a high residue. The patient has the sedation. He had an EEG done. The EEG report showed that he had normal brain activity. Neurology consult is pending. He is on the vasopressor and his vital signs remained stable. PHYSICAL EXAMINATION: GENERAL: He is on the vent without sedation. VITAL SIGNS: Pulse is 86, blood pressure 128/68. CARDIOVASCULAR SYSTEM: First and second heart sounds heard. LUNGS: Bilateral rales. ABDOMEN: Soft. Abdominal exam remained unchanged. LABORATORY DATA: The lab data from today showed WBC count of 32,100, hemoglobin 8.6, hematocrit 26.2, platelet count is 83,000. Chem 7, BUN is 94. Lytes are normal. Creatinine 4.24, glucose is 392, calcium is 9.1. RECOMMENDATIONS: 1. Continue supportive care. 2. Await Neurology input to see whether the patient needs to be on continued medical therapy. 3. From a GI standpoint, nothing more to add on and I will await Neurology recommendation. Job ID: [id number]
--- NOTE | 2018-05-12 15:41 | CON ---
DATE OF CONSULTATION: 05/12/2018 CONSULTING PHYSICIAN: Hospital Service. IMPRESSION: The patient appears to be clinically brain . PLAN: Discontinue support once the family is ready to do so. HISTORY OF PRESENT ILLNESS: Mr. Cao is a 37-year-old man who came in with necrotizing pancreatitis. He went into multiorgan failure with subsequent cardiopulmonary arrest on 2 separate occasions. He was resuscitated and placed on ventilatory support. A tracheostomy was placed. He has been on tube feedings. He has failed to regain consciousness. He had an EEG done yesterday, which shows electrocerebral silence. I was asked to examine the patient for family's benefit. PHYSICAL EXAMINATION: HEENT: On exam, his pupils are fixed and dilated. There is no eye deviation with Doll's head movement testing. There is no corneal response. MUSCULOSKELETAL: He has no pain response. There is no plantar response to stimulation. There are no spontaneous movements present. VITAL SIGNS: Blood pressure 109/55, pulse 83, and saturations are 98%. SUMMARY: Given the EEG findings and the lack of brain function based on clinical exam, the patient appears to be brain at this point in time. Job ID: [id number] [facility]
--- NOTE | 2018-05-13 08:58 | DIS ---
DATE OF ADMISSION: 04/22/2018 DATE OF DISCHARGE: 05/12/2018 SUMMARY DATE OF : 05/12/2018. ADMISSION DIAGNOSES: 1. Severe abdominal pain. 2. Sepsis syndrome, suspected due to pancreatitis. 3. Hypertension. 4. Asthma. FINAL DIAGNOSES: 1. Severe necrotizing pancreatitis. 2. Acute respiratory distress syndrome. 3. Multiorgan failure. 4. Acute kidney failure. 5. Acute respiratory failure with hypoxia. 6. Hyperkalemia. 7. Hyperglycemia, presumed diabetes mellitus, not diagnosed prior to this admission. 8. Hypertension. 9. Sepsis. 10. Cardiopulmonary arrest x2. 11. Anoxic brain injury. CONSULTANTS: 1. Dr. Tipton, Gastrointestinal Service. 2. Dr. Ramez Frankel, Pulmonary Service. 3. Dr. Horacio Sequeira, Nephrology. 4. Dr. Prabhjot Wolff, General Surgery. 5. Dr. Kamran Sethi, General Surgery. 6. Dr. Sam Reveles, Pulmonary/Critical Care Service. 7. Dr. Wellington Zelaya, Gastrointestinal Service. 8. Dr. Vidal Hogan. 9. Dr. Gavin Espinal, Pulmonary/Critical Care. 10. Dr. Madrid, Neurology Service. HOSPITAL COURSE: Please refer for detailed description of the hospital course to multiple notes, which are in this patient's file. This was a brief description of events what happened. The patient was a 37-year-old male with past medical history of hypertension and asthma, who was admitted to the hospital with few-day history of abdominal pain, which was associated with some nausea and vomiting. Apparently, he started doing some ketogenic diet at the same time when he started having abdominal pain and got sick. He denied any fever or chills, but he felt hot all the time. He noticed some blood in his vomit, but there was no melena or dark stools, suggestive of some kind of bleeding. He was evaluated in the emergency room, and the CAT scan of the abdomen demonstrated inflammation around the pancreas with no any evidence of any stones in the gallbladder. His lipase was elevated, but relatively mildly around 1200. At the time of emergency room visit, his sodium was 128, potassium 5.2, chloride 96, CO2 was 20, BUN 21, creatinine 0.87, glucose was 255, total bilirubin was 1.9, AST was 44, ALT 63, lipase 1299, white count was 24,300, hemoglobin 15.7, hematocrit 49.9, and platelet count was 247. Urinalysis was essentially negative. The patient was admitted to the hospital. He was placed on IV analgesics for pain control and IV antiemetics and on bowel rest except for medications. GI consultation was requested, and the patient was seen by Dr. Tipton, who recommended to follow up serum lipase and continue aggressive fluid resuscitation with normal saline with 20 mEq of potassium to maximal dose of at least 5 to 6 L per day. Continue morphine for pain control and consider [employer] pump if morphine was not strong enough. The patient was on the regular floor, and it was not really clear what was causing his pancreatitis since there was no any evidence of gallstones and he did not drink much alcohol, which is commonly the second most common cause of acute pancreatitis. Because of the patient's creatinine going up, Dr. Horacio Sequeira, crop production advisor, was consulted, and also there was another reason why he was consulted because of hyperkalemia, which was persistent, so he was started on hemodialysis after the dialysis catheter was placed in his right groin by Dr. Prabhjot Wolff. Hyperkalemia improved with this measure, but he required multiple sessions of hemodialysis since his creatinine was gradually climbing up with slow worsening of his condition to the point that he was moved to the intensive care unit and he required intubation. He went into respiratory distress. Since this time, he remained on the ventilator until the time when he passed. He was never able to come off the ventilator since he developed severe respiratory distress in the form of ARDS. The patient had followup CT scan of the abdomen, which showed necrotizing pancreatitis involving approximately 50% of the pancreas and some adjacent organs. His condition gradually got worse, and he had 2 episodes of cardiopulmonary arrest, which required CPR and advanced cardiac life support. He was seen by multiple medical doctors and surgeons trying to stop this devastating multiorgan failure he developed. He was placed on TPN, and he was getting nutrition that way, and finally, because there was no gag reflex, he was suctioned, and there were some other symptoms suggestive that his neuro status was significantly worse. He had EEG done, which was read by Dr. Madrid, Neurology Service, who was consulted to. It was read as electrocerebral silence. At this time, neurologist stated that he was brain , and he recommended to discontinue support once the family was ready to do so. After decision was made by the family of discontinuation of his mechanical ventilation, he passed, and he was pronounced at 1342 hours on May 12, 2018. Job ID: [id number]
== END 2018-05-12 13:42 | disposition expired | DRG 4 ==
LOC: ERS 07:03 → T4-A 10:16 → CCU 10:16 → UNDOADMIN 10:16 → IMCU/EMU 16:46 → T4-A 16:46 → CCU 04-24 14:46 → IMCU/EMU 04-24 14:46 → CCU 04-27 17:44 → UNDODISIN 05-12 13:42
PROVIDERS: ADMIT Internal Medicine; ATTEND Internal Medicine
PROC: 5A1D70Z Performance of Urinary Filtration, Intermittent, Less than 6 Hours Per Day (ICD-10-PCS; 2018-04-23)
PROC: 06HY33Z Insertion of Infusion Device into Lower Vein, Percutaneous Approach (ICD-10-PCS; 2018-04-23)
PROC: 5A1955Z Respiratory Ventilation, Greater than 96 Consecutive Hours (ICD-10-PCS; 2018-04-24)
PROC: 05HN33Z Insertion of Infusion Device into Left Internal Jugular Vein, Percutaneous Approach (ICD-10-PCS; 2018-04-24)
PROC: B544ZZA Ultrasonography of Left Jugular Veins, Guidance (ICD-10-PCS; 2018-04-24)
PROC: 0BH17EZ Insertion of Endotracheal Airway into Trachea, Via Natural or Artificial Opening (ICD-10-PCS; 2018-04-24)
PROC: 0BC38ZZ Extirpation of Matter from Right Main Bronchus, Via Natural or Artificial Opening Endoscopic (ICD-10-PCS; 2018-05-04)
PROC: 0B9J7ZX Drainage of Left Lower Lung Lobe, Via Natural or Artificial Opening, Diagnostic (ICD-10-PCS; 2018-05-04)
PROC: 0B9C7ZX Drainage of Right Upper Lung Lobe, Via Natural or Artificial Opening, Diagnostic (ICD-10-PCS; 2018-05-04)
PROC: 0B9G7ZX Drainage of Left Upper Lung Lobe, Via Natural or Artificial Opening, Diagnostic (ICD-10-PCS; 2018-05-04)
PROC: 0B9D7ZX Drainage of Right Middle Lung Lobe, Via Natural or Artificial Opening, Diagnostic (ICD-10-PCS; 2018-05-04)
PROC: 0B110F4 Bypass Trachea to Cutaneous with Tracheostomy Device, Open Approach (ICD-10-PCS; principal; 2018-05-05)
PROC: 0JH63XZ Insertion of Tunneled Vascular Access Device into Chest Subcutaneous Tissue and Fascia, Percutaneous Approach (ICD-10-PCS; 2018-05-05)
PROC: 05HM33Z Insertion of Infusion Device into Right Internal Jugular Vein, Percutaneous Approach (ICD-10-PCS; 2018-05-05)
PROC: B543ZZA Ultrasonography of Right Jugular Veins, Guidance (ICD-10-PCS; 2018-05-05)
PROC: 05H533Z Insertion of Infusion Device into Right Subclavian Vein, Percutaneous Approach (ICD-10-PCS; 2018-05-05)
PROC: B546ZZA Ultrasonography of Right Subclavian Vein, Guidance (ICD-10-PCS; 2018-05-05)
PROC: 02HV33Z Insertion of Infusion Device into Superior Vena Cava, Percutaneous Approach (ICD-10-PCS; 2018-05-05)
PROC: B518YZA Fluoroscopy of Superior Vena Cava using Other Contrast, Guidance (ICD-10-PCS; 2018-05-05)
PROC: 30233N1 Transfusion of Nonautologous Red Blood Cells into Peripheral Vein, Percutaneous Approach (ICD-10-PCS; 2018-05-06)
PROC: 5A12012 Performance of Cardiac Output, Single, Manual (ICD-10-PCS; 2018-05-09)
PROC: 04HK33Z Insertion of Infusion Device into Right Femoral Artery, Percutaneous Approach (ICD-10-PCS; 2018-05-09)
PROC: 3E033XZ Introduction of Vasopressor into Peripheral Vein, Percutaneous Approach (ICD-10-PCS; 2018-05-09)
PROC: 30233N1 Transfusion of Nonautologous Red Blood Cells into Peripheral Vein, Percutaneous Approach (ICD-10-PCS; 2018-05-11)
PROC: 4A00X4Z Measurement of Central Nervous Electrical Activity, External Approach (ICD-10-PCS; 2018-05-12)
DX: A41.9 Sepsis, unspecified organism (principal); K85.91 Acute pancreatitis with uninfected necrosis, unspecified; J96.01 Acute respiratory failure with hypoxia; N17.0 Acute kidney failure with tubular necrosis; K83.1 Obstruction of bile duct; E87.2 Acidosis; G93.1 Anoxic brain damage, not elsewhere classified; E46 Unspecified protein-calorie malnutrition; Z68.43 Body mass index [BMI] 50.0-59.9, adult; I97.711 Intraoperative cardiac arrest during other surgery; I46.9 Cardiac arrest, cause unspecified; I10 Essential (primary) hypertension; J45.909 Unspecified asthma, uncomplicated; E87.5 Hyperkalemia; E11.65 Type 2 diabetes mellitus with hyperglycemia; D64.9 Anemia, unspecified; E66.01 Morbid (severe) obesity due to excess calories; Y82.8 Other medical devices associated with adverse incidents; Y92.234 Operating room of hospital as the place of occurrence of the external cause; R65.20 Severe sepsis without septic shock; E86.0 Dehydration; Z88.1 Allergy status to other antibiotic agents; I95.9 Hypotension, unspecified; J20.9 Acute bronchitis, unspecified; R21 Rash and other nonspecific skin eruption
CPT/HCPCS: 36415; 36416; 36430; 71045; 71275; 74018; 74177; 74178; 76705; 80048; 80053; 80061; 80076; 80202; 80306; 81003; 81015; 82010; 82140; 82150; 82728; 82805; 83036; 83540; 83550; 83690; 83735; 84100; 84478; 85007; 85025; 85027; 86704; 86706; 86803; 86850; 86900; 86901; 87040; 87070; 87086; 87205; 87340; 90935; 93005; 93010; 93970; 94002; 94003; 94640; 94660; 95816; 95819; 96361; 96374; 96375; 96376; A4216; A4217; C1752; C1769; C9113; G0257; G8978-GP-CM; G8978-GP-CN; G8979-GP-CI; G8979-GP-CK; J0131; J0153; J0171; J0360; J0670; J1642; J1644; J1650; J1815; J2001; J2020; J2060; J2185; J2248; J2250; J2270; J2405; J2543; J2704; J2765; J2920; J2997; J3010; J3370; J3475; J7042; J7050; J7070; J7611; J7620; J7626; P9016; P9045; P9047; Q9967; S0028